=== PATIENT | female | born 1940 | race Caucasian/White ===

== ENCOUNTER 2017-07-17 16:43 | Inpatient (IN) | payer MEDICARE ==
[2017-07-17 17:33] LABS: ABS Basophils 0.1 10^3/ul (0-0.2); ABS Eosinophils 0.2 10^3/ul (0-0.6); ABS Lymphocytes 1.9 10^3/ul (1.0-4.8); ABS Monocytes 0.4 10^3/ul (0-0.8); ABS Neutrophils 4.4 10^3/ul (1.5-7.7); ABS Nucleated RBC 0 10^3/ul; Eosinophil % 2.3 % (0-6); Hematocrit 36 % (35-47); Hemoglobin 12.7 g/dl (12.0-16.0); Lymphocyte % 27.3 % (25-47); Mean Corpuscular HGB Conc 35 g/dl (31-36); Mean Corpuscular Hemoglobin 31 pg (27-31); Mean Corpuscular Volume 89 fL (80-97); Mean Platelet Volume 7.5 um3 (7.4-10.4); Nucleated Red Blood Cells % 0; Platelet Count 204 10^3/ul (150-450); Red Cell Distribution Width 14 % (10.5-15); White Blood Count 6.9 10^3/ul (3.5-10.8)
[2017-07-17 17:55] LABS: Urine Appearance Cloudy; Urine Blood 3+ (Negative); Urine Color Yellow; Urine Ketones Negative (Negative); Urine Protein 3+(>=500 mg/dL) (Negative); Urine Specific Gravity 1.015 (1.010-1.030); Urine Urobilinogen Negative (Negative)
[2017-07-17 17:58] LABS: EGFR Non-African American 57.2 (>60)
--- NOTE | 2017-07-17 18:26 | RAD ---
Indication: Dizziness. CT of the brain was performed without IV contrast. Intratesticular structures are midline. No midline shift is noted. The extra-axial spaces are unremarkable. There is no evidence of intracranial mass or hemorrhage. No other high or low density is identified. Periventricular lucency consistent with chronic ischemic White matter change is noted. Mastoid air cells and paranasal sinuses are unremarkable. IMPRESSION: Chronic ischemic White matter change without evidence of intracranial mass or hemorrhage.
--- NOTE | 2017-07-17 18:30 | RAD ---
Indication: Dizziness. CT of the cervical spine was obtained in the axial plane. Sagittal and coronal reconstructed images were obtained. The skull base demonstrates no fracture. Mastoid air cells are unremarkable. The C1 ring is intact. No fracture is noted. Calcification of the transverse ligament is noted. At C2-C3 there is no fracture. Mild facet arthropathy is noted. No central or foraminal stenosis is noted. At C3-C4 spondylitic ridge is noted. No central or foraminal stenosis is noted. At C4-C5 spondylitic ridge flattens the thecal sac. No central or foraminal stenosis is noted. At C5-C6 spondylitic ridge with broad-based protrusion flattens the thecal sac. No central foraminal stenosis is noted. At C6-C7 spondylitic ridge flattens the thecal sac. No central or foraminal stenosis is noted. At C7-T1 and T1-T2 no fracture is noted. The lung apices are grossly unremarkable. The thyroid demonstrates calcifications within it and appears to be somewhat enlarged. No definite abnormal adenopathy is noted in the soft tissues. IMPRESSION: Multilevel degenerative disc disease is noted. No fracture of the cervical spine is noted.
[2017-07-17] MEDS ORDERED: Labetalol IV* 5 MG/ML 20 ML VIAL IV PUSH ONE (18:38)
--- NOTE | 2017-07-17 18:45 | RAD ---
Indication: Right arm injury. 2 views of the right humerus are reviewed and compared to previous exam dated 07/30/2014 and 06/19/2010. There is a angulated healing fracture of the distal humeral shaft which was fractured into thousand 11 and appears to be unchanged in position since July 30, 2014. There is deformity of the right humeral head with overriding of the fracture fragments. Overall configuration appears to be unchanged from July 30, 2014. IMPRESSION: Fracture of the right distal humerus. Deformity of the right humeral head. Overall no significant change is noted since July 30, 2014.
--- NOTE | 2017-07-17 18:46 | RAD ---
Indication: Right shoulder injury. 4 views of the right shoulder demonstrates deformity of the right humeral head with prior fracture of the neck of the humerus which appears to be similar to that seen in 2015. This deformity has been present as far back as February 05, 2013, CT of the chest. AC joint arthritis is noted. IMPRESSION: AC joint arthritis with deformity of the right humeral head and overriding of the fracture fragments.
--- NOTE | 2017-07-17 18:47 | RAD ---
Indication: Dizziness. 2 views of the chest are reviewed and compared to previous exam dated January 06, 2015. No mediastinal shift is noted. Cardiomegaly is noted. Lung price are clear. Left shoulder prosthesis is noted unchanged. Deformity of the right humeral head was not clearly seen on previous exam. However this was unchanged from January 06, 2013. IMPRESSION: POSTOPERATIVE CHANGES OF THE LEFT SHOULDER, DEFORMITY OF THE RIGHT HUMERAL HEAD WHICH IS CHRONIC. LUNGS ARE CLEAR.
[2017-07-17] MEDS ORDERED: Ciprofloxacin 400MG IVPREMIX(* 400 MG/200 ML BAG IVPB ONE (19:10)
[2017-07-17] MEDS ORDERED: Morphine VIAL* 4 MG/ML VIAL (1 ml vial) IV ONE (19:10)
[2017-07-17] MEDS ORDERED: Acetaminophen TAB* 325 MG PO PRN (19:41)
[2017-07-17] MEDS ORDERED: Dextrose 50% Syringe 50 ML* 25 GM/50 ML SYRINGE IV PUSH PRN (19:41)
[2017-07-17] MEDS ORDERED: Ondansetron 40 MG VIAL* 2 MG/ML 20 ML VIAL IV PRN (19:41)
[2017-07-17] MEDS ORDERED: hydrALAZINE IV* 20 MG/ML VIAL IV SLOW PU PRN (19:41)
--- NOTE | 2017-07-17 19:42 | ED ---
Nael Rodriguez Angela, scribed for Brennan Bryan MD on 07/17/17 at 1724 . Complex/Multi-Sys Presentation - HPI Summary HPI Summary: This pt is a 77 y/o female, with hx of Parkinson's disease, presenting to [facility] c/o weakness and increased tremors for the past few days. Pt states that on 07/10 pt fell landing on her right hand, striking her face. Pt has been c/o right hand, right arm pain, right shoulder pain since then. She saw her PCP and had a R hand XR on 07/14/17, which resulted negative for fracture. Per daughter, pt has been unable to ambulate and falling due to worsening Parkinson's. Denies abd pain, chest pain, SOB, fever. Pt's neurologist is Dr. Garza. She additionally reports hx of sciatica pain, currently denies any pain. PMHx includes dropped right wrist, left shoulder replacement Pt lives at home alone. - History Of Current Complaint Chief Complaint: EDDizziness Time Seen by Provider: 07/17/17 17:09 Hx Obtained From: Patient, Family/Horticulturalist - Daughter Onset/Duration: Lasting Days, Still Present Timing: Days Severity Currently: Moderate Location: Pain At: - right hand, right arm Aggravating Factor(s): moving, ambulating Alleviating Factor(s): nothing Associated Signs And Symptoms: Positive: Weakness, Back Pain - chronic, Other - POS: increasing tremors, right hand pain, right arm pain, right shoulder pain. Negative: SOB, Chest Pain, Nausea, Vomiting, Abdominal Pain, Fever - Allergies/Home Medications Allergies/Adverse Reactions: Allergies Allergy/AdvReac Type Severity Reaction Status Date / Time Penicillins Allergy Anaphylatic Verified 07/17/17 16:50 Shock Home Medications: Home Medications ALPRAZolam TAB* [Xanax TAB*] 0.25 mg PO TID PRN 07/17/17 [History Confirmed 05/31] Amantadine CAP* [Symmetrel CAP*] 100 mg PO BID 07/17/17 [History Confirmed 07/17] Aspirin EC TAB* [Ecotrin EC Low Dose 81 MG*] 81 mg PO DAILY 07/17/17 [History Confirmed 07/17/17] Carbidopa/Levodop 25/100 MG(*) [Sinemet 25/100 TAB(*)] 1 tab PO BEDTIME [History Confirmed 07/17/17] Carbidopa/Levodop 25/100 MG(*) [Sinemet 25/100 TAB(*)] 1 tab PO QAM 07/17/17 [ History Confirmed 07/17/17] Carbidopa/Levodop 25/100 MG(*) [Sinemet 25/100 TAB(*)] 2 tab PO DAILY 07/17/17 [ History Confirmed 07/17/17] Carbidopa/Levodop 25/100 MG(*) [Sinemet 25/100 TAB(*)] 2 tab PO QAM 07/17/17 [ History Confirmed 07/17/17] Carbidopa/Levodop 25/100 MG(*) [Sinemet 25/100 TAB(*)] 2 tab PO QPM 07/17/17 [ History Confirmed 07/17/17] Cyanocobalamin TAB* [Vitamin B12 TAB*] 500 mcg PO DAILY 07/17/17 [History Confirmed 07/17/17] Glimepiride (NF) 4 mg PO DAILY 07/17/17 [History Confirmed 07/17/17] Ibuprofen TAB* [Motrin TAB* 600 MG] 600 mg PO Q6H PRN 07/17/17 [History Confirmed 07/17/17] Insulin GLARGINE(*) [Lantus(*)] 40 units SUBCUT QPM 07/17/17 [History Confirmed 07/17/17] Lisinopril TAB* [Prinivil TAB*] 20 mg PO DAILY 07/17/17 [History Confirmed 07/17] Lisinopril/HCTZ 10/12.5(NF) [Zestoretic 10/12.5(NF)] 1 tab PO BID 07/17/17 [ History Confirmed 07/17/17] Metoprolol Tartrate TAB* [Lopressor TAB*] 25 mg PO BID 07/17/17 [History Confirmed 07/17/17] Omeprazole CAP* [Prilosec CAP* 20 MG] 20 mg PO DAILY 07/17/17 [History Confirmed 07/17/17] Selegiline TAB* [Eldepryl TAB*] 5 mg PO QAM 07/17/17 [History Confirmed 07/17/17 ] Simvastatin (NF) [Zocor (NF)] 40 mg PO BEDTIME 07/17/17 [History Confirmed 07/17] SitaGLIPtin (NF) [Januvia (NF)] 100 mg PO DAILY 07/17/17 [History Confirmed 05/31] metFORMIN* [Glucophage 500 MG TAB *] 500 mg PO BID 07/17/17 [History Confirmed 07/17/17] oxyCODONE TAB* [Roxycodone TAB 5 mg*] 5 mg PO Q6H PRN 07/17/17 [History Confirmed 07/17/17] PMH/Surg Hx/FS Hx/Imm Hx Endocrine/Hematology History: Reports: Hx Diabetes Denies: Hx Anticoagulant Therapy Cardiovascular History: Reports: Hx Hypertension - ON MEDS Denies: Hx Pacemaker/ICD History: Denies: Hx Renal Disease Musculoskeletal History: Reports: Hx Arthritis, Hx Back Problems - degenerative discs, sciatica, Other Musculoskeletal History - humerus fracture Sensory History: Denies: Hx Hearing Aid Neurological History: Reports: Other Neuro Impairments/Disorders - Parkinson's disease Psychiatric History: Reports: Hx Anxiety - claustrophobia Denies: Hx Panic Disorder - Surgical History Surgery Procedure, Year, and Place: right arm following humerus fx, appendectomy , hysterectomy, cataracts, left shoulder REPLACEMENT Infectious Disease History: No Infectious Disease History: Reports: Hx of Known/Suspected MRSA Denies: Traveled Outside the [place] in Last 30 Days - Family History Known Family History: Positive: Hypertension, Diabetes - Social History Alcohol Use: None Substance Use Type: Reports: None Smoking Status (MU): Never Smoked Tobacco Review of Systems Negative: Fever ENT: Negative Cardiovascular: Negative Respiratory: Negative Musculoskeletal: Other - right hand pain, right arm pain, right shoulder pain, chronic back pain Neurological: Other - worsening tremors Positive: Weakness All Other Systems Reviewed And Are Negative: Yes Physical Exam - Summary Physical Exam Summary: VITAL SIGNS: Reviewed. GENERAL: Patient is a well-developed and nourished female who is lying comfortable in the stretcher. Patient is not in any acute respiratory distress. HEAD AND FACE: No signs of trauma. No ecchymosis, hematomas or skull depressions. No sinus tenderness. EYES: PERRLA, EOMI x 2, No injected conjunctiva, no nystagmus. EARS: Hearing grossly intact. Ear canals and tympanic membranes are within normal limits. MOUTH: Oropharynx within normal limits. NECK: Supple, trachea is midline, no adenopathy, no JVD, no carotid bruit, no c- spine tenderness, neck with full ROM. CHEST: Symmetric, no tenderness at palpation LUNGS: Clear to auscultation bilaterally. No wheezing or crackles. CVS: Regular rate and rhythm, S1 and S2 present, no murmurs or gallops appreciated. ABDOMEN: Soft, non-tender. No signs of distention. No rebound no guarding, and no masses palpated. Bowel sounds are normal. EXTREMITIES: FROM in all major joints, no cyanosis or clubbing. Right hand tenderness. NEURO: Alert and oriented x 3. No acute neurological deficits. Speech is normal and follows commands. SKIN: Dry and warm GCS: 15 Triage Information Reviewed: Yes Vital Signs On Initial Exam: Initial Vitals Temp Pulse Resp BP Pulse Ox 97.8 F 81 17 173/112 96 07/17/17 16:47 07/17/17 16:47 07/17/17 16:47 07/17/17 16:47 07/17/17 16:47 Vital Signs Reviewed: Yes Diagnostics - Vital Signs Vital Signs Temp Pulse Resp BP Pulse Ox 07/17/17 16:47 97.8 F 81 17 173/112 96 - Laboratory Lab Results: Lab Results 07/17/17 07/17/17 07/17/17 Range/Units 17:19 17:19 17:19 WBC 6.9 (3.5-10.8) 10^3/ul RBC 4.10 (4.0-5.4) 10^6/ul Hgb 12.7 (12.0-16.0) g/dl Hct 36 (35-47) % MCV 89 (80-97) fL MCH 31 (27-31) pg MCHC 35 (31-36) g/dl RDW 14 (10.5-15) % Plt Count 204 (150-450) 10^3/ul MPV 7.5 (7.4-10.4) um3 Neut % (Auto) 63.5 (38-83) % Lymph % (Auto) 27.3 (25-47) % [place] % (Auto) 5.8 (0-7) % Eos % (Auto) 2.3 (0-6) % Baso % (Auto) 1.1 (0-2) % Absolute Neuts (auto) 4.4 (1.5-7.7) 10^3/ul Absolute Lymphs (auto) 1.9 (1.0-4.8) 10^3/ul Absolute Monos (auto) 0.4 (0-0.8) 10^3/ul Absolute Eos (auto) 0.2 (0-0.6) 10^3/ul Absolute Basos (auto) 0.1 (0-0.2) 10^3/ul Absolute Nucleated RBC 0 10^3/ul Nucleated RBC % 0 APTT (26.0-36.3) seconds Sodium 138 L (139-145) mmol/L Potassium 3.9 (3.5-5.0) mmol/L Chloride 101 (101-111) mmol/L Carbon Dioxide 27 (22-32) mmol/L Anion Gap 10 (2-11) mmol/L BUN 29 H (6-24) mg/dL Creatinine 0.95 (0.51-0.95) mg/dL Est GFR ( Amer) 73.6 (>60) Est GFR (Non-Af Amer) 57.2 (>60) BUN/Creatinine Ratio 30.5 H (8-20) Glucose 231 H (70-100) mg/dL Lactic Acid 1.5 (0.5-2.0) mmol/L Calcium 9.0 (8.6-10.3) mg/dL Magnesium 1.2 L (1.9-2.7) mg/dL Total Bilirubin 0.40 (0.2-1.0) mg/dL AST 9 L (13-39) U/L ALT 6 L (7-52) U/L Alkaline Phosphatase 59 (34-104) U/L Troponin I 0.00 (<0.04) ng/mL B-Natriuretic Peptide ( - 100) pg/mL Total Protein 6.8 (6.4-8.9) g/dL Albumin 3.8 (3.2-5.2) g/dL Globulin 3.0 (2-4) g/dL Albumin/Globulin Ratio 1.3 (1-3) TSH Cancelled Urine Color Urine Appearance Urine pH (5-9) Ur Specific [place] (1.010-1.030) Urine Protein (Negative) Urine Ketones (Negative) Urine Blood (Negative) Urine Nitrate (Negative) Urine Bilirubin (Negative) Urine Urobilinogen (Negative) Ur Leukocyte Esterase (Negative) Urine WBC (Auto) (Absent) Urine RBC (Auto) (Absent) Ur Squamous Epith Cells (Absent) Urine Bacteria (Absent) Urine Glucose (Negative) Urine Opiates Screen (None Detect) Ur Barbiturates Screen (None Detect) Ur Phencyclidine Scrn (None Detect) Ur Amphetamines Screen (None Detect) U Benzodiazepines Scrn (None Detect) Urine Cocaine Screen (None Detect) U Cannabinoids Screen (None Detect) Serum Alcohol (<10) mg/dL 07/17/17 07/17/17 07/17/17 Range/Units 17:19 17:19 17:19 WBC (3.5-10.8) 10^3/ul RBC (4.0-5.4) 10^6/ul Hgb (12.0-16.0) g/dl Hct (35-47) % MCV (80-97) fL MCH (27-31) pg MCHC (31-36) g/dl RDW (10.5-15) % Plt Count (150-450) 10^3/ul MPV (7.4-10.4) um3 Neut % (Auto) (38-83) % Lymph % (Auto) (25-47) % [place] % (Auto) (0-7) % Eos % (Auto) (0-6) % Baso % (Auto) (0-2) % Absolute Neuts (auto) (1.5-7.7) 10^3/ul Absolute Lymphs (auto) (1.0-4.8) 10^3/ul Absolute Monos (auto) (0-0.8) 10^3/ul Absolute Eos (auto) (0-0.6) 10^3/ul Absolute Basos (auto) (0-0.2) 10^3/ul Absolute Nucleated RBC 10^3/ul Nucleated RBC % APTT 26.7 (26.0-36.3) seconds Sodium (139-145) mmol/L Potassium (3.5-5.0) mmol/L Chloride (101-111) mmol/L Carbon Dioxide (22-32) mmol/L Anion Gap (2-11) mmol/L BUN (6-24) mg/dL Creatinine (0.51-0.95) mg/dL Est GFR ( Amer) (>60) Est GFR (Non-Af Amer) (>60) BUN/Creatinine Ratio (8-20) Glucose (70-100) mg/dL Lactic Acid (0.5-2.0) mmol/L Calcium (8.6-10.3) mg/dL Magnesium (1.9-2.7) mg/dL Total Bilirubin (0.2-1.0) mg/dL AST (13-39) U/L ALT (7-52) U/L Alkaline Phosphatase (34-104) U/L Troponin I (<0.04) ng/mL B-Natriuretic Peptide 56 ( - 100) pg/mL Total Protein (6.4-8.9) g/dL Albumin (3.2-5.2) g/dL Globulin (2-4) g/dL Albumin/Globulin Ratio (1-3) TSH Pending Urine Color Urine Appearance Urine pH (5-9) Ur Specific [place] (1.010-1.030) Urine Protein (Negative) Urine Ketones (Negative) Urine Blood (Negative) Urine Nitrate (Negative) Urine Bilirubin (Negative) Urine Urobilinogen (Negative) Ur Leukocyte Esterase (Negative) Urine WBC (Auto) (Absent) Urine RBC (Auto) (Absent) Ur Squamous Epith Cells (Absent) Urine Bacteria (Absent) Urine Glucose (Negative) Urine Opiates Screen (None Detect) Ur Barbiturates Screen (None Detect) Ur Phencyclidine Scrn (None Detect) Ur Amphetamines Screen (None Detect) U Benzodiazepines Scrn (None Detect) Urine Cocaine Screen (None Detect) U Cannabinoids Screen (None Detect) Serum Alcohol < 10 (<10) mg/dL 07/17/17 07/17/17 Range/Units 17:44 17:44 WBC (3.5-10.8) 10^3/ul RBC (4.0-5.4) 10^6/ul Hgb (12.0-16.0) g/dl Hct (35-47) % MCV (80-97) fL MCH (27-31) pg MCHC (31-36) g/dl RDW (10.5-15) % Plt Count (150-450) 10^3/ul MPV (7.4-10.4) um3 Neut % (Auto) (38-83) % Lymph % (Auto) (25-47) % [place] % (Auto) (0-7) % Eos % (Auto) (0-6) % Baso % (Auto) (0-2) % Absolute Neuts (auto) (1.5-7.7) 10^3/ul Absolute Lymphs (auto) (1.0-4.8) 10^3/ul Absolute Monos (auto) (0-0.8) 10^3/ul Absolute Eos (auto) (0-0.6) 10^3/ul Absolute Basos (auto) (0-0.2) 10^3/ul Absolute Nucleated RBC 10^3/ul Nucleated RBC % APTT (26.0-36.3) seconds Sodium (139-145) mmol/L Potassium (3.5-5.0) mmol/L Chloride (101-111) mmol/L Carbon Dioxide (22-32) mmol/L Anion Gap (2-11) mmol/L BUN (6-24) mg/dL Creatinine (0.51-0.95) mg/dL Est GFR ( Amer) (>60) Est GFR (Non-Af Amer) (>60) BUN/Creatinine Ratio (8-20) Glucose (70-100) mg/dL Lactic Acid (0.5-2.0) mmol/L Calcium (8.6-10.3) mg/dL Magnesium (1.9-2.7) mg/dL Total Bilirubin (0.2-1.0) mg/dL AST (13-39) U/L ALT (7-52) U/L Alkaline Phosphatase (34-104) U/L Troponin I (<0.04) ng/mL B-Natriuretic Peptide ( - 100) pg/mL Total Protein (6.4-8.9) g/dL Albumin (3.2-5.2) g/dL Globulin (2-4) g/dL Albumin/Globulin Ratio (1-3) TSH Urine Color Yellow Urine Appearance Cloudy Urine pH 5.0 (5-9) Ur Specific [place] 1.015 (1.010-1.030) Urine Protein 3+(>=500 mg/dl) A (Negative) Urine Ketones Negative (Negative) Urine Blood 3+ A (Negative) Urine Nitrate Negative (Negative) Urine Bilirubin Negative (Negative) Urine Urobilinogen Negative (Negative) Ur Leukocyte Esterase Negative (Negative) Urine WBC (Auto) 2+(11-20/hpf) A (Absent) Urine RBC (Auto) 3+(>10/hpf) A (Absent) Ur Squamous Epith Cells Present A (Absent) Urine Bacteria Absent (Absent) Urine Glucose 1+(50 mg/dl) A (Negative) Urine Opiates Screen None detected (None Detect) Ur Barbiturates Screen None detected (None Detect) Ur Phencyclidine Scrn None detected (None Detect) Ur Amphetamines Screen Presumptive positive A (None Detect) U Benzodiazepines Scrn None detected (None Detect) Urine Cocaine Screen None detected (None Detect) U Cannabinoids Screen None detected (None Detect) Serum Alcohol (<10) mg/dL Result Diagrams: 07/17/17 17:19 07/17/17 17:19 Lab Statement: Any lab studies that have been ordered have been reviewed, and results considered in the medical decision making process. - Radiology Chest XR Xray Interpretation: No Acute Changes - IMPRESSION: Postoperative changes of the left shoulder, deformity of the right humeral head which is chronic. Lungs are clear. Dr. Bryan has reviewed this radiology report. Radiology Interpretation Completed By: Radiologist Right humerus XR Xray Interpretation: No Acute Changes - IMPRESSION: Fracture of the right distal humerus. Deformity of the right humeral head. Overall no significant change is noted since July 30, 2014. Dr. Bryan has reviewed this radiology report. Radiology Interpretation Completed By: Radiologist Left shoulder XR Xray Interpretation: No Acute Changes - IMPRESSION: AC joint arthritis with deformity of the right humeral head and overriding of the fracture segments. Dr. Bryan has reviewed this radiology report. Radiology Interpretation Completed By: Radiologist - CT Brain CT CT Interpretation: No Acute Changes - IMPRESSION: Chronic ischemic white matter change without evidence of intracranial mass or hemorrhage. Dr. Bryan has reviewed this radiology report. CT Interpretation Completed By: Radiologist Cervical spine CT CT Interpretation: No Acute Changes - IMPRESSION: Multilevel degenerative disc disease is noted. No fracture of the cervical spine is noted. Dr. Bryan has reviewed this radiology report. CT Interpretation Completed By: Radiologist - EKG 17:13 Cardiac Rate: NL - at 80 bpm EKG Rhythm: Sinus Rhythm EKG Interpretation: Poor quality EKG. RBBB. EKG Comparison: No Significant Change - Unchanged from prior EKG on 01/07/15. Complex Multi-Symp Course/Dx Assessment/Plan: This patient is a 77-year-old female who presents to the emergency department with chief complaint of having increase weakness, multiple falls, pain in the left shoulder, right arm, head and neck. She reports that she fell on Monday, she denies any syncopal episodes. Denies any loss of consciousness. She lives home alone. Head CT impression: No acute intracranial pathology. C-spine CT impression: No acute fracture dislocation. Right shoulder x-ray no acute fracture dislocation only old findings. Chest x- ray impression: Postoperative changes of the left shoulder. Deformity of the right humeral head which is chronic. Lungs are clear. The patients daughter reports she lives alone and she has had multiple falls in the last couple weeks. Patient's last fall was on July 13 and since then the patient is having neck pain, right shoulder pain, increased pain trembles secondary to her Parkinsons disease. Because of her pain the patient was given morphine IV, for hypertension the patient was given labetalol, and reasonably the patient has a UTI since she has and the strong smell of concentrated a possibly infected urine I would place the patient with ciprofloxacin. The urine was sent for cultures and if negative then we will DC the ciprofloxacin. Since the patient is alert she is an unsafe discharge therefore I discussed the case with Dr. Vincent from the hospitalist services and he accepted the patient for admission. - Diagnoses Provider Diagnoses: UTI (urinary tract infection), Accident due to mechanical fall without injury, Uncontrolled hypertension - Physician Notifications Discussed Care Of Patient With: Fidencio Vincent Time Discussed With Above Provider: 18:56 Instructed by Provider To: Other - I discussed pt care with Dr. Vincent, hosptialist, who has accepted the pt for admission. [19:05] I discussed with Dr. Mcmullen, radiologist, who reports the distal humerus fracture is chronic. Discharge - Sign-Out/Discharge Documenting (check all that apply): Discharge/Admit/Transfer - Admit - Discharge Plan Condition: Stable Disposition: ADMITTED TO [facility] Referrals: Valentina Rincon, BELLPERSON [Primary Care Provider] - The documentation as recorded by the Nael mcfadden Angela accurately reflects the service I personally performed and the decisions made by , Brennan Bryan MD.
[2017-07-17] MEDS ORDERED: Magnesium Sulfate 2 GM IV* 2 GM/50 ML BAG IVPB ONE (20:08)
[2017-07-17] MEDS ORDERED: Lisinopril/HCTZ 10/12.5(NF) TAB PO SCH (21:00)
--- NOTE | 2017-07-17 21:07 | RAD ---
Indication: Right wrist pain. 3 views of the right wrist demonstrates no fracture. No other bone or joint abnormality is identified. IMPRESSION: No fracture of the right wrist is present.
--- NOTE | 2017-07-17 21:07 | RAD ---
Indication: Fall, hand pain. 2 views of the right hand demonstrates degenerative changes of the proximal interphalangeal joint and distal interphalangeal joint without fracture. IMPRESSION: DEGENERATIVE CHANGES OF THE PROXIMAL AND DISTAL INTERPHALANGEAL JOINTS WITHOUT FRACTURE.
[2017-07-17] MEDS: Insulin LISPRO* 1 UNITS UNIT SUBCUT SCH (21:34)
[2017-07-17] MEDS ORDERED: Heparin VIAL(*) 5000 UNITS/ML VIAL (FIVE THOUSAND) SUBCUT SCH (22:00)
[2017-07-17] MEDS: Metoprolol Tartrate TAB* 25 MG PO SCH (22:52)
[2017-07-17] MEDS: Amantadine CAP* 100 MG PO SCH (22:52)
[2017-07-17] MEDS: Heparin VIAL(*) 5000 UNITS/ML VIAL (FIVE THOUSAND) SUBCUT SCH (22:55)
[2017-07-17] MEDS: Carbidopa/Levodop CR 50/200(*) TAB.CR PO SCH (23:41)
[2017-07-17] MEDS: Atorvastatin* 20 MG TAB PO SCH (23:41)
[2017-07-17] MEDS: Lidocaine PATCH 5%* 1 PATCH TRANSDERM SCH (23:47)
[2017-07-18] MEDS: Lisinopril TAB* 10 MG PO SCH ×3 (00:44→21:07)
[2017-07-18] MEDS: Hydrochlorothiazide TAB* 25 MG PO SCH ×3 (00:44→21:03)
[2017-07-18] MEDS: Carbidopa/Levodop 25/100 MG TAB(*) PO SCH ×4 (00:45→21:09)
--- NOTE | 2017-07-18 05:43 | HP ---
ADDENDUM NOW INCLUDED ON THIS REPORT CC: Dr. Walden; KIRA Beard; Dr. Garza * HISTORY AND PHYSICAL: DATE OF ADMISSION: 07/17/17 PRIMARY CARE PROVIDERS: Dr. Walden and KIRA Beard. PRIMARY NEUROLOGIST: Dr. Garza. ATTENDING PHYSICIAN WHILE IN THE HOSPITAL: Dr. Cruz * (report being dictated by Marcelino Mcclure NP). CHIEF COMPLAINT: 1. Fall. 2. Right shoulder pain. 3. Weakness. HISTORY OF PRESENT ILLNESS: Ms. Deleon is a 77-year-old female patient. She carries a history of Parkinson's, GERD, hyperlipidemia, depression, TIA, diabetes, hypertension, chronic pain, arthritis. 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 She is coming into our ER today. She says that she sustained a fall on . She had actually landed mostly on her left side, but the pain that she has been having has actually been in her right shoulder where she had a previous fracture. She comes in today because, despite seeing her primary on Monday, she had x-rays of the right hand and the right wrist, which has significant amount of ecchymosis. She also was just having more weakness. She says the weakness has been going on since March, but the weakness was much worse in the last week. She has been having trouble with her gait. She said she has been shuffling more, she has been having just trouble getting up, she has been very afraid of falling. She called her neighbor 11 times last night due to the concerns of falling. She was concerned because that she just was unable to sleep because the pain was getting much worse in her back, which is chronic, but also in that right shoulder area. She had come into the ED today. She was evaluated; it was found she did have UTI and because of increasing weakness and falls, we were asked to evaluate for admission. She is denying having any chest pain. She denies having any fevers or chills. There has been no abdominal pain. She denies having any vomiting or diarrhea. The only change in her medication is recently they went up on her Januvia. Because of the weakness, we were asked to evaluate for admission. PAST MEDICAL HISTORY: Significant for: 1. Parkinson's. 2. GERD. 3. Hyperlipidemia. 4. Depression. 5. TIA. 6. Diabetes. 7. Hypertension. 8. Chronic pain. 9. Arthritis. 10. History of left shoulder septic joint. 11. 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 12. Subarachnoid hemorrhage. PAST SURGICAL HISTORY: 1. She has had multiple surgeries to the left shoulder. 2. She has had hysterectomy. 3. She has had eye surgery. MEDICATIONS: Home meds according to the patient include: 1. Carbidopa/levodopa, she is actually taking 25/100 controlled release at bedtime, she is taking two tablets at 8 in the morning 1400 and 2000. 2. Percocet one tablet every 4 hours as needed, but she says she has not taken that in several months. 3. Zocor 40 mg p.o. daily. 4. Selegiline 5 mg daily. 5. B12 500 mcg daily. 6. Omeprazole 20 mg daily. 7. Metformin 500 mg p.o. b.i.d. 8. Lopressor 25 mg p.o. b.i.d. 9. Lisinopril/hydrochlorothiazide 1 tablet p.o. b.i.d. 10. Januvia 100 mg daily. 11. Lantus 40 units subcu q.p.m. 12. Motrin 600 mg every 6 hours as needed. 13. Glimepiride 4 mg p.o. daily. 14. Aspirin 81 mg daily. 15. Amantadine 100 mg p.o. b.i.d. 16. Xanax 0.25 mg p.o. t.i.d. as needed, but she again has not taken that in over a month. ALLERGIES TO MEDICATIONS: Include PENICILLIN. FAMILY HISTORY: Her mother had a history of MA and heart disease. The patient' s father had a history of coronary artery disease. SOCIAL HISTORY: The patient does not smoke, rarely drinks alcohol. Surrogate decision maker is her daughter, Santi. REVIEW OF SYSTEMS: There is no documented fever. Denied having any significant weight change. There is no double vision. She denies having any ear discharge. There was no rhinorrhea. There is no sore throat. No thyroid enlargement. She denied any chest pain. There is no orthopnea. There is no nocturnal dyspnea. She denies having any abdominal pain. There was no nausea, no vomiting. No dysuria, no frequency. No seizure, no loss of consciousness. No pruritus and no skin ulcerations. Review of 14 systems completed, all others negative. PHYSICAL EXAMINATION GENERAL: Ms. Deleon is a 77-year-old female patient. She is sitting in the ED stretcher. She does not appear to be in any acute distress. VITAL SIGNS: Reveal blood pressure 180/73, the pulse is 80; respirations 16; O2 saturation is 95%, temperature 97.8. HEENT: Head atraumatic, normocephalic. Eyes: EOMs intact. Sclerae anicteric and not pale. Throat: Oral mucosa appears to be moist. No oropharyngeal erythema. NECK: Supple. LUNGS: Clear to auscultation bilaterally. No wheezes, rales, or rhonchi. HEART: Sounds S1, S2. Regular rate and rhythm. No murmurs, rubs, or gallops. ABDOMEN: Soft, flat, nontender. Bowel sounds present. EXTREMITIES: Pulses were 2+ throughout. She has tremors noted in the lower extremity. She is again rigid with dorsi and plantarflexion. She has no peripheral edema. She can move her extremities with 5/5 strength. She does have ecchymosis noted to that right wrist and hand. NEUROLOGIC: She is awake, she is alert, she is oriented x3. Speech is clear. Tongue midline. She had no gross focal deficits. She is able to move all 4 extremities. SKIN: Grossly intact. There was ecchymosis again noted to the right hand. DIAGNOSTIC STUDIES/LAB DATA: Today are revealing a WBC of 6.9, RBC of 4.10, hemoglobin 12.7, hematocrit 36, platelet count 204. PTT was 26.7. Sodium 138, potassium 2.9, chloride 101, bicarb 27, BUN 29, creatinine of 0.95, glucose 231 , lactate 1.5, calcium 9.0, her mag was 1.2. Total bili 0.4, AST 9, ALT 6, alk phos 59. Troponin 0. BNP 56. Albumin of 3.8. Urine showed 3+ protein, 3+ blood, 2+ leukocyte esterase, 2+ rbc's, 2+ wbc's. Toxicology was positive for amphetamine. She had multiple imaging here in the ED, starting out brain CT showed chronic ischemic white matter change without evidence of intracranial mass or hemorrhage. She had chest x-ray, 2 views: Postoperative change to the left shoulder, deformity of the right humeral head which is chronic. Lungs are clear. She had CT cervical spine that showed multilevel degenerative disk disease noted. No fracture of the cervical spine. She had humerus x-ray on the right, which showed fracture of the right distal humerus, deformity of the right humeral head. Overall, no significant change is noted since 03/01/14. She had a shoulder right, 2 views: AC joint arthritis with deformity of the right humeral head and overriding of the fracture fragments. She did have an EKG today. EKG to me is showing a sinus rhythm, rate of 80, calling A-flutter, but when you look in V6, V5, and V4, I do not see the flutter wave, I suspect this is from the tremor that she is tremoring quite significantly in the lower legs, not to rate of 80, it is very regular and she does have a right bundle branch block. Previous EKGs, it appears to be similar again with the exception of the tremor. I am going to try to repeat this EKG. Old medical records were reviewed. ASSESSMENT AND PLAN: Ms. Deleon is a 77-year-old female patient coming into the ED today with complaints of fall, weakness, and evaluation today. There is concern for urinary tract infection. She will be admitted under inpatient status for: 1. Weakness with falls. Again, she has a chronic fracture of that right humerus. She is very weak on exam. She has had a fall. In addition to that, she has a urinary tract infection. My plan will be to go ahead and treat her with IV antibiotics. She has grown out Escherichia coli previously, which was sensitive to Cipro, so I am going to go ahead and continue with Cipro, which was ordered here in the ED. I am going to recommend PT evaluation. I suspect this is going to be longer than a 24-hour stay as the patient is going to need significant services. My plan will be to treat the urinary tract infection, see if she improves, get PT evaluations and to continue to follow. 2. Parkinson's. We will continue her meds as prescribed. 3. Diabetes. She will be on lispro sliding scale. 4. Depression and anxiety. Continue with supportive care and meds as prescribed. 5. Transient ischemic attack. Continue aspirin and statin and secondary prevention. 6. Hyperlipidemia. Statin therapy. 7. Hypertension. Her blood pressure is not well controlled. When she came in , she was in the 190s; this could be multifactorial. She is having a significant amount of pain and she is very anxious. My plan would be to try to treat the underlying cause. If this remains an issue, I did order p.r.n. hydralazine. 8. Chronic pain. We will continue p.r.n. tramadol in addition to this Lidoderm patch. 9. History of arthritis. Continue supportive care. 10. History of right femur fracture. The x-ray appears to be unchanged. We will go ahead and continue with current medical regimen. 11. History of subarachnoid hemorrhage. No longer present. Not an active issue. 12. History of septic joint. Again, not an active issue at this point. 13. DVT prophylaxis. She is high risk for deep venous thrombosis. I do think that we should go ahead and put her on heparin subcu, even with her history that the subarachnoid was 2 years ago. 14. Fluids, electrolytes, and nutrition. She can have a consistent carb diet. 15. Code status. She is a DNR/DNI. She did fill out MOLST form, it just needs to be signed by the attending. TIME SPENT: On the admission was 60 minutes, greater than half of the time was spent [id number] with the patient obtaining history and physical, the other half of the time was spent going over the plan of care with the patient and implementing the plan of care. I did discuss plan of care with my attending, Dr. Cruz; he is in agreement. ADDENDUM: I did note that her magnesium was 1.2. I have replaced this and I have placed her on telemetry to monitor for any arrhythmias. We will repeat this in the morning and we will continue to follow. MARCELINO MCCLURE NP [id number]/CPS #: [id number] [id number]/CPS #: [id number] CARLEE
--- NOTE | 2017-07-18 06:16 | HP ---
HISTORY AND PHYSICAL: ADDENDUM: I did note that her magnesium was 1.2. I have replaced this and I have placed her on telemetry to monitor for any arrhythmias. We will repeat this in the morning and we will continue to follow. ELYSE TRUJILLO, CHEPE [id number]/CPS #: [id number] CARLEE
[2017-07-18 06:45] LABS: ABS Basophils 0 10^3/ul (0-0.2); ABS Eosinophils 0.1 10^3/ul (0-0.6); ABS Lymphocytes 1.4 10^3/ul (1.0-4.8); ABS Monocytes 0.5 10^3/ul (0-0.8); ABS Neutrophils 5.6 10^3/ul (1.5-7.7); ABS Nucleated RBC 0 10^3/ul; Eosinophil % 1.2 % (0-6); Hematocrit 35 % (35-47); Hemoglobin 12.2 g/dl (12.0-16.0); Lymphocyte % 18.8 % (25-47); Mean Corpuscular HGB Conc 35 g/dl (31-36); Mean Corpuscular Hemoglobin 31 pg (27-31); Mean Corpuscular Volume 89 fL (80-97); Mean Platelet Volume 7.5 um3 (7.4-10.4); Nucleated Red Blood Cells % 0.1; Platelet Count 187 10^3/ul (150-450); Red Blood Count 3.91 10^6/ul (4.0-5.4); Red Cell Distribution Width 15 % (10.5-15); White Blood Count 7.7 10^3/ul (3.5-10.8)
[2017-07-18 06:57] LABS: EGFR Non-African American 50.4 (>60)
[2017-07-18] MEDS ORDERED: Ciprofloxacin 400MG IVPREMIX(* 400 MG/200 ML BAG IVPB SCH (07:30)
[2017-07-18] MEDS: Insulin LISPRO* 1 UNITS UNIT SUBCUT SCH ×3 (07:54→17:32)
[2017-07-18] MEDS: Heparin VIAL(*) 5000 UNITS/ML VIAL (FIVE THOUSAND) SUBCUT SCH ×2 (07:54→21:10)
[2017-07-18] MEDS: Omeprazole CAP* 20 MG PO SCH (07:56)
[2017-07-18] MEDS: Amantadine CAP* 100 MG PO SCH ×2 (07:56→21:04)
[2017-07-18] MEDS: traMADol TAB* 50 MG PO PRN (07:56)
[2017-07-18] MEDS: Aspirin EC TAB* 81 MG TAB.EC PO SCH (07:56)
[2017-07-18] MEDS: Metoprolol Tartrate TAB* 25 MG PO SCH ×2 (07:56→21:06)
[2017-07-18] MEDS: Selegiline TAB* 5 MG PO SCH (07:56)
[2017-07-18] MEDS: Lidocaine Patch REMOVE* 1 NOTE MISC PATCH OFF SCH (08:52)
[2017-07-18] MEDS: oxyCODONE/Acetamin 5/325 MG* TAB PO PRN ×2 (10:08→17:39)
[2017-07-18] MEDS: Ibuprofen TAB* 600 MG PO PRN (11:16)
[2017-07-18] MEDS: predniSONE TAB* 20 MG PO SCH (12:19)
[2017-07-18] MEDS: Gabapentin CAP(*) 100 MG PO SCH ×2 (12:19→21:06)
--- NOTE | 2017-07-18 14:30 | PN ---
Subjective Date of Service: 07/18/17 Interval History: Pt report of sciatica like pain in right lower back down leg. Usually resolved with repositioning and ibuprofen at home. later developed some itching near the IV ciprofloxacin administration. PT recommending AV Objective Active Medications: Acetaminophen (Tylenol Tab*) 650 mg PO Q4H PRN PRN Reason: FEVER/PAIN Last Admin: 07/18/17 07:57 Dose: 650 mg Alprazolam (Xanax Tab*) 0.25 mg PO TID PRN PRN Reason: ANXIETY Amantadine HCl (Symmetrel Cap*) 100 mg PO BID [facility] Last Admin: 07/18/17 07:56 Dose: 100 mg Aspirin (Aspirin Ec Tab*) 81 mg PO DAILY [facility] Last Admin: 07/18/17 07:56 Dose: 81 mg Atorvastatin Calcium (Lipitor*) 20 mg PO BEDTIME [facility] Last Admin: 07/17/17 23:41 Dose: 20 mg Carbidopa/Levodopa (Sinemet 25/100 Tab(*)) 2 tab PO QPM@2000 [facility] Last Admin: 07/18/17 00:45 Dose: Not Given Carbidopa/Levodopa (Sinemet 25/100 Tab(*)) 2 tab PO QAM@0800 [facility] Last Admin: 07/18/17 10:01 Dose: 2 tab Carbidopa/Levodopa (Sinemet 25/100 Tab(*)) 2 tab PO DAILY@1400 [facility] Carbidopa/Levodopa (Sinemet Cr 50/200(*)) 0.5 tab.cr PO BEDTIME [facility] Last Admin: 07/17/17 23:41 Dose: 0.5 tab.cr Dextrose (D50w Syringe 50 Ml*) 12.5 gm IV PUSH .FOR FS < 60 - SS PRN PRN Reason: FS < 60 Gabapentin (Neurontin Cap(*)) 100 mg PO BID [facility] Last Admin: 07/18/17 12:19 Dose: 100 mg Heparin Sodium (Porcine) (Heparin Vial(*)) 5,000 units SUBCUT Q12HR [facility] Last Admin: 07/18/17 07:54 Dose: 5,000 units Hydralazine HCl (Apresoline Iv*) 5 mg IV SLOW PU Q6H PRN PRN Reason: BLOOD PRESSURE Hydrochlorothiazide (Hydrodiuril Tab*) 12.5 mg PO BID [facility] Last Admin: 07/18/17 07:56 Dose: 12.5 mg Ibuprofen (Motrin Tab*) 600 mg PO Q6H PRN PRN Reason: PAIN Last Admin: 07/18/17 11:16 Dose: 600 mg Insulin Glargine (Lantus(*)) 40 units SUBCUT QPM [facility] Insulin Human Lispro (Humalog*) 0 units SUBCUT AC [facility] PRN Reason: Protocol Last Admin: 07/18/17 12:20 Dose: 6 units Lidocaine (Lidoderm 5% Patch*) 1 patch TRANSDERM 2100 [facility] Last Admin: 07/17/17 23:47 Dose: 1 patch Lisinopril (Prinivil Tab*) 10 mg PO BID [facility] Last Admin: 07/18/17 07:56 Dose: 10 mg Melatonin (Melatonin) 3 mg PO BEDTIME PRN PRN Reason: INSOMNIA Metoprolol Tartrate (Lopressor Tab*) 25 mg PO BID [facility] Last Admin: 07/18/17 07:56 Dose: 25 mg Omeprazole (Prilosec Cap*) 20 mg PO DAILY [facility] Last Admin: 07/18/17 07:56 Dose: 20 mg Ondansetron HCl (Zofran 40 Mg Vial*) 4 mg IV Q6H PRN PRN Reason: NAUSEA Oxycodone/Acetaminophen (Percocet 5/325 Tab*) 1 tab PO Q4H PRN PRN Reason: PAIN Last Admin: 07/18/17 10:08 Dose: 1 tab Pharmacy Profile Note (Lidocaine Patch Remove*) 1 note PATCH OFF 0900 [facility] Last Admin: 07/18/17 08:52 Dose: Not Given Prednisone (Deltasone Tab*) 40 mg PO DAILY [facility] Last Admin: 07/18/17 12:19 Dose: 40 mg Selegiline HCl (Eldepryl Tab*) 5 mg PO QAM [facility] Last Admin: 07/18/17 07:56 Dose: 5 mg Tramadol HCl (Ultram*) 50 mg PO Q6H PRN PRN Reason: PAIN Last Admin: 07/18/17 07:56 Dose: 50 mg Vital Signs - 8 hr 07/18/17 07/18/17 07/18/17 07:56 08:00 08:05 Temperature 97.3 F Pulse Rate 73 Respiratory 16 16 18 Rate Blood Pressure 129/89 (mmHg) O2 Sat by Pulse 97 Oximetry 07/18/17 07/18/1707/18/18 10:08 11:25 12:19 Temperature 97.7 F Pulse Rate 68 Respiratory 16 18 16 Rate Blood Pressure 137/62 (mmHg) O2 Sat by Pulse 94 Oximetry 07/18/17 14:13 Temperature Pulse Rate Respiratory 18 Rate Blood Pressure (mmHg) O2 Sat by Pulse Oximetry Oxygen Devices in Use Now: None Appearance: NAD Eyes: No Scleral Icterus, PERRLA Ears/Nose/Mouth/Throat: NL Teeth, Lips, Gums, Mucous Membranes Moist Respiratory: Symmetrical Chest Expansion and Respiratory Effort, Clear to Auscultation Cardiovascular: NL Sounds; No Murmurs; No JVD, RRR Abdominal: NL Sounds; No Tenderness; No Distention, No Hepatosplenomegaly Extremities: No Edema, No Clubbing, Cyanosis Skin: No Rash or Ulcers, No Nodules or Sclerosis Neurological: Alert and Oriented x 3 Nutrition: Taking PO's Result Diagrams: 07/18/17 06:07 07/18/17 06:08 Additional Lab and Data: Laboratory Results - last 24 hr 07/17/17 07/17/17 07/17/17 17:19 17:19 17:19 WBC 6.9 RBC 4.10 Hgb 12.7 Hct 36 MCV 89 MCH 31 MCHC 35 RDW 14 Plt Count 204 MPV 7.5 Neut % (Auto) 63.5 Lymph % (Auto) 27.3 [place] % (Auto) 5.8 Eos % (Auto) 2.3 Baso % (Auto) 1.1 Absolute Neuts (auto) 4.4 Absolute Lymphs (auto) 1.9 Absolute Monos (auto) 0.4 Absolute Eos (auto) 0.2 Absolute Basos (auto) 0.1 Absolute Nucleated RBC 0 Nucleated RBC % 0 APTT Sodium 138 L Potassium 3.9 Chloride 101 Carbon Dioxide 27 Anion Gap 10 BUN 29 H Creatinine 0.95 Est GFR ( Amer) 73.6 Est GFR (Non-Af Amer) 57.2 BUN/Creatinine Ratio 30.5 H Glucose 231 H POC Glucose (mg/dL) Lactic Acid 1.5 Calcium 9.0 Magnesium 1.2 L Total Bilirubin 0.40 AST 9 L ALT 6 L Alkaline Phosphatase 59 Troponin I 0.00 B-Natriuretic Peptide Total Protein 6.8 Albumin 3.8 Globulin 3.0 Albumin/Globulin Ratio 1.3 TSH Cancelled Urine Color Urine Appearance Urine pH Ur Specific Amo Urine Protein Urine Ketones Urine Blood Urine Nitrate Urine Bilirubin Urine Urobilinogen Ur Leukocyte Esterase Urine WBC (Auto) Urine RBC (Auto) Ur Squamous Epith Cells Urine Bacteria Urine Glucose Urine Opiates Screen Ur Barbiturates Screen Ur Phencyclidine Scrn Ur Amphetamines Screen U Benzodiazepines Scrn Urine Cocaine Screen U Cannabinoids Screen Serum Alcohol 07/17/17 07/17/17 07/17/17 17:19 17:19 17:19 WBC RBC Hgb Hct MCV MCH MCHC RDW Plt Count MPV Neut % (Auto) Lymph % (Auto) Living[place] % (Auto) Eos % (Auto) Baso % (Auto) Absolute Neuts (auto) Absolute Lymphs (auto) Absolute Monos (auto) Absolute Eos (auto) Absolute Basos (auto) Absolute Nucleated RBC Nucleated RBC % APTT 26.7 Sodium Potassium Chloride Carbon Dioxide Anion Gap BUN Creatinine Est GFR ( Amer) Est GFR (Non-Af Amer) BUN/Creatinine Ratio Glucose POC Glucose (mg/dL) Lactic Acid Calcium Magnesium Total Bilirubin AST ALT Alkaline Phosphatase Troponin I B-Natriuretic Peptide 56 Total Protein Albumin Globulin Albumin/Globulin Ratio TSH 2.12 Urine Color Urine Appearance Urine pH Ur Specific Amo Urine Protein Urine Ketones Urine Blood Urine Nitrate Urine Bilirubin Urine Urobilinogen Ur Leukocyte Esterase Urine WBC (Auto) Urine RBC (Auto) Ur Squamous Epith Cells Urine Bacteria Urine Glucose Urine Opiates Screen Ur Barbiturates Screen Ur Phencyclidine Scrn Ur Amphetamines Screen U Benzodiazepines Scrn Urine Cocaine Screen U Cannabinoids Screen Serum Alcohol < 10 07/17/17 07/17/17 07/17/17 17:44 17:44 21:34 WBC RBC Hgb Hct MCV MCH MCHC RDW Plt Count MPV Neut % (Auto) Lymph % (Auto) Livingston % (Auto) Eos % (Auto) Baso % (Auto) Absolute Neuts (auto) Absolute Lymphs (auto) Absolute Monos (auto) Absolute Eos (auto) Absolute Basos (auto) Absolute Nucleated RBC Nucleated RBC % APTT Sodium Potassium Chloride Carbon Dioxide Anion Gap BUN Creatinine Est GFR ( Amer) Est GFR (Non-Af Amer) BUN/Creatinine Ratio Glucose POC Glucose (mg/dL) 372 H Lactic Acid Calcium Magnesium Total Bilirubin AST ALT Alkaline Phosphatase Troponin I B-Natriuretic Peptide Total Protein Albumin Globulin Albumin/Globulin Ratio TSH Urine Color Yellow Urine Appearance Cloudy Urine pH 5.0 Ur Specific Amo 1.015 Urine Protein 3+(>=500 mg/dl) A Urine Ketones Negative Urine Blood 3+ A Urine Nitrate Negative Urine Bilirubin Negative Urine Urobilinogen Negative Ur Leukocyte Esterase Negative Urine WBC (Auto) 2+(11-20/hpf) A Urine RBC (Auto) 3+(>10/hpf) A Ur Squamous Epith Cells Present A Urine Bacteria Absent Urine Glucose 1+(50 mg/dl) A Urine Opiates Screen None detected Ur Barbiturates Screen None detected Ur Phencyclidine Scrn None detected Ur Amphetamines Screen Presumptive positive A U Benzodiazepines Scrn None detected Urine Cocaine Screen None detected U Cannabinoids Screen None detected Serum Alcohol 07/18/17 07/18/17 07/18/17 00:41 06:07 06:08 WBC 7.7 RBC 3.91 L Hgb 12.2 Hct 35 MCV 89 MCH 31 MCHC 35 RDW 15 Plt Count 187 MPV 7.5 Neut % (Auto) 72.5 Lymph % (Auto) 18.8 L Livingston % (Auto) 6.9 Eos % (Auto) 1.2 Baso % (Auto) 0.6 Absolute Neuts (auto) 5.6 Absolute Lymphs (auto) 1.4 Absolute Monos (auto) 0.5 Absolute Eos (auto) 0.1 Absolute Basos (auto) 0 Absolute Nucleated RBC 0 Nucleated RBC % 0.1 APTT Sodium 140 Potassium 4.0 Chloride 104 Carbon Dioxide 29 Anion Gap 7 BUN 30 H Creatinine 1.06 H Est GFR ( Amer) 64.8 Est GFR (Non-Af Amer) 50.4 BUN/Creatinine Ratio 28.3 H Glucose 100 POC Glucose (mg/dL) 127 H Lactic Acid Calcium 9.0 Magnesium 1.9 Total Bilirubin AST ALT Alkaline Phosphatase Troponin I B-Natriuretic Peptide Total Protein Albumin Globulin Albumin/Globulin Ratio TSH Urine Color Urine Appearance Urine pH Ur Specific Amo Urine Protein Urine Ketones Urine Blood Urine Nitrate Urine Bilirubin Urine Urobilinogen Ur Leukocyte Esterase Urine WBC (Auto) Urine RBC (Auto) Ur Squamous Epith Cells Urine Bacteria Urine Glucose Urine Opiates Screen Ur Barbiturates Screen Ur Phencyclidine Scrn Ur Amphetamines Screen U Benzodiazepines Scrn Urine Cocaine Screen U Cannabinoids Screen Serum Alcohol 07/18/17 07/18/17 07:30 11:35 WBC RBC Hgb Hct MCV MCH MCHC RDW Plt Count MPV Neut % (Auto) Lymph % (Auto) Living[place] % (Auto) Eos % (Auto) Baso % (Auto) Absolute Neuts (auto) Absolute Lymphs (auto) Absolute Monos (auto) Absolute Eos (auto) Absolute Basos (auto) Absolute Nucleated RBC Nucleated RBC % APTT Sodium Potassium Chloride Carbon Dioxide Anion Gap BUN Creatinine Est GFR ( Amer) Est GFR (Non-Af Amer) BUN/Creatinine Ratio Glucose POC Glucose (mg/dL) 132 H 242 H Lactic Acid Calcium Magnesium Total Bilirubin AST ALT Alkaline Phosphatase Troponin I B-Natriuretic Peptide Total Protein Albumin Globulin Albumin/Globulin Ratio TSH Urine Color Urine Appearance Urine pH Ur Specific Amo Urine Protein Urine Ketones Urine Blood Urine Nitrate Urine Bilirubin Urine Urobilinogen Ur Leukocyte Esterase Urine WBC (Auto) Urine RBC (Auto) Ur Squamous Epith Cells Urine Bacteria Urine Glucose Urine Opiates Screen Ur Barbiturates Screen Ur Phencyclidine Scrn Ur Amphetamines Screen U Benzodiazepines Scrn Urine Cocaine Screen U Cannabinoids Screen Serum Alcohol Microbiology and Other Data: Microbiology 07/18/17 07:26 Nasal Nasal Screen MRSA (PCR)([facility]) - Final Mrsa Not Detected Assess/Plan/Problems-Billing Assessment: 77 yo female [facility] parkinson's disease, sciatica, old right humerous fracture, TIA , HTN who lives alone p/w with recent fall, generalized weakness, concern for UTI and need for rehab and/or enhanced level of care - Patient Problems (1) Fall Current Visit: Yes Status: Acute Comment: Pt with chronic right humerous fracture and has contractures of right thumb. uses walker PT is recommending AV continue sinemet, selegiline, amantadine pain control as below. (2) Sciatica Current Visit: Yes Status: Acute Code(s): M54.30 - SCIATICA, UNSPECIFIED SIDE SNOMED Code(s): 41863743 Comment: continue home ibuprofen, percosets prn continue lidocaine patch add gabapentin 100mg BID, prednisone 40mg PT (3) Parkinson disease Current Visit: No Status: Acute Code(s): G20 - PARKINSON'S DISEASE SNOMED Code(s): 92592969 Comment: Continue selegiline, amantadine, and carbidopa/levadopa. (4) DVT prophylaxis Current Visit: No Status: Acute Code(s): SNW5303 - SNOMED Code(s): 664246183 Comment: heparin 5000U TID. (5) Hypomagnesemia Current Visit: No Status: Acute Code(s): E83.42 - HYPOMAGNESEMIA SNOMED Code(s): 425883848 Comment: Repleted. Issue in 2015 also added daily supplementation. (6) UTI (urinary tract infection) Current Visit: No Status: Acute Comment: f/u Ucx change to ciprofloxacin to po. developed some itching at IV site. (7) Hypertension Current Visit: No Status: Chronic Code(s): I10 - ESSENTIAL (PRIMARY) HYPERTENSION SNOMED Code(s): 81728721 Comment: BP much better controlled. Continue metoprolol 25 bid and lisinopril 10 /hctz 12.5 BID. (8) Type 2 diabetes mellitus Current Visit: No Status: Chronic Comment: Lantus 40U qpm + SSI. Status and Disposition: medicine inpatient, likely will need AV.
[2017-07-18] MEDS: Insulin GLARGINE(*) 1 UNITS UNIT SUBCUT SCH (17:33)
[2017-07-18] MEDS ORDERED: Polyethylene Glycol 3350* 17 GM PACKET PO ONE (20:42)
[2017-07-18] MEDS: Carbidopa/Levodop CR 50/200(*) TAB.CR PO SCH (21:04)
[2017-07-18] MEDS: Docusate CAP* 100 MG PO SCH (21:05)
[2017-07-18] MEDS: Melatonin 3 MG TAB PO PRN (21:05)
[2017-07-18] MEDS: Ciprofloxacin TAB* 500 MG PO SCH (21:06)
[2017-07-18] MEDS: Atorvastatin* 20 MG TAB PO SCH (21:06)
[2017-07-18] MEDS: Senna TAB PO SCH (21:07)
[2017-07-18] MEDS: Lidocaine PATCH 5%* 1 PATCH TRANSDERM SCH (21:07)
[2017-07-19] MEDS: Ciprofloxacin TAB* 500 MG PO SCH (08:17)
[2017-07-19] MEDS: Lisinopril TAB* 10 MG PO SCH ×2 (08:17→22:13)
[2017-07-19] MEDS: predniSONE TAB* 20 MG PO SCH (08:17)
[2017-07-19] MEDS: Gabapentin CAP(*) 100 MG PO SCH ×2 (08:18→22:11)
[2017-07-19] MEDS: Magnesium Oxide TAB* 400 MG PO SCH (08:18)
[2017-07-19] MEDS: Omeprazole CAP* 20 MG PO SCH (08:18)
[2017-07-19] MEDS: Heparin VIAL(*) 5000 UNITS/ML VIAL (FIVE THOUSAND) SUBCUT SCH ×2 (08:19→22:16)
[2017-07-19] MEDS: Amantadine CAP* 100 MG PO SCH ×2 (08:19→22:12)
[2017-07-19] MEDS: Insulin LISPRO* 1 UNITS UNIT SUBCUT SCH ×3 (08:19→17:34)
[2017-07-19] MEDS: Selegiline TAB* 5 MG PO SCH (08:19)
[2017-07-19] MEDS: Metoprolol Tartrate TAB* 25 MG PO SCH ×2 (08:19→22:11)
[2017-07-19] MEDS: Hydrochlorothiazide TAB* 25 MG PO SCH ×2 (08:19→22:13)
[2017-07-19] MEDS: Aspirin EC TAB* 81 MG TAB.EC PO SCH (08:19)
[2017-07-19] MEDS: Ibuprofen TAB* 600 MG PO PRN ×2 (08:30→22:14)
[2017-07-19] MEDS: Carbidopa/Levodop 25/100 MG TAB(*) PO SCH ×3 (08:30→22:10)
[2017-07-19] MEDS: Lidocaine Patch REMOVE* 1 NOTE MISC PATCH OFF SCH (08:40)
[2017-07-19] MEDS ORDERED: Artificial Tears* 15 ML BTL BOTH EYES PRN (08:44)
--- NOTE | 2017-07-19 14:20 | RAD ---
HISTORY: Fall, pain with ambulation COMPARISONS: None VIEWS: 2, Frontal and lateral views of the right knee FINDINGS: BONE DENSITY: Normal. BONES: There is no displaced fracture. There are superior and inferior patellar enthesophytes. JOINTS: There is mild tricompartmental osteoarthritis. There is no suprapatellar joint effusion or lipohemarthrosis. ALIGNMENT: There is no dislocation. SOFT TISSUES: Unremarkable. OTHER FINDINGS: None. IMPRESSION: NO ACUTE OSSEOUS INJURY. IF SYMPTOMS PERSIST, RECOMMEND REPEAT IMAGING.
[2017-07-19] MEDS: Insulin GLARGINE(*) 1 UNITS UNIT SUBCUT SCH (17:35)
--- NOTE | 2017-07-19 17:53 | PN ---
Subjective Date of Service: 07/19/17 Interval History: Walked well with PT, almost too fast for own good. unsafe spead and neglecting her right side. sciatica pain is much better controlled. tearful, reassured. had planned outpatient referral to ortho for humerous fracture (chronic), feeling better today. Objective Active Medications: Acetaminophen (Tylenol Tab*) 650 mg PO Q4H PRN PRN Reason: FEVER/PAIN Last Admin: 07/18/17 07:57 Dose: 650 mg Alprazolam (Xanax Tab*) 0.25 mg PO TID PRN PRN Reason: ANXIETY Amantadine HCl (Symmetrel Cap*) 100 mg PO BID [facility] Last Admin: 07/19/17 08:19 Dose: 100 mg Aspirin (Aspirin Ec Tab*) 81 mg PO DAILY [facility] Last Admin: 07/19/17 08:19 Dose: 81 mg Atorvastatin Calcium (Lipitor*) 20 mg PO BEDTIME [facility] Last Admin: 07/18/17 21:06 Dose: 20 mg Carbidopa/Levodopa (Sinemet 25/100 Tab(*)) 2 tab PO QPM@2000 [facility] Last Admin: 07/18/17 21:09 Dose: Not Given Carbidopa/Levodopa (Sinemet 25/100 Tab(*)) 2 tab PO QAM@0800 [facility] Last Admin: 07/19/17 08:30 Dose: 2 tab Carbidopa/Levodopa (Sinemet 25/100 Tab(*)) 2 tab PO DAILY@1400 [facility] Last Admin: 07/19/17 15:26 Dose: 2 tab Carbidopa/Levodopa (Sinemet Cr 50/200(*)) 0.5 tab.cr PO BEDTIME [facility] Last Admin: 07/18/17 21:04 Dose: 0.5 tab.cr Ciprofloxacin (Cipro Tab*) 500 mg PO Q12HR [facility] Last Admin: 07/19/17 08:17 Dose: 500 mg Dextrose (D50w Syringe 50 Ml*) 12.5 gm IV PUSH .FOR FS < 60 - SS PRN PRN Reason: FS < 60 Docusate Sodium (Colace Cap*) 100 mg PO BEDTIME [facility] Last Admin: 07/18/17 21:05 Dose: 100 mg Gabapentin (Neurontin Cap(*)) 100 mg PO BID [facility] Last Admin: 07/19/17 08:18 Dose: 100 mg Heparin Sodium (Porcine) (Heparin Vial(*)) 5,000 units SUBCUT Q12HR [facility] Last Admin: 07/19/17 08:19 Dose: 5,000 units Hydralazine HCl (Apresoline Iv*) 5 mg IV SLOW PU Q6H PRN PRN Reason: BLOOD PRESSURE Hydrochlorothiazide (Hydrodiuril Tab*) 12.5 mg PO BID [facility] Last Admin: 07/19/17 08:19 Dose: 12.5 mg Ibuprofen (Motrin Tab*) 600 mg PO Q6H PRN PRN Reason: PAIN Last Admin: 07/19/17 08:30 Dose: 600 mg Insulin Glargine (Lantus(*)) 40 units SUBCUT QPM [facility] Last Admin: 07/19/17 17:35 Dose: 40 units Insulin Human Lispro (Humalog*) 0 units SUBCUT AC [facility] PRN Reason: Protocol Last Admin: 07/19/17 17:34 Dose: 12 units Lidocaine (Lidoderm 5% Patch*) 1 patch TRANSDERM 2100 [facility] Last Admin: 07/18/17 21:07 Dose: 1 patch Lisinopril (Prinivil Tab*) 10 mg PO BID [facility] Last Admin: 07/19/17 08:17 Dose: 10 mg Magnesium Oxide (Magox 400 Tab*) 400 mg PO DAILY [facility] Last Admin: 07/19/17 08:18 Dose: 400 mg Melatonin (Melatonin) 3 mg PO BEDTIME PRN PRN Reason: INSOMNIA Last Admin: 07/18/17 21:05 Dose: 3 mg Metoprolol Tartrate (Lopressor Tab*) 25 mg PO BID [facility] Last Admin: 07/19/17 08:19 Dose: 25 mg Omeprazole (Prilosec Cap*) 20 mg PO DAILY [facility] Last Admin: 07/19/17 08:18 Dose: 20 mg Ondansetron HCl (Zofran 40 Mg Vial*) 4 mg IV Q6H PRN PRN Reason: NAUSEA Oxycodone/Acetaminophen (Percocet 5/325 Tab*) 1 tab PO Q4H PRN PRN Reason: PAIN Last Admin: 07/18/17 17:39 Dose: 1 tab Pharmacy Profile Note (Lidocaine Patch Remove*) 1 note PATCH OFF 0900 [facility] Last Admin: 07/19/17 08:40 Dose: Not Given Polyvinyl Alcohol (Polyvinyl Alcohol 1.4% Opth*) 1 drop BOTH EYES Q2H PRN PRN Reason: DRY EYE Prednisone (Deltasone Tab*) 40 mg PO DAILY [facility] Last Admin: 07/19/17 08:17 Dose: 40 mg Selegiline HCl (Eldepryl Tab*) 5 mg PO QAM [facility] Last Admin: 07/19/17 08:19 Dose: 5 mg Senna (Senokot Tab*) 2 tab PO BEDTIME [facility] Last Admin: 07/18/17 21:07 Dose: 2 tab Tramadol HCl (Ultram*) 50 mg PO Q6H PRN PRN Reason: PAIN Last Admin: 07/18/17 07:56 Dose: 50 mg Vital Signs - 8 hr 07/19/17 07/19/17 07/19/17 11:12 12:26 15:16 Temperature 98.3 F 98.1 F Pulse Rate 71 91 Respiratory 16 18 22 Rate Blood Pressure 139/65 154/64 (mmHg) O2 Sat by Pulse 94 97 Oximetry Oxygen Devices in Use Now: None Appearance: NAD. anxious later Eyes: No Scleral Icterus, PERRLA Ears/Nose/Mouth/Throat: NL Teeth, Lips, Gums, Mucous Membranes Moist Neck: NL Appearance and Movements; NL JVP Respiratory: Symmetrical Chest Expansion and Respiratory Effort, Clear to Auscultation Cardiovascular: NL Sounds; No Murmurs; No JVD, RRR Abdominal: NL Sounds; No Tenderness; No Distention, No Hepatosplenomegaly Extremities: No Edema, - - contracture right thumb, skinned right knee Skin: - - as above Neurological: Alert and Oriented x 3, NL Sensation Nutrition: Taking PO's Result Diagrams: 07/18/17 06:07 07/18/17 06:08 Additional Lab and Data: Laboratory Results - last 24 hr 07/19/17 07/19/17 07/19/17 07:44 12:12 17:12 POC Glucose (mg/dL) 159 H 223 H 307 H Microbiology and Other Data: Microbiology 07/17/17 17:44 Urine Urine Culture - Final 07/18/17 07:26 Nasal Nasal Screen MRSA (PCR)([facility]) - Final Mrsa Not Detected Assess/Plan/Problems-Billing Assessment: 77 yo female PMH parkinson's disease, sciatica, old right humerous fracture, TIA , HTN who lives alone p/w with recent fall, generalized weakness, concern for UTI and need for rehab and/or enhanced level of care - Patient Problems (1) Fall Current Visit: Yes Status: Acute Comment: Pt with chronic right humerous fracture and has contractures of right thumb. uses walker PT is recommending AV continue sinemet, selegiline, amantadine pain control as below. (2) Sciatica Current Visit: Yes Status: Acute Code(s): M54.30 - SCIATICA, UNSPECIFIED SIDE SNOMED Code(s): 44806208 Comment: continue home ibuprofen, percosets prn continue lidocaine patch continue new gabapentin 100mg BID, prednisone 40mg PT better controlled. (3) Parkinson disease Current Visit: No Status: Acute Code(s): G20 - PARKINSON'S DISEASE SNOMED Code(s): 39576737 Comment: Continue selegiline, amantadine, and carbidopa/levadopa. (4) DVT prophylaxis Current Visit: No Status: Acute Code(s): XQW3596 - SNOMED Code(s): 113219157 Comment: heparin 5000U TID. (5) Hypomagnesemia Current Visit: No Status: Acute Code(s): E83.42 - HYPOMAGNESEMIA SNOMED Code(s): 583899115 Comment: Repleted. Issue in 2015 also continue daily supplementation. (6) UTI (urinary tract infection) Current Visit: No Status: Acute Comment: Ucx without significant growth. stopping cipro. (7) Hypertension Current Visit: No Status: Chronic Code(s): I10 - ESSENTIAL (PRIMARY) HYPERTENSION SNOMED Code(s): 33939884 Comment: BP controlled. Continue metoprolol 25 bid and lisinopril 10 /hctz 12.5 BID. (8) Type 2 diabetes mellitus Current Visit: No Status: Chronic Comment: Increase Lantus from 40U to 45U qpm + SSI. Will give extra 10U tonight for total 50. A1C 6.9 on 07/14/17 Status and Disposition: medicine inpatient, likely will need AV.
[2017-07-19] MEDS ORDERED: Insulin GLARGINE(*) 1 UNITS UNIT SUBCUT ONE (20:01)
[2017-07-19] MEDS: Carbidopa/Levodop CR 50/200(*) TAB.CR PO SCH (22:10)
[2017-07-19] MEDS: Atorvastatin* 20 MG TAB PO SCH (22:14)
[2017-07-19] MEDS: Docusate CAP* 100 MG PO SCH (22:14)
[2017-07-19] MEDS: Melatonin 3 MG TAB PO PRN (22:15)
[2017-07-19] MEDS: Senna TAB PO SCH (22:15)
[2017-07-19] MEDS: Lidocaine PATCH 5%* 1 PATCH TRANSDERM SCH (22:16)
[2017-07-20] MEDS: ALPRAZolam TAB* 0.25 MG PO PRN ×3 (00:29→23:11)
[2017-07-20] MEDS: traMADol TAB* 50 MG PO PRN ×2 (00:33→23:08)
[2017-07-20] MEDS: oxyCODONE/Acetamin 5/325 MG* TAB PO PRN (03:45)
[2017-07-20] MEDS: Ibuprofen TAB* 600 MG PO PRN ×2 (05:13→21:21)
[2017-07-20 05:48] LABS: ABS Basophils 0 10^3/ul (0-0.2); ABS Eosinophils 0.1 10^3/ul (0-0.6); ABS Lymphocytes 2.1 10^3/ul (1.0-4.8); ABS Monocytes 0.5 10^3/ul (0-0.8); ABS Neutrophils 5.4 10^3/ul (1.5-7.7); ABS Nucleated RBC 0 10^3/ul; Eosinophil % 0.9 % (0-6); Hematocrit 34 % (35-47); Hemoglobin 11.7 g/dl (12.0-16.0); Lymphocyte % 25.5 % (25-47); Mean Corpuscular HGB Conc 35 g/dl (31-36); Mean Corpuscular Hemoglobin 31 pg (27-31); Mean Corpuscular Volume 90 fL (80-97); Mean Platelet Volume 7.7 um3 (7.4-10.4); Nucleated Red Blood Cells % 0.1; Platelet Count 191 10^3/ul (150-450); Red Blood Count 3.79 10^6/ul (4.0-5.4); Red Cell Distribution Width 14 % (10.5-15); White Blood Count 8.1 10^3/ul (3.5-10.8)
[2017-07-20] MEDS: Insulin LISPRO* 1 UNITS UNIT SUBCUT SCH ×3 (08:50→17:36)
[2017-07-20] MEDS: Heparin VIAL(*) 5000 UNITS/ML VIAL (FIVE THOUSAND) SUBCUT SCH ×2 (08:51→21:27)
[2017-07-20] MEDS: Omeprazole CAP* 20 MG PO SCH (08:51)
[2017-07-20] MEDS: Hydrochlorothiazide TAB* 25 MG PO SCH ×2 (08:51→21:22)
[2017-07-20] MEDS: predniSONE TAB* 20 MG PO SCH (08:52)
[2017-07-20] MEDS: Gabapentin CAP(*) 100 MG PO SCH ×2 (08:52→21:21)
[2017-07-20] MEDS: Metoprolol Tartrate TAB* 25 MG PO SCH ×2 (08:52→21:22)
[2017-07-20] MEDS: Magnesium Oxide TAB* 400 MG PO SCH (08:52)
[2017-07-20] MEDS: Aspirin EC TAB* 81 MG TAB.EC PO SCH (08:52)
[2017-07-20] MEDS: Lisinopril TAB* 10 MG PO SCH ×2 (08:52→21:22)
[2017-07-20] MEDS: Carbidopa/Levodop 25/100 MG TAB(*) PO SCH ×3 (08:56→21:20)
[2017-07-20] MEDS: Lidocaine Patch REMOVE* 1 NOTE MISC PATCH OFF SCH (08:56)
[2017-07-20] MEDS: Amantadine CAP* 100 MG PO SCH ×2 (08:56→21:20)
[2017-07-20] MEDS: Selegiline TAB* 5 MG PO SCH (08:57)
[2017-07-20] MEDS: Magnesium Hydroxide LIQ* 30 ML UDC PO PRN ×2 (09:46→13:51)
--- NOTE | 2017-07-20 15:40 | PN ---
Subjective Date of Service: 07/20/17 Interval History: Pt had panic attack overnight, felt like blankets, telemetry and call button were pressing down on here. Got extra ativan, able to sleep around 0400. sciatica pain controlled. awaiting PT eval. Objective Active Medications: Acetaminophen (Tylenol Tab*) 650 mg PO Q4H PRN PRN Reason: FEVER/PAIN Last Admin: 07/18/17 07:57 Dose: 650 mg Alprazolam (Xanax Tab*) 0.25 mg PO TID PRN PRN Reason: ANXIETY Last Admin: 07/20/17 05:14 Dose: 0.25 mg Amantadine HCl (Symmetrel Cap*) 100 mg PO BID [facility] Last Admin: 07/20/17 08:56 Dose: Not Given Aspirin (Aspirin Ec Tab*) 81 mg PO DAILY [facility] Last Admin: 07/20/17 08:52 Dose: 81 mg Atorvastatin Calcium (Lipitor*) 20 mg PO BEDTIME [facility] Last Admin: 07/19/17 22:14 Dose: 20 mg Carbidopa/Levodopa (Sinemet 25/100 Tab(*)) 2 tab PO QPM@2000 [facility] Last Admin: 07/19/17 22:10 Dose: Not Given Carbidopa/Levodopa (Sinemet 25/100 Tab(*)) 2 tab PO QAM@0800 [facility] Last Admin: 07/20/17 08:56 Dose: 2 tab Carbidopa/Levodopa (Sinemet 25/100 Tab(*)) 2 tab PO DAILY@1400 [facility] Last Admin: 07/20/17 13:51 Dose: 2 tab Carbidopa/Levodopa (Sinemet Cr 50/200(*)) 0.5 tab.cr PO BEDTIME [facility] Last Admin: 07/19/17 22:10 Dose: 0.5 tab.cr Dextrose (D50w Syringe 50 Ml*) 12.5 gm IV PUSH .FOR FS < 60 - SS PRN PRN Reason: FS < 60 Docusate Sodium (Colace Cap*) 100 mg PO BEDTIME [facility] Last Admin: 07/19/17 22:14 Dose: 100 mg Gabapentin (Neurontin Cap(*)) 100 mg PO BID [facility] Last Admin: 07/20/17 08:52 Dose: 100 mg Heparin Sodium (Porcine) (Heparin Vial(*)) 5,000 units SUBCUT Q12HR [facility] Last Admin: 07/20/17 08:51 Dose: 5,000 units Hydralazine HCl (Apresoline Iv*) 5 mg IV SLOW PU Q6H PRN PRN Reason: BLOOD PRESSURE Hydrochlorothiazide (Hydrodiuril Tab*) 12.5 mg PO BID [facility] Last Admin: 07/20/17 08:51 Dose: 12.5 mg Ibuprofen (Motrin Tab*) 600 mg PO Q6H PRN PRN Reason: PAIN Last Admin: 07/20/17 05:13 Dose: 600 mg Insulin Glargine (Lantus(*)) 45 units SUBCUT QPM [facility] Insulin Human Lispro (Humalog*) 0 units SUBCUT AC [facility] PRN Reason: Protocol Last Admin: 07/20/17 12:07 Dose: 6 units Lidocaine (Lidoderm 5% Patch*) 1 patch TRANSDERM 2100 [facility] Last Admin: 07/19/17 22:16 Dose: 1 patch Lisinopril (Prinivil Tab*) 10 mg PO BID [facility] Last Admin: 07/20/17 08:52 Dose: 10 mg Magnesium Hydroxide (Milk Of Magnesia Liq*) 30 ml PO Q4H PRN PRN Reason: CONSTIPATION Last Admin: 07/20/17 13:51 Dose: 30 ml Magnesium Oxide (Magox 400 Tab*) 400 mg PO DAILY [facility] Last Admin: 07/20/17 08:52 Dose: 400 mg Melatonin (Melatonin) 3 mg PO BEDTIME PRN PRN Reason: INSOMNIA Last Admin: 07/19/17 22:15 Dose: 3 mg Metoprolol Tartrate (Lopressor Tab*) 25 mg PO BID [facility] Last Admin: 07/20/17 08:52 Dose: 25 mg Omeprazole (Prilosec Cap*) 20 mg PO DAILY [facility] Last Admin: 07/20/17 08:51 Dose: 20 mg Ondansetron HCl (Zofran 40 Mg Vial*) 4 mg IV Q6H PRN PRN Reason: NAUSEA Oxycodone/Acetaminophen (Percocet 5/325 Tab*) 1 tab PO Q4H PRN PRN Reason: PAIN Last Admin: 07/20/17 03:45 Dose: 1 tab Pharmacy Profile Note (Lidocaine Patch Remove*) 1 note PATCH OFF 0900 [facility] Last Admin: 07/20/17 08:56 Dose: Not Given Polyvinyl Alcohol (Polyvinyl Alcohol 1.4% Opth*) 1 drop BOTH EYES Q2H PRN PRN Reason: DRY EYE Prednisone (Deltasone Tab*) 20 mg PO DAILY [facility] Selegiline HCl (Eldepryl Tab*) 5 mg PO QAM [facility] Last Admin: 07/20/17 08:57 Dose: 5 mg Senna (Senokot Tab*) 2 tab PO BEDTIME [facility] Last Admin: 07/19/17 22:15 Dose: 2 tab Tramadol HCl (Ultram*) 50 mg PO Q6H PRN PRN Reason: PAIN Last Admin: 07/20/17 00:33 Dose: 50 mg Vital Signs - 8 hr 07/20/17 07/20/17 07/20/17 07:50 07:51 08:52 Temperature 98.1 F Pulse Rate 67 Respiratory 20 18 18 Rate Blood Pressure 131/54 (mmHg) O2 Sat by Pulse 95 Oximetry 07/20/17 07/20/17 07/20/17 08:55 09:02 10:36 Temperature 98.1 F Pulse Rate 76 Respiratory 18 18 18 Rate Blood Pressure 128/72 (mmHg) O2 Sat by Pulse 97 Oximetry 07/20/17 12:19 Temperature 98.2 F Pulse Rate 72 Respiratory 20 Rate Blood Pressure 132/55 (mmHg) O2 Sat by Pulse 95 Oximetry Oxygen Devices in Use Now: None Appearance: NAD, applying her lipstick. Eyes: No Scleral Icterus, PERRLA Ears/Nose/Mouth/Throat: NL Teeth, Lips, Gums, Mucous Membranes Moist Neck: NL Appearance and Movements; NL JVP, Trachea Midline Respiratory: Symmetrical Chest Expansion and Respiratory Effort, Clear to Auscultation Cardiovascular: NL Sounds; No Murmurs; No JVD, RRR Abdominal: NL Sounds; No Tenderness; No Distention, No Hepatosplenomegaly Extremities: No Edema, - - contractures right thumb. Skin: - - skin abrasions to right knee. Neurological: Alert and Oriented x 3, NL Sensation, NL Muscle Strength and Tone Nutrition: Taking PO's Result Diagrams: 07/20/17 05:27 07/18/17 06:08 Additional Lab and Data: Laboratory Results - last 24 hr 07/19/17 07/20/17 07/20/17 17:12 05:27 08:37 WBC 8.1 RBC 3.79 L Hgb 11.7 L Hct 34 L MCV 90 MCH 31 MCHC 35 RDW 14 Plt Count 191 MPV 7.7 Neut % (Auto) 67.3 Lymph % (Auto) 25.5 Henderson % (Auto) 5.8 Eos % (Auto) 0.9 Baso % (Auto) 0.5 Absolute Neuts (auto) 5.4 Absolute Lymphs (auto) 2.1 Absolute Monos (auto) 0.5 Absolute Eos (auto) 0.1 Absolute Basos (auto) 0 Absolute Nucleated RBC 0 Nucleated RBC % 0.1 POC Glucose (mg/dL) 307 H 174 H 07/20/17 11:26 WBC RBC Hgb Hct MCV MCH MCHC RDW Plt Count MPV Neut % (Auto) Lymph % (Auto) Henderson % (Auto) Eos % (Auto) Baso % (Auto) Absolute Neuts (auto) Absolute Lymphs (auto) Absolute Monos (auto) Absolute Eos (auto) Absolute Basos (auto) Absolute Nucleated RBC Nucleated RBC % POC Glucose (mg/dL) 213 H Microbiology and Other Data: Microbiology 07/17/17 17:44 Urine Urine Culture - Final 07/18/17 07:26 Nasal Nasal Screen MRSA (PCR)([facility]) - Final Mrsa Not Detected Assess/Plan/Problems-Billing Assessment: 77 yo female H parkinson's disease, sciatica, old right humerus fracture, TIA , HTN, anxiety, IDDM who lives alone p/w with recent fall, generalized weakness and need for rehab and/or enhanced level of care - Patient Problems (1) Fall Current Visit: Yes Status: Acute Comment: Pt with chronic right humerous fracture and has contractures of right thumb. uses walker PT is recommending AV continue sinemet, selegiline, amantadine pain control as below. (2) Sciatica Current Visit: Yes Status: Acute Code(s): M54.30 - SCIATICA, UNSPECIFIED SIDE SNOMED Code(s): 79934036 Comment: continue home ibuprofen, percosets prn continue lidocaine patch continue new gabapentin 100mg BID will reduce prednisone from 40mg to 20mg with planned continued taper PT better controlled. (3) Parkinson disease Current Visit: No Status: Acute Code(s): G20 - PARKINSON'S DISEASE SNOMED Code(s): 31393546 Comment: Continue selegiline, amantadine, and carbidopa/levadopa. (4) DVT prophylaxis Current Visit: No Status: Acute Code(s): GZR8729 - SNOMED Code(s): 760243356 Comment: heparin 5000U TID. (5) Hypomagnesemia Current Visit: No Status: Acute Code(s): E83.42 - HYPOMAGNESEMIA SNOMED Code(s): 587785609 Comment: Repleted. Issue in 2015 also continue daily supplementation. (6) UTI (urinary tract infection) Current Visit: No Status: Acute Comment: Ucx without significant growth. s/ p 2 days cipro. (7) Hypertension Current Visit: No Status: Chronic Code(s): I10 - ESSENTIAL (PRIMARY) HYPERTENSION SNOMED Code(s): 07146755 Comment: BP controlled. Continue metoprolol 25 bid and lisinopril 10 /hctz 12.5 BID. (8) Type 2 diabetes mellitus Current Visit: No Status: Chronic Comment: better controlled, continue 45U qpm + SSI. Likely increased in setting of prednisone. A1C 6.9 on 07/14/17 Status and Disposition: medicine inpatient, likely will need AV. Denied PMRU, tenative bed offer from [facility].
[2017-07-20] MEDS ORDERED: Insulin GLARGINE(*) 1 UNITS UNIT SUBCUT SCH (18:00)
[2017-07-20] MEDS: Senna TAB PO SCH (21:20)
[2017-07-20] MEDS: Docusate CAP* 100 MG PO SCH (21:21)
[2017-07-20] MEDS: Atorvastatin* 20 MG TAB PO SCH (21:21)
[2017-07-20] MEDS: Carbidopa/Levodop CR 50/200(*) TAB.CR PO SCH (21:22)
[2017-07-20] MEDS: Lidocaine PATCH 5%* 1 PATCH TRANSDERM SCH (21:29)
[2017-07-21 07:58] VITALS: BP 147/67
[2017-07-21] MEDS: Insulin LISPRO* 1 UNITS UNIT SUBCUT SCH (08:20)
[2017-07-21] MEDS: Heparin VIAL(*) 5000 UNITS/ML VIAL (FIVE THOUSAND) SUBCUT SCH (08:21)
[2017-07-21] MEDS: Hydrochlorothiazide TAB* 25 MG PO SCH (08:21)
[2017-07-21] MEDS: Metoprolol Tartrate TAB* 25 MG PO SCH (08:22)
[2017-07-21] MEDS: Gabapentin CAP(*) 100 MG PO SCH (08:22)
[2017-07-21] MEDS: Aspirin EC TAB* 81 MG TAB.EC PO SCH (08:22)
[2017-07-21] MEDS: Omeprazole CAP* 20 MG PO SCH (08:22)
[2017-07-21] MEDS: Carbidopa/Levodop 25/100 MG TAB(*) PO SCH (08:22)
[2017-07-21] MEDS: Selegiline TAB* 5 MG PO SCH (08:22)
[2017-07-21] MEDS: Lisinopril TAB* 10 MG PO SCH (08:22)
[2017-07-21] MEDS: Magnesium Oxide TAB* 400 MG PO SCH (08:22)
[2017-07-21] MEDS: Lidocaine Patch REMOVE* 1 NOTE MISC PATCH OFF SCH (08:24)
[2017-07-21] MEDS: Amantadine CAP* 100 MG PO SCH (08:24)
[2017-07-21] MEDS ORDERED: predniSONE TAB* 20 MG PO SCH (09:00)
--- NOTE | 2017-07-21 10:15 | DS ---
DISCHARGE SUMMARY: DATE OF ADMISSION: 07/17/17 DATE OF DISCHARGE: 07/21/17 ADMITTING PROVIDER: Marcelino Mcclure NP ATTENDING PHYSICIAN: Fidencio Vincent MD. PRIMARY CARE PROVIDERS: Sangita Walden MD and KIRA Beard. OUTPATIENT NEUROLOGIST: Monica Garza MD CHIEF COMPLAINT: Recent fall with resulted generalized weakness, right shoulder pain. PRINCIPAL DIAGNOSES: Falls in the setting of Parkinson's disease, chronic right humerus fracture, and rehabilitation. 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 She had sustained a fall about a week prior to admission. She saw her primary doctor 3 days prior to admission, where she had x-rays of her right hand and right wrist, and had noted a significant amount of ecchymosis. Her primary complaint was generalized weakness, much worse in the last week since the fall and trouble with her gait. She was not safe for home. She called her neighbor 11 times at night due to concerns of falling. She presented to [facility]. There was initial concern for potential UTI, though urine culture would eventually grow no significant organisms (she has taken empirically 2 doses of Cipro in the meanwhile). She work daily with physical therapy and is thought to need continued rehabilitation. She is being discharged to [facility] swing bed status to get that. During her hospitalization, she had multiple imaging studies includin. A CT of the brain without IV contrast which showed chronic ischemic white matter change without evidence of intracranial mass or hemorrhage. 2. Chest x-ray demonstrated postoperative changes of left shoulder, deformity of the right humeral head which is chronic. Lungs are clear. 3. Cervical spine CT without contrast demonstrated multilevel degenerative disk disease. No fractures of the cervical spine. 4. Humerus x-ray demonstrated fractures of the right distal humerus, deformity of the right humeral head. Overall, no significant change noted since 2014. 5. Shoulder x-ray with AC joint arthritis with deformity of the right humeral head and overriding of the fracture fragments. 6. Hand x-ray demonstrated degenerative changes of the proximal and distal interphalangeal joints without fracture. This is on the right. 7. Wrist x-ray demonstrated no fracture of the right wrist. 8. Right knee x-ray demonstrated no acute osseous injury. Her other evaluation was otherwise benign. She was given a lidocaine patch initially to help control her chronic right sciatica pain which had flared since the fall. When this was not completely addressing her need, she was also given gabapentin 100 mg p.o. b.i.d. and prednisone 40 mg daily. Thought the latter two will not be discontinued after discharge, but could potentially be readdressed if her pain returns. With the addition of the prednisone, her sugars spiked up, but have improved since cessation of the prednisone. DISCHARGE MEDICATIONS: Include: 1. Acetaminophen 650 mg p.o. q.4 hours p.r.n. (new). 2. Xanax 0.25 mg p.o. t.i.d. p.r.n. 3. Amantadine 100 mg p.o. b.i.d. 4. Aspirin 81 mg p.o. daily. 5. Carbidopa/levodopa 25/100 mg 2 tabs at 1400, 2 tabs at 2000, and 2 tabs at 0800, and a half tablet at bedtime. 6. Ibuprofen 600 mg p.o. q.6 hours p.r.n. 7. Glargine insulin 40 units subcu q.p.m. 8. Metoprolol tartrate 25 mg p.o. b.i.d. 9. Omeprazole 20 mg p.o. daily. 10. Percocet 1 tab p.o. q.4 hours p.r.n. 11. Selegiline 5 mg p.o. q.a.m. 12. Simvastatin 40 mg p.o. q.h.s. 13. Cyanocobalamin 500 mcg p.o. daily. 14. Glimepiride 4 mg p.o. daily. 15. Lidocaine patch 5% q.12 hours (new). 16. Lisinopril/hydrochlorothiazide 10/12.5 mg 1 tab p.o. b.i.d. 17. Milk of magnesia 30 mL p.o. q.4 hours p.r.n. (new). 18. Magnesium oxide 400 mg p.o. daily (new). 19. Metformin 500 mg p.o. b.i.d. 20. Senna 2 tabs p.o. q.h.s. (new). 21. Sitagliptin 100 mg p.o. daily. DISCHARGE DIET: Heart-healthy, carbohydrate consistent, unchanged. ACTIVITY LEVEL: No restrictions, but needing continued physical therapy. FOLLOWUP: Please follow up with Dr. Walden, JONATHAN Beard. Consideration to follow up with Orthopedics given her chronic right humerus fracture as discussed previously among her primary care providers. TIME SPENT ON DISCHARGE: Thirty-five minutes. [id number]/[facility] #: [id number] MTDD
== END 2017-07-21 11:55 | disposition swing bed (61) | DRG 57 ==
LOC: ED 16:43 → MED 19:39
PROVIDERS: ADMIT Student in an Organized Health Care Education/Training Program; ATTEND Internal Medicine
DX: G20 Parkinson's disease (principal); S42.301A Unspecified fracture of shaft of humerus, right arm, initial encounter for closed fracture; M21.331 Wrist drop, right wrist; E11.9 Type 2 diabetes mellitus without complications; I10 Essential (primary) hypertension; F40.240 Claustrophobia; Z66 Do not resuscitate; Z96.612 Presence of left artificial shoulder joint; F41.9 Anxiety disorder, unspecified; M20.091 Other deformity of right finger(s); E83.42 Hypomagnesemia; M54.31 Sciatica, right side; W19.XXXA Unspecified fall, initial encounter; K21.9 Gastro-esophageal reflux disease without esophagitis; E78.5 Hyperlipidemia, unspecified; F32.9 Major depressive disorder, single episode, unspecified; G89.29 Other chronic pain; G56.31 Lesion of radial nerve, right upper limb; R58 Hemorrhage, not elsewhere classified; M50.30 Other cervical disc degeneration, unspecified cervical region; M19.011 Primary osteoarthritis, right shoulder; F41.0 Panic disorder [episodic paroxysmal anxiety]; L29.9 Pruritus, unspecified; Z79.82 Long term (current) use of aspirin; Y92.9 Unspecified place or not applicable; Z79.84 Long term (current) use of oral hypoglycemic drugs; Z86.73 Personal history of transient ischemic attack (TIA), and cerebral infarction without residual deficits; Z90.710 Acquired absence of both cervix and uterus; Z90.89 Acquired absence of other organs; Z98.42 Cataract extraction status, left eye; Z98.41 Cataract extraction status, right eye; Z86.14 Personal history of Methicillin resistant Staphylococcus aureus infection; Z82.49 Family history of ischemic heart disease and other diseases of the circulatory system; Z88.0 Allergy status to penicillin; Z83.3 Family history of diabetes mellitus; Z91.81 History of falling; Z72.89 Other problems related to lifestyle
CPT/HCPCS: 36415; 70450; 71046; 72125; 80048; 80053; 80061; 80307; 80320; 81003; 81015; 83036; 83605; 83735; 83880; 84443; 84484; 85025; 85730; 87086; 87641; 93005; 99285; A9270-GY; G0480; G8978-GP-CL; G8979-GP-CI; G8987-GO-CM; G8988-GO-CK; J0744; J1644; J2270; J3475; J7512

== ENCOUNTER 2017-08-25 00:31 | Emergency (ER) | payer MEDICARE ==
[2017-08-25] MEDS ORDERED: NS 0.9% 1000 ML* 1,000 ML IV ONE (00:35)
[2017-08-25 01:02] LABS: Urine Appearance Clear; Urine Blood Negative (Negative); Urine Color Yellow; Urine Ketones Trace (Negative); Urine Protein 3+(>=500 mg/dL) (Negative); Urine Red Blood Cell Trace(0-2/hpf) (Absent); Urine Specific Gravity 1.026 (1.010-1.030); Urine Urobilinogen Negative (Negative); Urine White Blood Cell Trace(0-5/hpf) (Absent)
--- OUTSIDE RECORDS SUMMARY | 2017-08-25 01:04 | XMS REPORT ---
:1940 External Reference #:[id number] Author Organization [employer] Address [address] [place] [address] [place] [address] Phone [phone] Care Team Providers Name Role Phone Vicente Betancur MD Primary Care Physician Unavailable Payers Type Date Identification Numbers Payment Provider Subscriber Medicare Primary Policy Number: [id number] Medicare Shira Deleon PayID: [id number] [address] [place] [address] [facility] Policy Number: [id number] [facility] Shira Deleon PayID: [id number] [address] [place] [address] Problems Date Description Provider Status Onset: 03/12/2015 Parkinson's disease Monica Garza M.D. Active Note: MoCA: (12/30) Onset: 03/12/2015 Low back pain Monica Garza M.D. Active Note: with bilateral radicular symptoms that improves with using walker suggesting lumbosacral spinal stenosis Onset: 03/12/2015 H/O: TIA Monica Garza M.D. Active Onset: 03/12/2015 Diabetic peripheral neuropathy Monica Garza M.D. Active Onset: 12/21/2016 Ischemic stroke Monica Garza M.D. Active Note: bilateral pontine Onset: 12/21/2016 Diabetes mellitus Monica Garza M.D. Active Onset: 12/21/2016 H/O: hypertension Monica Garza M.D. Active Onset: 12/21/2016 Dyslipidemia Monica Garza M.D. Active Onset: 12/21/2016 Reactive depression (situational) Monica Garza M.D. Active Note: in setting of 's Onset: 08/01/2017 Late effect of fracture of upper Eliecer Montero M.D. Active extremities Onset: 08/01/2017 Late effect of fracture of upper Eliecer Montero M.D. Active extremities Family History Date Family Member(s) Problem(s) Comments Father due to Cancer () - age 84 Mother due to Cancer () - age 81 First Daughter 54 First Daughter Anemia First Daughter Arthritis Second Daughter leukopenia Second Daughter 52 Social History Type Date Description Comments Marital Status 02/2016 ETOH Use Denies alcohol use Smoking Patient has never smoked Allergies, Adverse Reactions, Alerts Date Description Reaction Status Severity Comments 03/12/2015 Penicillin active 07/30/2014 NKDA inactive Medications Medication Date Status Form Strength Qnty SIG Indications Ordering Provider Paroxetine HCL 07/12 Active Tablets 20mg 1 by mouth F43.20 every other , otoniel for 1 [employer] OF IN[employer]IGATIONS week, then 1 tab 2x /week then discontinue Blood Glucose 04/07 Active Kit W/Device 1kit use daily as E11.42 Zsofia instructed [employer]STIGATIONS [place] 03/20 Active Misc 31G X 8 180un Use with mm its Lantus Sergey, injection [employer]ATIONS daily Clindamycin HCL 03/09 Active Capsules 300mg 2caps 2 tab by mouth prior Sergey to dental [employer] OF IN[employer]STIGATIONS procedure Paroxetine HCL 01/04 Active Tablets 20mg 90tab 1 by mouth F43.20 Zsofi s every day ADONIS RinconP Januvia 01/04 Active Tablets 100mg 90tab Take 1 E11.42 Zsofi s Tablet By Sergey, Mouth Every [employer] Day Metformin HCL 09/07 Active Tablets 500mg 90tab take 1 E11.42 Zsofi s tablet by Sergey, mouth 2 [employer] times a day Carbidopa-Levod 02/24 Active Tablets ER 25-100mg 90tab 1 by mouth G20 Monica opa s at bed Kayla time.. M.DDavid Amantadine HCL 10/07 Active Tablets 100mg 180ta Take 1 G20 bs tablet by Kayla, mouth in M.D. the morning and afternoon Vitamin B12 03/12 Active Tablets 1 po daily Stef Garza Oxycodone HCL 06/21 Active Capsules 5mg 60cap 1 tab every M54.31 Zsofi s 6 hour as Sergey, needed pain [employer]ATIONS Lantus Solostar Active Solution 100Unit/M inject 30 E11.42 Unknown Pen-Inject L units under the skin every night Metoprolol Active Tablets 25mg 180ta 1 by mouth I10 Zsofia Tartrate / bs twice a day Sergey, [employer] OF IN[employer]ATIONS Simvastatin Active Tablets 40mg 90tab 1 by mouth E78.5 Zsofia s every night Sergey, at bedtime [employer] IN[employer]ATIONS Aspirin Active Tablets 81mg 1 by mouth Unknown every day Carbidopa-Levod Active Tablets 25-100mg 630ta 2 by mouth G20 Monica opa / bs at 6:30 in [facility], the morning, M.D. 1 at 10 in the morning, 2 at 2 at night, and 2 at 6:30pm Alprazolam Active Tablets 0.25mg one by mouth Unknown up to three times daily as needed for anxiety Selegiline HCL Active Tablets 5mg 90tab take 1 G20 Monica s tablet by Kayla, mouth every M.D. morning Ibu Active Tablets 600mg 90tab 1 tab by Zsofi s mouth every Sergey, 6 hours as [employer] IN[employer]ATIONS needed. Lisinopril Active Tablets 20mg 1 by mouth Unknown every day Lisinopril Active Tablets 20mg 1 by mouth Unknown every day Cipro 06/12 Hx Tablets 250mg 10tab 1 tab by Zsofi s mouth twice Sergey, - daily for 5 [employer]ATIONS . Glimepiride 04/07 Hx Tablets 4mg 90tab Take 1 E11.42 Zsofi s Tablet By Sergey, - Mouth Daily [employer] 08/18 Cipro 03/26 Hx Tablets 250mg 10tab 1 tab by Zsofi s mouth twice Sergey, - daily for 5 [employer]ATIONS Omeprazole 03/[address] 20mg 90cap Take 1 K21.9 Zsofi s Capsule By Sergey, - Mouth Every [employer] Fluticasone 01/13 Hx Suspension 50mcg/Act 16gm 1 act each Zsofia nostril Sergey, - twice daily [employer] 05/11 Glimepiride 01/04 Hx Tablets 4mg 1 tab po q E11.42 Zsofi day. Sergey, - [employer] 04/07 Januvia 09/28 Hx Tablets 50mg 30tab take 1 tab E11.42 Zsofi s by mouth Sergey, - everyday [employer] 01/04 Bupropion HCL 09/28 Hx Tablets ER 150mg 30tab take 1 tab F43.20 Zsofia ER (SR) 12HR s po daily Sergey, - [employer] 01/04 Bupropion HCL 09/07 Hx Tablets 75mg 30tab 1 by mouth F43.20 Zsofia s every day Sergey, - [employer] 09/28 Valium 03/12 Hx Tablets 2mg 2tabs 1 by mouth R29.6 Monica /2015 1h prior to [facility], - mri, june M.D. 05/14 repeat dose /2015 at time of mri if still anxious and not sedated. no driving. no mix w/alprazolam Amoxicillin 08/08 Hx Tablets 500mg 8tabs 4 tab by mouth 1 hour , - prior to M.D. 03/27 procedure ? Clindamycin HCL 06/20 Hx Capsules 300mg 30cap tab by mouth s every 6 , - hours M.D. 06/20 Clindamycin HCL 06/20 Hx Capsules 300mg 2caps 2 tab by mouth 1 hour , - prior to M.D. 08/23 dental procedure Meloxicam 03/03 Hx Tablets 7.5mg 60tab 1 tab by s mouth every Young, - day M.D. 02/13 Bactrim 02/08 Hx Tablets 400-80mg Rivera, - M.D. 02/08 Bactrim 02/08 Hx Rivera, - M.D. 02/08 Bactrim DS 02/08 Hx Tablets 800-160mg 14tab 1 po bid for s 7 days Rivera, - M.D. 11/06 Percocet 09/01 Hx Tablets 5-325mg 90tab 1-2 tabs po s q4-6 prn Rivera, - pain M.D. 03/13 Flexeril 09/01 Hx Tablets 10mg 40tab 1 tab po tid s prn muscle Rivera, - spasm M.D. 11/06 Oxycodone/Aceta 07/05 Hx Tablets 5-325mg 40tab 1-2 po q4h Dirk s prn pain Aram, - M.D. 09/01 Metformin HCL Hx Tablets 500mg 1 by mouth E11.42 Unknown /0000 twice a day - 09/07 Glimepiride Hx Tablets 4mg 1 by mouth E11.42 Unknown /0000 twice a day - 01/04 Lisinopril-Hydr Hx Tablets 10-12.5mg 180ta 1 by mouth I10 Zsofia ochlorothiazide /0000 bs twice a day Sergey, - [facility] 08/[address] 20mg 1 by mouth Unknown /0000 every day - 09/07 Amantadine HCL Hx Capsules 100mg 180ca 1 by mouth Monica /0000 ps morning and Kayla, - afternoon M.D. 10/07 Paroxetine HCL Hx Tablets 20mg 1 by mouth F43.20 Zsofia /0000 every other Sergey, - day for 1 [employer] 09/28 week, then tab 2x /week then discontinue Oxycodone-Aceta Hx Tablets 5-325mg Unknown minophen /0000 - 02/13 Advil Hx Capsules 200mg 2 caps po as Unknown /0000 needed - 04/24 Ciprofloxacin 00/00 Hx Tablets 250mg Unknown HCL /0000 - 08/18 Clindamycin HCL 00 Hx Capsules 150mg 1 cap every Unknown /0000 6 hours - until 04/10 Immunizations CPT Code Status Date Vaccine Lot # [id number] Given 01/04/2017 Influenza Virus Vaccine, Quadrivalent, Split, [id number] Preservative Free Vital Signs Date Vital Result Comment 08/18/2017 Height 62 inches 5'2" Weight 222.00 lb Heart Rate 79 /min BP Systolic Sitting 157 mmHg BP Diastolic Sitting 79 mmHg O2 % BldC Oximetry 98 % BMI (Body Mass Index) 40.6 kg/m2 07/12/2017 Height 62 inches 5'2" Weight 225.38 lb Heart Rate 71 /min BP Systolic 142 mmHg BP Diastolic 80 mmHg O2 % BldC Oximetry 96 % BMI (Body Mass Index) 41.2 kg/m2 05/12/2017 Height 62 inches 5'2" Weight 221.50 lb Heart Rate 60 /min BP Systolic Sitting 146 mmHg BP Diastolic Sitting 76 mmHg Respiratory Rate 20 /min BMI (Body Mass Index) 40.5 kg/m2 04/07/2017 Weight 218.00 lb Heart Rate 78 /min BP Systolic Sitting 158 mmHg BP Diastolic Sitting 98 mmHg Pain Level 5 O2 % BldC Oximetry 94 % 01/04/2017 Weight 221.00 lb Heart Rate 80 /min BP Systolic Sitting 140 mmHg BP Diastolic Sitting 70 mmHg Body Temperature 96.6 F O2 % BldC Oximetry 95 % 12/21/2016 Height 62 inches 5'2" Weight 223.00 lb Heart Rate 76 /min BP Systolic Sitting 140 mmHg BP Diastolic Sitting 80 mmHg Respiratory Rate 16 /min BMI (Body Mass Index) 40.8 kg/m2 09/28/2016 Weight 219.00 lb Heart Rate 72 /min BP Systolic Sitting 126 mmHg BP Diastolic Sitting 64 mmHg Body Temperature 96.6 F O2 % BldC Oximetry 95 % 09/07/2016 Height 62 inches 5'2" Weight 221.25 lb Heart Rate 78 /min BP Systolic 122 mmHg BP Diastolic 74 mmHg Body Temperature 98.6 F O2 % BldC Oximetry 92 % BMI (Body Mass Index) 40.5 kg/m2 08/24/2016 Height 62 inches 5'2" Weight 220.00 lb Heart Rate 70 /min BP Systolic Sitting 130 mmHg BP Diastolic Sitting 84 mmHg Respiratory Rate 16 /min BMI (Body Mass Index) 40.2 kg/m2 05/25/2016 Height 62 inches 5'2" Weight 218.00 lb Heart Rate 76 /min BP Systolic Sitting 142 mmHg BP Diastolic Sitting 82 mmHg Respiratory Rate 14 /min BMI (Body Mass Index) 39.9 kg/m2 02/25/2016 Height 62 inches 5'2" Weight 222.00 lb Heart Rate 72 /min BP Systolic Sitting 122 mmHg BP Diastolic Sitting 82 mmHg Respiratory Rate 14 /min BMI (Body Mass Index) 40.6 kg/m2 10/02/2015 Height 62 inches 5'2" Weight 224.00 lb Heart Rate 64 /min BP Systolic Sitting 128 mmHg BP Diastolic Sitting 76 mmHg Respiratory Rate 14 /min BMI (Body Mass Index) 41.0 kg/m2 06/03/2015 Height 62 inches 5'2" Weight 226.00 lb Heart Rate 84 /min BP Systolic Sitting 136 mmHg BP Diastolic Sitting 64 mmHg Respiratory Rate 20 /min BMI (Body Mass Index) 41.3 kg/m2 03/12/2015 Height 62 inches 5'2" Weight 225.00 lb Heart Rate 84 /min BP Systolic Sitting 140 mmHg BP Diastolic Sitting 80 mmHg Respiratory Rate 20 /min BMI (Body Mass Index) 41.1 kg/m2 07/30/2014 Height 63 inches 5'3" Weight 210.00 lb Pain Level 10 BMI (Body Mass Index) 37.2 kg/m2 11/07/2013 Height 63 inches 5'3" Weight 210.00 lb Body Temperature 98.3 F BMI (Body Mass Index) 37.2 kg/m2 06/21/2010 Height 63 inches 5'3" Weight 210.00 lb Heart Rate 80 /min BP Systolic 113 mmHg BP Diastolic 70 mmHg BMI (Body Mass Index) 37.2 kg/m2 Results Test Date Test Result H/L Range Note Urine Culture And 07/17/2017 Urine Culture SEE RESULT BELOW 1 Sensitivities Laboratory test finding 07/17/2017 Partial Thrombo 26.7 seconds 26.0- 36.3 Time PTT CBC Auto Diff 07/17/2017 White Blood 6.9 10^3/uL 3.5-10.8 Count Red Blood Count 4.10 10^6/uL 4.0-5.4 Hemoglobin 12.7 g/dL 12.0-16.0 Hematocrit 36 % 35-47 Mean Corpuscular Volume 89 fL 80-97 Mean Corpuscular Hemoglobin 31 pg 27-31 Mean Corpuscular HGB Conc 35 g/dL 31-36 Red Cell Distribution Width 14 % 10.5-15 Platelet Count 204 10^3/uL 150-450 Mean Platelet Volume 7.5 um3 7.4-10.4 Abs Neutrophils 4.4 10^3/uL 1.5-7.7 Abs Lymphocytes 1.9 10^3/uL 1.0-4.8 Abs Monocytes 0.4 10^3/uL 0-0.8 Abs Eosinophils 0.2 10^3/uL 0-0.6 Abs Basophils 0.1 10^3/uL 0-0.2 Abs Nucleated RBC 0 10^3/uL Granulocyte % 63.5 % 38-83 Lymphocyte % 27.3 % 25-47 Monocyte % 5.8 % 0-7 Eosinophil % 2.3 % 0-6 Basophil % 1.1 % 0-2 Nucleated Red Blood Cells % 0 Laboratory test finding 07/17/2017 Lactic Acid 1.5 mmol/L 0.5-2.0 2 B-Type Natriuretic Peptide BNP 56 pg/mL 3 Alcohol < 10 mg/dL <10 Urinalysis Profile 07/17/2017 Urine Color Yellow Urine Appearance Cloudy Urine Specific Tebbetts 1.015 1.010-1.030 Urine pH 5.0 5-9 Urine Urobilinogen Negative Negative Urine Ketones Negative Negative Urine Protein 3+(>=500 mg/dL) Negative Urine Leukocytes Negative Negative Urine Blood 3+ Negative Urine Nitrite Negative Negative Urine Bilirubin Negative Negative Urine Glucose 1+(50 mg/dL) Negative Urine White Blood Cell 2+(11-20/hpf) Absent Urine Red Blood Cell 3+(>10/hpf) Absent Urine Bacteria Absent Absent Urine Squamous Epithelial Cell Present Absent Laboratory test 07/17/2017 TSH (Thyroid Stim 2.12 mcIU/mL 0.34-5.60 finding Horm) Urine Drug SCR ED & 07/17/2017 Amphetamine Ur Presumptive Posi None Detect 4 Pain Clinic Screen <SEE NOTE> Barbiturates Urine Screen None Detected None Detect Benzodiazepine Urine Screen None Detected None Detect Urine Cannabinoids Screen None Detected None Detect Urine Cocaine Screen None Detected None Detect Urine Opiates Screen None Detected None Detect Urine Phencyclidine Screen None Detected None Detect 5 Lipid Profile (Trig/Chol/HDL) 07/14/2017 Triglycerides 147 mg/dL 6, 7 Cholesterol 172 mg/dL 6, 8 HDL Cholesterol 42.0 mg/dL 6, 9 LDL Cholesterol 101 mg/dL 6, 10 Laboratory test 07/14/2017 TSH (Thyroid Stim 3.19 mcIU/mL 0.34-5.60 6, 11 finding Horm) Laboratory test 07/14/2017 Hemoglobin A1c 6.9 % High 4.0-5.6 6, 12 finding (Glyco HGB) Comp Metabolic Panel 07/14/2017 Sodium 141 mmol/L 139-145 6 Potassium 4.4 mmol/L 3.5-5.0 6 Chloride 105 mmol/L 101-111 6 Co2 Carbon Dioxide 30 mmol/L 22-32 6 Anion Gap 6 mmol/L 2-11 6 Glucose 141 mg/dL High 70-100 6 Blood Urea Nitrogen 29 mg/dL High 6-24 6 Creatinine 0.99 mg/dL High 0.51-0.95 6 BUN/Creatinine Ratio 29.3 High 8-20 6 Calcium 9.4 mg/dL 8.6-10.3 6 Total Protein 6.1 g/dL Low 6.4-8.9 6 Albumin 3.7 g/dL 3.2-5.2 6 Globulin 2.4 g/dL 2-4 6 Albumin/Globulin Ratio 1.5 1-3 6 Total Bilirubin 0.40 mg/dL 0.2-1.0 6 Alkaline Phosphatase 59 U/L 34-104 6 Alt 4 U/L Low 7-52 6 Ast 9 U/L Low 13-39 6 Egfr Non- 54.7 >60 6 Egfr 70.3 >60 6, 13 Urine Culture And Sensitivities 06/13/2017 Urine Culture SEE RESULT BELOW 14 Urinalysis Profile 06/13/2017 Urine Color Yellow Urine Appearance Cloudy Urine Specific Tebbetts 1.024 1.010-1.030 Urine pH 5.0 5-9 Urine Urobilinogen Negative Negative Urine Ketones Trace Negative Urine Protein 3+(>=500 mg/dL) Negative Urine Leukocytes Negative Negative Urine Blood Negative Negative Urine Nitrite Negative Negative Urine Bilirubin Negative Negative Urine Glucose Negative Negative Urine White Blood Cell Trace(0-5/hpf) Absent Urine Red Blood Cell Trace(0-2/hpf) Absent Urine Bacteria Absent Absent Urine Squamous Epithelial Cell Present Absent Laboratory test finding 04/07/2017 Hemoglobin A1c 9.4 High 5-7 Urine Culture And 03/23/2017 Urine Culture SEE RESULT BELOW 15 Sensitivities Ua Routine 01/04/2017 Ua Specific Tebbetts 1.020 Ua PH 5 Ua Color dark yellow Ua Appera clear Ua WBC trace Ua Protein +++ Ua Glucose normal Ua Ketones neg Ua Bilirubin neg Ua Urobilinogen normal Ua Nitrite neg Ua Occult Blood trace Urine Microalbumin Random 01/04/2017 Urine Creatinine 102.09 mg/dL Ur Microalbumin (mg/L) 775.5 mg/L Urine Microalbumin/Creatinine 759.6 ug/mg High <31 Laboratory test finding 01/04/2017 Hemoglobin A1c 7.7 High 5-7 Comp Metabolic Panel 09/19/2016 Sodium 139 mmol/L 133-145 Potassium 4.4 mmol/L 3.5-5.0 Chloride 103 mmol/L 101-111 Co2 Carbon Dioxide 29 mmol/L 22-32 Anion Gap 7 mmol/L 2-11 Glucose 147 mg/dL High 70-100 Blood Urea Nitrogen 32 mg/dL High 6-24 Creatinine 0.89 mg/dL 0.51-0.95 BUN/Creatinine Ratio 36.0 High 8-20 Calcium 9.2 mg/dL 8.6-10.3 Total Protein 6.3 g/dL Low 6.4-8.9 Albumin 3.6 g/dL 3.2-5.2 Globulin 2.7 g/dL 2-4 Albumin/Globulin Ratio 1.3 1-3 Total Bilirubin 0.50 mg/dL 0.2-1.0 Alkaline Phosphatase 56 U/L 34-104 Alt 5 U/L Low 7-52 Ast 11 U/L Low 13-39 Egfr Non- 61.8 >60 Egfr 79.5 >60 16 CBC Auto Diff 09/19/2016 White Blood Count 7.3 10^3/uL 3.5-10.8 Red Blood Count 4.22 10^6/uL 4.0-5.4 Hemoglobin 13.3 g/dL 12.0-16.0 Hematocrit 39 % 35-47 Mean Corpuscular Volume 92 fL 80-97 Mean Corpuscular Hemoglobin 32 pg High 27-31 Mean Corpuscular HGB Conc 34 g/dL 31-36 Red Cell Distribution Width 14 % 10.5-15 Platelet Count 209 10^3/uL 150-450 Mean Platelet Volume 8 um3 7.4-10.4 Abs Neutrophils 4.5 10^3/uL 1.5-7.7 Abs Lymphocytes 2.2 10^3/uL 1.0-4.8 Abs Monocytes 0.4 10^3/uL 0-0.8 Abs Eosinophils 0.1 10^3/uL 0-0.6 Abs Basophils 0 10^3/uL 0-0.2 Abs Nucleated RBC 0.01 10^3/uL Granulocyte % 61.6 % 38-83 Lymphocyte % 29.9 % 25-47 Monocyte % 6.1 % 1-9 Eosinophil % 1.8 % 0-6 Basophil % 0.6 % 0-2 Nucleated Red Blood Cells % 0.1 Lipid Profile (Trig/Chol/HDL) 09/19/2016 Triglycerides 134 mg/dL 17 Cholesterol 137 mg/dL 18 HDL Cholesterol 38.3 mg/dL 19 LDL Cholesterol 72 mg/dL 20 Laboratory test finding 09/07/2016 Hemoglobin A1c 9.2 High 5-7 1 SEE RESULT BELOW Name: SHIRA DELEON I : [address]: Fidencio Vincent MD Acct: [id number] Unit: [id number] AGE: 77 Location: [place] [id number] Re07/17/17 SEX: F Status: ADM IN SPEC: [id number] DAQUAN: 07/17/[address] [facility] [address]: Brennan Bryan MD REQ: [id number] RECD: 07/17/17 STATUS: COMP OTHR : Valentina Rincon ACCOUNTANT AUDITOR _ SOURCE: URINE SPDESC: ORDERED: Urine Culture Procedure Result Reported Site Urine Culture Final 07/19/17- 0835 ML No growth of clinically significant organisms * ML - Main Lab . END OF REPORT DEPARTMENT OF PATHOLOGY, [address] [place] [address] Marvin Stinson M.D. Director [facility] # [id number] 2 [facility] Severe Sepsis and Septic Shock Management Bundle Measure requires all lactic acids initially measuring >2.0 mmol/L be repeated. 3 >100 to <200 pg/mL: likely compensated congestive heart failure (CHF) 200 to 400 pg/mL: likely moderate CHF >400 pg/mL: likely moderate to severe CHF 4 Presumptive Positive Presumptive positive results are unconfirmed. 5 The urine specimen was tested at the listed cutoffs: Drug class test level (ng/mL) Amphetamines 500 Barbiturates 200 Benzodiazepine metabolites 200 Cocaine metabolites 150 Cannabinoids 50 Opiates 300 Pcp 25 Specimen was received without chain of custody. Results should be used for medical purposes only. 6 FASTING 7 Desirable: <150 Borderline High: 150-199 High: 200-499 Very High: >500 8 Desirable: <200 Borderline High: 200-239 High: >239 9 Low: <40 Desirable: 40-60 High: >60 10 Desirable: <100 Near Optimal: 100-129 Borderline High: 130-159 High: 160-189 Very High: >189 11 FASTING 12 Therapeutic target for the treatment of diabetes mellitus patients is <7% HBA1C, and in selective patients <6.0%. Please refer to [place] [employer] diabetic care guidelines for further information. 13 Because ethnic data is not always readily available, this report includes an eGFR for both -Americans and non- Americans. The National Kidney Disease Education Program (NKDEP) does not endorse the use of the MDRD equation for patients that are not between the ages of 18 and 70, are , have extremes of body size, muscle mass, or nutritional status, or are non- or non-. According to the National Kidney Foundation, irrespective of diagnosis, the stage of the disease is based on the level of kidney function: Stage Description GFR(mL/min/1.73 m(2)) 1 Kidney damage with normal or decreased GFR 90 2 Kidney damage with mild decrease in GFR 60-89 3 Moderate decrease in GFR 30-59 4 Severe decrease in GFR 15-29 5 Kidney failure <15 (or dialysis) 14 SEE RESULT BELOW Name: SHIRA DELEON Michael : [address]: Valentina Rincon NP Acct: [id number] Unit: [id number] AGE: 76 Location: [facility] Re06/13/17 SEX: F Status: REG REF SPEC: [id number] DAQUAN: 06/13/17-[address]: Valentina Rincon NP REQ: [id number] RECD: 06/13/17 STATUS: COMP _ SOURCE: URINE [facility]: ORDERED: Urine Culture Procedure Result Reported Site Urine Culture Final 06/15/17- 1234 ML Organism 1 AEROCOCCUS URINAE [place] Count 50-75,000 (Many) CFU/ML Aerococcus isolates are too fastidious for routine susceptibility studies. Aerococcus are usually susceptible to penicillin, amoxicillin, piperacillin, cefipime, rifampin and vancomycin. Moderate to good activity occurs with the quinolones, tetracyclines and erythromycin. (Lanre's [employer] [place] and Textbook of Diagnostic Microbiology 6th Ed. 2006, p. 705-6.) * ML - Main Lab . END OF REPORT DEPARTMENT OF PATHOLOGY, [address] [place] [address] Marvin Stinson M.D. Director [facility] # [id number] 15 SEE RESULT BELOW Name: SHIRA DELEON I : [address]: Valentina Rincon NP Acct: [id number] Unit: [id number] AGE: 76 Location: [facility] Re03/23/17 SEX: F Status: REG REF SPEC: [id number] DAQUAN: 03/23/[address] [facility] [address]: Valentina Rincon NP REQ: [id number] RECD: 03/23/17 STATUS: COMP _ SOURCE: URINE SPDESC: ORDERED: Urine Culture Urine Source: Random Procedure Result Reported Site Urine Culture Final 03/25/17- 0854 ML Organism 1 ESCHERICHIA COLI [place] Count >100,000 (Many) CFU/ML 1. ESCHERICHIA COLI M.I.C. RX --------- ------ Ampicillin <=2 S Cefazolin <=4 S Cefepime <=1 S Ceftriaxone <=1 S Ciprofloxacin <=0.25 S Gentamicin <=1 S Levofloxacin <=0.12 S Meropenem <=0.25 S Nitrofurantoin <=16 S Tetracycline <=1 S Pipercillin/Tazobactam <=4 S Trimethoprim/Sulfamethoxazole <=20 S Amoxicillin/Clavulanic Acid <=2 S Aztreonam <=1 S Contact the Microbiology Department for any additional antibiotic reporting. * ML - MAIN LAB ([facility]) . END OF REPORT * ML=Testing performed at Main Lab DEPARTMENT OF PATHOLOGY, [address] [place] [address] Marvin Stinson M.D. Director [facility] # [id number] 16 Because ethnic data is not always readily available, this report includes an eGFR for both -Americans and non- Americans. The National Kidney Disease Education Program (NKDEP) does not endorse the use of the MDRD equation for patients that are not between the ages of 18 and 70, are , have extremes of body size, muscle mass, or nutritional status, or are non- or non-. According to the National Kidney Foundation, irrespective of diagnosis, the stage of the disease is based on the level of kidney function: Stage Description GFR(mL/min/1.73 m(2)) 1 Kidney damage with normal or decreased GFR 90 2 Kidney damage with mild decrease in GFR 60-89 3 Moderate decrease in GFR 30-59 4 Severe decrease in GFR 15-29 5 Kidney failure <15 (or dialysis) 17 Desirable <150 Borderline high 150-199 High 200-499 Very High >500 18 Desirable <200 Borderline high 200-239 High >239 19 Low <40 Desirable: 40-60 High: >60 20 Desirable: <100 mg/dL Near Optimal: 100-129 mg/dL Borderline High: 130-159 mg/dL High: 160-189 mg/dL Very High: >189 mg/dL Procedures Date CPT Code Description Status 01/07/2015 97584 ECHO Transthorasic Realtime 2D W Doppler & Color Flow Completed Hosp 01/07/2015 72031 EKG, Interpretation Only Completed 11/07/2013 57830 Rad Exam; Humerus Completed 03/13/2012 85773 Rad Exam; Humerus Completed 01/23/2012 16403 Rad Shoulder Comp, Min. 2 Views Completed 01/23/2012 05060 Rad Shoulder Comp, Min. 2 Views Completed 01/23/2012 04891 Closed trtmt prox humeral fx Completed 12/06/2011 98479 Short Arm Splint Application Completed 11/15/2011 53592 Long Arm Cast Application Completed 11/11/2011 73593 Rad Exam; Wrist Limited, 2 Views Completed 11/10/2011 87011 Transplant Tendon Forearm/Wrist Completed 11/10/2011 03121 Transplant Tendon Forearm/Wrist Completed 05/05/2011 45638 Rad Exam; Humerus Completed 02/23/2011 93360 Rad Shoulder Comp, Min. 2 Views Completed 02/10/2011 66211 Removal, Non-Biodegradable Drug Delivery Implant Completed 02/10/2011 92948 Removal, Non-Biodegradable Drug Delivery Implant Completed 02/10/2011 17000 Arthroplasty,Total Shoulder Replacement (TSR) Completed 02/10/2011 74005 Arthroplasty,Total Shoulder Replacement (TSR) Completed 09/10/2010 28362 Insertion, Non-Biodegradable Drug Delivery Implant Completed 09/10/2010 74076 Debridement Tissue/Muscle/Bone Completed 09/10/2010 93410 Debridement Tissue/Muscle/Bone Completed 09/06/2010 65411 Remove Foreign Body Shoulder Deep Completed 09/06/2010 94568 Arthrotomy Glenohumeral JT Explore/Drain/Remove FB Completed 09/06/2010 08708 Arthrotomy Glenohumeral JT Explore/Drain/Remove FB Completed 09/05/2010 82403 Inject/Drain Joint/Bursa Major W/O US Completed 09/01/2010 09941 Rad Shoulder Comp, Min. 2 Views Completed 08/17/2010 53919 Rad Exam; Humerus Completed 08/03/2010 30186 Rad Exam; Humerus Completed 07/20/2010 81402 Rad Exam; Humerus Completed 07/14/2010 83878 Rad Exam; Humerus Completed 07/14/2010 82058 Long Arm Splint Application Completed 07/05/2010 88290 Rad Exam; Humerus Completed 07/05/2010 74852 Long Arm Splint Application Completed 06/21/2010 40610 Closed trtmt humeral shaft fx Completed Encounters Type Date Location Provider CPT E/M Dx Office Visit 08/01/2017 [facility] Eliecer Montero, 12860 S42.201P 8:30a Of [facility] SHEILA Valentine M.D. S42.401P Office Visit 07/21/2017 10:07a [facility], [place] [address] R53.1 Hospitalists M54.30 E83.42 G20 E11.9 Office Visit 07/20/2017 10:07a [facility], [place] [address] R53.1 Hospitalists M54.30 E83.42 G20 E11.9 Office Visit 07/19/2017 10:06a [facility], [place] [address] R53.1 Hospitalists M54.30 E83.42 G20 E11.9 Office Visit 07/18/2017 10:05a [facility], [place] [address] M54.30 Hospitalists E83.42 N39.0 E11.9 G20 Office Visit 07/17/2017 10:05a [facility], Matt Mcclure 55223 R53.1 Hospitalists N.P. B96.20 N39.0 G20 E11.8 Office Visit 07/12/2017 11:20a [facility] JONATHAN Beard [address] M79.641 - [address] E11.42 F43.20 G20 E78.5 I10 S60.221A Office Visit 05/12/2017 3:15p [facility] Monica Garza M.D. 92850 G20 Services Of Groundskeeper Supervisor M54.31 Office Visit 04/07/2017 2:00p [facility] Valentina Rincon, [facility] [address] E11.42 - [place] I10 F43.20 E78.5 K21.9 M54.31 G20 Office Visit 01/04/2017 1:00p [facility] Valentina Rincon, [facility] [address]19 E11.42 - [address] F43.20 I10 E78.5 R30.0 Z23 Office Visit 12/21/2016 3:00p [facility] Monica Garza M.D. 95828 G20 Services Of Groundskeeper Supervisor R29.6 I67.82 Office Visit 09/28/2016 1:40p [facility] Valentina Diask, [facility] [address]88 E11.42 - [address] I10 E78.5 F43.20 Z79.4 Office Visit 09/07/2016 11:00a [facility] Valentina Diask, [facility] [address] E11.42 - [address] G20 I10 E78.5 K21.9 F43.20 Office Visit 08/24/2016 3:30p [facility] Monica Garza M.D. 26291 G20 Services Of Groundskeeper Supervisor I67.82 R29.6 Office Visit 05/25/2016 2:30p [facility] Monica Garza M.D. 53478 G20 Services Of Groundskeeper Supervisor I67.82 Office Visit 02/25/2016 3:00p [facility] Monica Garza M.D. 15893 G20 Services Of Groundskeeper Supervisor I67.82 Office Visit 10/02/2015 3:15p [facility] Monica Garza M.D. 95652 G20 Services Of [employer]oundskeeper Supervisor I67.82 M54.16 E11.42 R29.6 Office Visit 06/03/2015 9:30a [facility] Monica Garza M.D. 76659 G20 I67.82 Office Visit 03/12/2015 9:00a [facility] Monica Garza M.D. 31194 G20 M54.16 R29.810 E11.42 R29.6 M54.2 R15.9 N39.498 R29.2 Office Visit 01/07/2015 4:11p [facility], Anna Haider N.P. 05971 R55 Hospitalists E11.9 R41.3 Office Visit 01/06/2015 4:10p [facility], [place] [address] R55 Hospitalists E11.9 R41.3 Office Visit 07/30/2014 10:30a [facility] Una Walls, 55879 812.00 Of Lul Finch V54.89 729.5 Office Visit 11/07/2013 1:45p [facility] Eduardo Stafford M.D. 87535 812.00 Of Lul Office Visit 01/31/2012 10:00a [facility] Eduardo Stafford M.D. 21327 812.00 Of Lul Office Visit 01/23/2012 9:00a [facility] Jovanny Lacey 32097 812.00 Of Masha Martínez 812.40 905.2 812.00 Office Visit 06/21/2011 11:45a [facility] Una Walls, 93669 354.3 Of Lul Finch Office Visit 06/21/2011 11:30a [facility] Eduardo Stafford M.D. 51050 812.40 Of Lul V54.89 Office Visit 05/05/2011 11:00a [facility] Of Gifty Huber 22484 812.40 Lul GARCIA-Jonny V54.89 Office Visit 12/15/2010 2:00p [facility] Of Eduardo Stafford M.D. 47006 996.66 Lul 354.3 Office Visit 09/01/2010 1:30p [facility] Of Eduardo Stafford M.D. 08635 719.41 C.M.A. Plan of Care Future Appointment(s):09/22/2017 2:15 pm - Monica Garza M.D. at [facility]08/18/2017 - Geri Cardona M.D.E11.9 Type 2 diabetes mellitus without complicationsComments:Continue Lantus and metforminStop the JanuviaTarget A1C is to be less than 8, fasting sugars should be 120-150.Follow up: Parkinson's diseaseNew Orders:Danielrom Advanta 2 bedComments:Talk to the VNS about the edLocal equipment: Cue, [facility] Home AxyetpzfX35.0 Urinary tract infection, site not [id number] Sciatica, right sideNew Xrays:MRI Lumbar Spine W/O
[2017-08-25 01:06] LABS: ABS Basophils 0.1 10^3/ul (0-0.2); ABS Eosinophils 0.1 10^3/ul (0-0.6); ABS Lymphocytes 1.6 10^3/ul (1.0-4.8); ABS Monocytes 0.5 10^3/ul (0-0.8); ABS Neutrophils 6.5 10^3/ul (1.5-7.7); ABS Nucleated RBC 0 10^3/ul; Eosinophil % 1.3 % (0-6); Hematocrit 36 % (35-47); Hemoglobin 12.3 g/dl (12.0-16.0); Lymphocyte % 18.3 % (25-47); Mean Corpuscular HGB Conc 34 g/dl (31-36); Mean Corpuscular Hemoglobin 31 pg (27-31); Mean Corpuscular Volume 90 fL (80-97); Mean Platelet Volume 7.4 um3 (7.4-10.4); Nucleated Red Blood Cells % 0; Platelet Count 202 10^3/ul (150-450); Red Blood Count 3.99 10^6/ul (4.00-5.40); Red Cell Distribution Width 15 % (10.5-15); White Blood Count 8.8 10^3/ul (3.5-10.8)
[2017-08-25 01:24] LABS: EGFR Non-African American 62.5 (>60)
--- NOTE | 2017-08-25 01:37 | ED ---
Head Injury - HPI Summary HPI Summary: Pt is a 77 y/o F who arrived via [facility] ambulance following a fall at around 0000 today. She was getting up to use restroom when she lost her balance , fell and hit her face. Pt notes abrasions on nose, forehead, and right knee. Per triage, pain is described as aching and is rated 2/10. She also reports bruising to left eye. She denies LOC, MCKINNEY, and abdominal pain. Pt has Hx of Parkinson's Disease, diabetes, and recent UTI. She reports dysuria. - History Of Current Complaint Chief Complaint: EDUrogenitalProblems Stated Complaint: FALL Time Seen by Provider: 08/25/17 00:34 Hx Obtained From: Patient Mechanism Of Injury: Fall From A Standing Position Onset/Duration: Started Minutes Ago - around 0000 Severity Currently: Mild Pain Intensity: 2 Pain Scale Used: 0-10 Numeric - 2/10 Location of Head Injury: Frontal Character: Aching Aggravating Factor(s): Other: - none Alleviating Factor(s): Other: - none Associated Signs And Symptoms: Other: - NEGATIVE: LOC, MCKINNEY, abdominal pain POSITIVE: Abrasions on nose, forehead, and right knee. Bruised left eye. - Allergies/Home Medications Allergies/Adverse Reactions: Allergies Allergy/AdvReac Type Severity Reaction Status Date / Time Penicillins Allergy Anaphylatic Verified 08/22/17 12:45 Shock Home Medications: Home Medications Docusate CAP* [Colace Cap*] 100 mg PO BEDTIME 08/25/17 [History Confirmed ] Lisinopril 20 mg PO DAILY 08/25/17 [History Confirmed 08/25/17] Melatonin (NF) 3 mg PO DAILY 08/25/17 [History Confirmed 08/25/17] PMH/Surg Hx/FS Hx/Imm Hx Endocrine/Hematology History: Reports: Hx Diabetes Denies: Hx Anticoagulant Therapy Cardiovascular History: Reports: Hx Hypertension Denies: Hx Pacemaker/ICD History: Denies: Hx Renal Disease Musculoskeletal History: Reports: Hx Arthritis, Hx Back Problems - degenerative discs, sciatica, Other Musculoskeletal History - humerus fracture Sensory History: Reports: Hx Contacts or Glasses Denies: Hx Hearing Aid Opthamlomology History: Reports: Hx Contacts or Glasses Neurological History: Reports: Other Neuro Impairments/Disorders - Parkinson's disease Psychiatric History: Reports: Hx Anxiety - claustrophobia Denies: Hx Panic Disorder - Surgical History Surgery Procedure, Year, and Place: right arm following humerus fx, appendectomy , hysterectomy, cataracts, left shoulder REPLACEMENT. TENDON SURGERY RIGHT HAND Infectious Disease History: No Infectious Disease History: Reports: Hx of Known/Suspected MRSA Denies: Traveled Outside the [place] in Last 30 Days - Family History Known Family History: Positive: Hypertension, Diabetes - Social History Alcohol Use: None Substance Use Type: Reports: None Smoking Status (MU): Never Smoked Tobacco Review of Systems Positive: Other - bruised left eye Negative: Abdominal Pain Positive: dysuria Positive: Other - abrasions on right knee, forehead, and nose Negative: Headache, Syncope All Other Systems Reviewed And Are Negative: Yes Physical Exam - Summary Physical Exam Summary: Appearance: Well-appearing, obese, lying in bed comfortably Skin: Warm, dry, no obvious rash Eyes: sclera anicteric, no conjunctival pallor. Subconjunctival hemorrhage of left eye. ENT: mucous membranes moist, pharynx appears normal Neck: Supple, nontender Respiratory: Clear to auscultation, no signs of respiratory distress Cardiovascular: Normal S1, S2. No murmurs. Normal distal pulses in tibial and radial bilaterally. Abdomen: Soft, nontender, normal active bowel sounds present. Musculoskeletal: Normal, Strength/ROM Intact Neurological: A&Ox3, awake and alert, mentation is normal, speech is fluent and appropriate Skin: Abrasion on forehead, right knee cap, and forehead. No other signs of injury beyond. Genitourinary: Rectal exam showed no blood. Chronic irritation around gluteal fold. 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 Psychiatric: affect is normal, does not appear anxious or depressed Triage Information Reviewed: Yes Vital Signs On Initial Exam: Initial Vitals Temp Pulse Resp BP Pulse Ox 97.7 F 70 20 194/103 98 08/25/17 00:36 08/25/17 00:36 08/25/17 00:36 08/25/17 00:36 08/25/17 00:36 Vital Signs Reviewed: Yes - Monae Coma Scale Best Eye Response: 4 - Spontaneous Best Motor Response: 6 - Obeys Commands Best Verbal Response: 5 - Oriented Coma Scale Total: 15 Diagnostics - Vital Signs Vital Signs Temp Pulse Resp BP Pulse Ox 08/25/17 00:42 73 26 98 08/25/17 00:36 97.7 F 70 20 194/103 98 - Laboratory Lab Results: Lab Results 08/25/17 08/25/17 08/25/17 Range/Units 00:41 00:41 00:46 WBC 8.8 (3.5-10.8) 10^3/ul RBC 3.99 L (4.00-5.40) 10^6/ul Hgb 12.3 (12.0-16.0) g/dl Hct 36 (35-47) % MCV 90 (80-97) fL MCH 31 (27-31) pg MCHC 34 (31-36) g/dl RDW 15 (10.5-15) % Plt Count 202 (150-450) 10^3/ul MPV 7.4 (7.4-10.4) um3 Neut % (Auto) 73.6 (38-83) % Lymph % (Auto) 18.3 L (25-47) % [place] % (Auto) 5.9 (0-7) % Eos % (Auto) 1.3 (0-6) % Baso % (Auto) 0.9 (0-2) % Absolute Neuts (auto) 6.5 (1.5-7.7) 10^3/ul Absolute Lymphs (auto) 1.6 (1.0-4.8) 10^3/ul Absolute Monos (auto) 0.5 (0-0.8) 10^3/ul Absolute Eos (auto) 0.1 (0-0.6) 10^3/ul Absolute Basos (auto) 0.1 (0-0.2) 10^3/ul Absolute Nucleated RBC 0 10^3/ul Nucleated RBC % 0 Sodium 137 (135-145) mmol/L Potassium 4.1 (3.5-5.0) mmol/L Chloride 106 (101-111) mmol/L Carbon Dioxide 22 (22-32) mmol/L Anion Gap 9 (2-11) mmol/L BUN 30 H (6-24) mg/dL Creatinine 0.88 (0.51-0.95) mg/dL Est GFR ( Amer) 75.6 (>60) Est GFR (Non-Af Amer) 62.5 (>60) BUN/Creatinine Ratio 34.1 H (8-20) Glucose 224 H (70-100) mg/dL Calcium 9.3 (8.6-10.3) mg/dL Total Bilirubin 0.30 (0.2-1.0) mg/dL AST 12 L (13-39) U/L ALT < 3 L (7-52) U/L Alkaline Phosphatase 55 (34-104) U/L Total Protein 6.4 (6.4-8.9) g/dL Albumin 3.6 (3.2-5.2) g/dL Globulin 2.8 (2-4) g/dL Albumin/Globulin Ratio 1.3 (1-3) Urine Color Yellow Urine Appearance Clear Urine pH 5.0 (5-9) Ur Specific [place] 1.026 (1.010-1.030) Urine Protein 3+(>=500 mg/dl) A (Negative) Urine Ketones Trace A (Negative) Urine Blood Negative (Negative) Urine Nitrate Negative (Negative) Urine Bilirubin Negative (Negative) Urine Urobilinogen Negative (Negative) Ur Leukocyte Esterase Negative (Negative) Urine WBC (Auto) Trace(0-5/hpf) (Absent) Urine RBC (Auto) Trace(0-2/hpf) (Absent) Ur Squamous Epith Cells Present A (Absent) Urine Bacteria 1+ A (Absent) Hyaline Casts Present A (Absent) Urine Glucose 3+(>=500 mg/dl) A (Negative) Result Diagrams: 08/25/17 00:41 08/25/17 00:41 Lab Statement: Any lab studies that have been ordered have been reviewed, and results considered in the medical decision making process. - CT CT Head CT Interpretation: No Acute Changes CT Interpretation Completed By: Radiologist - Age-related involutional changes. Chronic microvascular changes. No hemorrhage. No obvious infarct. Osseous structures are intact. This report was reviewed by ED physician. Head Injury Course/Dx Course Of Treatment: Elderly woman with Parkinson's here after a fall with facial/head injury. CT is negative and pt's lab studies/UA are unremarkable. She ambulates quite well with a walker and can walk several steps on her own. She is stable for discharge. - Diagnoses Provider Diagnoses: Fall, Facial contusion Discharge - Sign-Out/Discharge Documenting (check all that apply): Patient Departure - Discharge Plan Condition: Guarded Disposition: HOME Patient Education Materials: Subconjunctival Hemorrhage (ED), Black Eye (ED), Contusion in Adults (ED) Referrals: Geri Cardona MD [Primary Care Provider] - - Billing Disposition and Condition Condition: GUARDED Disposition: Home
[2017-08-25] MEDS ORDERED: Acetaminophen TAB* 325 MG PO ONE (02:33)
[2017-08-25] MEDS ORDERED: oxyCODONE/Acetamin 5/325 MG* TAB PO ONE (02:38)
[2017-08-25 04:56] VITALS: BP 177/90
--- NOTE | 2017-08-25 08:11 | RAD ---
HISTORY: fall,facial injury,assess for brain injury COMPARISONS: None TECHNIQUE: Multiple contiguous axial CT scans were obtained of the head without intravenous contrast. FINDINGS: HEMORRHAGE/INFARCT: There is no hemorrhage or acute infarct. MASSES/SHIFT: There is no mass or shift. EXTRA-AXIAL SPACES: There are no extra-axial fluid collections. SULCI AND VENTRICLES: The sulci and ventricles are normal in size and position for the patient's stated age. CEREBRUM: There is hypoattenuation of the periventricular and subcortical white matter. BRAINSTEM: There are no focal parenchymal abnormalities. CEREBELLUM: There are no focal parenchymal abnormalities. VESSELS: The vessels are grossly normal. PARANASAL SINUSES: The paranasal sinuses are clear. ORBITS: The orbits are unremarkable. BONES AND SOFT TISSUE: No bone or soft tissue abnormalities are noted. OTHER: None IMPRESSION: NO ACUTE INTRACRANIAL PATHOLOGY. CHRONIC SMALL VESSEL ISCHEMIC CHANGES.
== END 2017-08-25 04:57 | disposition home or self-care (01) ==
LOC: ED 00:31
DX: S00.83XA Contusion of other part of head, initial encounter (principal); W19.XXXA Unspecified fall, initial encounter; Y93.01 Activity, walking, marching and hiking; Y92.9 Unspecified place or not applicable; G20 Parkinson's disease; E11.9 Type 2 diabetes mellitus without complications; R30.0 Dysuria; I10 Essential (primary) hypertension; Z87.440 Personal history of urinary (tract) infections; Z79.899 Other long term (current) drug therapy; Z88.0 Allergy status to penicillin
CPT/HCPCS: 36415; 70450; 80053; 81003; 81015; 85025; 87077; 87086; 96360; 99284; A9270-GY

== ENCOUNTER 2017-09-18 12:53 | Inpatient (IN) | payer MEDICARE ==
[2017-09-18] MEDS ORDERED: NS 0.9% 1000 ML* 1,000 ML IV ONE (12:54)
--- OUTSIDE RECORDS SUMMARY | 2017-09-18 13:07 | XMS REPORT ---
:1940 External Reference #:[id number] Author Organization [facility] Address [address] [place] [address] [place] [address] Phone [phone] Care Team Providers Name Role Phone Geri Cardona MD Primary Care Physician Unavailable Payers Type Date Identification Numbers Payment Provider Subscriber Medicare Primary Policy Number: [id number] Medicare Shira Deleon PayID: [id number] [address] [place] [address] [facility] Part B Policy Number: [id number] [facility] Shira Deleon PayID: [id number] [address] [place] [address] Problems Date Description Provider Status Onset: 03/12/2015 [...] Onset: 08/01/2017 Late effect of fracture of roya Montero M.D. Active extremities Onset: 08/01/2017 Late [...] Form Strength Qnty SIG Indications Ordering Provider Lisinopril-Hydroc 08/28 Active Tablets 20-12.5mg 90tab 1 by Geri hlorothiazide s mouth Cotton, every day M.D. Blood Glucose 04/07 Active Kit W/Device 1kit use daily E11.42 [employer] Monitoring System as Sergey Premium instructe SMOCKING MACHINE OPERATOR d Pen [place] 03/20 Active Misc 31G X 8 90uni use with mm ts lantus Cotton, injection M.D. once daily Clindamycin HCL 03/09 Active Capsules 300mg 2caps 2 tab by mouth Sergey, prior to SMOCKING MACHINE OPERATOR dental procedure Paroxetine HCL 01/04 Active Tablets 20mg 90tab 1 by F43.20 Zsofi s mouth Sergey, every day SMOCKING MACHINE OPERATOR Metformin HCL 09/07 Active Tablets 500mg 180ta take 1 E11.42 bs tablet by Cotton, mouth 2 M.D. times a day Carbidopa-Levodop 02/24 Active Tablets ER 25-100mg 90tab 1 by G20 Monica a ER s mouth at [facility], bed M.D. time.. Amantadine HCL 10/07 Active Tablets 100mg 180ta Take 1 G2 bs tablet by Cowdery, mouth in M.D. the morning and afternoon Vitamin B12 03/12 Active Tablets 1 po daily Stef Garza Oxycodone HCL 06/21 Active Capsules 5mg 60cap 1 tab M54.31 s every 6 Cotton, hour as M.D. needed pain Lantus Solostar Active Solution 100Unit/M 15ml inject 30 E11.42 Pen-Inject L units Cotton, under the M.D. skin every night Metoprolol Active Tablets 25mg 180ta 1 by I10 Geri Tartrate bs mouth Cotton, twice a M.D. day Simvastatin Active Tablets 40mg 90tab 1 by E78.5 s mouth Cotton, every M.D. night at bedtime Aspirin Active Tablets 81mg 1 by Unknown mouth every day Carbidopa-Levodop Active Tablets 25-100mg 630ta 2 by G20 Monica bs mouth at [facility], 6:30 in M.D. the morning, 1 at 10 in the morning, 2 at 2 at night, and 2 at 6:30pm Alprazolam Active Tablets 0.25mg one by Unknown mouth up to three times daily as needed for anxiety Selegiline HCL Active Tablets 5mg 90tab take 1 0 Monica s tablet by Kayla mouth M.D. every morning Ibu Active Tablets 600mg 90tab 1 tab by Zsofi s mouth Sergey, every 6 SMOCKING MACHINE OPERATOR hours as needed. Keflex 08/24 Hx Capsules 250mg Cotton, - M.D. 08/24 Bactrim DS 08/24 Hx Tablets 800-160mg 14tab 1 tablet s twice a Cotton, - day for 7 M.D. Hydrochlorothiazi 08/24 Hx Tablets 12.5mg 30tab 1 by s mouth Cotton, - every day M.D. 08/28 Cipro 08/21 Hx Tablets 250mg 6tabs one by mouth Cotton, - twice M.D. 08/24 daily for 3 days Paroxetine HCL 07/12 Hx Tablets 20mg 1 by F43.20 Zsofi mouth Sergey, - every SMOCKING MACHINE OPERATOR 08/28 other for 1 week, then 1 tab 2x /week then discontin ue Cipro 06/12 Hx Tablets 250mg 10tab 1 tab by Zsofi s mouth Sergey, - twice SMOCKING MACHINE OPERATOR 06/18 daily for 5 days. Glimepiride 04/07 Hx Tablets 4mg 90tab Take 1 E11.42 Zsofi s Tablet By Sergey, - Mouth SMOCKING MACHINE OPERATOR 08/18 Daily Cipro 03/26 Hx Tablets 250mg 10tab 1 tab by Zsofi s mouth Sergey, - twice SMOCKING MACHINE OPERATOR 04/01 daily for 5 days. Omeprazole 03/[address] 20mg 90cap Take 1 K21.9 Zsofi s Capsule Sergey, - By Mouth SMOCKING MACHINE OPERATOR 08/18 Every Day Fluticasone 01/13 Hx Suspension 50mcg/Act 16gm 1 act Zsofia each Sergey, - nostril SMOCKING MACHINE OPERATOR 05/11 daily Glimepiride 01/04 Hx Tablets 4mg 1 tab po E11.42 ofi q day. Sergey, - SMOCKING MACHINE OPERATOR 04/07 Januvia 01/04 Hx Tablets 100mg 90tab Take 1 E11.42 Zsofi s Tablet By Sergey, - Mouth SMOCKING MACHINE OPERATOR 08/28 Every Day Januvia 09/28 Hx Tablets 50mg 30tab take 1 E11.42 Zsofi s tab by Sergey, - mouth SMOCKING MACHINE OPERATOR 01/04 everyday Bupropion HCL ER 09/28 Hx Tablets ER 150mg 30tab take 1 F43.20 Zsofia (SR) 12HR s tab po Sergey, - daily SMOCKING MACHINE OPERATOR 01/04 Bupropion HCL 09/07 Hx Tablets 75mg 30tab 1 by F43.20 Zsofia s mouth Sergey, - every day SMOCKING MACHINE OPERATOR 09/28 Valium 03/12 Hx Tablets 2mg 2tabs 1 by R29.6 Monica mouth 1h Kayla, - prior to M.D. 05/14 mri, june repeat dose at time of mri if still anxious and not sedated. no driving. no mix w/alprazo man Amoxicillin 08/08 Hx Tablets 500mg 8tabs 4 tab by mouth 1 Rivera, - hour M.D. 03/27 prior dental procedure ? Clindamycin HCL 06/20 Hx Capsules 300mg 30cap tab by s mouth Rivera, - every 6 M.D. Clindamycin HCL 06/20 Hx Capsules 300mg 2caps 2 tab by mouth 1 Rivera, - hour M.D. 08/23 prior to dental procedure Meloxicam 03/03 Hx Tablets 7.5mg 60tab 1 tab by s mouth Rivera, - every day M.D. 02/13 Bactrim 02/08 Hx Tablets 400-80mg Rivera, - M.D. 02/08 Bactrim 02/08 Hx Rivera, - M.D. 02/08 Bactrim DS 02/08 Hx Tablets 800-160mg 14tab 1 po bid s for 7 , - days M.D. 11/06 Percocet 09/01 Hx Tablets 5-325mg 90tab 1-2 tabs s po q4-6 , - prn pain M.D. 03/13 Flexeril 09/01 Hx Tablets 10mg 40tab 1 tab po s tid prn Rivera, - muscle M.D. 11/06 Oxycodone/Acetami 07/05 Hx Tablets 5-325mg 40tab 1-2 po Dirk s q4h prn Aram, - pain M.D. 09/01 Metformin HCL Hx Tablets 500mg 1 by E11.42 Unknown /0000 mouth - twice a Glimepiride Hx Tablets 4mg 1 by E11.42 Unknown /0000 mouth - twice a Lisinopril-Hydroc Hx Tablets 10-12.5mg 180ta 1 by I10 Zsofia hlorothiazide /0000 bs mouth Sergey, - twice a SMOCKING MACHINE OPERATOR Omeprazole 00/[address] 20mg 1 by Unknown /0000 mouth - every day 09/07 Amantadine HCL Hx Capsules 100mg 180ca 1 by Monica /0000 ps mouth Jovannadery, - morning M.D. 10/07 and afternoon Paroxetine HCL 00 Hx Tablets 20mg 1 by F43.20 Zsofia /0000 mouth Sergey, - every SMOCKING MACHINE OPERATOR 09/28 other for 1 week, then 1 tab 2x /week then discontin ue Oxycodone-Acetami Hx Tablets 5-325mg Unknown nophen /0000 - 02/13 Advil Hx Capsules 200mg 2 caps po Unknown /0000 as needed - 04/24 Ciprofloxacin HCL Hx Tablets 250mg Unknown /0000 - 08/18 Clindamycin HCL Hx Capsules 150mg 1 cap Unknown /0000 every 6 - hours 08/18 Lisinopril Hx Tablets 20mg 1 by Unknown /0000 mouth - every day 08/28 Lisinopril 00 Hx Tablets 20mg 1 by Unknown /0000 mouth - every day 08/24 Immunizations CPT Code Status Date Vaccine Lot # [id number] Given 01/04/2017 Influenza Virus Vaccine, Quadrivalent, Split, [id number] Preservative Free Vital Signs Date Vital Result Comment 08/28/2017 Heart Rate 68 /min BP Systolic Sitting 183 mmHg BP Diastolic Sitting 85 mmHg O2 % BldC Oximetry 94 % 08/18/2017 Height 62 inches 5'2" Weight 222.00 [...] Test Date Test Result H/L Range Note Urinalysis Profile 08/25/2017 Urine Color Yellow Urine Appearance Clear Urine Specific [place] 1.026 1.010-1.030 Urine pH 5.0 5-9 Urine Urobilinogen Negative Negative Urine Ketones Trace Negative Urine Protein 3+(>=500 mg/dL) Negative Urine Leukocytes Negative Negative Urine Blood Negative Negative Urine Nitrite Negative Negative Urine Bilirubin Negative Negative Urine Glucose 3+(>=500 mg/dL) Negative Urine White Blood Cell Trace(0-5/hpf) Absent Urine Red Blood Cell Trace(0-2/hpf) Absent Urine Bacteria 1+ Absent Urine Squamous Epithelial Cell Present Absent Urine Hyaline Casts Present Absent CBC Auto Diff 08/25/2017 White Blood Count 8.8 10^3/uL 3.5-10.8 Red Blood Count 3.99 10^6/uL Low 4.00-5.40 Hemoglobin 12.3 g/dL 12.0-16.0 Hematocrit 36 % 35-47 Mean Corpuscular Volume 90 fL 80-97 Mean Corpuscular Hemoglobin 31 pg 27-31 Mean Corpuscular HGB Conc 34 g/dL 31-36 Red Cell Distribution Width 15 % 10.5-15 Platelet Count 202 10^3/uL 150-450 Mean Platelet Volume 7.4 um3 7.4-10.4 Abs Neutrophils 6.5 10^3/uL 1.5-7.7 Abs Lymphocytes 1.6 10^3/uL 1.0-4.8 Abs Monocytes 0.5 10^3/uL 0-0.8 Abs Eosinophils 0.1 10^3/uL 0-0.6 Abs Basophils 0.1 10^3/uL 0-0.2 Abs Nucleated RBC 0 10^3/uL Granulocyte % 73.6 % 38-83 Lymphocyte % 18.3 % Low 25-47 Monocyte % 5.9 % 0-7 Eosinophil % 1.3 % 0-6 Basophil % 0.9 % 0-2 Nucleated Red Blood Cells % 0 Comp Metabolic Panel 08/25/2017 Sodium 137 mmol/L 135-145 Potassium 4.1 mmol/L 3.5-5.0 Chloride 106 mmol/L 101-111 Co2 Carbon Dioxide 22 mmol/L 22-32 Anion Gap 9 mmol/L 2-11 Glucose 224 mg/dL High 70-100 Blood Urea Nitrogen 30 mg/dL High 6-24 Creatinine 0.88 mg/dL 0.51-0.95 BUN/Creatinine Ratio 34.1 High 8-20 Calcium 9.3 mg/dL 8.6-10.3 Total Protein 6.4 g/dL 6.4-8.9 Albumin 3.6 g/dL 3.2-5.2 Globulin 2.8 g/dL 2-4 Albumin/Globulin Ratio 1.3 1-3 Total Bilirubin 0.30 mg/dL 0.2-1.0 Alkaline Phosphatase 55 U/L 34-104 Alt < 3 U/L Low 7-52 Ast 12 U/L Low 13-39 Egfr Non- 62.5 >60 Egfr 75.6 >60 1 Urine Culture And Sensitivities 08/25/2017 Urine Culture SEE RESULT BELOW 2 Urinalysis Profile 08/21/2017 Urine Color Yellow Urine Appearance Cloudy Urine Specific [place] 1.010 1.010-1.030 Urine pH 5.0 5-9 Urine Urobilinogen Negative Negative Urine Ketones Negative Negative Urine Protein 2+(100 mg/dL) Negative Urine Leukocytes 3+ Negative Urine Blood Negative Negative Urine Nitrite Negative Negative Urine Bilirubin Negative Negative Urine Glucose 2+(150 mg/dL) Negative Urine White Blood Cell 3+(>20/hpf) Absent Urine Red Blood Cell Trace(0-2/hpf) Absent Urine Bacteria 3+ Absent Urine Squamous Epithelial Cell Present Absent Urine Culture And 08/21/2017 Urine Culture SEE RESULT BELOW 3 Sensitivities Laboratory test finding 07/17/2017 Partial Thrombo 26.7 seconds 26.0- 36.3 Time PTT CBC Auto Diff 07/17/2017 White Blood Count 6.9 10^3/uL 3.5-10.8 Red Blood Count 4.10 10^6/uL 4.0-5.4 Hemoglobin [...] finding 07/17/2017 Lactic Acid 1.5 mmol/L 0.5-2.0 4 B-Type Natriuretic Peptide BNP 56 pg/mL 5 Alcohol < 10 mg/dL <10 Urinalysis Profile 07/17/2017 Urine Color Yellow Urine Appearance Cloudy Urine Specific [place] 1.015 1.010-1.030 Urine pH 5.0 5-9 Urine Urobilinogen Negative Negative Urine Ketones Negative Negative Urine Protein 3+(>=500 mg/dL) Negative Urine Leukocytes Negative Negative Urine Blood 3+ Negative Urine Nitrite Negative Negative Urine Bilirubin Negative Negative Urine Glucose 1+(50 mg/dL) Negative Urine White Blood Cell 2+(11-20/hpf) Absent Urine Red Blood Cell 3+(>10/hpf) Absent Urine Bacteria Absent Absent Urine Squamous Epithelial Cell Present Absent Urine Drug SCR 07/17/2017 Amphetamine Ur Screen Presumptive Posi <SEE None Detect 6 [facility] NOTE> Barbiturates Urine Screen None Detected None Detect Benzodiazepine Urine Screen None Detected None Detect Urine Cannabinoids Screen None Detected None Detect Urine Cocaine Screen None Detected None Detect Urine Opiates Screen None Detected None Detect Urine Phencyclidine Screen None Detected None Detect 7 Laboratory test 07/17/2017 TSH (Thyroid Stim 2.12 mcIU/mL 0.34-5.60 finding Horm) Urine Culture And 07/17/2017 Urine Culture SEE RESULT 8 Sensitivities BELOW Lipid Profile 07/14/2017 Triglycerides 147 mg/dL 9, 10 (Trig/Chol/HDL) Cholesterol 172 mg/dL 9, 11 HDL Cholesterol 42.0 mg/dL 9, 12 LDL Cholesterol 101 mg/dL 9, 13 Laboratory test finding 07/14/2017 TSH (Thyroid Stim 3.19 mcIU/mL 0.34- 5.60 9, 14 Horm) Comp Metabolic Panel 07/14/2017 Sodium 141 mmol/L 139-145 9 Potassium 4.4 mmol/L 3.5-5.0 9 Chloride 105 mmol/L 101-111 9 Co2 Carbon Dioxide 30 mmol/L 22-32 9 Anion Gap 6 mmol/L 2-11 9 Glucose 141 mg/dL High 70-100 9 Blood Urea Nitrogen 29 mg/dL High 6-24 9 Creatinine 0.99 mg/dL High 0.51-0.95 9 BUN/Creatinine Ratio 29.3 High 8-20 9 Calcium 9.4 mg/dL 8.6-10.3 9 Total Protein 6.1 g/dL Low 6.4-8.9 9 Albumin 3.7 g/dL 3.2-5.2 9 Globulin 2.4 g/dL 2-4 9 Albumin/Globulin Ratio 1.5 1-3 9 Total Bilirubin 0.40 mg/dL 0.2-1.0 9 Alkaline Phosphatase 59 U/L 34-104 9 Alt 4 U/L Low 7-52 9 Ast 9 U/L Low 13-39 9 Egfr Non- 54.7 >60 9 Egfr 70.3 >60 9, 15 Laboratory test finding 07/14/2017 Hemoglobin A1c (Glyco 6.9 % High 4.0- 5.6 9, 16 HGB) Urinalysis Profile 06/13/2017 Urine Color Yellow Urine Appearance Cloudy Urine Specific [place] 1.024 1.010-1.030 Urine pH 5.0 5-9 Urine Urobilinogen Negative Negative Urine Ketones Trace Negative Urine Protein 3+(>=500 mg/dL) Negative Urine Leukocytes Negative Negative Urine Blood Negative Negative Urine Nitrite Negative Negative Urine Bilirubin Negative Negative Urine Glucose Negative Negative Urine White Blood Cell Trace(0-5/hpf) Absent Urine Red Blood Cell Trace(0-2/hpf) Absent Urine Bacteria Absent Absent Urine Squamous Epithelial Cell Present Absent Urine Culture And 06/13/2017 Urine Culture SEE RESULT BELOW 17 Sensitivities Laboratory test finding 04/07/2017 Hemoglobin A1c 9.4 High 5-7 Urine Culture And 03/23/2017 Urine Culture SEE RESULT BELOW 18 Sensitivities Laboratory test finding 01/04/2017 Hemoglobin A1c 7.7 High 5-7 Urine Microalbumin Random 01/04/2017 Urine Creatinine 102.09 mg/dL Ur Microalbumin (mg/L) 775.5 mg/L Urine Microalbumin/Creatinine 759.6 ug/mg High <31 Ua Routine 01/04/2017 Ua Specific [place] 1.020 Ua PH 5 Ua Color dark yellow Ua Appera clear Ua WBC trace Ua Protein +++ Ua Glucose normal Ua Ketones neg Ua Bilirubin neg Ua Urobilinogen normal Ua Nitrite neg Ua Occult Blood trace Lipid Profile (Trig/Chol/HDL) 09/19/2016 Triglycerides 134 mg/dL 19 Cholesterol 137 mg/dL 20 HDL Cholesterol 38.3 mg/dL 21 LDL Cholesterol 72 mg/dL 22 CBC Auto Diff 09/19/2016 White Blood Count [...] 0-2 Nucleated Red Blood Cells % 0.1 Comp Metabolic Panel 09/19/2016 Sodium 139 mmol/L [...] Egfr Non- 61.8 >60 Egfr 79.5 >60 23 Laboratory test finding 09/07/2016 Hemoglobin A1c 9.2 High 5-7 1 Because ethnic data is not always readily [...] 15-29 5 Kidney failure <15 (or dialysis) 2 SEE RESULT BELOW Name: SHIRA DELEON I : [address]: Morris Goddard MD Acct: [id number] Unit: [id number] AGE: 77 Location: ED Re08/25/17 SEX: F Status: DEP ER SPEC: [id number] DAQUAN: 08/25/[address]: Morris Goddard MD REQ: [id number] RECD: 08/25/17 STATUS: COMP OTHR DR: Geri Cardona MD _ SOURCE: URINE SPDESC: ORDERED: Urine Culture Procedure Result Reported Site Urine Culture Final 08/26/17- 1241 ML No growth of clinically significant organisms * - [facility] . END OF REPORT DEPARTMENT OF PATHOLOGY, [address] [place] [address] Marvin Stinson M.D. Director [facility] # [id number] 3 SEE RESULT BELOW Name: SHIRA DELEON I : [address]: Geri Cardona MD Acct: [id number] Unit: [id number] AGE: 77 Location: [facility] Re08/21/17 SEX: F Status: REG REF SPEC: [id number] DAQUAN: 08/21/17 [facility] [address]: Geri Cardona MD REQ: [id number] RECD: 08/21/17-0012 STATUS: COMP _ SOURCE: URINE SPDESC: ORDERED: Urine Culture QUERIES: Urine Source: Random Procedure Result Reported Site Urine Culture Final 08/23/17- 0756 ML Organism 1 KLEBSIELLA PNEUMONIAE Biscoe Count >100,000 (Many) CFU/ML 1. KLEBSIELLA PNEUMONIAE M.I.C. RX --------- ------ Ampicillin R Cefazolin <=4 S Cefepime <=1 S Ceftriaxone <=1 S Ciprofloxacin <=0.25 S Gentamicin <=1 S Levofloxacin <=0.12 S Meropenem <=0.25 S Nitrofurantoin 32 S Tetracycline <=1 S Pipercillin/Tazobactam <=4 S Trimethoprim/Sulfamethoxazole <=20 S Amoxicillin/Clavulanic Acid <=2 S Aztreonam <=1 S Contact the Microbiology Department for any additional antibiotic reporting. * ML - Main Lab . END OF REPORT DEPARTMENT OF PATHOLOGY, [address] [place] [address] Marvin Stinson M.D. Director [facility] # [id number] 4 [facility] Severe Sepsis and Septic Shock Management Bundle Measure requires all lactic acids initially measuring >2.0 mmol/L be repeated. 5 >100 to <200 pg/mL: likely compensated congestive heart failure (CHF) 200 to 400 pg/mL: likely moderate CHF >400 pg/mL: likely moderate to severe CHF 6 Presumptive Positive Presumptive positive results are unconfirmed. 7 The urine specimen was tested at the listed cutoffs: Drug class test level (ng/mL) Amphetamines 500 Barbiturates 200 Benzodiazepine metabolites 200 Cocaine metabolites 150 Cannabinoids 50 Opiates 300 Pcp 25 Specimen was received without chain of custody. Results should be used for medical purposes only. 8 SEE RESULT BELOW Name: SHIRA DELEON I : [address]: Fidencio Vincent MD Acct: [id number] Unit: [id number] AGE: 77 Location: [place] [address] Re07/17/17 SEX: F Status: ADM IN SPEC: [id number] DAQUAN: 07/17/17 [facility] DR: Brennan Bryan MD REQ: [id number] RECD: 07/17/17 STATUS: DANIS AUGUSTIN DR: Valentina Rincon CONTINUITY MANAGER _ SOURCE: URINE SPDESC: ORDERED: Urine Culture Procedure Result Reported Site Urine Culture Final 07/19/17- 0835 ML No growth of clinically significant organisms * ML - Main Lab . END OF REPORT DEPARTMENT OF PATHOLOGY, [address] [place] [address] Marvin Stinson M.D. Director [facility] # [id number] 9 FASTING 10 Desirable: <150 Borderline High: 150-199 High: 200-499 Very High: >500 11 Desirable: <200 Borderline High: 200-239 High: >239 12 Low: <40 Desirable: 40-60 High: >60 13 Desirable: <100 Near Optimal: 100-129 Borderline High: 130-159 High: 160-189 Very High: >189 14 FASTING 15 Because ethnic data is not always readily [...] 15-29 5 Kidney failure <15 (or dialysis) 16 Therapeutic target for the treatment of diabetes mellitus patients is <7% HBA1C, and in selective patients <6.0%. Please refer to [place] [employer] diabetic care guidelines for further information. 17 SEE RESULT BELOW Name: SHIRA DELEON I : [address]: Valentina Rincon NP Acct: [id number] Unit: [id number] AGE: 76 Location: [facility] Re06/13/17 SEX: F Status: REG REF SPEC: [id number] DAQUAN: 06/13/171249 SUBM DR: Valentina Rincon NP REQ: [id number] RECD: 06/13/17427 STATUS: COMP _ SOURCE: URINE SPDESC: ORDERED: Urine Culture Procedure Result Reported Site Urine Culture Final 06/15/17- 1234 ML Organism 1 KATIEOCOCCUS CAYETANO Biscoe Count 50-75,000 (Many) CFU/ML Aerococcus isolates are too fastidious for routine susceptibility studies. Aerococcus are usually susceptible to penicillin, amoxicillin, piperacillin, cefipime, rifampin and vancomycin. Moderate to good activity occurs with the quinolones, tetracyclines and erythromycin. (Lanre's [employer] [place] and Textbook of Diagnostic Microbiology 6th Ed. 2006, p. 705-6.) * ML - Main Lab . END OF REPORT DEPARTMENT OF PATHOLOGY, [address] [place] [address] Marvin Stinson M.D. Director [facility] # [id number] 18 SEE RESULT BELOW Name: SHIRA DELEON I : [address]: Valentina Rincon NP Acct: [id number] Unit: [id number] AGE: 76 Location: [facility] Re03/23/17 SEX: F Status: REG REF SPEC: [id number] DAQUAN: 03/23/[address]: Valentina Rincon NP REQ: [id number] RECD: 03/23/17 STATUS: COMP _ SOURCE: URINE SPDESC: ORDERED: Urine Culture Urine Source: Random Procedure Result Reported Site Urine Culture Final 03/25/17- 0854 ML Organism 1 ESCHERICHIA COLI Biscoe Count >100,000 (Many) CFU/ML 1. ESCHERICHIA COLI [...] antibiotic reporting. * ML - MAIN LAB ([facility]) . END OF REPORT * ML=Testing performed at Main Lab DEPARTMENT OF PATHOLOGY, [address] [place] [address] Marvin Stinson M.D. Director [facility] # [id number] 19 Desirable <150 Borderline high 150-199 High 200-499 Very High >500 20 Desirable <200 Borderline high 200-239 High >239 21 Low <40 Desirable: 40-60 High: >60 22 Desirable: <100 mg/dL Near Optimal: 100-129 mg/dL Borderline High: 130-159 mg/dL High: 160-189 mg/dL Very High: >189 mg/dL 23 Because ethnic data is not always readily [...] 15-29 5 Kidney failure <15 (or dialysis) Procedures Date CPT Code Description Status 01/07/2015 05260 ECHO Transthorasic Realtime 2D W Doppler & Color Flow Completed Hosp 01/07/2015 36312 EKG, Interpretation Only Completed 11/07/2013 22771 Rad Exam; Humerus Completed 03/13/2012 88605 Rad Exam; Humerus Completed 01/23/2012 19389 Rad Shoulder Comp, Min. 2 Views Completed 01/23/2012 55204 Rad Shoulder Comp, Min. 2 Views Completed 01/23/2012 91716 Closed trtmt prox humeral fx Completed 12/06/2011 09513 Short Arm Splint Application Completed 11/15/2011 38658 Long Arm Cast Application Completed 11/11/2011 51627 Rad Exam; Wrist Limited, 2 Views Completed 11/10/2011 30699 Transplant Tendon Forearm/Wrist Completed 11/10/2011 59803 Transplant Tendon Forearm/Wrist Completed 05/05/2011 39220 Rad Exam; Humerus Completed 02/23/2011 70582 Rad Shoulder Comp, Min. 2 Views Completed 02/10/2011 51471 Removal, Non-Biodegradable Drug Delivery Implant Completed 02/10/2011 44318 Removal, Non-Biodegradable Drug Delivery Implant Completed 02/10/2011 17937 Arthroplasty,Total Shoulder Replacement (TSR) Completed 02/10/2011 24439 Arthroplasty,Total Shoulder Replacement (TSR) Completed 09/10/2010 10429 Insertion, Non-Biodegradable Drug Delivery Implant Completed 09/10/2010 56347 Debridement Tissue/Muscle/Bone Completed 09/10/2010 07635 Debridement Tissue/Muscle/Bone Completed 09/06/2010 14358 Remove Foreign Body Shoulder Deep Completed 09/06/2010 37325 Arthrotomy Glenohumeral JT Explore/Drain/Remove FB Completed 09/06/2010 80503 Arthrotomy Glenohumeral JT Explore/Drain/Remove FB Completed 09/05/2010 66559 Inject/Drain Joint/Bursa Major W/O US Completed 09/01/2010 37255 Rad Shoulder Comp, Min. 2 Views Completed 08/17/2010 80000 Rad Exam; Humerus Completed 08/03/2010 48378 Rad Exam; Humerus Completed 07/20/2010 97566 Rad Exam; Humerus Completed 07/14/2010 54873 Rad Exam; Humerus Completed 07/14/2010 90369 Long Arm Splint Application Completed 07/05/2010 56098 Rad Exam; Humerus Completed 07/05/2010 30252 Long Arm Splint Application Completed 06/21/2010 86649 Closed trtmt humeral shaft fx Completed Encounters Type Date Location Provider CPT E/M Dx Office Visit 08/18/2017 [facility] Internal Medicine Geri Cardona, 45148 E11.9 5:00p Joselyn Santiago M.D. G20 N39.0 M54.31 Office Visit 08/01/2017 8:30a [facility] Eliecer Montero, 22325 S42.201P Of [facility] AT Serge Finch S42.401P Office Visit 07/21/2017 10:07a [facility], [place] [address] R53.1 Hospitalists M54.30 E83.42 G20 E11.9 Office Visit 07/20/2017 10:07a [facility], [place] [address] R53.1 Hospitalists M54.30 E83.42 G20 E11.9 Office Visit 07/19/2017 10:06a [facility], [place] [address] R53.1 Hospitalists M54.30 E83.42 G20 E11.9 Office Visit 07/18/2017 10:05a [facility], [place] [address] M54.30 Hospitalists E83.42 N39.0 E11.9 G20 Office Visit 07/17/2017 10:05a [facility], Matt Mcclure, 54080 R53.1 Hospitalists N.P. B96.20 N39.0 G20 E11.8 Office Visit 07/12/2017 11:20a [facility] Internal Medicine Valentina Rincon SMOCKING MACHINE OPERATOR [address] M79.[address] - [address] E11.42 F43.20 G20 E78.5 I10 S60.221A Office Visit 05/12/2017 3:15p [facility] Monica Garza M.D. 01262 G20 Services Of [facility] M54.31 Office Visit 04/07/2017 2:00p [facility] Internal Medicine JONATHAN Beard 54705 E11.42 - [place] I10 F43.20 E78.5 K21.9 M54.31 G20 Office Visit 01/04/2017 1:00p [facility] Internal Medicine Valentina Rincon SMOCKING MACHINE OPERATOR [address] E11.42 - [address] F43.20 I10 E78.5 R30.0 Z23 Office Visit 12/21/2016 3:00p [facility] Monica Garza M.D. 69175 G20 Services Of [facility] R29.6 I67.82 Office Visit 09/28/2016 1:40p [facility] Internal Medicine Valentina Rincon, [facility] [address] E11.42 - [address] I10 E78.5 F43.20 Z79.4 Office Visit 09/07/2016 11:00a [facility] Internal Medicine Valentina Rincon, SMOCKING MACHINE OPERATOR [address]82 E11.42 - [address] G20 I10 E78.5 K21.9 F43.20 Office Visit 08/24/2016 3:30p [facility] Monica Garza M.D. 52750 G20 Services Of International Travel Consultant I67.82 R29.6 Office Visit 05/25/2016 2:30p [facility] Monica Garza M.D. 61768 G20 Services Of International [employer] Consultant I67.82 Office Visit 02/25/2016 3:00p [facility] Monica Garza M.D. 69698 [employer] International [employer] Consultant I67.82 Office Visit 10/02/2015 3:15p [facility] Monica Garza M.D. 03968 [employer] International [employer] Consultant I67.82 M54.16 E11.42 R29.6 Office Visit 06/03/2015 9:30a [facility] Monica Garza M.D. 05001 G20 I67.82 Office Visit 03/12/2015 9:00a [facility] Monica Garza M.D. 90627 G20 M54.16 R29.810 E11.42 R29.6 M54.2 R15.9 N39.498 R29.2 Office Visit 01/07/2015 4:11p [facility], Anna Haider N.P. 40943 R55 Hospitalists E11.9 R41.3 Office Visit 01/06/2015 4:10p [facility], [place] [address] R55 Hospitalists E11.9 R41.3 Office Visit 07/30/2014 10:30a [facility] Una Walls, 18874 812.00 Of Lul Finch V54.89 729.5 Office Visit 11/07/2013 1:45p [facility] Eduardo Stafford M.D. 75483 812.00 Of C.M.ADavid Office Visit 01/31/2012 10:00a [facility] Eduardo Stafford M.D. 13809 812.00 Of C.M.ADavid Office Visit 01/23/2012 9:00a [facility] Jovanny GrimesDavid 50269 812.00 Of C.M.AMasha Carlos 812.40 905.2 812.00 Office Visit 06/21/2011 11:45a [facility] Unadebra Walls, 46137 354.3 Of C.MEnriqueta Finch Office Visit 06/21/2011 11:30a [facility] Eduardo Stafford M.D. 45195 812.40 Of C.M.ADavid V54.89 Office Visit 05/05/2011 11:00a [facility] Of Gifty Huber, 59625 812.40 C.M.Carmela RPA-C V54.89 Office Visit 12/15/2010 2:00p [facility] Of Eduardo Stafford M.D. 41351 996.66 C.M.Carmela 354.3 Office Visit 09/01/2010 1:30p [facility] Of Eduardo Stafford M.D. 65386 719.41 C.M.A. Plan of Care Future Appointment(s):10/26/2017 2:40 pm - Geri Cardona M.D. at [facility] - Giqtqovzc00/10/2018 2:15 pm - Monica Garza M.D. at [facility]08/28/2017 - Geri Cardona M.D.I10 Essential (primary) hypertensionComments:Stop the lisinopril and start back on lisinopril/ hydrochlorothiazide Check BP at home and call me in a week after starting back on the hydrochlorothiazide We talked about [facility] [place] [facility] website for [facility] care services.Please use help every time you need to get out of a [id number] Pain in right fgtsbC42.641 Pain in right handM79.642 Pain in left handM79.645 Pain in left finger(s)M79.621 Pain in right upper arm
[2017-09-18] MEDS ORDERED: niCARdipine 0.1MG/ML IVPREMIX* 20 MG/200 ML BAG IV ONE ×2 (13:10→14:01)
[2017-09-18] MEDS ORDERED: Labetalol IV* 5 MG/ML 20 ML VIAL IV PUSH ONE (13:11)
[2017-09-18] MEDS ORDERED: Labetalol IV* 5 MG/ML 20 ML VIAL ONE (13:12)
--- NOTE | 2017-09-18 13:16 | RAD ---
Indication: Neurologic changes, coronal smith. CT of the brain was performed without IV contrast. The trachea structures are midline. No midline shift is noted. The extra-axial spaces are unremarkable. Periventricular lucency consistent with chronic ischemic White matter change is noted. No intracranial mass or hemorrhage is noted. Compared to previous exam of August 25, 2017 no significant change is noted. Mastoid air cells and bony calvaria are otherwise unremarkable. IMPRESSION: Chronic ischemic White matter change. No intracranial mass or hemorrhage is noted. Findings called to Dr. Mayers at 1312 hours.
[2017-09-18 13:21] LABS: ABS Basophils 0.1 10^3/ul (0-0.2); ABS Eosinophils 0.1 10^3/ul (0-0.6); ABS Lymphocytes 1.6 10^3/ul (1.0-4.8); ABS Monocytes 0.4 10^3/ul (0-0.8); ABS Neutrophils 6.7 10^3/ul (1.5-7.7); ABS Nucleated RBC 0 10^3/ul; Eosinophil % 1.5 % (0-6); Hematocrit 39 % (35-47); Hemoglobin 13.5 g/dl (12.0-16.0); Lymphocyte % 17.7 % (25-47); Mean Corpuscular HGB Conc 35 g/dl (31-36); Mean Corpuscular Hemoglobin 31 pg (27-31); Mean Corpuscular Volume 90 fL (80-97); Mean Platelet Volume 7.2 um3 (7.4-10.4); Nucleated Red Blood Cells % 0; Platelet Count 214 10^3/ul (150-450); Red Blood Count 4.35 10^6/ul (4.00-5.40); Red Cell Distribution Width 15 % (10.5-15); White Blood Count 8.9 10^3/ul (3.5-10.8)
[2017-09-18 13:29] LABS: INR 0.94 (0.77-1.02)
--- NOTE | 2017-09-18 13:38 | ED ---
Neurological HPI - HPI Summary HPI Summary: This is scribe Enrique Hanna documenting for attending Dr. Arnaldo Mayers MD. YAMILE Donaldson 77 y/o female RACHEAL presents to ED s/p incomprehensible speech with right-side facial droop. In the ED, patient has a pulse of 77 BPM, O2 saturation of 94% and blood pressure of 236/111. As per triage, "last seen normal at 1130. Pt came down for lunch and had incomprehensible speech with right side facial droop. Pt symptoms had resolved mostly in EMS rig on the ride to [facility]. Upon arrival only slight right side facial droop noted". It was noted that Dr. Salma Rodriguez was present in the room completing his evaluation. It was noted that patient's speech is getting better. Current medications include Lisinopril for her high blood pressure and she took her dose today. - History of Current Complaint Chief Complaint: EDNeurologicalDeficit Stated Complaint: YAMILE NGO Time Seen by Provider: 09/18/17 12:54 Hx Obtained From: Patient Onset/Duration: Sudden Onset, Started hours ago Timing: Constant Current Severity: None Number of Seizures: 0 Pain Intensity: 0 Pain Scale Used: 0-10 Numeric Character: Impaired Speech Aggravating: Nothing Associated Signs and Symptoms: Positive: Negative, Impaired Speech - Additional Pertinent History Primary Care Physician: [id number] - Allergy/Home Medications Allergies/Adverse Reactions: Allergies Allergy/AdvReac Type Severity Reaction Status Date / Time Penicillins Allergy Anaphylatic Verified 08/22/17 12:45 Shock Home Medications: Home Medications Carbidopa/Levodop 25/100 MG(*) [Sinemet 25/100 TAB(*)] 1 tab PO 1000 09/18/17 [ History Confirmed 09/18/17] Carbidopa/Levodop 25/100 MG(*) [Sinemet 25/100 TAB(*)] 1 tab PO BEDTIME [History Confirmed 09/18/17] Carbidopa/Levodop 25/100 MG(*) [Sinemet 25/100 TAB(*)] 2 tab PO 0630,1400,1830 09/18/17 [History Confirmed 09/18/17] Clindamycin Cap(NF) [Clindamycin Cap 300 mg Cap(NF)] 600 mg PO ONCE PRN [History Confirmed 09/18/17] Gabapentin CAP(*) [Neurontin 100 mg CAP(*)] 100 - 200 mg PO BEDTIME 09/18/17 [ History Confirmed 09/18/17] Gabapentin CAP(*) [Neurontin 100 mg CAP(*)] 100 mg PO BID 09/18/17 [History Confirmed 09/18/17] Lisinopril TAB* [Prinivil TAB*] 10 mg PO DAILY 09/18/17 [History Confirmed 09/18] Lisinopril/HCTZ 20/12.5(NF) [Zestoretic 20/12.5(NF)] 1 tab PO DAILY 09/18/17 [ History Confirmed 09/18/17] Omeprazole CAP* [Prilosec CAP* 20 MG] 20 mg PO DAILY 09/18/17 [History Confirmed 09/18/17] PARoxetine HCL TAB* [Paxil TAB*] 20 mg PO DAILY 09/18/17 [History Confirmed 07/31] metFORMIN* [Glucophage 500 MG TAB *] 500 mg PO BID 09/18/17 [History Confirmed 09/18/17] oxyCODONE TAB* [Roxycodone TAB 5 mg*] 5 mg PO Q6H PRN 09/18/17 [History Confirmed 09/18/17] PMH/Surg Hx/FS Hx/Imm Hx Endocrine/Hematology History: Reports: Hx Diabetes Denies: Hx Anticoagulant Therapy Cardiovascular History: Reports: Hx Hypertension Denies: Hx Pacemaker/ICD History: Denies: Hx Renal Disease Musculoskeletal History: Reports: Hx Arthritis, Hx Back Problems - degenerative discs, sciatica, Other Musculoskeletal History - humerus fracture Sensory History: Reports: Hx Contacts or Glasses Denies: Hx Hearing Aid Opthamlomology History: Reports: Hx Contacts or Glasses Neurological History: Reports: Other Neuro Impairments/Disorders - Parkinson's disease Psychiatric History: Reports: Hx Anxiety - claustrophobia Denies: Hx Panic Disorder - Surgical History Surgery Procedure, Year, and Place: right arm following humerus fx, appendectomy , hysterectomy, cataracts, left shoulder REPLACEMENT. TENDON SURGERY RIGHT HAND Infectious Disease History: No Infectious Disease History: Reports: Hx of Known/Suspected MRSA Denies: Traveled Outside the [place] in Last 30 Days - Family History Known Family History: Positive: Hypertension, Diabetes - Social History Alcohol Use: None Substance Use Type: Reports: None Smoking Status (MU): Never Smoked Tobacco Review of Systems Negative: Fever, Chills Negative: Erythema Negative: Sore Throat Negative: Chest Pain Negative: Shortness Of Breath, Cough Negative: Abdominal Pain, Vomiting, Nausea Negative: dysuria, hematuria Negative: Myalgia, Edema Negative: Rash Neurological: Other - NEGATIVE: Dizziness; POSITIVE: Right-sided facial droop Positive: Slurred Speech All Other Systems Reviewed And Are Negative: Yes Physical Exam - Summary Physical Exam Summary: Constitutional: Well-developed, Well-nourished, Alert. (-) Distressed Skin: Warm, Dry HENT: Normocephalic; Atraumatic Eyes: Conjunctiva normal Neck: Musculoskeletal ROM normal neck. (-) JVD, (-) Stridor, (-) Tracheal deviation Cardio: Rhythm regular, rate normal, Heart sounds normal; Intact distal pulses; The pedal pulses are 2+ and symmetric. Radial pulses are 2+ and symmetric. (-) Murmur Pulmonary/Chest wall: Effort normal. (-) Respiratory distress, (-) Wheezes, (-) Rales Abd: Soft, (-) epigastric tenderness, (-) Distension, (-) Guarding, (-) Rebound Musculoskeletal: (-) Edema Lymph: (-) Cervical adenopathy Neuro: Alert, Oriented x3 Psych: Mood and affect Normal GCS: 15 NIH: 1 - Patient missed month and day of the week. Triage Information Reviewed: Yes Vital Signs On Initial Exam: Initial Vitals Pulse Ox 94 09/18/17 12:54 Vital Signs Reviewed: Yes Diagnostics - Vital Signs Vital Signs Temp Pulse Resp BP Pulse Ox 09/18/17 13:28 79 208/71 93 09/18/17 13:21 78 175/90 94 09/18/17 13:16 97.9 F 78 22 156/60 95 09/18/17 13:06 78 25 236/111 85 09/18/17 13:05 78 24 96 09/18/17 12:54 94 - Laboratory Lab Results: Lab Results 09/18/17 09/18/17 09/18/17 Range/Units 13:15 13:15 13:15 WBC 8.9 (3.5-10.8) 10^3/ul RBC 4.35 (4.00-5.40) 10^6/ul Hgb 13.5 (12.0-16.0) g/dl Hct 39 (35-47) % MCV 90 (80-97) fL MCH 31 (27-31) pg MCHC 35 (31-36) g/dl RDW 15 (10.5-15) % Plt Count 214 (150-450) 10^3/ul MPV 7.2 L (7.4-10.4) um3 Neut % (Auto) 75.4 (38-83) % Lymph % (Auto) 17.7 L (25-47) % [place] % (Auto) 4.8 (0-7) % Eos % (Auto) 1.5 (0-6) % Baso % (Auto) 0.6 (0-2) % Absolute Neuts (auto) 6.7 (1.5-7.7) 10^3/ul Absolute Lymphs (auto) 1.6 (1.0-4.8) 10^3/ul Absolute Monos (auto) 0.4 (0-0.8) 10^3/ul Absolute Eos (auto) 0.1 (0-0.6) 10^3/ul Absolute Basos (auto) 0.1 (0-0.2) 10^3/ul Absolute Nucleated RBC 0 10^3/ul Nucleated RBC % 0 INR (Anticoag Therapy) 0.94 (0.77-1.02) APTT 25.4 L (26.0-36.3) seconds Blood Type Pending Antibody Screen Pending Result Diagrams: 09/18/17 13:15 09/18/17 13:15 Lab Statement: Any lab studies that have been ordered have been reviewed, and results considered in the medical decision making process. - Radiology CXR Radiology Interpretation Completed By: Radiologist - No active disease. ED physician reviewed this radiology report. - CT BRAIN CT CT Interpretation Completed By: Radiologist - Chronic ischemic White matter change. No intracranial mass or hemorrhage is noted. ED physician reviewed this radiology report. - EKG 1309 Cardiac Rate: NL - 76 BPM EKG Rhythm: Sinus Rhythm EKG Interpretation: RBBB. TWI/T-waves flat lateral. NIH Scale - NIH Scale Level of Consciousness: Alert/Keenly Responsive Ask Patient the Month and His/Her Age: One Correct/Not Aphasic Ask Pt to Open/Close Eyes and Injection Maintenance Technician/Release Non-Paretic Hand: Both Correctly Best Gaze (Only Horizontal Eye Movement): Normal Visual Field Testing: No Visual Loss Facial Paresis-Pt to Smile & Close Eyes or Grimace Symmetry: Normal/Symmetrical Motor Function - Right Arm: No Drift-Holds 10 Seconds Motor Function - Left Arm: No Drift-Holds 10 Seconds Motor Function - Right Leg: No Drift-Holds 10 Seconds Motor Function - Left Leg: No Drift-Holds 10 Seconds Limb Ataxia-Must be out of Proportion to Weakness Present: Absent Sensory (Use Pinprick to Test Arms/Legs/Trunk/Face): Normal Best Language (Describe Picture, Name Items): No Aphasia Dysarthria (Read Several Words): Normal Extinction and Inattention: No Abnormality Total Score: 1 Re-Evaluation - Re-Evaluation First Eval Re-Evaluation Time: 13:12 Comment: Findings called to Dr. Mayers by radiologist. Second Eval Re-Evaluation Time: 13:43 Change: Improved Comment: Speech normalized. Blood pressure is 200 systolic. Course/Dx - Course Course Of Treatment: YAMILE NGO. A 77 y/o female BIBA presents to ED s/p incomprehensible speech with right-side facial droop. In the ED, patient has a pulse of 77 BPM, O2 saturation of 94% and blood pressure of 236/111. As per triage, "last seen normal at 1130. Pt came down for lunch and had incomprehensible speech with right side facial droop. Pt symptoms had resolved mostly in EMS rig on the ride to [facility]. Upon arrival only slight right side facial droop noted". It was noted that Dr. Salma Rodriguez was present in the room completing his evaluation. It was noted that patient's speech is getting better. A Brain CT revealed chronic ischemic White matter change. No intracranial mass or hemorrhage is noted. An EKG revealed a NSR of 76 BPM, RBBB. TWI/T-waves flat lateral. A CXR revealed no active disease. During reevaluation, patient's speech normalized. Blood pressure is 200 systolic. Patient care was discussed with Dr. Mclean who accepts patient for admission. Patient will be brought to ICU. Patient will be admitted with a diagnosis of hypertensive emergency. Patient is agreeable with this plan. - Diagnoses Provider Diagnoses: Hypertensive emergency - Physician Notifications Discussed Care Of Patient With: Srinivas Mclean Time Discussed With Above Provider: 13:40 Instructed by Provider To: Other - Accepts patient for admission. Will take patient to ICU. Discharge - Sign-Out/Discharge Documenting (check all that apply): Patient Departure - ADMIT - Discharge Plan Condition: Stable Disposition: ADMITTED TO [facility]
[2017-09-18 13:47] LABS: EGFR Non-African American 56.5 (>60)
--- NOTE | 2017-09-18 13:50 | RAD ---
INDICATION: Neurologic change. Code smith COMPARISON: None TECHNIQUE: An AP portable view obtained at 1330 hours is submitted. FINDINGS: Bones/Soft Tissues: There are no acute bony findings. There is left shoulder arthroplasty. Cardiomediastinal: The cardiomediastinal silhouette is normal. Lungs: There are no infiltrates. Pleura: There are no pleural effusions. Other: None IMPRESSION: NO ACTIVE DISEASE.
[2017-09-18] MEDS ORDERED: niCARdipine 0.1MG/ML IVPREMIX* 20 MG/200 ML BAG ONE (14:01)
[2017-09-18] MEDS ORDERED: NIFEdipine ER TAB* 30 MG PO ONE (14:22)
[2017-09-18] MEDS ORDERED: Dextrose 50% Syringe 50 ML* 25 GM/50 ML SYRINGE IV PUSH PRN (14:28)
--- NOTE | 2017-09-18 15:00 | HP ---
H&P (Free Text) History and Physical: CC: Slurred speech HPI: 77F with htn, hld, dm, gerd, parkinsons presents with slurred speech. It started at approximately 12pm and was associated with leg weakness. The patients family called EMS and she was brought in the ER where her BP was measured to be >230 systolic. A stroke code was called. CT head was negative. Her symptoms improved after reduction in her BP. The patient states that she takes multiple bp medications but her BP always is elevated to about 170 systolic. She reports compliance with her medications. She has had some recent headaches. No changes in vision. No other symptoms. ROS - As per HPI PMHx - htn, hld, dm, gerd parkinsons disease PSHx - hysterectomy, shoulder surgery All - penicillin SocHx - no drugs/etoh/tobacco FamHx - denies PE Vital Signs: Temp Pulse Resp BP Pulse Ox 97.9 F 79 22 188/106 96 09/18/17 13:16 09/18/17 14:12 09/18/17 13:16 09/18/17 14:12 09/18/17 14:12 Gen - nad HEENT - ncat Neck - no jvd, no thyromegaly CV - s1/s2, no murmur Lungs - cta, no wheeze Abd - soft, nt, nd Ext - no cce, +right shoulder tenderness, pain with movement Neuro - pill rolling tremor, awake alert, no slurred speech Labs Laboratory Results - last 24 hr 09/18/17 09/18/17 09/18/17 13:15 13:15 13:15 WBC 8.9 RBC 4.35 Hgb 13.5 Hct 39 MCV 90 MCH 31 MCHC 35 RDW 15 Plt Count 214 MPV 7.2 L Neut % (Auto) 75.4 Lymph % (Auto) 17.7 L [place] % (Auto) 4.8 Eos % (Auto) 1.5 Baso % (Auto) 0.6 Absolute Neuts (auto) 6.7 Absolute Lymphs (auto) 1.6 Absolute Monos (auto) 0.4 Absolute Eos (auto) 0.1 Absolute Basos (auto) 0.1 Absolute Nucleated RBC 0 Nucleated RBC % 0 INR (Anticoag Therapy) 0.94 APTT 25.4 L Sodium 136 Potassium 4.5 Chloride 101 Carbon Dioxide 26 Anion Gap 9 BUN 30 H Creatinine 0.96 H Est GFR ( Amer) 68.4 Est GFR (Non-Af Amer) 56.5 BUN/Creatinine Ratio 31.3 H Glucose 271 H Lactic Acid Calcium 8.9 Total Bilirubin 0.40 AST 13 ALT 8 Alkaline Phosphatase 71 Troponin I 0.00 Total Protein 6.6 Albumin 3.6 Globulin 3.0 Albumin/Globulin Ratio 1.2 Triglycerides 211 Cholesterol 162 LDL Cholesterol 79 HDL Cholesterol 41.2 Blood Type Antibody Screen 09/18/17 09/18/17 13:15 13:15 WBC RBC Hgb Hct MCV MCH MCHC RDW Plt Count MPV Neut % (Auto) Lymph % (Auto) [place] % (Auto) Eos % (Auto) Baso % (Auto) Absolute Neuts (auto) Absolute Lymphs (auto) Absolute Monos (auto) Absolute Eos (auto) Absolute Basos (auto) Absolute Nucleated RBC Nucleated RBC % INR (Anticoag Therapy) APTT Sodium Potassium Chloride Carbon Dioxide Anion Gap BUN Creatinine Est GFR ( Amer) Est GFR (Non-Af Amer) BUN/Creatinine Ratio Glucose Lactic Acid 1.5 Calcium Total Bilirubin AST ALT Alkaline Phosphatase Troponin I Total Protein Albumin Globulin Albumin/Globulin Ratio Triglycerides Cholesterol LDL Cholesterol HDL Cholesterol Blood Type O Positive Antibody Screen Negative Imaging 09/18/17 CT Head IMPRESSION: Chronic ischemic White matter change. No intracranial mass or hemorrhage is noted. 09/18/17 CXR IMPRESSION: NO ACTIVE DISEASE. Impression: 77F with htn, hld, dm, gerd, parkinsons disease presents with slurred speech Neuro - Slurred speech - no improved - doubt tia - more likely hypertensive urgency - ct head negative - neurology following - neuro checks - check tsh/lipids/a1c - fall precautions - pt/ot/swallow eval - restart home parkinsons meds CV - hypertensive urgency - bp control - check tte - monitor on tele Pulm - oxygenating ok on room air ID - no evidence of infection - monitor fever curve Gi - gerd - c/w ppi renal - monitor i/o - monitor lytes Heme - monitor cbc Endo - dm - check fs - metformin, niss Lines - piv PPx - gi/dvt DNR/DNI Admit to ICU for cardine gtt Discussed with Dr. Siddiqui from ER Critical Care Time: 60 mins
[2017-09-18] MEDS: oxyCODONE TAB* 5 MG TAB PO PRN (15:01)
[2017-09-18 15:08] LABS: Urine Appearance Clear; Urine Blood Negative (Negative); Urine Color Yellow; Urine Ketones Trace (Negative); Urine Protein 3+(>=500 mg/dL) (Negative); Urine Red Blood Cell 1+(3-5/hpf) (Absent); Urine Urobilinogen Negative (Negative); Urine White Blood Cell Trace(0-5/hpf) (Absent)
--- NOTE | 2017-09-18 15:26 | CONS ---
NEUROLOGY CONSULTATION REPORT: DATE OF CONSULT: 09/18/17 CONSULTING PHYSICIAN: Dr. Riana smith was activated to evaluate the patient for acute stroke. The history was mostly obtained by the patient and her daughter who was at bedside. CHIEF COMPLAINT: Transient episode of slurred speech. HISTORY OF PRESENT ILLNESS: Ms. Vi Deleon is a 77-year-old right-handed female with history of hypertension, Parkinson's disease, chronic back and leg pain, and history of multiple falls in the past, most recent fall was on , who presented to [facility] via EMS for acute onset of word finding difficulty. The patient woke up at 06:30 AM feeling slightly fatigued and she was complaining to her caregiver at home of sore throat. Her daughter had the flu last week and she was concerned that she is having the flu as well. At around 10 o'clock, the patient spoke to her daughter without any difficulties but was complaining of headaches that are bifrontal, nonradiating, 8/10 in severity, and not associated with any photo or phonophobia. She denied any nausea or vomiting. At 12 o'clock, the patient developed sudden onset word finding difficulty. EMS was contacted. Upon arrival, her blood glucose was in the 270s. Her blood pressure was elevated with systolic blood pressure in the 170s. She presented to the hospital with the systolic blood pressure in the 200s. The patient does take baby aspirin daily. Upon arrival, the patient's symptoms slowly improved. After the CT head and after the first dose of labetalol, her blood pressure decreased to 150s. The patient stated that she was back to her normal self. The patient denied any focal weakness or paraesthesias. Her headache improved after improving her blood pressure. The patient follows up with Dr. Sarahy Garza for her Parkinson's. She takes carbidopa/levodopa 25/100 two tablets in the morning, 2 tablets in the afternoon , and 2 tablets in the evening. The lisinopril was recently added on 09/13/17 due to high blood pressure. PAST MEDICAL HISTORY: Parkinson's, hypertension, arthritis, hysterectomy, right eye lens implant, left shoulder resurfacing, left eye lens implant, right arm humerus fracture, tendon surgery, left shoulder MRSA infection removed, left shoulder revision, right shoulder broken, multiple falls, history of UTI. MEDICATIONS: 1. Lisinopril 20 mg by mouth in the morning. 2. Metoprolol 25 mg 2 times daily. 3. Simvastatin 40 mg by mouth nightly. 4. Baby aspirin 81 mg by mouth daily. 5. Amantadine 100 mg in the morning and 100 mg in the evening. 6. Selegiline 5 mg in the morning. 7. Carbidopa/levodopa 25/100 mg 2 in the morning, 2 in the afternoon, and 2 in the evening. 8. Sinemet tablet 25/100 extended release. 9. Paroxetine 20 mg nightly. 10. Oxycodone/Percocet as needed. 11. Ibuprofen 600 mg every 6 hours as needed. 12. Alprazolam 0.25 mg at night as needed. 13. Melatonin 3 mg at night as needed. 14. Colace 100 mg at night. ALLERGIES: To PENICILLIN. REVIEW OF SYSTEMS: A 14-point review of systems was completed and otherwise negative except for what was mentioned in the HPI. PHYSICAL EXAM: Vitals: Temperature 97.9, pulse of 79, respirations 22, oxygen saturation 99%, systolic blood pressure of 236/111. General: Chronically ill- appearing female who is obese, in no acute distress. Head: Atraumatic, normocephalic without obvious abnormality. Eyes: Conjunctivae/corneas are clear. Neck: Supple and symmetrical. Lungs are clear to auscultation bilaterally, nonlabored breathing. Cardiovascular: Regular rhythm. Normal S1 , S2. Extremities: Deformities, postsurgical changes in the right upper extremity. Skin: Dorsal laceration. Psych: Affect is broad and normal mood. Easy to establish rapport. Neurological Examination: Mental status: Awake, alert, and oriented to person, place, time, and general circumstances. She has bradykinesia and hypophonia. No evidence of aphasia or dysarthria. Cranial Nerves: Normal confrontation bilaterally. Normal sensation intact to forehead , cheeks, and jaw region bilaterally. No facial droop, although she did have a right nasolabial fold loss on examination initially, but then improved after the CAT scan. Symmetrical palatal elevation. Normal strength against resistance to shoulder shrug bilaterally. Tongue is symmetrical and midline. No atrophy or fasciculation. Motor Examination: She has upper extremity right worse than left tremors at rest with the frequency of 3-4 Hz with moderate amplitude. She has restrictive range of motion in the shoulder regions bilaterally. She has symmetrical strength in the upper and lower extremities, although restricted given her history of Parkinson's and multiple surgeries to the shoulder. Reflexes are trace throughout with ankles bilaterally. Sensation is intact to light touch throughout. Coordination, normal finger-to- nose bilaterally. Gait was not assessed as the patient is walker-dependent. LABORATORY DATA/IMAGING/ANOTHER DIAGNOSTIC IMAGING: CT scan without contrast completed on 09/18/17, showed no evidence of acute intracranial abnormalities. Laboratory: WBC of 8.9, platelets of 214. INR 0.94, and aPTT is 25.4. NIH stroke scale was obtained initially when the patient came in at 12:50 and it was 1. NIH stroke scale completed after the CAT scan at 01:10 was 0. ASSESSMENT AND RECOMMENDATIONS: Ms. Vi Deleon is a pleasant 77-year-old female with Parkinson's disease who presented with a transient episode of word finding difficulty in the setting of hypertensive emergency. The patient's symptoms improved after the reduction of her blood pressure. NIH stroke scale was currently 0. She is not a candidate for IV tPA or mechanical thrombectomy. 1. Hypertensive emergency - This is the likely explanation to her headache and transient word finding difficulty. The patient may need nicardipine drip as she partially responded to 10 mg of labetalol x2. Recently, the patient was started on lisinopril 10 mg on 09/13/17. Defer further treatment to primary team. She will need admission for close monitoring and treatment of her hypertension. Neuro checks every 4 hours. Continue supportive care. 2. Parkinson's disease, please resume her antiparkinson's agents, carbidopa/ levodopa 25/100 two tablets in the morning, 2 tablets in the afternoon and 2 tablets in the evening for a total of 6 tablets/ 24 hours. Continue Amantadine 100 mg twice daily. She denied any visual or auditory hallucinations. In addition, please give an extra tablet of Sinemet Extended Release 1 tablet at night. Please consult physical therapy as it is important for her to stay mobile to prevent any worsening of her Parkinson's. 3. Diabetes, chronic pain, and insomnia - defer to the primary team. TIME SPENT: I spent a total of 70 minutes and greater than 50% of that was spent directly reviewing the medical chart, obtaining history, examining the patient, education, counseling, and discussing the treatment plan with the patient and her daughter at bedside. [id number]/CPS #: [id number] CARLEE
[2017-09-18] MEDS: metFORMIN* 500 MG TAB PO SCH (15:58)
[2017-09-18] MEDS: Enoxaparin(*) 40 MG/0.4 ML SYR SUBCUT SCH (15:59)
[2017-09-18] MEDS: Insulin LISPRO* 1 UNITS UNIT SUBCUT SCH ×2 (16:52→20:51)
--- NOTE | 2017-09-18 17:18 | ECHO ---
Patient: SHIRA HARRIS Rec#: [id number] : 1940 Date: 09/18/2017 Age: 77y Height: 157.48 cm / 62.0 in Weight: 100.24 kg / 220.9 lbs Sex: F BSA: 1.99 Room#: [facility] Admit Date#: 09/18/2017 Type: Inpatient Referring: Srinivas Mclean DO Reading: Solomon Bob DO [employer]: Amparo Najera RDCS CC: Geri Cardona MD Transthoracic Echocardiogram Indication: Hypertensive urgency, TIA. BP: 188/106 HR: 73 Rhythm: NSR Findings History: DM, HTN. Technical Comments: The study is technically difficult. Left Ventricle: The left ventricular chamber size is decreased. Moderate concentric left ventricular hypertrophy is observed. Global left ventricular wall motion and contractility are within normal limits. There is normal left ventricular systolic function. The estimated ejection fraction is 55-60%. Abnormal left ventricular diastolic function is observed. Left Atrium: The left atrium is mildly dilated. Right Ventricle: The right ventricle is not well visualized. The right ventricle is mildly dilated. The right ventricular global systolic function is normal. Right Atrium: The right atrium is mildly dilated. Aortic Valve: The aortic valve is trileaflet. The aortic valve leaflets are moderately thickened. Systolic excursion of the aortic valve cusps is reduced. There is evidence of aortic sclerosis without stenosis. There is trace to mild aortic regurgitation. There is no evidence of aortic stenosis. Mitral Valve: Mild mitral annular calcification present. The mitral valve leaflets are mildly thickened. There is a trace of mitral regurgitation. There is no evidence of mitral stenosis. Tricuspid Valve: The tricuspid valve leaflets are normal. There is a physiologic tricuspid regurgitation. Unable to estimate the right ventricular systolic pressure. There is no tricuspid stenosis. Pulmonic Valve: The pulmonic valve appears normal. There is a trace pulmonic regurgitation. There is no pulmonic stenosis. Pericardium: There is no significant pericardial effusion. Aorta: There is no dilatation of the aortic arch. There is mild dilatation of the aortic root. Pulmonary Artery: The main pulmonary artery is not well visualized. Venous: The inferior vena cava appears normal in size. There is a greater than 50% respiratory change in the inferior vena cava dimension. Conclusions The study is technically difficult. The left ventricular chamber size is decreased. Moderate concentric left ventricular hypertrophy is observed. Global left ventricular wall motion and contractility are within normal limits. There is normal left ventricular systolic function. The estimated ejection fraction is 55-60%. The left atrium is mildly dilated. The right ventricle is not well visualized. The right ventricle is mildly dilated. The right ventricular global systolic function is normal. There is evidence of aortic sclerosis without stenosis. Compared to prior study from 12/2014, no clinically significant changes noted. Measurements Name Value Normal Range RVIDd (AP) 2D 3.2 cm (0.9 - 2.6) RVDdMajor (2D) 4.5 cm (2.2 - 4.4) RVAW (2D) 0.9 cm (0.2 - 0.5) RAd ISD 4CH 5.1 cm (3.4 - 4.9) RA (A4C)W 5 cm (2.9 - 4.6) IVSd (2D) 1.7 cm (0.6 - 1) LVPWd (2D) 1.7 cm (0.6 - 1) LVIDd (2D) 3.4 cm (3.6 - 5.4) LVIDs (2D) 2.1 cm - LV FS (2D) 40 % (25 - 45) Aortic Annulus 2 cm (1.4 - 2.6) Ao root diameter (2D) 3.6 cm (2.1 - 3.5) Ascending Ao 3.4 cm (2.1 - 3.4) Aortic arch 2.5 cm (1.8 - 3.4) LA dimension (AP) 2D 3.9 cm (2.3 - 3.8) LAd ISD 4CH 4.9 cm (2.9 - 5.3) LA ISD 4CH W 5.4 cm (2.5 - 4.5) Name Value Normal Range LA ESV SP 4CH (A/L) 104 ml - LA ESV SP 2CH (A/L) 49 ml - LA ESV BP (A/L) 73 ml - LA ESV BP (A/L) index 36 ml/m2 - LA ESV SP 4CH (MOD) 85 ml - LA ESV SP 2CH (MOD) 49 ml - Name Value Normal Range MV E-wave Vmax 0.87 m/sec - MV deceleration time 260.6 msec - MV A-wave Vmax 1.26 m/sec - MV E:A ratio 0.69 ratio - LV septal e' Vmax 0.03 m/sec - LV lateral e' Vmax 0.03 m/sec - LV E:e' septal ratio 29 ratio - LV E:e' lateral ratio 29 ratio - Name Value Normal Range AV Vmax 1.69 m/sec - AV VTI 33 cm - AV peak gradient 11.48 mmHg - AV mean gradient 4.88 mmHg - LVOT diameter 2 cm - LVOT Vmax 1.08 m/sec - LVOT VTI 25.5 cm - LVOT peak gradient 4.67 mmHg - LVOT mean gradient 2.3 mmHg - RYAN (continuity Vmax) 2.1 cm2 - RYAN (continuity VTI) 2.5 cm2 - RUTH Vmax 0.62 m/sec - Name Value Normal Range IVC diameter 1.9 cm - Name Value Normal Range PV Vmax 0.89 m/sec - PV peak gradient 3.21 mmHg -
[2017-09-18] MEDS: Carbidopa/Levodop 25/100 MG TAB(*) PO SCH ×2 (17:56→20:55)
[2017-09-18] MEDS: Lisinopril TAB* 10 MG PO SCH (17:56)
[2017-09-18] MEDS: Benzocaine/Menthol LOZ* 1 LOZENGE PO PRN (18:03)
[2017-09-18] MEDS: Metoprolol Tartrate TAB* 50 mg PO SCH (20:50)
[2017-09-18] MEDS: Gabapentin CAP(*) 100 MG PO SCH (20:50)
[2017-09-18] MEDS: ALPRAZolam TAB* 0.25 MG PO PRN (20:50)
[2017-09-18] MEDS: Amantadine CAP* 100 MG PO SCH (20:51)
[2017-09-18] MEDS ORDERED: Metoprolol Tartrate TAB* 25 MG PO SCH (21:00)
--- NOTE | 2017-09-19 02:22 | PN ---
Progress Note - Progress Note Date of Service: 09/19/17 Note: Nursing called reporting slurred speech. Upon arrival, she was already improving. Per my exam she had no focal weakness. Speech was thick, but discernable. Crude touch was intact although she confused L/R during the facial exam. Tongue was midline. Mastication & eye clench were intact. Strength was 4+/5 globally. PERRLA/EOMI. She was otherwise cognitively intact. During my evaluation, she returned to her baseline and so a code kit was not called. Systolic was 160s during the event which lasted ~15minutes total. Repeat CT brain WO reported as negative. ? Juan's paralysis vs TIA as this does not appear to be HTNive related.
[2017-09-19] MEDS: oxyCODONE TAB* 5 MG TAB PO PRN (03:21)
[2017-09-19] MEDS ORDERED: Acetaminophen TAB* 325 MG ONE (04:43)
[2017-09-19] MEDS: Acetaminophen TAB* 325 MG PO PRN ×2 (04:44→20:25)
[2017-09-19] MEDS ORDERED: Omeprazole CAP* 20 MG PO SCH (06:00)
[2017-09-19 06:06] LABS: ABS Basophils 0.1 10^3/ul (0-0.2); ABS Eosinophils 0.1 10^3/ul (0-0.6); ABS Lymphocytes 1.2 10^3/ul (1.0-4.8); ABS Monocytes 0.6 10^3/ul (0-0.8); ABS Nucleated RBC 0 10^3/ul; Eosinophil % 0.9 % (0-6); Hematocrit 41 % (35-47); Hemoglobin 14.2 g/dl (12.0-16.0); Lymphocyte % 11.1 % (25-47); Mean Corpuscular HGB Conc 35 g/dl (31-36); Mean Corpuscular Hemoglobin 31 pg (27-31); Mean Corpuscular Volume 89 fL (80-97); Mean Platelet Volume 7.4 um3 (7.4-10.4); Nucleated Red Blood Cells % 0.1; Platelet Count 206 10^3/ul (150-450); Red Blood Count 4.56 10^6/ul (4.00-5.40); Red Cell Distribution Width 15 % (10.5-15)
[2017-09-19 06:15] LABS: EGFR Non-African American 69.7 (>60)
[2017-09-19] MEDS: Carbidopa/Levodop 25/100 MG TAB(*) PO SCH ×5 (06:15→20:35)
[2017-09-19] MEDS ORDERED: Magnesium Sulfate IV* 3 GM in NS 0.9% 100 ML* 100 ML IVPB ONE (08:00)
--- NOTE | 2017-09-19 08:12 | RAD ---
Indication: Transient ischemic attack. CT of the brain performed without IV contrast. Comparison is made with previous exam of September 18, 2017. Ventricular structures are midline. No midline shift is noted. The extraction spaces are unremarkable. Periventricular lucency consistent with chronic ischemic White matter change is noted. There is no evidence of intracranial mass or hemorrhage. Mastoid air cells and paranasal sinuses are otherwise unremarkable. IMPRESSION: Chronic ischemic White matter change. There is no evidence of intracranial mass or hemorrhage noted.
[2017-09-19] MEDS: Insulin GLARGINE(*) 1 UNITS UNIT SUBCUT SCH (08:17)
[2017-09-19] MEDS: Gabapentin CAP(*) 100 MG PO SCH ×3 (08:18→20:27)
[2017-09-19] MEDS: Hydrochlorothiazide TAB* 25 MG PO SCH (08:18)
[2017-09-19] MEDS: Atorvastatin* 20 MG TAB PO SCH (08:18)
[2017-09-19] MEDS: Aspirin EC TAB* 81 MG TAB.EC PO SCH (08:19)
[2017-09-19] MEDS: Lisinopril TAB* 10 MG PO SCH ×2 (08:19→17:28)
[2017-09-19] MEDS: Selegiline TAB* 5 MG PO SCH (08:19)
[2017-09-19] MEDS: Amantadine CAP* 100 MG PO SCH ×2 (08:19→20:25)
[2017-09-19] MEDS: metFORMIN* 500 MG TAB PO SCH ×2 (08:20→17:28)
[2017-09-19] MEDS: Metoprolol Tartrate TAB* 50 mg PO SCH ×2 (08:20→20:28)
[2017-09-19] MEDS ORDERED: NS 0.9% 100 ML* 0 ML ONE (08:30)
[2017-09-19] MEDS: Insulin LISPRO* 1 UNITS UNIT SUBCUT SCH ×4 (08:38→20:24)
--- NOTE | 2017-09-19 09:04 | PN ---
Date of Service: 09/19/17 Critical Care Services: 77F with htn, hld, dm, gerd, parkinsons disease presents with slurred speech 09/19/17: episode of slurred speech overnight which resolved after [address] normal. bp better controlled. Vital Signs: Temp Pulse Resp BP SpO2 FiO2 97.3 F 74 24 159/75 95 09/19/17 07:34 09/19/17 07:01 09/19/17 07:01 09/19/17 07:01 09/19/17 07:01 Physical Exam: Gen - nad HEENT - ncat Neck - no jvd, no thyromegaly CV - s1/s2, no murmur Lungs - cta, no wheeze Abd - soft, nt, nd Ext - no cce, +right shoulder tenderness, pain with movement Neuro - pill rolling tremor, awake alert, no slurred speech Fluid Balance (Past 24 Hours): I= O= Net Intake & Output 09/17/17 09/18/17 09/19/17 09/20/17 06:59 06:59 06:59 06:59 Intake Total 310 Output Total 525 Balance -215 Weight 99.8 kg Intake: Oral 310 Output: Urine 525 Labs: Laboratory Results - last 24 hr 09/18/17 09/18/17 09/18/17 13:15 13:15 13:15 WBC 8.9 RBC 4.35 Hgb 13.5 Hct 39 MCV 90 MCH 31 MCHC 35 RDW 15 Plt Count 214 MPV 7.2 L Neut % (Auto) 75.4 Lymph % (Auto) 17.7 L [place] % (Auto) 4.8 Eos % (Auto) 1.5 Baso % (Auto) 0.6 Absolute Neuts (auto) 6.7 Absolute Lymphs (auto) 1.6 Absolute Monos (auto) 0.4 Absolute Eos (auto) 0.1 Absolute Basos (auto) 0.1 Absolute Nucleated RBC 0 Nucleated RBC % 0 INR (Anticoag Therapy) 0.94 APTT 25.4 L Sodium 136 Potassium 4.5 Chloride 101 Carbon Dioxide 26 Anion Gap 9 BUN 30 H Creatinine 0.96 H Est GFR ( Amer) 68.4 Est GFR (Non-Af Amer) 56.5 BUN/Creatinine Ratio 31.3 H Glucose 271 H POC Glucose (mg/dL) Lactic Acid Calcium 8.9 Phosphorus Magnesium Total Bilirubin 0.40 AST 13 ALT 8 Alkaline Phosphatase 71 Troponin I 0.00 Total Protein 6.6 Albumin 3.6 Globulin 3.0 Albumin/Globulin Ratio 1.2 Triglycerides 211 Cholesterol 162 LDL Cholesterol 79 HDL Cholesterol 41.2 Urine Color Urine Appearance Urine pH Ur Specific [place] Urine Protein Urine Ketones Urine Blood Urine Nitrate Urine Bilirubin Urine Urobilinogen Ur Leukocyte Esterase Urine WBC (Auto) Urine RBC (Auto) Ur Squamous Epith Cells Urine Bacteria Urine Glucose Group A Strep Rapid Blood Type Antibody Screen 09/18/17 09/18/17 09/18/17 13:15 13:15 14:59 WBC RBC Hgb Hct MCV MCH MCHC RDW Plt Count MPV Neut % (Auto) Lymph % (Auto) [place] % (Auto) Eos % (Auto) Baso % (Auto) Absolute Neuts (auto) Absolute Lymphs (auto) Absolute Monos (auto) Absolute Eos (auto) Absolute Basos (auto) Absolute Nucleated RBC Nucleated RBC % INR (Anticoag Therapy) APTT Sodium Potassium Chloride Carbon Dioxide Anion Gap BUN Creatinine Est GFR ( Amer) Est GFR (Non-Af Amer) BUN/Creatinine Ratio Glucose POC Glucose (mg/dL) Lactic Acid 1.5 Calcium Phosphorus Magnesium Total Bilirubin AST ALT Alkaline Phosphatase Troponin I Total Protein Albumin Globulin Albumin/Globulin Ratio Triglycerides Cholesterol LDL Cholesterol HDL Cholesterol Urine Color Yellow Urine Appearance Clear Urine pH 5.0 Ur Specific [place] 1.020 Urine Protein 3+(>=500 mg/dl) A Urine Ketones Trace A Urine Blood Negative Urine Nitrate Negative Urine Bilirubin Negative Urine Urobilinogen Negative Ur Leukocyte Esterase Negative Urine WBC (Auto) Trace(0-5/hpf) Urine RBC (Auto) 1+(3-5/hpf) A Ur Squamous Epith Cells Present A Urine Bacteria Absent Urine Glucose 3+(>=500 mg/dl) A Group A Strep Rapid Blood Type O Positive Antibody Screen Negative 09/18/17 09/18/17 09/18/17 16:51 17:52 20:43 WBC RBC Hgb Hct MCV MCH MCHC RDW Plt Count MPV Neut % (Auto) Lymph % (Auto) [place] % (Auto) Eos % (Auto) Baso % (Auto) Absolute Neuts (auto) Absolute Lymphs (auto) Absolute Monos (auto) Absolute Eos (auto) Absolute Basos (auto) Absolute Nucleated RBC Nucleated RBC % INR (Anticoag Therapy) APTT Sodium Potassium Chloride Carbon Dioxide Anion Gap BUN Creatinine Est GFR ( Amer) Est GFR (Non-Af Amer) BUN/Creatinine Ratio Glucose POC Glucose (mg/dL) 119 H 253 H Lactic Acid Calcium Phosphorus Magnesium Total Bilirubin AST ALT Alkaline Phosphatase Troponin I Total Protein Albumin Globulin Albumin/Globulin Ratio Triglycerides Cholesterol LDL Cholesterol HDL Cholesterol Urine Color Urine Appearance Urine pH Ur Specific [place] Urine Protein Urine Ketones Urine Blood Urine Nitrate Urine Bilirubin Urine Urobilinogen Ur Leukocyte Esterase Urine WBC (Auto) Urine RBC (Auto) Ur Squamous Epith Cells Urine Bacteria Urine Glucose Group A Strep Rapid Negative Blood Type Antibody Screen 09/19/17 09/19/17 09/19/17 05:35 05:35 08:27 WBC 11.0 H RBC 4.56 Hgb 14.2 Hct 41 MCV 89 MCH 31 MCHC 35 RDW 15 Plt Count 206 MPV 7.4 Neut % (Auto) 82.3 Lymph % (Auto) 11.1 L [place] % (Auto) 5.2 Eos % (Auto) 0.9 Baso % (Auto) 0.5 Absolute Neuts (auto) 9.0 H Absolute Lymphs (auto) 1.2 Absolute Monos (auto) 0.6 Absolute Eos (auto) 0.1 Absolute Basos (auto) 0.1 Absolute Nucleated RBC 0 Nucleated RBC % 0.1 INR (Anticoag Therapy) APTT Sodium 135 Potassium 4.2 Chloride 101 Carbon Dioxide 26 Anion Gap 8 BUN 24 Creatinine 0.80 Est GFR ( Amer) 84.4 Est GFR (Non-Af Amer) 69.7 BUN/Creatinine Ratio 30.0 H Glucose 188 H POC Glucose (mg/dL) 230 H Lactic Acid Calcium 9.2 Phosphorus 3.6 Magnesium 1.2 L Total Bilirubin AST ALT Alkaline Phosphatase Troponin I Total Protein Albumin Globulin Albumin/Globulin Ratio Triglycerides Cholesterol LDL Cholesterol HDL Cholesterol Urine Color Urine Appearance Urine pH Ur Specific [place] Urine Protein Urine Ketones Urine Blood Urine Nitrate Urine Bilirubin Urine Urobilinogen Ur Leukocyte Esterase Urine WBC (Auto) Urine RBC (Auto) Ur Squamous Epith Cells Urine Bacteria Urine Glucose Group A Strep Rapid Blood Type Antibody Screen Studies: 09/18/17 CT Head IMPRESSION: Chronic ischemic White matter change. No intracranial mass or hemorrhage is noted. 09/18/17 CXR IMPRESSION: NO ACTIVE DISEASE. 09/19/17 CT Head IMPRESSION: Chronic ischemic White matter change. There is no evidence of intracranial mass or hemorrhage noted. Impression: 77F with htn, hld, dm, gerd, parkinsons disease presents with slurred speech Plan: Neuro - Slurred speech, parkinsons - tia vs hypertensive urgency vs migraine - ct head negative x 2 - neurology following - neuro checks - mri brain - fall precautions - pt/ot/swallow eval - restart home parkinsons meds CV - hypertensive urgency - bp better controlled - tte reviewed - monitor on tele Pulm - oxygenating ok on room air ID - no evidence of infection - monitor fever curve Gi - gerd - c/w ppi renal - monitor i/o - monitor lytes Heme - monitor cbc Endo - dm - check fs - metformin, niss Lines - piv PPx - gi/dvt DNR/DNI Discussed with Neurology and Hospitalist. Patient stable for downgrade to medical floor. Critical Care Time: 35 mins
[2017-09-19] MEDS: PARoxetine HCL TAB* 20 MG PO SCH (09:35)
[2017-09-19] MEDS: NIFEdipine ER TAB* 30 MG PO SCH (09:35)
--- NOTE | 2017-09-19 09:48 | PN ---
Subjective Date of Service: 09/19/17 Interval History: Ms. Lebron had another episode of slurred speech this morning. She recalls being extremely restless throughout the night. She had to sleep in a recliner as her sciatica is acting up when placed in a recombinant position. The slurred speech lasted for 15 minutes. Both BP and accucheck were not significantly abnormal as her SBP was in the 160's mmHg. She did not receive any new medications other than the anti-hypertensive agents and her regular Xanax dose she takes at home. She received oxycodone after the event took place as she had significant low back pain. This morning, the patient is in good spirits and feels well. She continues to complain of posterior headaches, non-radiating , sharp, and are 6/10 in severity. She has no acute visual loss or temporal headaches. She denied jaw claudications. She denied CP, SOB, or palpitations. CT head without contrast completed on 09/19/2017: personally reviewed. No acute intracranial disease. There is no hemorrhage. ROS: as per HPI Objective Active Medications: Acetaminophen (Tylenol Tab*) 650 mg PO Q6H PRN PRN Reason: FEVER/PAIN Last Admin: 09/19/17 04:44 Dose: 650 mg Alprazolam (Xanax Tab*) 0.25 mg PO TID PRN PRN Reason: ANXIETY Last Admin: 09/18/17 20:50 Dose: 0.25 mg Amantadine HCl (Symmetrel Cap*) 100 mg PO BID [facility] Last Admin: 09/19/17 08:19 Dose: 100 mg Aspirin (Aspirin Ec Tab*) 81 mg PO DAILY [facility] Last Admin: 09/19/17 08:19 Dose: 81 mg Atorvastatin Calcium (Lipitor*) 20 mg PO DAILY [facility] Last Admin: 09/19/17 08:18 Dose: 20 mg Carbidopa/Levodopa (Sinemet 25/100 Tab(*)) 1 tab PO 1000,2100 [facility] Last Admin: 09/18/17 20:55 Dose: 1 tab Carbidopa/Levodopa (Sinemet 25/100 Tab(*)) 2 tab PO 0630,1400,1830 [facility] Last Admin: 09/19/17 06:15 Dose: 2 tab Clopidogrel Bisulfate (Plavix Tab*) 75 mg PO DAILY [facility] Dextrose (D50w Syringe 50 Ml*) 12.5 gm IV PUSH .FOR FS < 60 - SS PRN PRN Reason: FS < 60 Enoxaparin Sodium (Lovenox(*)) 40 mg SUBCUT Q24H [facility] Last Admin: 09/18/17 15:59 Dose: 40 mg Gabapentin (Neurontin Cap(*)) 100 mg PO BID [facility] Last Admin: 09/19/17 08:18 Dose: 100 mg Hydrochlorothiazide (Hydrodiuril Tab*) 12.5 mg PO DAILY [facility] Last Admin: 09/19/17 08:18 Dose: 12.5 mg Magnesium Sulfate 3 gm/ Sodium (Chloride) 106 mls @ 53 mls/hr IVPB ONCE ONE Stop: 09/19/17 09:59 Last Admin: 09/19/17 09:12 Dose: 53 mls/hr Insulin Glargine (Lantus(*)) 20 units SUBCUT QAM [facility] Last Admin: 09/19/17 08:17 Dose: 20 units Insulin Human Lispro (Humalog*) 0 units SUBCUT ACHS [facility]; Protocol Last Admin: 09/19/17 08:38 Dose: 6 units Lisinopril (Prinivil Tab*) 10 mg PO QPM [facility] Last Admin: 09/18/17 17:56 Dose: 10 mg Lisinopril (Prinivil Tab*) 20 mg PO DAILY [facility] Last Admin: 09/19/17 08:19 Dose: 20 mg Metformin HCl (Glucophage*) 500 mg PO 0800,1700 [facility] Last Admin: 09/19/17 08:20 Dose: 500 mg Metoprolol Tartrate (Lopressor Tab*) 50 mg PO BID [facility] Last Admin: 09/19/17 08:20 Dose: 50 mg Nifedipine (Procardia Xl Tab*) 30 mg PO DAILY [facility] Last Admin: 09/19/17 09:35 Dose: 30 mg Oxycodone HCl (Roxycodone Tab*) 5 mg PO Q6HR PRN PRN Reason: PAIN Last Admin: 09/19/17 03:21 Dose: 5 mg Pantoprazole Sodium (Protonix Tab (Nf)) 40 mg PO DAILY [facility] Paroxetine HCl (Paxil Tab*) 20 mg PO DAILY [facility] Last Admin: 09/19/17 09:35 Dose: 20 mg Selegiline HCl (Eldepryl Tab*) 5 mg PO DAILY [facility] Last Admin: 09/19/17 08:19 Dose: 5 mg Throat Lozenges (Chloraseptic Yarelis*) 1 yarelis PO Q6H PRN PRN Reason: SORE THROAT Last Admin: 09/18/17 18:03 Dose: 1 yarelis Vital Signs 09/18/17 09/18/17 09/18/17 12:54 13:05 13:06 Temperature Pulse Rate 78 78 Respiratory 24 25 Rate Blood Pressure 236/111 (mmHg) O2 Sat by Pulse 94 96 85 Oximetry 09/18/17 09/18/17 09/18/17 13:16 13:21 13:28 Temperature 97.9 F Pulse Rate 78 78 79 Respiratory 22 Rate Blood Pressure 156/60 175/90 208/71 (mmHg) O2 Sat by Pulse 95 94 93 Oximetry 09/18/17 09/18/17 09/18/17 13:35 13:43 13:57 Temperature Pulse Rate 79 80 80 Respiratory Rate Blood Pressure 171/77 149/73 203/100 (mmHg) O2 Sat by Pulse 93 92 95 Oximetry 09/18/17 09/18/17 09/18/17 14:00 14:07 14:12 Temperature Pulse Rate 80 80 79 Respiratory Rate Blood Pressure 182/83 188/106 (mmHg) O2 Sat by Pulse 94 95 96 Oximetry 09/18/17 09/18/17 09/18/17 14:28 14:43 14:58 Temperature Pulse Rate 84 81 82 Respiratory 22 22 24 Rate Blood Pressure 193/83 162/86 204/81 (mmHg) O2 Sat by Pulse 95 95 95 Oximetry 09/18/17 09/18/17 09/18/17 15:00 15:12 15:19 Temperature 97.9 F Pulse Rate 82 81 81 Respiratory 23 24 24 Rate Blood Pressure 193/104 193/104 (mmHg) O2 Sat by Pulse 94 94 93 Oximetry 09/18/17 09/18/17 09/18/17 15:26 15:31 15:45 Temperature Pulse Rate 83 83 81 Respiratory 33 20 22 Rate Blood Pressure 187/80 177/161 184/90 (mmHg) O2 Sat by Pulse 97 97 95 Oximetry 09/18/17 09/18/17 09/18/17 15:50 16:00 16:15 Temperature 98.4 F Pulse Rate 82 80 80 Respiratory 25 22 17 Rate Blood Pressure 184/90 176/102 168/104 (mmHg) O2 Sat by Pulse 98 98 99 Oximetry 09/18/17 09/18/17 09/18/17 16:30 16:51 17:00 Temperature Pulse Rate 80 80 81 Respiratory 22 21 23 Rate Blood Pressure 175/98 189/85 178/96 (mmHg) O2 Sat by Pulse 96 98 97 Oximetry 09/18/17 09/18/17 09/18/17 17:15 17:30 17:45 Temperature Pulse Rate 81 81 82 Respiratory 20 23 22 Rate Blood Pressure 163/129 186/83 177/91 (mmHg) O2 Sat by Pulse 96 95 96 Oximetry 09/18/17 09/18/17 09/18/17 18:00 18:01 18:15 Temperature Pulse Rate 82 82 85 Respiratory 25 25 24 Rate Blood Pressure 140/66 155/65 (mmHg) O2 Sat by Pulse 96 95 96 Oximetry 09/18/17 09/18/17 09/18/17 18:30 18:46 19:00 Temperature Pulse Rate 89 85 86 Respiratory 19 23 23 Rate Blood Pressure 169/89 169/68 (mmHg) O2 Sat by Pulse 96 94 94 Oximetry 09/18/17 09/18/17 09/18/17 19:01 19:16 19:22 Temperature 98.7 F Pulse Rate 87 92 Respiratory 23 21 Rate Blood Pressure 178/112 176/103 (mmHg) O2 Sat by Pulse 95 95 Oximetry 09/18/17 09/18/17 09/18/17 19:32 19:55 20:00 Temperature Pulse Rate 85 85 Respiratory 24 21 23 Rate Blood Pressure 168/72 (mmHg) O2 Sat by Pulse 95 95 95 Oximetry 09/18/17 09/18/17 09/18/17 20:02 20:50 21:00 Temperature Pulse Rate 87 85 Respiratory 22 20 23 Rate Blood Pressure 158/73 (mmHg) O2 Sat by Pulse 96 96 Oximetry 09/18/17 09/18/17 09/18/17 21:11 21:31 22:00 Temperature Pulse Rate 84 76 77 Respiratory 26 23 23 Rate Blood Pressure 178/79 159/75 (mmHg) O2 Sat by Pulse 95 94 95 Oximetry 09/18/17 09/18/17 09/18/17 22:01 22:31 23:00 Temperature Pulse Rate 78 74 69 Respiratory 22 21 20 Rate Blood Pressure 127/66 121/63 121/59 (mmHg) O2 Sat by Pulse 94 94 95 Oximetry 09/18/17 09/19/17 09/19/17 23:30 00:00 00:14 Temperature Pulse Rate 68 68 67 Respiratory 21 27 21 Rate Blood Pressure 114/68 104/61 (mmHg) O2 Sat by Pulse 95 94 95 Oximetry 09/19/17 09/19/17 09/19/17 00:30 01:00 01:01 Temperature Pulse Rate 69 68 67 Respiratory 22 24 21 Rate Blood Pressure 109/55 113/53 (mmHg) O2 Sat by Pulse 96 95 95 Oximetry 09/19/17 09/19/17 09/19/17 01:07 01:30 02:00 Temperature 96.5 F Pulse Rate 68 73 Respiratory 20 24 Rate Blood Pressure 121/57 (mmHg) O2 Sat by Pulse 95 96 Oximetry 09/19/17 09/19/17 09/19/17 02:01 02:08 02:11 Temperature Pulse Rate 73 72 73 Respiratory 22 24 21 Rate Blood Pressure 143/72 160/117 164/87 (mmHg) O2 Sat by Pulse 96 97 98 Oximetry 09/19/17 09/19/17 09/19/17 03:00 03:16 03:18 Temperature 97.7 F Pulse Rate 71 72 Respiratory 24 20 Rate Blood Pressure 166/80 (mmHg) O2 Sat by Pulse 96 98 Oximetry 09/19/17 09/19/17 09/19/17 03:30 04:00 04:01 Temperature Pulse Rate 72 72 74 Respiratory 23 22 24 Rate Blood Pressure 173/84 171/97 (mmHg) O2 Sat by Pulse 96 97 96 Oximetry 09/19/17 09/19/17 09/19/17 05:00 05:02 05:36 Temperature Pulse Rate 76 74 73 Respiratory 18 19 21 Rate Blood Pressure 174/89 177/87 (mmHg) O2 Sat by Pulse 96 96 96 Oximetry 09/19/17 09/19/17 09/19/17 06:00 06:01 06:40 Temperature Pulse Rate 75 75 74 Respiratory 17 17 20 Rate Blood Pressure 129/107 187/95 (mmHg) O2 Sat by Pulse 97 97 96 Oximetry 09/19/17 09/19/17 09/19/17 07:00 07:01 07:34 Temperature 97.3 F Pulse Rate 74 74 Respiratory 21 24 Rate Blood Pressure 159/75 (mmHg) O2 Sat by Pulse 95 95 Oximetry 09/19/17 08:00 Temperature Pulse Rate Respiratory 24 Rate Blood Pressure (mmHg) O2 Sat by Pulse 95 Oximetry Oxygen Devices in Use Now: None Neurology Exam: General: Chronic, ill appearing female in no acute distress HEENT: Normocephelic/atraumatic, sclera anicteric, mucous membranes moist. She had tenderness to deep palpation on the occipital notch on the left with radiating pain shooting up the skull. Neck: Supple. No nuchal rigidity. Chest: Clear to auscultation bilaterally Cardiovascular: Regular rate and rhythm without murmurs, rubs, gallops Extremities: No clubbing, cyanosis, or edema Neurological Findings: Awake, Alert, Oriented to self, place and time. Speech: fluent without dysarthric, repetition intact Cranial Nerve: PEERL, EOM intact, VFF, no nystagmus, face symmetric bilaterally , facial sensation intact, hearing intact to finger rub bilaterally, palate elevates symmetrically, tongue midline, SCM and Trapezius s/s. Motor: Cogwheel rigidity right worst than left. Motor strength: able to elevate all 4 extremities to command. No pronator drift. She is able to give 4/ 5 effort throughout, limited shoulder abduction due to shoulder arthritis. Sensation: intact to LT/PP bilaterally upper and lower extremities Deep Tendon Reflex: trace throughout and absent at the ankles. Coordination: mild high amplitude and low frequency resting tremor in the upper extremity. Gait: not assessed as patient is walker dependent. Result Diagrams: 09/19/17 05:35 09/19/17 05:35 Additional Lab and Data: Lab Results 09/18/17 09/18/17 09/18/17 Range/Units 13:15 13:15 13:15 WBC 8.9 (3.5-10.8) 10^3/ul RBC 4.35 (4.00-5.40) 10^6/ul Hgb 13.5 (12.0-16.0) g/dl Hct 39 (35-47) % MCV 90 (80-97) fL MCH 31 (27-31) pg MCHC 35 (31-36) g/dl RDW 15 (10.5-15) % Plt Count 214 (150-450) 10^3/ul MPV 7.2 L (7.4-10.4) um3 Neut % (Auto) 75.4 (38-83) % Lymph % (Auto) 17.7 L (25-47) % [place] % (Auto) 4.8 (0-7) % Eos % (Auto) 1.5 (0-6) % Baso % (Auto) 0.6 (0-2) % Absolute Neuts (auto) 6.7 (1.5-7.7) 10^3/ul Absolute Lymphs (auto) 1.6 (1.0-4.8) 10^3/ul Absolute Monos (auto) 0.4 (0-0.8) 10^3/ul Absolute Eos (auto) 0.1 (0-0.6) 10^3/ul Absolute Basos (auto) 0.1 (0-0.2) 10^3/ul Absolute Nucleated RBC 0 10^3/ul Nucleated RBC % 0 INR (Anticoag Therapy) 0.94 (0.77-1.02) APTT 25.4 L (26.0-36.3) seconds Blood Type Pending Antibody Screen Pending LDL: 79 Microbiology and Other Data: Microbiology 09/18/17 18:00 Group A Streptococcus Rapid Screen - Final Throat Specimen received for Rapid Strep A Molecular testing Diagnostic Imaging: TTE: Left ventricular hypertrophy with EF 50%. Bubble study was not performed. Assessment/Plan Ms. Vi Deleon is a 77-year-old female with a history significant for hypertension, DMII, and Parkinson's disease who presented to [facility] [place] on 09/18/2017 with transient dysarthria and word finding difficulty that has since resolved. The patient had recurrence of dysarthria this morning at 2 am that has since resolved. 1. TIA to the left middle cerebral artery- the first episode of dysarthria was most likely related to hypertensive emergency as her SBP was significantly elevated. The second episode that occurred this morning was not associated with significantly elevated or low BP. Blood glucose was within normal range. She had a repeat CT head without contrast that was unremarkable. I suspect the episode was a TIA vs neurological symptoms related to headache as she had headache following the event. Other d/d such as partial seizures should be ruled out. I have added Plavix 75 mg to the aspirin 81 mg daily. She should be on DAPT for 30 days, then she can switch back to aspirin 81 mg daily. Switched Omeprazole to Protonix. She is on atorvastatin 20 mg nightly. Higher dose may put her at risk for myalgia as she already has baseline back pain. MRI brain and MRA head without contrast has been ordered. I also ordered carotid ultrasound to evaluate for ICA stenosis. TTE did not show any ventricular or atrial thrombus but a bubble study was not performed. Please repeat the TTE and obtain the bubble study. 2. Occipital neuralgia- she is on gabapentin 100 mg BID. I increased the dose to TID. We mentioned placing her on steroids but given her high blood pressure and history of diabetes, this would not be a good option unless we can't find other options. 3. Chronic low back pain- she follows-up with pain management and is being evaluated for LES injection in the future. 4. Parkinson's disease- continue Sinemet, Amantadine, and Selegiline. Parkinson 's disease is stable. She denied any hallucinations. Please get her up in a chair and consult PT for evaluation and treatment. I will continue to follow Time spent: 35 minutes and 50% was spent reviewing the medical chart, examining the patient, and discussing the plan of care as mentioned above. Discussed with Dr. Mclean and updated the patient's daughter at bedside.
[2017-09-19] MEDS: Clopidogrel TAB* 75 MG PO SCH (12:54)
--- NOTE | 2017-09-19 13:08 | RAD ---
Indication: Intermittent dysarthria. Comparison: MRI brain of the same date. Technique: [employer] [place] 1.5 Radha [id number] with GEM suite. MR angiography 3-D [id number] data was obtained with rotational display of the [place] of [place] and posterior fossa arteries. Report: Unremarkable intracranial internal carotid arteries as well as the M1 and M2 segments of the middle cerebral arteries and A1 and A2 segments of the anterior cerebral arteries. No anterior communicating artery visualized. Patent vertebral arteries contribute to the unremarkable basilar artery. Unremarkable cerebellar artery origins. Patent posterior cerebral arteries with the RIGHT supplied by both the posterior circulation and the anterior circulation via a small posterior communicating artery and the LEFT supplied primarily by the posterior circulation with normal variant hypoplastic or absent LEFT posterior communicating artery. No intracranial aneurysms evident. IMPRESSION: #. No large vessel intracranial arterial occlusion or significant stenosis.
--- NOTE | 2017-09-19 13:27 | RAD ---
Indication: Intermittent dysarthria. Assess for CVA. Comparison: September 19, 2017 CT. Technique: [employer] [place] 1.5 Radha [id number] with GEM suite. MRI brain without contrast. Report: Diffusion series is negative for acute or subacute ischemia. Susceptibility series is negative for stigmata of hemosiderin deposition to indicate previous hemorrhage. Mild prominence of the cerebral sulci. Unremarkable ventricles and basal cisterns. Grossly symmetric increased T2 FLAIR signal within the periventricular and subcortical white matter of the cerebral hemispheres as well as within the [place] and midbrain. Some of the small non coalescent white matter lesions at the level of the yang radiata appear oriented perpendicular to the corpus callosum. Preserved major intracranial flow-voids. Unremarkable orbital contents. No conspicuous calvarial or skull base lesions. Clear paranasal sinuses and mastoid air spaces. Unremarkable scalp. IMPRESSION: #. Noted grossly symmetric white matter lesions at the cerebrum as well as the brainstem without mass effect are nonspecific. The primary differential includes chronic small vessel ischemic disease as well as demyelinating disease. #. No evidence for acute or subacute ischemia.
--- NOTE | 2017-09-19 14:05 | RAD ---
CPT II: CPT II Codes: 3100F Indication: Transient ischemic attack, slurred speech. Duplex Doppler sonography of the carotid arteries was performed. The right common carotid artery demonstrates no intimal wall thickening. No evidence of intimal wall thickening or plaque is noted. Peak systolic velocity of the distal right common carotid artery is 68 cm/s. Peak systolic velocity of the right internal carotid artery is 68 cm/s. ICA/CC ratio is 1.0. Right vertebral artery demonstrates antegrade flow. The left common carotid artery demonstrates minimal plaque in the bulb extending into the left internal carotid artery. Peak systolic velocity of the distal left common carotid artery is 95 cm/s. The systolic velocity of the distal left common carotid artery is 76 cm/s. ICA/CC ratio is 0.8. Left vertebral artery demonstrates antegrade flow. IMPRESSION: NORMAL RIGHT INTERNAL CAROTID ARTERY. MINIMAL PLAQUE WITH NO HEMODYNAMICALLY SIGNIFICANT STENOSIS OF LEFT INTERNAL CAROTID ARTERY.
[2017-09-19] MEDS: Enoxaparin(*) 40 MG/0.4 ML SYR SUBCUT SCH (14:39)
[2017-09-19] MEDS: ALPRAZolam TAB* 0.25 MG PO PRN (20:26)
[2017-09-19] MEDS: Docusate CAP* 100 MG PO SCH (22:53)
[2017-09-20] MEDS: oxyCODONE TAB* 5 MG TAB PO PRN (01:37)
[2017-09-20] MEDS: Carbidopa/Levodop 25/100 MG TAB(*) PO SCH ×5 (06:10→22:19)
--- NOTE | 2017-09-20 07:36 | RAD ---
Indication: Shortness of breath. Single frontal view of the chest performed at 2100 hours was reviewed. Comparison is made with previous exam dated September 18, 2017. No mediastinal shift is noted. Heart is of normal size and configuration. Lung price appear clear. Left shoulder replacement is noted. IMPRESSION: NO ACTIVE CARDIOPULMONARY DISEASE IS NOTED. R1
[2017-09-20 07:57] LABS: ABS Basophils 0.1 10^3/ul (0-0.2); ABS Eosinophils 0.2 10^3/ul (0-0.6); ABS Lymphocytes 1.6 10^3/ul (1.0-4.8); ABS Monocytes 0.5 10^3/ul (0-0.8); ABS Neutrophils 5.7 10^3/ul (1.5-7.7); ABS Nucleated RBC 0 10^3/ul; Eosinophil % 2.3 % (0-6); Hematocrit 36 % (35-47); Hemoglobin 12.7 g/dl (12.0-16.0); Mean Corpuscular HGB Conc 35 g/dl (31-36); Mean Corpuscular Hemoglobin 31 pg (27-31); Mean Corpuscular Volume 89 fL (80-97); Mean Platelet Volume 7.5 um3 (7.4-10.4); Nucleated Red Blood Cells % 0; Platelet Count 201 10^3/ul (150-450); Red Blood Count 4.06 10^6/ul (4.00-5.40); Red Cell Distribution Width 15 % (10.5-15)
[2017-09-20] MEDS ORDERED: Magnesium Sulfate 2 GM IV* 2 GM/50 ML BAG IVPB ONE (08:40)
[2017-09-20] MEDS: Lisinopril TAB* 10 MG PO SCH ×2 (09:00→17:54)
[2017-09-20] MEDS: Insulin GLARGINE(*) 1 UNITS UNIT SUBCUT SCH (09:42)
[2017-09-20] MEDS: Insulin LISPRO* 1 UNITS UNIT SUBCUT SCH ×4 (09:42→22:19)
[2017-09-20] MEDS: Aspirin EC TAB* 81 MG TAB.EC PO SCH (09:44)
[2017-09-20] MEDS: Clopidogrel TAB* 75 MG PO SCH (09:44)
[2017-09-20] MEDS: Selegiline TAB* 5 MG PO SCH (09:45)
[2017-09-20] MEDS: Amantadine CAP* 100 MG PO SCH ×2 (09:45→22:19)
[2017-09-20] MEDS: Metoprolol Tartrate TAB* 50 mg PO SCH ×2 (09:45→22:05)
[2017-09-20] MEDS: Gabapentin CAP(*) 100 MG PO SCH ×3 (09:46→22:05)
[2017-09-20] MEDS: CMCS - Pantoprazole TAB (NF) 40 MG TAB PO SCH (09:46)
[2017-09-20] MEDS: metFORMIN* 500 MG TAB PO SCH ×2 (09:46→17:54)
[2017-09-20] MEDS: Docusate CAP* 100 MG PO SCH ×2 (09:46→22:05)
[2017-09-20] MEDS: NIFEdipine ER TAB* 30 MG PO SCH (09:46)
[2017-09-20] MEDS: Hydrochlorothiazide TAB* 25 MG PO SCH (09:47)
[2017-09-20] MEDS: PARoxetine HCL TAB* 20 MG PO SCH (09:47)
[2017-09-20] MEDS: Atorvastatin* 20 MG TAB PO SCH (09:50)
[2017-09-20] MEDS: Enoxaparin(*) 40 MG/0.4 ML SYR SUBCUT SCH (14:05)
[2017-09-20] MEDS ORDERED: Albuterol 2.5 MG/3 ML NEB.SOL* (0.083%) INH PRN (15:39)
--- NOTE | 2017-09-20 17:05 | ECHO ---
Patient: SHIRA HARRIS Rec#: [id number] : 1940 Date: 09/20/2017 Age: 77y Height: 157.5 cm / 62.0 in Weight: 100.2 kg / 220.8 lbs Sex: F BSA: 2 Room#: [facility] Admit Date#: 09/18/2017 Type: Inpatient Referring: Mak Castaneda Reading: Ankita Luke MD Optical Laboratory Mechanic: Sandra Estevez RN RDCS CC: Geri Cardona MD Transthoracic Echocardiogram Indication: TIA BP: 145/58 HR: 63 Rhythm: NSR Findings History: DM, HTN, obesity. This is a LIMITED echo for bubble study only. A full echocardiogram was performed on 09/18/2017. Technical Comments: The study is technically difficult. Right [place]: The bubble study is negative. Contrast: Normal saline was used as contrast for the bubble study. Images 2-4. Conclusions Poor image quality. Limited study, bubble study only. The bubble study is negative, no bubbles seen in left heart. Recommendation: if clinically indicated THIERRY (transesophogeal echo) recommended for improved image quality and accuracey.
--- NOTE | 2017-09-20 17:43 | PN ---
Subjective Date of Service: 09/20/17 Interval History: Patient complains of intermittent flushing and febrile sensation. Has been having cough without sputum and intermittent wheezing. Denies CP, SOB, N/V, abdominal pain, diarrhea, dizziness, palpitations, or other pain. Family History: Unchanged from Admission Social History: Unchanged from Admission Past Medical History: Unchanged from Admission Objective Active Medications: Acetaminophen (Tylenol Tab*) 650 mg PO Q6H PRN PRN Reason: FEVER/PAIN Last Admin: 09/19/17 20:25 Dose: 650 mg Albuterol (Ventolin 2.5 Mg/3 Ml Neb.Joaquina*) 2.5 mg INH Q4H PRN PRN Reason: SOB/WHEEZING Alprazolam (Xanax Tab*) 0.25 mg PO TID PRN PRN Reason: ANXIETY Last Admin: 09/19/17 20:26 Dose: 0.25 mg Amantadine HCl (Symmetrel Cap*) 100 mg PO BID [facility] Last Admin: 09/20/17 09:45 Dose: 100 mg Aspirin (Aspirin Ec Tab*) 81 mg PO DAILY [facility] Last Admin: 09/20/17 09:44 Dose: 81 mg Atorvastatin Calcium (Lipitor*) 20 mg PO DAILY [facility] Last Admin: 09/20/17 09:50 Dose: 20 mg Carbidopa/Levodopa (Sinemet 25/100 Tab(*)) 1 tab PO 1000,2100 [facility] Last Admin: 09/20/17 10:39 Dose: 1 tab Carbidopa/Levodopa (Sinemet 25/100 Tab(*)) 2 tab PO 0630,1400,1830 [facility] Last Admin: 09/20/17 14:04 Dose: 2 tab Clopidogrel Bisulfate (Plavix Tab*) 75 mg PO DAILY [facility] Last Admin: 09/20/17 09:44 Dose: 75 mg Dextrose (D50w Syringe 50 Ml*) 12.5 gm IV PUSH .FOR FS < 60 - SS PRN PRN Reason: FS < 60 Docusate Sodium (Colace Cap*) 100 mg PO BID [facility] Last Admin: 09/20/17 09:46 Dose: 100 mg Enoxaparin Sodium (Lovenox(*)) 40 mg SUBCUT Q24H [facility] Last Admin: 09/20/17 14:05 Dose: 40 mg Gabapentin (Neurontin Cap(*)) 100 mg PO TID [facility] Last Admin: 09/20/17 14:05 Dose: 100 mg Guaifenesin (Mucinex*) 1,200 mg PO BID [facility] Hydrochlorothiazide (Hydrodiuril Tab*) 12.5 mg PO DAILY [facility] Last Admin: 09/20/17 09:47 Dose: 12.5 mg Insulin Glargine (Lantus(*)) 20 units SUBCUT QAM [facility] Last Admin: 09/20/17 09:42 Dose: 20 units Insulin Human Lispro (Humalog*) 0 units SUBCUT ACHS [facility]; Protocol Last Admin: 09/20/17 12:39 Dose: 9 units Lisinopril (Prinivil Tab*) 10 mg PO QPM [facility] Last Admin: 09/19/17 17:28 Dose: 10 mg Lisinopril (Prinivil Tab*) 20 mg PO DAILY [facility] Last Admin: 09/20/17 09:00 Dose: 20 mg Metformin HCl (Glucophage*) 500 mg PO 0800,1700 [facility] Last Admin: 09/20/17 09:46 Dose: 500 mg Metoprolol Tartrate (Lopressor Tab*) 50 mg PO BID [facility] Last Admin: 09/20/17 09:45 Dose: 50 mg Nifedipine (Procardia Xl Tab*) 30 mg PO DAILY [facility] Last Admin: 09/20/17 09:46 Dose: 30 mg Oxycodone HCl (Roxycodone Tab*) 5 mg PO Q6HR PRN PRN Reason: PAIN Last Admin: 09/20/17 01:37 Dose: 5 mg Pantoprazole Sodium (Protonix Tab (Nf)) 40 mg PO DAILY [facility] Last Admin: 09/20/17 09:46 Dose: 40 mg Paroxetine HCl (Paxil Tab*) 20 mg PO DAILY [facility] Last Admin: 09/20/17 09:47 Dose: 20 mg Selegiline HCl (Eldepryl Tab*) 5 mg PO DAILY [facility] Last Admin: 09/20/17 09:45 Dose: 5 mg Throat Lozenges (Chloraseptic Daniel*) 1 daniel PO Q6H PRN PRN Reason: SORE THROAT Last Admin: 09/18/17 18:03 Dose: 1 daniel Vital Signs - 8 hr 09/20/17 09/20/17 09/20/17 09:46 11:19 12:40 Temperature 97.8 F Pulse Rate 64 Respiratory 16 20 20 Rate Blood Pressure 145/58 (mmHg) O2 Sat by Pulse 95 Oximetry 09/20/17 09/20/17 09/20/17 13:45 13:50 14:05 Temperature 97.8 F Pulse Rate 70 Respiratory 22 22 20 Rate Blood Pressure 124/56 (mmHg) O2 Sat by Pulse 100 Oximetry 09/20/17 09/20/17 15:35 15:40 Temperature 97.5 F Pulse Rate 66 Respiratory 17 18 Rate Blood Pressure 132/58 (mmHg) O2 Sat by Pulse 95 Oximetry Oxygen Devices in Use Now: None Appearance: Patient is a 77yo female who appears stated age, has mask-like facies, and is sitting in the bed in NAD. Eyes: No Scleral Icterus, PERRLA Ears/Nose/Mouth/Throat: NL Teeth, Lips, Gums, Clear Oropharnyx, Mucous Membranes Moist Neck: NL Appearance and Movements; NL JVP, Trachea Midline Respiratory: Symmetrical Chest Expansion and Respiratory Effort, - - Rhonchi and slight expiratory wheezes throughout. Cardiovascular: NL Sounds; No Murmurs; No JVD, RRR Abdominal: No Hepatosplenomegaly Lymphatic: No Cervical Adenopathy Extremities: No Edema, No Clubbing, Cyanosis Skin: No Rash or Ulcers, No Nodules or Sclerosis Neurological: Alert and Oriented x 3, NL Sensation, NL Muscle Strength and Tone , - - CN II-XII intact. LUE tremor and cogwheeling in B/L UE. Result Diagrams: 09/20/17 07:29 09/20/17 07:29 Additional Lab and Data: Lab Results 09/18/17 09/18/17 09/18/17 Range/Units 13:15 13:15 13:15 WBC 8.9 (3.5-10.8) 10^3/ul RBC 4.35 (4.00-5.40) 10^6/ul Hgb 13.5 (12.0-16.0) g/dl Hct 39 (35-47) % MCV 90 (80-97) fL MCH 31 (27-31) pg MCHC 35 (31-36) g/dl RDW 15 (10.5-15) % Plt Count 214 (150-450) 10^3/ul MPV 7.2 L (7.4-10.4) um3 Neut % (Auto) 75.4 (38-83) % Lymph % (Auto) 17.7 L (25-47) % [place] % (Auto) 4.8 (0-7) % Eos % (Auto) 1.5 (0-6) % Baso % (Auto) 0.6 (0-2) % Absolute Neuts (auto) 6.7 (1.5-7.7) 10^3/ul Absolute Lymphs (auto) 1.6 (1.0-4.8) 10^3/ul Absolute Monos (auto) 0.4 (0-0.8) 10^3/ul Absolute Eos (auto) 0.1 (0-0.6) 10^3/ul Absolute Basos (auto) 0.1 (0-0.2) 10^3/ul Absolute Nucleated RBC 0 10^3/ul Nucleated RBC % 0 INR (Anticoag Therapy) 0.94 (0.77-1.02) APTT 25.4 L (26.0-36.3) seconds Blood Type Pending Antibody Screen Pending LDL: 79 Microbiology and Other Data: Microbiology 09/18/17 18:00 Group A Streptococcus Rapid Screen - Final Throat Specimen received for Rapid Strep A Molecular testing Diagnostic Imaging: TTE: Left ventricular hypertrophy with EF 50%. Bubble study was not performed. Assess/Plan/Problems-Billing Ms. Vi Deleon is a 77-year-old female with a history significant for hypertension, DMII, and Parkinson's disease who presented to [facility] on 09/18/2017 with transient dysarthria and word finding difficulty that has since resolved. The patient had recurrence of dysarthria this morning at 2 am that has since resolved. 1. TIA to the left middle cerebral artery- the first episode of dysarthria was most likely related to hypertensive emergency as her SBP was significantly elevated. The second episode that occurred this morning was not associated with significantly elevated or low BP. Blood glucose was within normal range. She had a repeat CT head without contrast that was unremarkable. I suspect the episode was a TIA vs neurological symptoms related to headache as she had headache following the event. Other d/d such as partial seizures should be ruled out. I have added Plavix 75 mg to the aspirin 81 mg daily. She should be on DAPT for 30 days, then she can switch back to aspirin 81 mg daily. Switched Omeprazole to Protonix. She is on atorvastatin 20 mg nightly. Higher dose may put her at risk for myalgia as she already has baseline back pain. MRI brain and MRA head without contrast has been ordered. I also ordered carotid ultrasound to evaluate for ICA stenosis. TTE did not show any ventricular or atrial thrombus but a bubble study was not performed. Please repeat the TTE and obtain the bubble study. 2. Occipital neuralgia- she is on gabapentin 100 mg BID. I increased the dose to TID. We mentioned placing her on steroids but given her high blood pressure and history of diabetes, this would not be a good option unless we can't find other options. 3. Chronic low back pain- she follows-up with pain management and is being evaluated for LES injection in the future. 4. Parkinson's disease- continue Sinemet, Amantadine, and Selegiline. Parkinson 's disease is stable. She denied any hallucinations. Please get her up in a chair and consult PT for evaluation and treatment. I will continue to follow Time spent: 35 minutes and 50% was spent reviewing the medical chart, examining the patient, and discussing the plan of care as mentioned above. Discussed with Dr. Mclean and updated the patient's daughter at bedside. Neurologist Progress Note - Patient Problems (1) TIA (transient ischemic attack) Current Visit: Yes Status: Acute Code(s): G45.9 - TRANSIENT CEREBRAL ISCHEMIC ATTACK, UNSPECIFIED SNOMED Code(s): 982495117 Comment: Initially in setting of hypertensive emergency. Then repeat when normotensive. Appreciate Neurological input. Continue Aspirin and Plavix for 30 days. No residual deficits and no MRI evidence. TTE negative for PFO. EEG pending to assess for seizure activity. (2) Hyperlipidemia Current Visit: No Status: Acute Code(s): E78.5 - HYPERLIPIDEMIA, UNSPECIFIED SNOMED Code(s): 58789653 Comment: Continue atorvastatin. (3) Hypomagnesemia Current Visit: No Status: Acute Code(s): E83.42 - HYPOMAGNESEMIA SNOMED Code(s): 446494024 Comment: Repleting. Continue daily supplementation. (4) Parkinson disease Current Visit: No Status: Acute Code(s): G20 - PARKINSON'S DISEASE SNOMED Code(s): 90462598 Comment: Continue selegiline, amantadine, and carbidopa/levadopa. Recent falls, PMRU consult. PT/OT (5) Sciatica Current Visit: No Status: Acute Code(s): M54.30 - SCIATICA, UNSPECIFIED SIDE SNOMED Code(s): 09438827 Comment: Moderately well controlled. Continue Gabapentin at 100mg TID. (6) Hypertension Current Visit: No Status: Chronic Code(s): I10 - ESSENTIAL (PRIMARY) HYPERTENSION SNOMED Code(s): 32389508 Comment: BP controlled. Hypertensive emergency on admission Continue metoprolol, lisinopril, HCTZ and nifedipine. (7) Type 2 diabetes mellitus Current Visit: No Status: Chronic Comment: Well controlled on 20u lantus and SSI. A1c 6.9 in 07/31. (8) DNR (do not resuscitate) Current Visit: Yes Status: Acute (9) DVT prophylaxis Current Visit: No Status: Acute Code(s): XGG1979 - SNOMED Code(s): 109470887 Comment: heparin subQ. Status and Disposition: Inpatient.
[2017-09-20] MEDS: Acetaminophen TAB* 325 MG PO PRN (22:02)
[2017-09-20] MEDS: ALPRAZolam TAB* 0.25 MG PO PRN (22:04)
[2017-09-20] MEDS: guaiFENesin ER TAB 600 MG PO SCH (22:04)
[2017-09-21] MEDS: oxyCODONE TAB* 5 MG TAB PO PRN ×2 (00:20→21:45)
[2017-09-21] MEDS: ALPRAZolam TAB* 0.25 MG PO PRN (03:23)
[2017-09-21] MEDS: Acetaminophen TAB* 325 MG PO PRN ×3 (03:23→21:45)
--- NOTE | 2017-09-21 04:09 | PN ---
CC: Dr. Lisandra Garza* NEUROLOGY PROGRESS NOTE: DATE OF SERVICE: 09/20/17 ATTENDING PROVIDER: Juli Weller DO REASON FOR FOLLOWUP: Neurology is following for the evaluation of intermittent episodes of slurred speech. SUBJECTIVE: The patient has not had any issues with her speech overnight. She slept well after transferring out of the ICU. She denied any focal weakness or paresthesias. I met with her daughter at bedside and reviewed her medications. Her last dose of Xanax was last night at 8:30. Last dose of oxycodone was at 1: 30 this morning. The patient did relay to me today that she does not like being alone and feels down when no one is around. She did endorse feeling sad. She is on Paxil 20 mg daily. She denied any suicidal or homicidal ideation. MEDICATIONS: 1. Acetaminophen 650 mg every 6 hours as needed for fevers and pain. 2. Xanax 0.25 mg t.i.d. as needed for anxiety. 3. Amantadine 100 mg p.o. twice daily. 4. Aspirin 81 mg daily. 5. Atorvastatin 20 mg p.o. daily. 6. Carbidopa, levodopa 2 tablets p.o. at 6:30, 1400, 1830. Carbidopa, levodopa 1 tablet at 10 a.m. and 2100. 7. Clopidogrel 75 mg daily. 8. Enoxaparin 40 mg subcutaneously every 24 hours. 9. Gabapentin 100 mg 3 times daily. 10. Hydrochlorothiazide 12.5 mg p.o. daily. 11. Insulin 20 units subcutaneously every morning. 12. Lisinopril 10 mg p.o. at night and 20 mg p.o. daily. 13. Metformin 500 mg p.o. 14. Metoprolol 50 mg p.o. twice daily. 15. Nifedipine 30 mg p.o. daily. 16. Oxycodone 5 mg p.o. every 6 hours as needed for pain. 17. Protonix 40 mg p.o. daily. 18. Paroxetine 20 mg daily. 19. Selegiline 5 mg p.o. daily. REVIEW OF SYSTEMS: The patient denied any chest pain, shortness of breath, or palpitation. PHYSICAL EXAMINATION: Vitals: Temperature of 97.8, pulse rate of 64, respiratory rate of 20, oxygen saturation of 95% on room air, blood pressure is 145/58. General: Chronic ill-appearing female, in no acute distress. Normocephalic, atraumatic. Sclerae anicteric. She has no tenderness to deep palpation on occipital notch. Neck is supple. No nuchal rigidity. Chest: Clear to auscultation bilaterally. Cardiovascular: Regular rate and rhythm without any murmurs. Extremities: No clubbing or cyanosis. Neurological findings: Awake, alert, oriented to self, place, time, and general circumstances. Speech is fluent without dysarthria. Cranial nerves: Pupils equal, round, and reactive to light. Extraocular muscles are intact with no facial asymmetry. No tongue deviation. Motor: Cogwheel rigidity, right more than left. Able to elevate all 4 extremities to command. No pronator drift. Sensation is intact to light touch and pinprick bilaterally in the upper and lower extremities. Deep tendon reflex, trace throughout and absent at the ankles. Coordination, mild to high amplitude and low frequency resting tremor in the upper extremities. Gait: The patient is walker dependent, not assessed. LABORATORY DATA: WBC 8.0. Sodium of 134, creatinine of 1.17, BUN of 32. Magnesium 1.7. IMAGING: MRA of the head that was completed on 09/19/17 showed no evidence of large vessel intracranial occlusion or significant stenosis. MRI of the brain without contrast showed grossly symmetrical white matter lesions in the cerebrum as well as the brain stem without mass effect. These are nonspecific. Chronic small vessel ischemic disease is likely the cause. There is no evidence of acute or subacute ischemia. Carotid ultrasound completed on showed normal right internal carotid artery with minimal plaque with no hemodynamics, significant stenosis in the left internal carotid artery. ASSESSMENT AND PLAN: Mrs. Vi Dleeon is a 77-year-old female with a history of Parkinson's disease who presented with intermittent episode of slurred speech. 1. I am concerned that she may have had TIA involving the left middle cerebral artery in the setting of hypertensive emergency. She did have a second episode that was not associated with significant elevation in blood pressure, but it may have been related to possible medication side effect vs delirium as the patient was receiving both oxycodone and Xanax prior to the episode. Other differential diagnosis include partial seizures. She will have an EEG done today. Continue dual antiplatelet therapy for 30 days and she can switch back to aspirin 81 mg daily thereafter. Atorvastatin was continued at 20 mg nightly. We still need the bubble study to be done as it was not done on previous TTE. 2. Occipital neuralgia that has improved with increased dose of gabapentin 100 mg t.i.d. 3. Chronic low back pain. She seems to get comfortable with a recliner. Gabapentin also seems to be helping. 4. Parkinson's disease. Continue Sinemet, amantadine, and selegiline. She denies any hallucinations. I have discussed this case with Dr. Lisandra Garza. No further evaluation at this time. Once the EEG is done, if negative, the patient is ready for short- term rehabilitation. [id number]/[facility] #: [id number] [facility]
--- NOTE | 2017-09-21 04:35 | EEG ---
ELECTROENCEPHALOGRAPHY: DATE OF STUDY: 09/20/17 - ROOM #449 DATE READ: 09/20/17 TIME OF [id number] MEDICATIONS: 1. Sinemet. 2. Neurontin. 3. Lovenox. 4. Humalog. 5. Glucophage. 6. Lopressor. 7. Aspirin. 8. Lipitor. 9. Plavix. 10. Lantus. 11. Procardia. 12. Pantoprazole. 13. Paxil. 14. Xanax. 15. Roxicodone. CLINICAL PROBLEM: This is a 77-year-old female with history of intermittent slurred speech some in the setting of hypertensive emergency. This EEG was obtained to evaluate for epileptiform abnormalities or interhemispheric asymmetry. CLINICAL STATE: Awake and drowsy. REPORT: The background consisted of mixed frequency slowing in the delta and theta range with appropriate organization of clearly defined anterior-posterior voltage gradient. There was awakened slow background of around 7 Hz, which was symmetrical and showed normal activity. There were intermittent diffuse frontally predominant high amplitude delta slowing with a frequency of 1 to 2 Hz lasting 1 to 2 seconds. Attenuation of the occipital rhythm accompanied drowsiness. Hyperventilation and photic stimulation were not performed. Throughout the recording, there were no epileptiform discharges. CLINICAL IMPRESSION: This is an abnormal awake and drowsy EEG due to diffuse slowing with prominent delta slowing seen in the frontal region. Otherwise, there was retained organization of activity. These findings are suggestive of a mild, nonspecific, diffuse encephalopathy. There were no epileptiform discharges. Clinical correlation is recommended. [id number]/[facility] #: [id number] [facility]
[2017-09-21] MEDS: Carbidopa/Levodop 25/100 MG TAB(*) PO SCH ×5 (06:01→21:44)
[2017-09-21 06:24] LABS: ABS Basophils 0.1 10^3/ul (0-0.2); ABS Eosinophils 0.2 10^3/ul (0-0.6); ABS Lymphocytes 2.1 10^3/ul (1.0-4.8); ABS Monocytes 0.5 10^3/ul (0-0.8); ABS Neutrophils 5.3 10^3/ul (1.5-7.7); ABS Nucleated RBC 0 10^3/ul; Eosinophil % 2.9 % (0-6); Hematocrit 33 % (35-47); Hemoglobin 11.6 g/dl (12.0-16.0); Lymphocyte % 25.5 % (25-47); Mean Corpuscular HGB Conc 35 g/dl (31-36); Mean Corpuscular Hemoglobin 32 pg (27-31); Mean Corpuscular Volume 89 fL (80-97); Mean Platelet Volume 7.2 um3 (7.4-10.4); Nucleated Red Blood Cells % 0; Platelet Count 190 10^3/ul (150-450); Red Blood Count 3.67 10^6/ul (4.00-5.40); Red Cell Distribution Width 15 % (10.5-15); White Blood Count 8.2 10^3/ul (3.5-10.8)
[2017-09-21 06:42] LABS: EGFR Non-African American 58.6 (>60)
[2017-09-21] MEDS: Insulin LISPRO* 1 UNITS UNIT SUBCUT SCH ×4 (08:39→21:47)
[2017-09-21] MEDS: Insulin GLARGINE(*) 1 UNITS UNIT SUBCUT SCH (08:40)
[2017-09-21] MEDS: Lisinopril TAB* 10 MG PO SCH ×2 (10:12→18:29)
[2017-09-21] MEDS: Aspirin EC TAB* 81 MG TAB.EC PO SCH (10:13)
[2017-09-21] MEDS: NIFEdipine ER TAB* 30 MG PO SCH (10:13)
[2017-09-21] MEDS: Atorvastatin* 20 MG TAB PO SCH (10:13)
[2017-09-21] MEDS: metFORMIN* 500 MG TAB PO SCH ×2 (10:13→18:29)
[2017-09-21] MEDS: Docusate CAP* 100 MG PO SCH ×2 (10:13→21:44)
[2017-09-21] MEDS: Metoprolol Tartrate TAB* 50 mg PO SCH ×2 (10:13→21:44)
[2017-09-21] MEDS: guaiFENesin ER TAB 600 MG PO SCH ×2 (10:13→21:44)
[2017-09-21] MEDS: PARoxetine HCL TAB* 20 MG PO SCH (10:13)
[2017-09-21] MEDS: Gabapentin CAP(*) 100 MG PO SCH ×3 (10:13→21:43)
[2017-09-21] MEDS: Clopidogrel TAB* 75 MG PO SCH (10:14)
[2017-09-21] MEDS: Amantadine CAP* 100 MG PO SCH ×2 (10:23→21:43)
[2017-09-21] MEDS: Hydrochlorothiazide TAB* 25 MG PO SCH (10:35)
[2017-09-21] MEDS: Selegiline TAB* 5 MG PO SCH (11:19)
[2017-09-21] MEDS: CMCS - Pantoprazole TAB (NF) 40 MG TAB PO SCH (11:20)
--- NOTE | 2017-09-21 14:33 | PN ---
Subjective Date of Service: 09/21/17 Interval History: Patient is doing well and in good spirits today. No recurrent episodes of TIA symptoms. Able to work well with PT/OT. Limited activity. BP controlled. No CP, SOB, N/V, abdominal pain, diarrhea, F/C, or other pain. Intermittent episodes of delirium which also occur at home per patient. Family History: Unchanged from Admission Social History: Unchanged from Admission Past Medical History: Unchanged from Admission Objective Active Medications: Acetaminophen (Tylenol Tab*) 650 mg PO Q6H PRN PRN Reason: FEVER/PAIN Last Admin: 09/21/17 03:23 Dose: 650 mg Albuterol (Ventolin 2.5 Mg/3 Ml Neb.Joaquina*) 2.5 mg INH Q4H PRN PRN Reason: SOB/WHEEZING Alprazolam (Xanax Tab*) 0.25 mg PO TID PRN PRN Reason: ANXIETY Last Admin: 09/21/17 03:23 Dose: 0.25 mg Amantadine HCl (Symmetrel Cap*) 100 mg PO BID [facility] Last Admin: 09/21/17 10:23 Dose: 100 mg Aspirin (Aspirin Ec Tab*) 81 mg PO DAILY [facility] Last Admin: 09/21/17 10:13 Dose: 81 mg Atorvastatin Calcium (Lipitor*) 20 mg PO DAILY [facility] Last Admin: 09/21/17 10:13 Dose: 20 mg Carbidopa/Levodopa (Sinemet 25/100 Tab(*)) 1 tab PO 1000,2100 [facility] Last Admin: 09/21/17 10:35 Dose: 1 tab Carbidopa/Levodopa (Sinemet 25/100 Tab(*)) 2 tab PO 0630,1400,1830 [facility] Last Admin: 09/21/17 06:01 Dose: 2 tab Clopidogrel Bisulfate (Plavix Tab*) 75 mg PO DAILY [facility] Last Admin: 09/21/17 10:14 Dose: 75 mg Dextrose (D50w Syringe 50 Ml*) 12.5 gm IV PUSH .FOR FS < 60 - SS PRN PRN Reason: FS < 60 Docusate Sodium (Colace Cap*) 100 mg PO BID [facility] Last Admin: 09/21/17 10:13 Dose: 100 mg Enoxaparin Sodium (Lovenox(*)) 40 mg SUBCUT Q24H [facility] Last Admin: 09/20/17 14:05 Dose: 40 mg Gabapentin (Neurontin Cap(*)) 100 mg PO TID [facility] Last Admin: 09/21/17 10:13 Dose: 100 mg Guaifenesin (Mucinex*) 1,200 mg PO BID [facility] Last Admin: 09/21/17 10:13 Dose: 1,200 mg Hydrochlorothiazide (Hydrodiuril Tab*) 12.5 mg PO DAILY [facility] Last Admin: 09/21/17 10:35 Dose: 12.5 mg Insulin Glargine (Lantus(*)) 20 units SUBCUT QAM [facility] Last Admin: 09/21/17 08:40 Dose: 20 units Insulin Human Lispro (Humalog*) 0 units SUBCUT ACHS [facility]; Protocol Last Admin: 09/21/17 13:07 Dose: 3 units Lisinopril (Prinivil Tab*) 10 mg PO QPM [facility] Last Admin: 09/20/17 17:54 Dose: 10 mg Lisinopril (Prinivil Tab*) 20 mg PO DAILY [facility] Last Admin: 09/21/17 10:12 Dose: 20 mg Metformin HCl (Glucophage*) 500 mg PO 0800,1700 [facility] Last Admin: 09/21/17 10:13 Dose: 500 mg Metoprolol Tartrate (Lopressor Tab*) 50 mg PO BID [facility] Last Admin: 09/21/17 10:13 Dose: 50 mg Nifedipine (Procardia Xl Tab*) 30 mg PO DAILY [facility] Last Admin: 09/21/17 10:13 Dose: 30 mg Oxycodone HCl (Roxycodone Tab*) 5 mg PO Q6HR PRN PRN Reason: PAIN Last Admin: 09/21/17 00:20 Dose: 5 mg Pantoprazole Sodium (Protonix Tab (Nf)) 40 mg PO DAILY [facility] Last Admin: 09/21/17 11:20 Dose: 40 mg Paroxetine HCl (Paxil Tab*) 20 mg PO DAILY [facility] Last Admin: 09/21/17 10:13 Dose: 20 mg Selegiline HCl (Eldepryl Tab*) 5 mg PO DAILY [facility] Last Admin: 09/21/17 11:19 Dose: 5 mg Throat Lozenges (Chloraseptic Daniel*) 1 daniel PO Q6H PRN PRN Reason: SORE THROAT Last Admin: 09/18/17 18:03 Dose: 1 daniel Vital Signs - 8 hr 09/21/17 09/21/17 09/21/17 07:56 08:00 10:13 Temperature 97.6 F Pulse Rate 66 Respiratory 16 18 18 Rate Blood Pressure 117/59 (mmHg) O2 Sat by Pulse 96 Oximetry 09/21/17 09/21/17 11:29 12:16 Temperature 97.7 F Pulse Rate 65 Respiratory 18 18 Rate Blood Pressure 103/48 (mmHg) O2 Sat by Pulse 97 Oximetry Oxygen Devices in Use Now: None Appearance: Patient is a 77yo female who appears stated age, has mask-like facies and is sitting in the bed in NAD. Eyes: No Scleral Icterus, PERRLA Ears/Nose/Mouth/Throat: NL Teeth, Lips, Gums, Clear Oropharnyx, Mucous Membranes Moist Neck: NL Appearance and Movements; NL JVP, Trachea Midline Respiratory: Symmetrical Chest Expansion and Respiratory Effort, Clear to Auscultation Cardiovascular: NL Sounds; No Murmurs; No JVD, RRR, No Edema Abdominal: NL Sounds; No Tenderness; No Distention, No Hepatosplenomegaly Lymphatic: No Cervical Adenopathy Extremities: No Edema, No Clubbing, Cyanosis Skin: No Rash or Ulcers, No Nodules or Sclerosis Neurological: Alert and Oriented x 3, NL Sensation, - - Increased tone. Cogwheeling. No focal deficits. Result Diagrams: 09/21/17 06:08 09/21/17 06:08 Additional Lab and Data: Lab Results 09/18/17 09/18/17 09/18/17 Range/Units 13:15 13:15 13:15 WBC 8.9 (3.5-10.8) 10^3/ul RBC 4.35 (4.00-5.40) 10^6/ul Hgb 13.5 (12.0-16.0) g/dl Hct 39 (35-47) % MCV 90 (80-97) fL MCH 31 (27-31) pg MCHC 35 (31-36) g/dl RDW 15 (10.5-15) % Plt Count 214 (150-450) 10^3/ul MPV 7.2 L (7.4-10.4) um3 Neut % (Auto) 75.4 (38-83) % Lymph % (Auto) 17.7 L (25-47) % [place] % (Auto) 4.8 (0-7) % Eos % (Auto) 1.5 (0-6) % Baso % (Auto) 0.6 (0-2) % Absolute Neuts (auto) 6.7 (1.5-7.7) 10^3/ul Absolute Lymphs (auto) 1.6 (1.0-4.8) 10^3/ul Absolute Monos (auto) 0.4 (0-0.8) 10^3/ul Absolute Eos (auto) 0.1 (0-0.6) 10^3/ul Absolute Basos (auto) 0.1 (0-0.2) 10^3/ul Absolute Nucleated RBC 0 10^3/ul Nucleated RBC % 0 INR (Anticoag Therapy) 0.94 (0.77-1.02) APTT 25.4 L (26.0-36.3) seconds Blood Type Pending Antibody Screen Pending LDL: 79 Microbiology and Other Data: Microbiology 09/18/17 18:00 Group A Streptococcus Rapid Screen - Final Throat Specimen received for Rapid Strep A Molecular testing Diagnostic Imaging: TTE: Left ventricular hypertrophy with EF 50%. Bubble study was not performed. Assess/Plan/Problems-Billing Ms. Vi Deleon is a 77-year-old female with a history significant for hypertension, DMII, and Parkinson's disease who presented to [facility] [place] on [place]/18/2017 with transient dysarthria and word finding difficulty that has since resolved. The patient had recurrence of dysarthria this morning at 2 am that has since resolved. 1. TIA to the left middle cerebral artery- the first episode of dysarthria was most likely related to hypertensive emergency as her SBP was significantly elevated. The second episode that occurred this morning was not associated with significantly elevated or low BP. Blood glucose was within normal range. She had a repeat CT head without contrast that was unremarkable. I suspect the episode was a TIA vs neurological symptoms related to headache as she had headache following the event. Other d/d such as partial seizures should be ruled out. I have added Plavix 75 mg to the aspirin 81 mg daily. She should be on DAPT for 30 days, then she can switch back to aspirin 81 mg daily. Switched Omeprazole to Protonix. She is on atorvastatin 20 mg nightly. Higher dose may put her at risk for myalgia as she already has baseline back pain. MRI brain and MRA head without contrast has been ordered. I also ordered carotid ultrasound to evaluate for ICA stenosis. TTE did not show any ventricular or atrial thrombus but a bubble study was not performed. Please repeat the TTE and obtain the bubble study. 2. Occipital neuralgia- she is on gabapentin 100 mg BID. I increased the dose to TID. We mentioned placing her on steroids but given her high blood pressure and history of diabetes, this would not be a good option unless we can't find other options. 3. Chronic low back pain- she follows-up with pain management and is being evaluated for LES injection in the future. 4. Parkinson's disease- continue Sinemet, Amantadine, and Selegiline. Parkinson 's disease is stable. She denied any hallucinations. Please get her up in a chair and consult PT for evaluation and treatment. I will continue to follow Time spent: 35 minutes and 50% was spent reviewing the medical chart, examining the patient, and discussing the plan of care as mentioned above. Discussed with Dr. Mclean and updated the patient's daughter at bedside. Neurologist Progress Note - Patient Problems (1) TIA (transient ischemic attack) Current Visit: Yes Status: Acute Code(s): G45.9 - TRANSIENT CEREBRAL ISCHEMIC ATTACK, UNSPECIFIED SNOMED Code(s): 798093414 Comment: Initially in setting of hypertensive emergency. Then repeat when normotensive. Appreciate Neurological input. Continue Aspirin and Plavix for 30 days. No residual deficits and no MRI evidence of stroke. TTE negative for PFO. EEG unremarkable for epileptiform abnormalities. (2) Hyperlipidemia Current Visit: No Status: Acute Code(s): E78.5 - HYPERLIPIDEMIA, UNSPECIFIED SNOMED Code(s): 42280186 Comment: Continue atorvastatin. (3) Hypomagnesemia Current Visit: No Status: Acute Code(s): E83.42 - HYPOMAGNESEMIA SNOMED Code(s): 845338322 Comment: Repleting. Continue daily supplementation. Normalized (4) Parkinson disease Current Visit: No Status: Acute Code(s): G20 - PARKINSON'S DISEASE SNOMED Code(s): 06335507 Comment: Continue selegiline, amantadine, and carbidopa/levadopa. This is home regimen. Recent falls, PMRU consult. PT/OT (5) Sciatica Current Visit: No Status: Acute Code(s): M54.30 - SCIATICA, UNSPECIFIED SIDE SNOMED Code(s): 30933059 Comment: Moderately well controlled. Continue Gabapentin at 100mg TID. (6) Hypertension Current Visit: No Status: Chronic Code(s): I10 - ESSENTIAL (PRIMARY) HYPERTENSION SNOMED Code(s): 80431765 Comment: BP controlled. Hypertensive emergency on admission Continue metoprolol, lisinopril, HCTZ and nifedipine. (7) Type 2 diabetes mellitus Current Visit: No Status: Chronic Comment: Well controlled on 20u lantus and SSI. A1c 6.9 in 07/31. (8) DNR (do not resuscitate) Current Visit: Yes Status: Acute (9) DVT prophylaxis Current Visit: No Status: Acute Code(s): WND7228 - SNOMED Code(s): 652615639 Comment: heparin subQ. Status and Disposition: Inpatient.
[2017-09-21] MEDS: Enoxaparin(*) 40 MG/0.4 ML SYR SUBCUT SCH (14:34)
[2017-09-22 06:13] LABS: ABS Basophils 0 10^3/ul (0-0.2); ABS Eosinophils 0.1 10^3/ul (0-0.6); ABS Lymphocytes 1.3 10^3/ul (1.0-4.8); ABS Monocytes 0.4 10^3/ul (0-0.8); ABS Nucleated RBC 0 10^3/ul; Eosinophil % 1.3 % (0-6); Hematocrit 36 % (35-47); Hemoglobin 12.7 g/dl (12.0-16.0); Lymphocyte % 14.8 % (25-47); Mean Corpuscular HGB Conc 35 g/dl (31-36); Mean Corpuscular Hemoglobin 32 pg (27-31); Mean Corpuscular Volume 89 fL (80-97); Mean Platelet Volume 7.7 um3 (7.4-10.4); Nucleated Red Blood Cells % 0.1; Platelet Count 208 10^3/ul (150-450); Red Cell Distribution Width 14 % (10.5-15); White Blood Count 8.9 10^3/ul (3.5-10.8)
[2017-09-22] MEDS: Carbidopa/Levodop 25/100 MG TAB(*) PO SCH ×5 (06:17→20:46)
[2017-09-22 06:29] LABS: EGFR Non-African American 60.9 (>60)
[2017-09-22] MEDS: Insulin LISPRO* 1 UNITS UNIT SUBCUT SCH ×4 (09:38→20:45)
[2017-09-22] MEDS: Lisinopril TAB* 10 MG PO SCH ×2 (09:39→17:45)
[2017-09-22] MEDS: PARoxetine HCL TAB* 20 MG PO SCH (09:39)
[2017-09-22] MEDS: Aspirin EC TAB* 81 MG TAB.EC PO SCH (09:39)
[2017-09-22] MEDS: CMCS - Pantoprazole TAB (NF) 40 MG TAB PO SCH (09:39)
[2017-09-22] MEDS: Insulin GLARGINE(*) 1 UNITS UNIT SUBCUT SCH (09:39)
[2017-09-22] MEDS: Amantadine CAP* 100 MG PO SCH ×2 (09:39→20:45)
[2017-09-22] MEDS: Gabapentin CAP(*) 100 MG PO SCH ×3 (09:40→20:45)
[2017-09-22] MEDS: Clopidogrel TAB* 75 MG PO SCH (09:40)
[2017-09-22] MEDS: NIFEdipine ER TAB* 30 MG PO SCH (09:40)
[2017-09-22] MEDS: Docusate CAP* 100 MG PO SCH ×2 (09:40→20:46)
[2017-09-22] MEDS: Atorvastatin* 20 MG TAB PO SCH (09:40)
[2017-09-22] MEDS: metFORMIN* 500 MG TAB PO SCH ×2 (09:40→17:45)
[2017-09-22] MEDS: guaiFENesin ER TAB 600 MG PO SCH ×2 (09:41→20:47)
[2017-09-22] MEDS: Hydrochlorothiazide TAB* 25 MG PO SCH (09:41)
[2017-09-22] MEDS: Selegiline TAB* 5 MG PO SCH (09:41)
[2017-09-22] MEDS: Metoprolol Tartrate TAB* 50 mg PO SCH ×2 (09:41→20:46)
--- NOTE | 2017-09-22 14:33 | PN ---
Subjective Date of Service: 09/22/17 Interval History: Patient feelsing well. No neurological deficits of worsening weakness or slurred speech. No CP or SOB. Was able to ambulate today with PT and a 2 person Stand-By assist. Patient denies F/C, N/V, abdominal pain, dysuria, retention, or other pain. Patient very emotional when talking about going to a rehab facility. Reassured when it was suggested she could go to [facility]. Family History: Unchanged from Admission Social History: Unchanged from Admission Past Medical History: Unchanged from Admission Objective Active Medications: Acetaminophen (Tylenol Tab*) 650 mg PO Q6H PRN PRN Reason: FEVER/PAIN Last Admin: 09/21/17 21:45 Dose: 650 mg Albuterol (Ventolin 2.5 Mg/3 Ml Neb.Joaquina*) 2.5 mg INH Q4H PRN PRN Reason: SOB/WHEEZING Alprazolam (Xanax Tab*) 0.25 mg PO TID PRN PRN Reason: ANXIETY Last Admin: 09/21/17 03:23 Dose: 0.25 mg Amantadine HCl (Symmetrel Cap*) 100 mg PO BID [facility] Last Admin: 09/22/17 09:39 Dose: 100 mg Aspirin (Aspirin Ec Tab*) 81 mg PO DAILY [facility] Last Admin: 09/22/17 09:39 Dose: 81 mg Atorvastatin Calcium (Lipitor*) 20 mg PO DAILY [facility] Last Admin: 09/22/17 09:40 Dose: 20 mg Carbidopa/Levodopa (Sinemet 25/100 Tab(*)) 1 tab PO 1000,2100 [facility] Last Admin: 09/22/17 09:58 Dose: 1 tab Carbidopa/Levodopa (Sinemet 25/100 Tab(*)) 2 tab PO 0630,1400,1830 [facility] Last Admin: 09/22/17 06:17 Dose: 2 tab Clopidogrel Bisulfate (Plavix Tab*) 75 mg PO DAILY [facility] Last Admin: 09/22/17 09:40 Dose: 75 mg Dextrose (D50w Syringe 50 Ml*) 12.5 gm IV PUSH .FOR FS < 60 - SS PRN PRN Reason: FS < 60 Docusate Sodium (Colace Cap*) 100 mg PO BID [facility] Last Admin: 09/22/17 09:40 Dose: 100 mg Enoxaparin Sodium (Lovenox(*)) 40 mg SUBCUT Q24H [facility] Last Admin: 09/21/17 14:34 Dose: 40 mg Gabapentin (Neurontin Cap(*)) 100 mg PO TID [facility] Last Admin: 09/22/17 12:46 Dose: 100 mg Guaifenesin (Mucinex*) 1,200 mg PO BID [facility] Last Admin: 09/22/17 09:41 Dose: 1,200 mg Hydrochlorothiazide (Hydrodiuril Tab*) 12.5 mg PO DAILY [facility] Last Admin: 09/22/17 09:41 Dose: 12.5 mg Insulin Glargine (Lantus(*)) 20 units SUBCUT QAM [facility] Last Admin: 09/22/17 09:39 Dose: 20 units Insulin Human Lispro (Humalog*) 0 units SUBCUT [facility]; Protocol Last Admin: 09/22/17 12:45 Dose: 9 units Lisinopril (Prinivil Tab*) 10 mg PO QPM [facility] Last Admin: 09/21/17 18:29 Dose: 10 mg Lisinopril (Prinivil Tab*) 20 mg PO DAILY [facility] Last Admin: 09/22/17 09:39 Dose: 20 mg Metformin HCl (Glucophage*) 500 mg PO 0800,1700 [facility] Last Admin: 09/22/17 09:40 Dose: 500 mg Metoprolol Tartrate (Lopressor Tab*) 50 mg PO BID [facility] Last Admin: 09/22/17 09:41 Dose: 50 mg Nifedipine (Procardia Xl Tab*) 30 mg PO DAILY [facility] Last Admin: 09/22/17 09:40 Dose: 30 mg Oxycodone HCl (Roxycodone Tab*) 5 mg PO Q6HR PRN PRN Reason: PAIN Last Admin: 09/21/17 21:45 Dose: 5 mg Pantoprazole Sodium (Protonix Tab (Nf)) 40 mg PO DAILY [facility] Last Admin: 09/22/17 09:39 Dose: 40 mg Paroxetine HCl (Paxil Tab*) 20 mg PO DAILY [facility] Last Admin: 09/22/17 09:39 Dose: 20 mg Selegiline HCl (Eldepryl Tab*) 5 mg PO DAILY [facility] Last Admin: 09/22/17 09:41 Dose: 5 mg Throat Lozenges (Chloraseptic Yarelis*) 1 yarelis PO Q6H PRN PRN Reason: SORE THROAT Last Admin: 09/18/17 18:03 Dose: 1 yarelis Vital Signs - 8 hr 09/22/17 09/22/17 09/22/17 07:51 08:00 09:40 Temperature 97.4 F Pulse Rate 66 Respiratory 20 18 18 Rate Blood Pressure 166/68 (mmHg) O2 Sat by Pulse 96 Oximetry 09/22/17 09/22/17 09/22/17 11:12 11:33 12:46 Temperature 98.2 F Pulse Rate 69 Respiratory 20 18 18 Rate Blood Pressure 161/103 (mmHg) O2 Sat by Pulse 97 Oximetry Oxygen Devices in Use Now: None Appearance: Patient is a 77yo female with mask-like facies who is sitting in the bed in [facility]. Eyes: No Scleral Icterus, PERRLA Ears/Nose/Mouth/Throat: NL Teeth, Lips, Gums, Clear Oropharnyx, Mucous Membranes Moist Neck: NL Appearance and Movements; NL JVP, Trachea Midline Respiratory: Symmetrical Chest Expansion and Respiratory Effort, Clear to Auscultation Cardiovascular: NL Sounds; No Murmurs; No JVD, RRR, No Edema Abdominal: NL Sounds; No Tenderness; No Distention, No Hepatosplenomegaly Lymphatic: No Cervical Adenopathy Extremities: No Edema, No Clubbing, Cyanosis Skin: No Rash or Ulcers, No Nodules or Sclerosis Neurological: Alert and Oriented x 3, NL Sensation, NL Gait, - - Shuffling gait , Cogwheeling. No focal deficits, strength 5/5 throughout. Result Diagrams: 09/22/17 05:30 09/22/17 05:30 Additional Lab and Data: Lab Results 09/18/17 09/18/17 09/18/17 Range/Units 13:15 13:15 13:15 WBC 8.9 (3.5-10.8) 10^3/ul RBC 4.35 (4.00-5.40) 10^6/ul Hgb 13.5 (12.0-16.0) g/dl Hct 39 (35-47) % MCV 90 (80-97) fL MCH 31 (27-31) pg MCHC 35 (31-36) g/dl RDW 15 (10.5-15) % Plt Count 214 (150-450) 10^3/ul MPV 7.2 L (7.4-10.4) um3 Neut % (Auto) 75.4 (38-83) % Lymph % (Auto) 17.7 L (25-47) % [place] % (Auto) 4.8 (0-7) % Eos % (Auto) 1.5 (0-6) % Baso % (Auto) 0.6 (0-2) % Absolute Neuts (auto) 6.7 (1.5-7.7) 10^3/ul Absolute Lymphs (auto) 1.6 (1.0-4.8) 10^3/ul Absolute Monos (auto) 0.4 (0-0.8) 10^3/ul Absolute Eos (auto) 0.1 (0-0.6) 10^3/ul Absolute Basos (auto) 0.1 (0-0.2) 10^3/ul Absolute Nucleated RBC 0 10^3/ul Nucleated RBC % 0 INR (Anticoag Therapy) 0.94 (0.77-1.02) APTT 25.4 L (26.0-36.3) seconds Blood Type Pending Antibody Screen Pending LDL: 79 Microbiology and Other Data: Microbiology 09/18/17 18:00 Group A Streptococcus Rapid Screen - Final Throat Specimen received for Rapid Strep A Molecular testing Diagnostic Imaging: TTE: Left ventricular hypertrophy with EF 50%. Bubble study was not performed. Assess/Plan/Problems-Billing Ms. Vi Deleon is a 77-year-old female with a history significant for hypertension, DMII, and Parkinson's disease who presented to [facility] [place] on 09/18/2017 with transient dysarthria and word finding difficulty that has since resolved. The patient had recurrence of dysarthria this morning at 2 am that has since resolved. 1. TIA to the left middle cerebral artery- the first episode of dysarthria was most likely related to hypertensive emergency as her SBP was significantly elevated. The second episode that occurred this morning was not associated with significantly elevated or low BP. Blood glucose was within normal range. She had a repeat CT head without contrast that was unremarkable. I suspect the episode was a TIA vs neurological symptoms related to headache as she had headache following the event. Other d/d such as partial seizures should be ruled out. I have added Plavix 75 mg to the aspirin 81 mg daily. She should be on DAPT for 30 days, then she can switch back to aspirin 81 mg daily. Switched Omeprazole to Protonix. She is on atorvastatin 20 mg nightly. Higher dose may put her at risk for myalgia as she already has baseline back pain. MRI brain and MRA head without contrast has been ordered. I also ordered carotid ultrasound to evaluate for ICA stenosis. TTE did not show any ventricular or atrial thrombus but a bubble study was not performed. Please repeat the TTE and obtain the bubble study. 2. Occipital neuralgia- she is on gabapentin 100 mg BID. I increased the dose to TID. We mentioned placing her on steroids but given her high blood pressure and history of diabetes, this would not be a good option unless we can't find other options. 3. Chronic low back pain- she follows-up with pain management and is being evaluated for LES injection in the future. 4. Parkinson's disease- continue Sinemet, Amantadine, and Selegiline. Parkinson 's disease is stable. She denied any hallucinations. Please get her up in a chair and consult PT for evaluation and treatment. I will continue to follow Time spent: 35 minutes and 50% was spent reviewing the medical chart, examining the patient, and discussing the plan of care as mentioned above. Discussed with Dr. Mclean and updated the patient's daughter at bedside. Neurologist Progress Note - Patient Problems (1) TIA (transient ischemic attack) Current Visit: Yes Status: Acute Code(s): G45.9 - TRANSIENT CEREBRAL ISCHEMIC ATTACK, UNSPECIFIED SNOMED Code(s): 765166377 Comment: Initially in setting of hypertensive emergency. Then repeat when normotensive. Appreciate Neurological input. Continue Aspirin and Plavix for 30 days. No residual deficits and no MRI evidence of stroke. TTE negative for PFO. EEG unremarkable for epileptiform abnormalities. (2) Hyperlipidemia Current Visit: No Status: Acute Code(s): E78.5 - HYPERLIPIDEMIA, UNSPECIFIED SNOMED Code(s): 11861204 Comment: Continue atorvastatin. (3) Hypomagnesemia Current Visit: No Status: Acute Code(s): E83.42 - HYPOMAGNESEMIA SNOMED Code(s): 458123236 Comment: Repleting. Continue daily supplementation. Normalized (4) Parkinson disease Current Visit: No Status: Acute Code(s): G20 - PARKINSON'S DISEASE SNOMED Code(s): 03053754 Comment: Continue selegiline, amantadine, and carbidopa/levadopa. This is home regimen. Recent falls. PT/OT Will need AV when available. (5) Sciatica Current Visit: No Status: Acute Code(s): M54.30 - SCIATICA, UNSPECIFIED SIDE SNOMED Code(s): 44682247 Comment: Moderately well controlled. Continue Gabapentin at 100mg TID. (6) Hypertension Current Visit: No Status: Chronic Code(s): I10 - ESSENTIAL (PRIMARY) HYPERTENSION SNOMED Code(s): 97499816 Comment: BP controlled. Hypertensive emergency on admission Continue metoprolol, lisinopril, HCTZ and nifedipine. (7) Type 2 diabetes mellitus Current Visit: No Status: Chronic Comment: Well controlled on 20u lantus and SSI. A1c 6.9 in 07/31. (8) DNR (do not resuscitate) Current Visit: Yes Status: Acute (9) DVT prophylaxis Current Visit: No Status: Acute Code(s): FUA0347 - SNOMED Code(s): 683062038 Comment: heparin subQ. Status and Disposition: Inpatient.
[2017-09-22] MEDS: Enoxaparin(*) 40 MG/0.4 ML SYR SUBCUT SCH (15:46)
[2017-09-22] MEDS ORDERED: Magnesium Sulfate IV* 3 GM in NS 0.9% 100 ML* 100 ML IVPB ONE (18:30)
[2017-09-22] MEDS ORDERED: NS 0.9% 100 ML* 100 ML ONE (20:35)
[2017-09-22] MEDS: ALPRAZolam TAB* 0.25 MG PO PRN (20:46)
[2017-09-22] MEDS: oxyCODONE TAB* 5 MG TAB PO PRN (21:36)
[2017-09-23] MEDS: Carbidopa/Levodop 25/100 MG TAB(*) PO SCH ×5 (07:05→21:43)
[2017-09-23] MEDS: Selegiline TAB* 5 MG PO SCH (09:39)
[2017-09-23] MEDS: metFORMIN* 500 MG TAB PO SCH ×2 (09:39→17:36)
[2017-09-23] MEDS: Lisinopril TAB* 10 MG PO SCH ×2 (09:39→17:36)
[2017-09-23] MEDS: Atorvastatin* 20 MG TAB PO SCH (09:39)
[2017-09-23] MEDS: Docusate CAP* 100 MG PO SCH ×2 (09:39→21:43)
[2017-09-23] MEDS: Gabapentin CAP(*) 100 MG PO SCH ×3 (09:39→21:42)
[2017-09-23] MEDS: Metoprolol Tartrate TAB* 50 mg PO SCH ×2 (09:40→21:43)
[2017-09-23] MEDS: Clopidogrel TAB* 75 MG PO SCH (09:40)
[2017-09-23] MEDS: Amantadine CAP* 100 MG PO SCH ×2 (09:40→21:42)
[2017-09-23] MEDS: Hydrochlorothiazide TAB* 25 MG PO SCH (09:40)
[2017-09-23] MEDS: Aspirin EC TAB* 81 MG TAB.EC PO SCH (09:40)
[2017-09-23] MEDS: guaiFENesin ER TAB 600 MG PO SCH ×2 (09:40→21:43)
[2017-09-23] MEDS: NIFEdipine ER TAB* 30 MG PO SCH (09:40)
[2017-09-23] MEDS: Insulin GLARGINE(*) 1 UNITS UNIT SUBCUT SCH (09:41)
[2017-09-23] MEDS: CMCS - Pantoprazole TAB (NF) 40 MG TAB PO SCH (09:41)
[2017-09-23] MEDS: Insulin LISPRO* 1 UNITS UNIT SUBCUT SCH ×4 (09:41→21:44)
[2017-09-23] MEDS: PARoxetine HCL TAB* 20 MG PO SCH (09:41)
[2017-09-23] MEDS: Enoxaparin(*) 40 MG/0.4 ML SYR SUBCUT SCH (14:38)
--- NOTE | 2017-09-23 15:50 | PN ---
Subjective Date of Service: 09/23/17 Interval History: Patient is in good spirits again today. No new neurological deficits, continued improvement with PT. No F/C, N/V, abdominal pain, dysuria, CP, SOB, palpitations , diarrhea, or other pain. Family History: Unchanged from Admission Social History: Unchanged from Admission Past Medical History: Unchanged from Admission Objective Active Medications: Acetaminophen (Tylenol Tab*) 650 mg PO Q6H PRN PRN Reason: FEVER/PAIN Last Admin: 09/21/17 21:45 Dose: 650 mg Albuterol (Ventolin 2.5 Mg/3 Ml Neb.Joaquina*) 2.5 mg INH Q4H PRN PRN Reason: SOB/WHEEZING Alprazolam (Xanax Tab*) 0.25 mg PO TID PRN PRN Reason: ANXIETY Last Admin: 09/22/17 20:46 Dose: 0.25 mg Amantadine HCl (Symmetrel Cap*) 100 mg PO BID [facility] Last Admin: 09/23/17 09:40 Dose: 100 mg Aspirin (Aspirin Ec Tab*) 81 mg PO DAILY [facility] Last Admin: 09/23/17 09:40 Dose: 81 mg Atorvastatin Calcium (Lipitor*) 20 mg PO DAILY [facility] Last Admin: 09/23/17 09:39 Dose: 20 mg Carbidopa/Levodopa (Sinemet 25/100 Tab(*)) 1 tab PO 1000,2100 [facility] Last Admin: 09/23/17 09:41 Dose: 1 tab Carbidopa/Levodopa (Sinemet 25/100 Tab(*)) 2 tab PO 0630,1400,1830 [facility] Last Admin: 09/23/17 14:38 Dose: 2 tab Clopidogrel Bisulfate (Plavix Tab*) 75 mg PO DAILY [facility] Last Admin: 09/23/17 09:40 Dose: 75 mg Dextrose (D50w Syringe 50 Ml*) 12.5 gm IV PUSH .FOR FS < 60 - SS PRN PRN Reason: FS < 60 Docusate Sodium (Colace Cap*) 100 mg PO BID [facility] Last Admin: 09/23/17 09:39 Dose: 100 mg Enoxaparin Sodium (Lovenox(*)) 40 mg SUBCUT Q24H [facility] Last Admin: 09/23/17 14:38 Dose: 40 mg Gabapentin (Neurontin Cap(*)) 100 mg PO TID [facility] Last Admin: 09/23/17 14:38 Dose: 100 mg Guaifenesin (Mucinex*) 1,200 mg PO BID [facility] Last Admin: 09/23/17 09:40 Dose: 1,200 mg Hydrochlorothiazide (Hydrodiuril Tab*) 12.5 mg PO DAILY [facility] Last Admin: 09/23/17 09:40 Dose: 12.5 mg Insulin Glargine (Lantus(*)) 20 units SUBCUT QAM [facility] Last Admin: 09/23/17 09:41 Dose: 20 units Insulin Human Lispro (Humalog*) 0 units SUBCUT ACHS [facility]; Protocol Last Admin: 09/23/17 12:32 Dose: 9 units Lisinopril (Prinivil Tab*) 10 mg PO QPM [facility] Last Admin: 09/22/17 17:45 Dose: 10 mg Lisinopril (Prinivil Tab*) 20 mg PO DAILY [facility] Last Admin: 09/23/17 09:39 Dose: 20 mg Metformin HCl (Glucophage*) 500 mg PO 0800,1700 [facility] Last Admin: 09/23/17 09:39 Dose: 500 mg Metoprolol Tartrate (Lopressor Tab*) 50 mg PO BID [facility] Last Admin: 09/23/17 09:40 Dose: 50 mg Nifedipine (Procardia Xl Tab*) 30 mg PO DAILY [facility] Last Admin: 09/23/17 09:40 Dose: 30 mg Oxycodone HCl (Roxycodone Tab*) 5 mg PO Q6HR PRN PRN Reason: PAIN Last Admin: 09/22/17 21:36 Dose: 5 mg Pantoprazole Sodium (Protonix Tab (Nf)) 40 mg PO DAILY [facility] Last Admin: 09/23/17 09:41 Dose: 40 mg Paroxetine HCl (Paxil Tab*) 20 mg PO DAILY [facility] Last Admin: 09/23/17 09:41 Dose: 20 mg Selegiline HCl (Eldepryl Tab*) 5 mg PO DAILY [facility] Last Admin: 09/23/17 09:39 Dose: 5 mg Throat Lozenges (Chloraseptic Yarelis*) 1 yarelis PO Q6H PRN PRN Reason: SORE THROAT Last Admin: 09/18/17 18:03 Dose: 1 yarelis Vital Signs - 8 hr 09/23/17 09/23/17 09/23/17 09:01 09:39 11:19 Temperature 98.4 F Pulse Rate 64 67 Respiratory 20 20 20 Rate Blood Pressure 141/51 (mmHg) O2 Sat by Pulse 97 96 Oximetry 09/23/17 09/23/17 09/23/17 12:18 14:38 15:33 Temperature 98.2 F Pulse Rate 67 Respiratory 18 18 Rate Blood Pressure 153/62 (mmHg) O2 Sat by Pulse 95 Oximetry Oxygen Devices in Use Now: None Appearance: Patient is a 77yo female with mask-like facies who appears stated age and is sitting in the bed in NAD. Eyes: No Scleral Icterus, PERRLA Ears/Nose/Mouth/Throat: NL Teeth, Lips, Gums, Clear Oropharnyx, Mucous Membranes Moist Neck: NL Appearance and Movements; NL JVP, Trachea Midline Respiratory: Symmetrical Chest Expansion and Respiratory Effort, Clear to Auscultation Cardiovascular: NL Sounds; No Murmurs; No JVD, RRR, No Edema Abdominal: NL Sounds; No Tenderness; No Distention, No Hepatosplenomegaly Lymphatic: No Cervical Adenopathy Extremities: No Edema, No Clubbing, Cyanosis Skin: No Rash or Ulcers, No Nodules or Sclerosis Neurological: Alert and Oriented x 3, NL Sensation, - - Muscle rigidity with cogwheeling. Result Diagrams: 09/22/17 05:30 09/22/17 05:30 Additional Lab and Data: Lab Results 09/18/17 09/18/17 09/18/17 Range/Units 13:15 13:15 13:15 WBC 8.9 (3.5-10.8) 10^3/ul RBC 4.35 (4.00-5.40) 10^6/ul Hgb 13.5 (12.0-16.0) g/dl Hct 39 (35-47) % MCV 90 (80-97) fL MCH 31 (27-31) pg MCHC 35 (31-36) g/dl RDW 15 (10.5-15) % Plt Count 214 (150-450) 10^3/ul MPV 7.2 L (7.4-10.4) um3 Neut % (Auto) 75.4 (38-83) % Lymph % (Auto) 17.7 L (25-47) % [place] % (Auto) 4.8 (0-7) % Eos % (Auto) 1.5 (0-6) % Baso % (Auto) 0.6 (0-2) % Absolute Neuts (auto) 6.7 (1.5-7.7) 10^3/ul Absolute Lymphs (auto) 1.6 (1.0-4.8) 10^3/ul Absolute Monos (auto) 0.4 (0-0.8) 10^3/ul Absolute Eos (auto) 0.1 (0-0.6) 10^3/ul Absolute Basos (auto) 0.1 (0-0.2) 10^3/ul Absolute Nucleated RBC 0 10^3/ul Nucleated RBC % 0 INR (Anticoag Therapy) 0.94 (0.77-1.02) APTT 25.4 L (26.0-36.3) seconds Blood Type Pending Antibody Screen Pending LDL: 79 Microbiology and Other Data: Microbiology 09/18/17 18:00 Group A Streptococcus Rapid Screen - Final Throat Specimen received for Rapid Strep A Molecular testing Diagnostic Imaging: TTE: Left ventricular hypertrophy with EF 50%. Bubble study was not performed. Assess/Plan/Problems-Billing Ms. Vi Deleon is a 77-year-old female with a history significant for hypertension, DMII, and Parkinson's disease who presented to [facility] on 09/18/2017 with transient dysarthria and word finding difficulty that has since resolved. The patient had recurrence of dysarthria this morning at 2 am that has since resolved. 1. TIA to the left middle cerebral artery- the first episode of dysarthria was most likely related to hypertensive emergency as her SBP was significantly elevated. The second episode that occurred this morning was not associated with significantly elevated or low BP. Blood glucose was within normal range. She had a repeat CT head without contrast that was unremarkable. I suspect the episode was a TIA vs neurological symptoms related to headache as she had headache following the event. Other d/d such as partial seizures should be ruled out. I have added Plavix 75 mg to the aspirin 81 mg daily. She should be on DAPT for 30 days, then she can switch back to aspirin 81 mg daily. Switched Omeprazole to Protonix. She is on atorvastatin 20 mg nightly. Higher dose may put her at risk for myalgia as she already has baseline back pain. MRI brain and MRA head without contrast has been ordered. I also ordered carotid ultrasound to evaluate for ICA stenosis. TTE did not show any ventricular or atrial thrombus but a bubble study was not performed. Please repeat the TTE and obtain the bubble study. 2. Occipital neuralgia- she is on gabapentin 100 mg BID. I increased the dose to TID. We mentioned placing her on steroids but given her high blood pressure and history of diabetes, this would not be a good option unless we can't find other options. 3. Chronic low back pain- she follows-up with pain management and is being evaluated for LES injection in the future. 4. Parkinson's disease- continue Sinemet, Amantadine, and Selegiline. Parkinson 's disease is stable. She denied any hallucinations. Please get her up in a chair and consult PT for evaluation and treatment. I will continue to follow Time spent: 35 minutes and 50% was spent reviewing the medical chart, examining the patient, and discussing the plan of care as mentioned above. Discussed with Dr. Mclean and updated the patient's daughter at bedside. Neurologist Progress Note - Patient Problems (1) TIA (transient ischemic attack) Current Visit: Yes Status: Acute Code(s): G45.9 - TRANSIENT CEREBRAL ISCHEMIC ATTACK, UNSPECIFIED SNOMED Code(s): 160717262 Comment: Initially in setting of hypertensive emergency. Then repeat when normotensive. Appreciate Neurological input. Continue Aspirin and Plavix for 30 days. No residual deficits and no MRI evidence of stroke. TTE negative for PFO. EEG unremarkable for epileptiform abnormalities. (2) Hyperlipidemia Current Visit: No Status: Acute Code(s): E78.5 - HYPERLIPIDEMIA, UNSPECIFIED SNOMED Code(s): 46251830 Comment: Continue atorvastatin. (3) Hypomagnesemia Current Visit: No Status: Acute Code(s): E83.42 - HYPOMAGNESEMIA SNOMED Code(s): 504054900 Comment: Repleting. Continue daily supplementation. Normalized (4) Parkinson disease Current Visit: No Status: Acute Code(s): G20 - PARKINSON'S DISEASE SNOMED Code(s): 20479154 Comment: Continue selegiline, amantadine, and carbidopa/levadopa. This is home regimen. Recent falls. PT/OT Will need AV when available. (5) Sciatica Current Visit: No Status: Acute Code(s): M54.30 - SCIATICA, UNSPECIFIED SIDE SNOMED Code(s): 60910096 Comment: Moderately well controlled. Continue Gabapentin at 100mg TID. (6) Hypertension Current Visit: No Status: Chronic Code(s): I10 - ESSENTIAL (PRIMARY) HYPERTENSION SNOMED Code(s): 46207005 Comment: BP controlled. Hypertensive emergency on admission Continue metoprolol, lisinopril, HCTZ and nifedipine. (7) Type 2 diabetes mellitus Current Visit: No Status: Chronic Comment: Well controlled on 20u lantus and SSI. A1c 6.9 in 07/31. (8) DNR (do not resuscitate) Current Visit: Yes Status: Acute (9) DVT prophylaxis Current Visit: No Status: Acute Code(s): CJV8956 - SNOMED Code(s): 698722769 Comment: heparin subQ. Status and Disposition: Inpatient. Hopeful discharge to [facility] Monday.
[2017-09-23] MEDS: oxyCODONE TAB* 5 MG TAB PO PRN (21:43)
[2017-09-24] MEDS: Carbidopa/Levodop 25/100 MG TAB(*) PO SCH ×5 (06:07→21:32)
[2017-09-24 06:51] LABS: EGFR Non-African American 58.6 (>60)
[2017-09-24] MEDS: Insulin GLARGINE(*) 1 UNITS UNIT SUBCUT SCH (09:32)
[2017-09-24] MEDS: Metoprolol Tartrate TAB* 50 mg PO SCH ×2 (09:33→21:32)
[2017-09-24] MEDS: NIFEdipine ER TAB* 30 MG PO SCH (09:33)
[2017-09-24] MEDS: Docusate CAP* 100 MG PO SCH (09:33)
[2017-09-24] MEDS: Atorvastatin* 20 MG TAB PO SCH (09:33)
[2017-09-24] MEDS: Insulin LISPRO* 1 UNITS UNIT SUBCUT SCH ×4 (09:33→21:33)
[2017-09-24] MEDS: metFORMIN* 500 MG TAB PO SCH ×2 (09:33→17:50)
[2017-09-24] MEDS: Hydrochlorothiazide TAB* 25 MG PO SCH (09:34)
[2017-09-24] MEDS: Gabapentin CAP(*) 100 MG PO SCH ×3 (09:34→21:32)
[2017-09-24] MEDS: Lisinopril TAB* 10 MG PO SCH ×2 (09:34→17:50)
[2017-09-24] MEDS: Magnesium Oxide TAB* 400 MG PO SCH (09:34)
[2017-09-24] MEDS: guaiFENesin ER TAB 600 MG PO SCH ×2 (09:34→21:32)
[2017-09-24] MEDS: PARoxetine HCL TAB* 20 MG PO SCH (09:34)
[2017-09-24] MEDS: Clopidogrel TAB* 75 MG PO SCH (09:34)
[2017-09-24] MEDS: Aspirin EC TAB* 81 MG TAB.EC PO SCH (09:34)
[2017-09-24] MEDS: Amantadine CAP* 100 MG PO SCH ×2 (09:37→21:35)
[2017-09-24] MEDS: CMCS - Pantoprazole TAB (NF) 40 MG TAB PO SCH (09:37)
[2017-09-24] MEDS: Selegiline TAB* 5 MG PO SCH (09:37)
[2017-09-24] MEDS: Benzocaine/Menthol LOZ* 1 LOZENGE PO PRN (09:52)
[2017-09-24] MEDS: Enoxaparin(*) 40 MG/0.4 ML SYR SUBCUT SCH (14:38)
--- NOTE | 2017-09-24 15:38 | PN ---
Subjective Date of Service: 09/24/17 Interval History: Patient feels better, thinks she is regaining strength. Patient denies F/C, N/V , abdominal pain, dizziness, palpitations, CP, SOB, Abdominal pain, dysuria, or other pain. Patient had an asymptomatic 10 beat run of V-tach on telemetry. Family History: Unchanged from Admission Social History: Unchanged from Admission Past Medical History: Unchanged from Admission Objective Active Medications: Acetaminophen (Tylenol Tab*) 650 mg PO Q6H PRN PRN Reason: FEVER/PAIN Last Admin: 09/21/17 21:45 Dose: 650 mg Albuterol (Ventolin 2.5 Mg/3 Ml Neb.Joaquina*) 2.5 mg INH Q4H PRN PRN Reason: SOB/WHEEZING Last Admin: 09/23/17 18:57 Dose: 2.5 mg Alprazolam (Xanax Tab*) 0.25 mg PO TID PRN PRN Reason: ANXIETY Last Admin: 09/22/17 20:46 Dose: 0.25 mg Amantadine HCl (Symmetrel Cap*) 100 mg PO BID [facility] Last Admin: 09/24/17 09:37 Dose: 100 mg Aspirin (Aspirin Ec Tab*) 81 mg PO DAILY [facility] Last Admin: 09/24/17 09:34 Dose: 81 mg Atorvastatin Calcium (Lipitor*) 20 mg PO DAILY [facility] Last Admin: 09/24/17 09:33 Dose: 20 mg Carbidopa/Levodopa (Sinemet 25/100 Tab(*)) 1 tab PO 1000,2100 [facility] Last Admin: 09/24/17 09:44 Dose: 1 tab Carbidopa/Levodopa (Sinemet 25/100 Tab(*)) 2 tab PO 0630,1400,1830 [facility] Last Admin: 09/24/17 14:38 Dose: 2 tab Clopidogrel Bisulfate (Plavix Tab*) 75 mg PO DAILY [facility] Last Admin: 09/24/17 09:34 Dose: 75 mg Dextrose (D50w Syringe 50 Ml*) 12.5 gm IV PUSH .FOR FS < 60 - SS PRN PRN Reason: FS < 60 Docusate Sodium (Colace Cap*) 100 mg PO BID [facility] Last Admin: 09/24/17 09:33 Dose: 100 mg Enoxaparin Sodium (Lovenox(*)) 40 mg SUBCUT Q24H [facility] Last Admin: 09/24/17 14:38 Dose: 40 mg Gabapentin (Neurontin Cap(*)) 100 mg PO TID [facility] Last Admin: 09/24/17 14:38 Dose: 100 mg Guaifenesin (Mucinex*) 1,200 mg PO BID [facility] Last Admin: 09/24/17 09:34 Dose: 1,200 mg Hydrochlorothiazide (Hydrodiuril Tab*) 12.5 mg PO DAILY [facility] Last Admin: 09/24/17 09:34 Dose: 12.5 mg Insulin Glargine (Lantus(*)) 20 units SUBCUT QAM [facility] Last Admin: 09/24/17 09:32 Dose: 20 units Insulin Human Lispro (Humalog*) 0 units SUBCUT ACHS [facility]; Protocol Last Admin: 09/24/17 14:37 Dose: 9 units Lisinopril (Prinivil Tab*) 10 mg PO QPM [facility] Last Admin: 09/23/17 17:36 Dose: 10 mg Lisinopril (Prinivil Tab*) 20 mg PO DAILY [facility] Last Admin: 09/24/17 09:34 Dose: 20 mg Magnesium Oxide (Magox 400 Tab*) 400 mg PO DAILY [facility] Last Admin: 09/24/17 09:34 Dose: 400 mg Metformin HCl (Glucophage*) 500 mg PO 0800,1700 [facility] Last Admin: 09/24/17 09:33 Dose: 500 mg Metoprolol Tartrate (Lopressor Tab*) 50 mg PO BID [facility] Last Admin: 09/24/17 09:33 Dose: 50 mg Nifedipine (Procardia Xl Tab*) 30 mg PO DAILY [facility] Last Admin: 09/24/17 09:33 Dose: 30 mg Oxycodone HCl (Roxycodone Tab*) 5 mg PO Q6HR PRN PRN Reason: PAIN Last Admin: 09/23/17 21:43 Dose: 5 mg Pantoprazole Sodium (Protonix Tab (Nf)) 40 mg PO DAILY [facility] Last Admin: 09/24/17 09:37 Dose: 40 mg Paroxetine HCl (Paxil Tab*) 20 mg PO DAILY [facility] Last Admin: 09/24/17 09:34 Dose: 20 mg Selegiline HCl (Eldepryl Tab*) 5 mg PO DAILY [facility] Last Admin: 09/24/17 09:37 Dose: 5 mg Throat Lozenges (Chloraseptic Yarelis*) 1 yarelis PO Q6H PRN PRN Reason: SORE THROAT Last Admin: 09/24/17 09:52 Dose: 1 yarelis Vital Signs - 8 hr 09/24/17 09/24/17 09/24/17 07:35 08:00 09:34 Temperature 97.2 F Pulse Rate 66 Respiratory 20 18 18 Rate Blood Pressure 152/68 (mmHg) O2 Sat by Pulse 96 Oximetry 09/24/17 09/24/17 09/24/17 11:30 11:31 11:37 Temperature 97.2 F Pulse Rate 73 64 Respiratory 24 18 20 Rate Blood Pressure 145/67 (mmHg) O2 Sat by Pulse 96 96 Oximetry 09/24/17 14:38 Temperature Pulse Rate Respiratory 18 Rate Blood Pressure (mmHg) O2 Sat by Pulse Oximetry Oxygen Devices in Use Now: None Appearance: Patient is a 77yo female who appears stated age and is sitting in the bed in [facility]. Eyes: No Scleral Icterus, PERRLA Ears/Nose/Mouth/Throat: NL Teeth, Lips, Gums, Clear Oropharnyx, Mucous Membranes Moist Neck: NL Appearance and Movements; NL JVP, Trachea Midline Respiratory: Symmetrical Chest Expansion and Respiratory Effort, Clear to Auscultation Cardiovascular: NL Sounds; No Murmurs; No JVD, RRR, No Edema Abdominal: NL Sounds; No Tenderness; No Distention, No Hepatosplenomegaly Lymphatic: No Cervical Adenopathy Extremities: No Edema, No Clubbing, Cyanosis Skin: No Rash or Ulcers, No Nodules or Sclerosis Neurological: Alert and Oriented x 3, NL Sensation, - - Cogwheeling and mask- like facies. No focal deficits. Result Diagrams: 09/22/17 05:30 09/24/17 06:07 Additional Lab and Data: Lab Results 09/18/17 09/18/17 09/18/17 Range/Units 13:15 13:15 13:15 WBC 8.9 (3.5-10.8) 10^3/ul RBC 4.35 (4.00-5.40) 10^6/ul Hgb 13.5 (12.0-16.0) g/dl Hct 39 (35-47) % MCV 90 (80-97) fL MCH 31 (27-31) pg MCHC 35 (31-36) g/dl RDW 15 (10.5-15) % Plt Count 214 (150-450) 10^3/ul MPV 7.2 L (7.4-10.4) um3 Neut % (Auto) 75.4 (38-83) % Lymph % (Auto) 17.7 L (25-47) % [place] % (Auto) 4.8 (0-7) % Eos % (Auto) 1.5 (0-6) % Baso % (Auto) 0.6 (0-2) % Absolute Neuts (auto) 6.7 (1.5-7.7) 10^3/ul Absolute Lymphs (auto) 1.6 (1.0-4.8) 10^3/ul Absolute Monos (auto) 0.4 (0-0.8) 10^3/ul Absolute Eos (auto) 0.1 (0-0.6) 10^3/ul Absolute Basos (auto) 0.1 (0-0.2) 10^3/ul Absolute Nucleated RBC 0 10^3/ul Nucleated RBC % 0 INR (Anticoag Therapy) 0.94 (0.77-1.02) APTT 25.4 L (26.0-36.3) seconds Blood Type Pending Antibody Screen Pending LDL: 79 Microbiology and Other Data: Microbiology 09/18/17 18:00 Group A Streptococcus Rapid Screen - Final Throat Specimen received for Rapid Strep A Molecular testing Diagnostic Imaging: TTE: Left ventricular hypertrophy with EF 50%. Bubble study was not performed. Assess/Plan/Problems-Billing Ms. Vi Deleon is a 77-year-old female with a history significant for hypertension, DMII, and Parkinson's disease who presented to [facility] on 09/18/2017 with transient dysarthria and word finding difficulty that has since resolved. The patient had recurrence of dysarthria this morning at 2 am that has since resolved. 1. TIA to the left middle cerebral artery- the first episode of dysarthria was most likely related to hypertensive emergency as her SBP was significantly elevated. The second episode that occurred this morning was not associated with significantly elevated or low BP. Blood glucose was within normal range. She had a repeat CT head without contrast that was unremarkable. I suspect the episode was a TIA vs neurological symptoms related to headache as she had headache following the event. Other d/d such as partial seizures should be ruled out. I have added Plavix 75 mg to the aspirin 81 mg daily. She should be on DAPT for 30 days, then she can switch back to aspirin 81 mg daily. Switched Omeprazole to Protonix. She is on atorvastatin 20 mg nightly. Higher dose may put her at risk for myalgia as she already has baseline back pain. MRI brain and MRA head without contrast has been ordered. I also ordered carotid ultrasound to evaluate for ICA stenosis. TTE did not show any ventricular or atrial thrombus but a bubble study was not performed. Please repeat the TTE and obtain the bubble study. 2. Occipital neuralgia- she is on gabapentin 100 mg BID. I increased the dose to TID. We mentioned placing her on steroids but given her high blood pressure and history of diabetes, this would not be a good option unless we can't find other options. 3. Chronic low back pain- she follows-up with pain management and is being evaluated for LES injection in the future. 4. Parkinson's disease- continue Sinemet, Amantadine, and Selegiline. Parkinson 's disease is stable. She denied any hallucinations. Please get her up in a chair and consult PT for evaluation and treatment. I will continue to follow Time spent: 35 minutes and 50% was spent reviewing the medical chart, examining the patient, and discussing the plan of care as mentioned above. Discussed with Dr. Mclean and updated the patient's daughter at bedside. Neurologist Progress Note - Patient Problems (1) TIA (transient ischemic attack) Current Visit: Yes Status: Acute Code(s): G45.9 - TRANSIENT CEREBRAL ISCHEMIC ATTACK, UNSPECIFIED SNOMED Code(s): 568392248 Comment: Initially in setting of hypertensive emergency. Then repeat when normotensive. Appreciate Neurological input. Continue Aspirin and Plavix for 30 days. No residual deficits and no MRI evidence of stroke. TTE negative for PFO. EEG unremarkable for epileptiform abnormalities. Mild non-obstructing plaque on Carotid Ultrasound. (2) Hyperlipidemia Current Visit: No Status: Acute Code(s): E78.5 - HYPERLIPIDEMIA, UNSPECIFIED SNOMED Code(s): 89136726 Comment: Continue atorvastatin. (3) Non-sustained ventricular tachycardia Current Visit: Yes Status: Acute Code(s): I47.2 - VENTRICULAR TACHYCARDIA SNOMED Code(s): 414529100 Comment: 10 beats of asymptomatic VT. Due to patient's numerous risk factors for CAD a stress test would likely be indicated. However this was discussed with patient and daughter and they would not be intrested in subsequent cath if indicated. Maximize medical therapy with Statin, ASA, Plavix, HTN management, Beta Vaishali , Optimizing of magnesium and potassium. (4) Hypomagnesemia Current Visit: No Status: Acute Code(s): E83.42 - HYPOMAGNESEMIA SNOMED Code(s): 220574663 Comment: Repleting. Continue daily supplementation. (5) Parkinson disease Current Visit: No Status: Acute Code(s): G20 - PARKINSON'S DISEASE SNOMED Code(s): 54188218 Comment: Continue selegiline, amantadine, and carbidopa/levadopa. This is home regimen. Recent falls. PT/OT Will need [facility] when available. (6) Sciatica Current Visit: No Status: Acute Code(s): M54.30 - SCIATICA, UNSPECIFIED SIDE SNOMED Code(s): 95291751 Comment: Moderately well controlled. Continue Gabapentin at 100mg TID. (7) Hypertension Current Visit: No Status: Chronic Code(s): I10 - ESSENTIAL (PRIMARY) HYPERTENSION SNOMED Code(s): 70163995 Comment: BP controlled. Hypertensive emergency on admission Continue metoprolol, lisinopril, HCTZ and nifedipine. (8) Type 2 diabetes mellitus Current Visit: No Status: Chronic Comment: Well controlled on 20u lantus and SSI. A1c 6.9 in 07/31. (9) DNR (do not resuscitate) Current Visit: Yes Status: Acute (10) DVT prophylaxis Current Visit: No Status: Acute Code(s): DPN0999 - SNOMED Code(s): 921118948 Comment: heparin subQ. Status and Disposition: Inpatient. Hopeful discharge to [facility] Monday.
[2017-09-24] MEDS: ALPRAZolam TAB* 0.25 MG PO PRN (21:33)
[2017-09-25] MEDS: oxyCODONE TAB* 5 MG TAB PO PRN (03:02)
[2017-09-25] MEDS: Docusate CAP* 100 MG PO SCH ×2 (06:39→09:45)
[2017-09-25] MEDS: Carbidopa/Levodop 25/100 MG TAB(*) PO SCH ×3 (06:39→14:41)
[2017-09-25 06:49] LABS: EGFR Non-African American 58.6 (>60)
[2017-09-25] MEDS ORDERED: Magnesium Sulf 4 GM/100 ML IV* 4,000 MG/100 ML BAG IVPB ONE (07:56)
--- NOTE | 2017-09-25 09:36 | PN ---
Subjective Date of Service: 09/25/17 Interval History: Patient seen and examined at bedside. Denies fever, chills, shortness of breath , chest discomfort, N/V/D, difficulty with speech. She is anxious to get to rehab today. Tele: Sinus rhythm, rate 60-80's. No V tach since yesterday AM. Family History: Unchanged from Admission Social History: Unchanged from Admission Past Medical History: Unchanged from Admission Objective Active Medications: Acetaminophen (Tylenol Tab*) 650 mg PO Q6H PRN Reason: FEVER/PAIN Albuterol (Ventolin 2.5 Mg/3 Ml Neb.Joaquina*) 2.5 mg INH Q4H PRN Reason: SOB/ WHEEZING Alprazolam (Xanax Tab*) 0.25 mg PO TID PRN Reason: ANXIETY Amantadine HCl (Symmetrel Cap*) 100 mg PO BID [facility] Aspirin (Aspirin Ec Tab*) 81 mg PO DAILY JEF Atorvastatin Calcium (Lipitor*) 20 mg PO DAILY JEF Carbidopa/Levodopa (Sinemet 25/100 Tab(*)) 1 tab PO 1000,2100 JEF Carbidopa/Levodopa (Sinemet 25/100 Tab(*)) 2 tab PO 0630,1400,1830 JEF Clopidogrel Bisulfate (Plavix Tab*) 75 mg PO DAILY [facility] Dextrose (D50w Syringe 50 Ml*) 12.5 gm IV PUSH .FOR FS < 60 - SS PRN Reason: FS < 60 Docusate Sodium (Colace Cap*) 100 mg PO BID [facility] Enoxaparin Sodium (Lovenox(*)) 40 mg SUBCUT Q24H JEF Gabapentin (Neurontin Cap(*)) 100 mg PO TID JEF Guaifenesin (Mucinex*) 1,200 mg PO BID JEF Hydrochlorothiazide (Hydrodiuril Tab*) 12.5 mg PO DAILY JEF Magnesium Sulfate (Magnesium Sulf 4 Gm/100 Ml Iv*) 4,000 mg in 100 mls @ 33.333 mls/hr IVPB ONCE ONE Stop: 09/25/17 10:55 Insulin Glargine (Lantus(*)) 20 units SUBCUT QAM JEF Insulin Human Lispro (Humalog*) 0 units SUBCUT ACHS JEF; Protocol Lisinopril (Prinivil Tab*) 10 mg PO QPM JEF Lisinopril (Prinivil Tab*) 20 mg PO DAILY [facility] Magnesium Oxide (Magox 400 Tab*) 400 mg PO DAILY JEF Metformin HCl (Glucophage*) 500 mg PO 0800,1700 [facility] Metoprolol Tartrate (Lopressor Tab*) 50 mg PO BID JEF Nifedipine (Procardia Xl Tab*) 30 mg PO DAILY JEF Oxycodone HCl (Roxycodone Tab*) 5 mg PO Q6HR PRN Reason: PAIN Pantoprazole Sodium (Protonix Tab (Nf)) 40 mg PO DAILY JEF Paroxetine HCl (Paxil Tab*) 20 mg PO DAILY JEF Selegiline HCl (Eldepryl Tab*) 5 mg PO DAILY [facility] Throat Lozenges (Chloraseptic Yarelis*) 1 yarelis PO Q6H PRN Reason: SORE THROAT Vital Signs - 8 hr 09/25/17 09/25/17 03:02 03:50 Temperature 97.0 F Pulse Rate 65 Respiratory 18 20 Rate Blood Pressure 156/71 (mmHg) O2 Sat by Pulse 96 Oximetry Oxygen Devices in Use Now: None Appearance: NAD, sitting up in a chair Ears/Nose/Mouth/Throat: Mucous Membranes Moist Respiratory: Symmetrical Chest Expansion and Respiratory Effort, Clear to Auscultation Cardiovascular: NL Sounds; No Murmurs; No JVD, RRR Abdominal: NL Sounds; No Tenderness; No Distention Extremities: No Edema Skin: No Rash or Ulcers Neurological: Alert and Oriented x 3 Lines/Tubes/Other Access: Clean, Dry and Intact Peripheral IV - site benign Nutrition: Taking PO's Result Diagrams: 09/22/17 05:30 09/25/17 06:14 Additional Lab and Data: LDL: 79 Microbiology and Other Data: Microbiology 09/18/17 18:00 Group A Streptococcus Rapid Screen - Final Throat Specimen received for Rapid Strep A Molecular testing Diagnostic Imaging: TTE: Left ventricular hypertrophy with EF 50%. Bubble study was not performed. Assess/Plan/Problems-Billing ASSESSMENT: Ms. Vi Deleon is a 77-year-old female with a history significant for hypertension, DMII, and Parkinson's disease who presented to [facility] on 09/18/2017 with transient dysarthria and word finding difficulty that has since resolved. The patient had recurrence of dysarthria that has since resolved. - Patient Problems (1) TIA (transient ischemic attack) Code(s): G45.9 - TRANSIENT CEREBRAL ISCHEMIC ATTACK, UNSPECIFIED SNOMED Code(s ): 946159230 Comment: - Initially in setting of hypertensive emergency, then repeat episode when normotensive - No residual deficits and no MRI evidence of stroke - TTE negative for PFO. EEG unremarkable for epileptiform abnormalities - Mild non-obstructing plaque on Carotid Ultrasound - Neurological consult, appreciate input - Continue Aspirin and Plavix for 30 days, then switch back to ASA 81 mg (2) Non-sustained ventricular tachycardia Code(s): I47.2 - VENTRICULAR TACHYCARDIA SNOMED Code(s): 834147677 Comment: - 10 beats of asymptomatic VT - Due to patient's numerous risk factors for CAD a stress test would likely be indicated. However this was discussed with patient and daughter and they would not be intrested in subsequent cath if indicated - Maximize medical therapy with Statin, ASA, Plavix, HTN management, Beta Vaishali, Optimizing of magnesium and potassium (3) Hypertension Code(s): I10 - ESSENTIAL (PRIMARY) HYPERTENSION SNOMED Code(s): 35197841 Comment: - SBP 130-150's - Hypertensive emergency on admission - Continue metoprolol, lisinopril, HCTZ and nifedipine (4) Hypomagnesemia Code(s): E83.42 - HYPOMAGNESEMIA SNOMED Code(s): 637614948 Comment: - Repleting - Continue daily supplementation (5) Occipital neuralgia Code(s): M54.81 - OCCIPITAL NEURALGIA SNOMED Code(s): 72295227 Comment: - Continue gabapentin (incrased to TID) (6) Hyperlipidemia Code(s): E78.5 - HYPERLIPIDEMIA, UNSPECIFIED SNOMED Code(s): 64294601 Comment: - Continue atorvastatin (7) Parkinson disease Code(s): G20 - PARKINSON'S DISEASE SNOMED Code(s): 75063267 Comment: - Recent falls, PT/OT - Continue selegiline, amantadine, and carbidopa/levadopa (8) Sciatica Code(s): M54.30 - SCIATICA, UNSPECIFIED SIDE SNOMED Code(s): 58466719 Comment: - Moderately well controlled - Continue Gabapentin (9) Type 2 diabetes mellitus Comment: - Glucose 150-220's - HgA1c 6.9 in 07/31 - Continue lantus and SSI (10) DVT prophylaxis Code(s): NYT5621 - SNOMED Code(s): 886200058 Comment: - Cecy (11) DNR (do not resuscitate) Status and Disposition: Inpatient. Stable for discharge to [facility] today.
[2017-09-25] MEDS: Insulin LISPRO* 1 UNITS UNIT SUBCUT SCH ×2 (09:42→12:48)
[2017-09-25] MEDS: Aspirin EC TAB* 81 MG TAB.EC PO SCH (09:43)
[2017-09-25] MEDS: Insulin GLARGINE(*) 1 UNITS UNIT SUBCUT SCH (09:43)
[2017-09-25] MEDS: Metoprolol Tartrate TAB* 50 mg PO SCH (09:43)
[2017-09-25] MEDS: NIFEdipine ER TAB* 30 MG PO SCH (09:43)
[2017-09-25] MEDS: PARoxetine HCL TAB* 20 MG PO SCH (09:43)
[2017-09-25] MEDS: metFORMIN* 500 MG TAB PO SCH (09:44)
[2017-09-25] MEDS: Clopidogrel TAB* 75 MG PO SCH (09:44)
[2017-09-25] MEDS: Hydrochlorothiazide TAB* 25 MG PO SCH (09:44)
[2017-09-25] MEDS: Gabapentin CAP(*) 100 MG PO SCH ×2 (09:44→14:41)
[2017-09-25] MEDS: Magnesium Oxide TAB* 400 MG PO SCH (09:44)
[2017-09-25] MEDS: Lisinopril TAB* 10 MG PO SCH (09:44)
[2017-09-25] MEDS: guaiFENesin ER TAB 600 MG PO SCH (09:45)
[2017-09-25] MEDS: Atorvastatin* 20 MG TAB PO SCH (09:45)
[2017-09-25] MEDS: CMCS - Pantoprazole TAB (NF) 40 MG TAB PO SCH (09:55)
[2017-09-25] MEDS: Amantadine CAP* 100 MG PO SCH (09:56)
[2017-09-25] MEDS: Selegiline TAB* 5 MG PO SCH (09:56)
--- NOTE | 2017-09-25 11:28 | DS ---
CC: [facility]; Dr. Geri Cardona. DISCHARGE SUMMARY: DATE OF ADMISSION: 09/18/17 DATE OF DISCHARGE: 09/25/17 ATTENDING PHYSICIAN: Dr. Chema Cruz (dictated by Jose Richardson NP) PRIMARY CARE PROVIDER: Dr. Geri Cardona. PRIMARY DIAGNOSES: 1. Transient ischemic attack. 2. Hypertension urgency, resolved. 3. Ventricular tachycardia, resolved. 4. Hypomagnesium. SECONDARY DIAGNOSES: 1. Occipital neuralgia. 2. Hyperlipidemia. 3. Parkinson's disease. 4. Sciatica. 5. Diabetes mellitus type 2. CONSULTATIONS WHILE IN THE HOSPITAL: Dr. Salma Purvis with Neurology. STUDIES WHILE IN THE HOSPITAL: Brain CT on 09/18/17. DICTATION ENDS ABRUPTLY... JOSE PINEDA, CHEPE [id number]/[facility] #: [id number]
[2017-09-25 11:33] VITALS: BP 126/64
--- NOTE | 2017-09-25 13:24 | DS ---
CC: [facility]; Dr. Geri Cardona* DISCHARGE SUMMARY: DATE OF ADMISSION: 09/18/17 DATE OF DISCHARGE: 09/25/17 ATTENDING PHYSICIAN: Dr. Chema Cruz* (dictated by Amparo Richardson NP) PRIMARY CARE PROVIDER: Dr. Geri Cardona. PRIMARY DIAGNOSES: 1. Transient ischemic attack. 2. Hypertension urgency, resolved. 3. Ventricular tachycardia, resolved. 4. Hypomagnesium. SECONDARY DIAGNOSES: 1. Occipital neuralgia. 2. Hyperlipidemia. 3. Parkinson's disease. 4. Sciatica. 5. Diabetes mellitus type 2. CONSULTATIONS WHILE IN THE HOSPITAL: Dr. Salma Purvis with Neurology. STUDIES WHILE IN THE HOSPITAL: 1. CT brain on 09/18/17. Radiologist's impression, chronic ischemic white matter change. No intracranial mass or hemorrhages noted. 2. Chest x-ray on 09/18/17. Radiologist's impression, no active disease. 3. Transthoracic echocardiogram on 09/18/17. Process Improvement Specialist's conclusion, the study is technically difficult. The left ventricular chamber size is decreased. Moderate concentric left ventricular hypertrophy is observed. Global left ventricular wall motion and contractility are within normal limits. There is normal left ventricular systolic function. Estimated ejection fraction is 55 to 60%. The left atrium is mildly dilated. The right ventricle is not well visualized. The right ventricle is mildly dilated. The right ventricular global systolic function is normal. There is evidence of aortic sclerosis with and without stenosis. Compared to prior study from 01/02/15, no clinically significant changes are noted. 4. Brain CT on 09/19/17. Radiologist's impression, chronic ischemic white matter change. There is no evidence of intracranial mass or hemorrhage. 5. Brain MRI on 09/19/17. Radiologist's impression, noted grossly symmetric white matter lesions at the cerebellum, cerebrum as well as the brain stem without mass effect or nonspecific. The primary differential include chronic small vessel ischemic disease, as well as demyelinating disease. No evidence for acute or subacute ischemia. 6. Bilateral carotid Doppler ultrasound on 09/19/17. Radiologist's impression , normal right internal carotid artery. Minimal plaque with no hemodynamically significant stenosis of left internal carotid artery. 7. Head MRI on 09/19/17. Radiologist's impression, no large vessel intracranial arterial occlusion or significant stenosis. 8. Chest x-ray on 09/19/17. Radiologist's impression, no active cardiopulmonary disease is noted. 9. Transthoracic echocardiogram on 09/20/17. Process Improvement Specialist's conclusion, poor image quality. Limited study, bubble study only. The bubble study is negative , no bubble seen in the left heart. 10. Electroencephalogram on 09/20/17. Neurologist's clinical impression, this is an abnormal awake and drowsy EEG due to diffuse slowing with prominent delta slowing seen in the frontal region. Otherwise, there was retained organization of activity. These findings are suggestive of mild, nonspecific, diffuse encephalopathy. There were no epileptiform discharges. Clinical correlation is recommended. DISCHARGE MEDICATIONS: New home medications: 1. Acetaminophen 650 mg oral q.6 hours as needed for fever or pain. 2. Plavix 75 mg oral daily. 3. Hydrochlorothiazide 12.5 mg oral daily. 4. Lisinopril 20 mg oral every morning. 5. Lisinopril 10 mg oral every evening. 6. Magnesium oxide 400 mg oral daily. 7. Metoprolol tartrate 50 mg oral twice daily. 8. Nifedipine 30 mg oral daily. 9. Protonix 40 mg oral daily. 10. Mucinex 1200 mg oral twice daily as needed for cough. Continued home medications: 1. Lantus 32 units subcutaneous every morning. 2. Simvastatin 40 mg oral at bedtime daily. 3. Selegiline 5 mg oral every morning. 4. Aspirin 81 mg oral daily. 5. Symmetrel 100 mg oral twice daily. 6. Xanax 0.25 mg oral 3 times daily as needed for anxiety. 7. Oxycodone 5 mg oral q.6 hours as needed for pain. 8. Sinemet 25/100 one tablet oral at 10.00 a.m. 9. Sinemet 25/100 two tablets oral daily at 06.30, 14.00, and 18.30. 10. Sinemet 25/100 one tablet oral daily at bedtime. 11. Metformin 500 mg oral twice daily. 12. Paxil 20 mg oral daily. 13. Clindamycin 600 mg oral as needed. 14. Gabapentin 100 mg oral twice daily. 15. Gabapentin 100 to 200 mg oral daily at bedtime. Discontinued home medications: 1. Metoprolol tartrate 25 mg oral twice daily. 2. Ibuprofen. 3. Omeprazole. 4. Lisinopril/hydrochlorothiazide. 5. Lisinopril. HISTORY OF PRESENT ILLNESS/HOSPITAL COURSE: Ms. Deleon is a 77-year-old female with past medical history significant for hypertension, hyperlipidemia, diabetes, GERD, Parkinson, who presented with complaints of slurred speech with associated leg weakness. EMS was called. The patient was brought to the emergency room, where she was found to have a systolic blood pressure greater than 230 and a code smith was called. The initial head CT was negative. Her symptoms improved after reduction of her blood pressure. The patient reported that she took multiple BP medications and her blood pressure was always elevated with systolics now 170s. The patient was initially admitted to the ICU for suspected hypertensive urgency. Once the patient's blood pressures were better controlled overnight, she again had another episode of slurred speech. At this time, while she was normotensive, she was seen in consultation by Dr. Purvis with Neurosurgery. It was suspected, she had a TIA. She was started on Plavix in addition to her aspirin. The plan was to continue on aspirin and Plavix for 30 days. She had her lipids checked and was continued on a statin. She had an EEG without signs of any seizure activity. She had a repeat brain CT without acute finding. She had an MRI without acute findings. She had a carotid imaging showing no significant stenosis. She had a TTE showing no signs of a PFO. The patient was doing well , so that she needed rehab. Ms. Deleon is stable for discharge to [facility] today. Vital signs are as follows: Temperature 97.8, heart rate 64, respiratory rate 12, O2 sat 93% on room air, blood pressure 146/75. DISCHARGE PLAN: Ms. Deleon will be discharged to [facility]. Activity as tolerated. She should be on a heart-healthy consistent carbohydrate diet. In regards to her TIA, she should be continued on a dual antiplatelet therapy with aspirin and Plavix for 30 days and then she should discontinue the Plavix and resume only her aspirin 81 mg daily. With regards to her hypertensive urgency and hypertension, please continue to follow her blood pressures and then continued on lisinopril, hydrochlorothiazide, nifedipine. For her Parkinson, she has been continued on Sinemet. Please note that her omeprazole was then changed over to Protonix while she is taking Plavix. She could return to her home omeprazole, after she stopped taking the Plavix. She should be seen in followup by a provider at [facility]. She should follow up with her own primary care provider, Dr. Geri Cardona after discharge from [facility]. She should have physical therapy and occupational therapy evaluations and treatment. She should return to the emergency room for any chest pain, shortness of breath, signs of a stroke such as one-sided weakness, difficulty speaking, facial drooping. This is a summarized report of a complex medical history and hospital stay. For further details, please see the entire medical record. TIME SPENT: Time for this discharge was approximately 50 minutes, greater than half of that was spent with the patient discussing discharge plans and instructions. CONDITION ON DISCHARGE: Stable. Reviewed by KIRA BLANCO 10/04/17 1258 [id number]/[facility] #: [id number]/[facility] #: [id number] [place]
== END 2017-09-25 15:00 | DRG 304 ==
LOC: ED 12:53 → ICU 14:54 → MED 09-19 13:29 → MEDTELE 09-20 09:55
PROVIDERS: ADMIT Internal Medicine; ATTEND Student in an Organized Health Care Education/Training Program
DX: I16.0 Hypertensive urgency (principal); G93.49 Other encephalopathy; G45.9 Transient cerebral ischemic attack, unspecified; I47.2 Ventricular tachycardia; E83.42 Hypomagnesemia; M54.81 Occipital neuralgia; E78.5 Hyperlipidemia, unspecified; G20 Parkinson's disease; M54.30 Sciatica, unspecified side; I11.0 Hypertensive heart disease with heart failure; E11.9 Type 2 diabetes mellitus without complications; K21.9 Gastro-esophageal reflux disease without esophagitis; Z66 Do not resuscitate; Z88.0 Allergy status to penicillin; Z79.84 Long term (current) use of oral hypoglycemic drugs; Z79.891 Long term (current) use of opiate analgesic; Z79.899 Other long term (current) drug therapy
CPT/HCPCS: 36415; 70450; 70544; 70551; 71045; 80048; 80053; 80061; 81003; 81015; 83605; 83735; 84100; 84484; 85025; 85610; 85730; 86850; 86900; 86901; 87086; 87651; 93005; 93306; 93308; 93880; 94640; 95819; 99285; A9270-GY; G8978-GP-CJ; G8979-GP-CI; J1650; J3475

== ENCOUNTER 2017-11-27 16:22 | Inpatient (IN) | payer MEDICARE ==
--- OUTSIDE RECORDS SUMMARY | 2017-11-27 21:38 | XMS REPORT ---
:1940 External Reference #:[id number] Author Organization [facility] [place] Address [address] [place] [address] [place] [address] Phone [phone] Care Team Providers Name Role Phone Geri Cardona MD Primary Care Physician Unavailable Payers Type Date Identification Numbers Payment Provider Subscriber Medicare Primary Policy Number: [id number] Medicare Shira Deleon PayID: [id number] [address] [place] [address] [facility] Part B Policy Number: [id number] [facility] Shira Deleon PayID: [id number] [address] [place] [address] Problems Date Description Provider Status Onset: 03/12/2015 [...] Strength Qnty SIG Indications Ordering Provider Lisinopril-Hydroc 10/26 Active Tablets 20-12.5mg 90tab 1 by hlorothiazide s mouth Cotton, every day M.D. Vitamin B-12 10/24 Active Tablets 1000mcg 30tab 1 by s mouth Cotton, every day M.D. Gabapentin 09/13 Active Capsules 100mg 100ca 1 tab by ps mouth at Cotton, 8 Am and M.D. 1 tab by mouth at 8 PM Omeprazole 09/[address] 20mg 30cap 1 by s mouth Cotton, every day M.D. Blood Glucose 04/07 Active Kit W/Device 1kit use daily E11.42 If You Can Monitoring System as Sergey, Premium instructe PARKING ANALYST d Pen [place] 03/20 Active Misc 31G X 8 90uni use with mm ts lantus Cotton, injection M.D. once daily Clindamycin HCL 03/09 Active Capsules 300mg 2caps 2 tab by Zsofia mouth Sergey, prior to PARKING ANALYST dental procedure Paroxetine HCL 01/04 Active Tablets 20mg 90tab 1 by F43.20 Zsofi s mouth Sergey, every am PARKING ANALYST Metformin HCL 09/07 Active Tablets 500mg 180ta take 1 E11.42 bs tablet by Cotton, mouth 2 M.D. times a day Carbidopa-Levodop 02/24 Active Tablets ER 25-100mg 90tab 1 by G2 Monica a s mouth at [facility], bed M.D. time.. Amantadine HCL 10/07 Active Tablets 100mg 180ta take 1 bs tablet by Cowdery, mouth in M.D. the morning and afternoon Oxycodone HCL 06/21 Active Capsules 5mg 60cap 1 tab M54.31 s every 6 Cotton, hour as M.D. needed pain Lantus Solostar Active Solution 100Unit/M 15ml inject 32 E11.42 Pen-Inject L units Cotton, under the M.D. skin every morning Simvastatin Active Tablets 40mg 90tab 1 by E78.5 s mouth Cotton, every M.D. night at bedtime Aspirin Active Tablets 81mg 1 by Unknown mouth every day Carbidopa-Levodop Active Tablets 25-100mg 630ta 2 by Monica bs mouth at [facility], 6:30 in M.D. the morning, 2 at 2 PM, and 2 at 6:30 PM Alprazolam Active Tablets 0.25mg 90tab one by Geri /0000 s mouth up Cotton, to three M.D. times daily as needed for anxiety Selegiline HCL Active Tablets 5mg 90tab take 1 Monica s tablet by Cowdery, mouth M.D. every morning Metoprolol Active Tablets 50mg 1 by I10 Unknown Tartrate mouth twice a day Tylenol Active Capsules 325mg 2 tablets every 4 hours as needed for pain Magnesium Oxide Active Capsules 400mg 1 by Unknown -MG Supplement / mouth every day Nifedipine ER Active Tablets ER 30mg 90tab 1 by Geri /0000 24HR s mouth Cotton, every day M.D. Pantoprazole Active Solution 40mg 1 by Unknown Sodium Rec mouth every day Docusate Sodium Active Capsules 100mg 1 tab Unknown /0000 every 12 hours as needed for constipat ion Melatonin Active Capsules 3mg take 1 by Unknown /0000 mouth at 10 pm Lisinopril 09/12 Hx Tablets 10mg 30tab 1 by s mouth Cotton, - every day M.D. 10/20 in the evening Lisinopril-Hydroc 08/28 Hx Tablets 20-12.5mg 90tab 1 by [facility] hlorothiazide s mouth Cotton, - every day M.D. 10/19 Keflex 08/24 Hx Capsules 250mg Geri Cotton, - M.D. 08/24 Bactrim DS 08/24 [...] 07/12 Hx Tablets 20mg 1 by F43.20 mouth Sergey, - every PARKING ANALYST 08/28 other for 1 week, then 1 tab 2x /week then discontin ue Cipro 06/12 Hx Tablets 250mg 10tab 1 tab by s mouth Sergey, - twice PARKING ANALYST 06/18 daily 5 days. Glimepiride 04/07 Hx Tablets 4mg 90tab Take 1 E11.42 s Tablet By Sergey, - Mouth PARKING ANALYST 08/18 Daily Cipro 03/26 Hx Tablets 250mg 10tab 1 tab by s mouth Sergey, - twice PARKING ANALYST 04/01 daily for 5 days. Omeprazole 03/[address] 20mg 90cap Take 1 K21.9 s Capsule Sergey, - By Mouth PARKING ANALYST 08/18 Every Day Fluticasone 01/13 Hx Suspension 50mcg/Act 16gm 1 act Zsofia Propionate each Sergey, - nostril PARKING ANALYST 05/11 twice daily Glimepiride 01/04 Hx Tablets 4mg 1 tab po E11.42 Zsofi q day. Sergey, - PARKING ANALYST 04/07 Januvia 01/04 Hx Tablets 100mg 90tab Take 1 E11.42 Zsofi s Tablet By Sergey, - Mouth PARKING ANALYST 08/28 Every Januvia 09/28 Hx Tablets 50mg 30tab take 1 E11.42 Zsofi s tab by Sergey, - mouth PARKING ANALYST 01/04 everyday Bupropion HCL ER 09/28 Hx Tablets ER 150mg 30tab take 1 F43.20 Zsofia (SR) 12HR s tab po Sergey, - daily PARKING ANALYST 01/04 Bupropion HCL 09/07 Hx Tablets 75mg 30tab 1 by F43.20 Zsofia s mouth Sergey, - every day PARKING ANALYST 09/28 Vitamin B12 03/12 Hx Tablets 1 po daily Kayla, - M.D. 10/24 Valium 03/12 Hx Tablets 2mg 2tabs 1 by R29.6 Monica mouth 1h Cowyan, - prior to M.D. 05/14 mri, june repeat dose at time of mri if still anxious and not sedated. no driving. no mix w/alprazo man Amoxicillin 08/08 Hx Tablets 500mg 8tabs 4 tab by Eduardo mouth 1 Rivera, - hour M.D. 03/27 prior dental procedure ? Clindamycin HCL 06/20 Hx Capsules 300mg 30cap tab by Eduardo s mouth Rivera, - every 6 M.D. 06/20 hours Clindamycin HCL 06/20 Hx Capsules 300mg 2caps 2 tab by Eduardo mouth 1 Rivera, - hour M.D. 08/23 prior dental procedure Meloxicam 03/03 Hx Tablets 7.5mg 60tab 1 tab by Eduardo s mouth Rivera, - every day M.D. 02/13 Bactrim 02/08 Hx Tablets 400-80mg Rivera, - M.D. 02/08 Bactrim 02/08 Hx Young, - M.D. 02/08 Bactrim DS 02/08 Hx Tablets 800-160mg 14tab 1 po bid s for 7 Rivera, - days M.D. 11/06 Percocet 09/01 Hx Tablets 5-325mg 90tab 1-2 tabs s po q4-6 Rivera, - prn pain M.D. 03/13 Flexeril 09/01 [...] /0000 bs mouth Sergey, - twice a PARKING ANALYST Metoprolol Hx Tablets 25mg 180ta 1 by I10 Geri Tartrate /0000 bs mouth Cotton, - twice a M.D. Omeprazole Hx Capsules DR 20mg 1 by Unknown /0000 mouth - every day 09/07 Amantadine HCL Hx Capsules 100mg 180ca 1 by Monica /0000 ps mouth Cowdery, - morning M.D. 10/07 afternoon Paroxetine HCL Hx Tablets 20mg 1 by F43.20 Zsofia /0000 mouth Sergey, - every PARKING ANALYST 09/28 for 1 week, then 1 tab 2x /week then discontin ue Oxycodone-Acetami Hx Tablets 5-325mg Unknown nophen /0000 - 02/13 Advil Hx Capsules 200mg 2 caps po Unknown /0000 as needed - 04/24 Ciprofloxacin HCL 00/00 Hx Tablets 250mg Unknown /0000 - 08/18 Clindamycin HCL 00/00 Hx Capsules 150mg 1 cap Unknown /0000 every 6 - hours 08/18 Ibu Hx Tablets 600mg 90tab 1 tab by Zsofia /0000 s mouth Sergey, - every 6 PARKING ANALYST 10/19 hours needed. Lisinopril 00/00 Hx Tablets 20mg 1 by Unknown /0000 mouth - every day 08/28 Lisinopril 00/00 Hx Tablets 20mg 1 by Unknown /0000 mouth - every day 08/24 Lisinopril 0000 Hx Tablets 20mg 1 by Unknown /0000 mouth - every day 10/26 Hydrochlorothiazi 00 Hx Tablets 12.5mg 1 by Unknown de /0000 mouth - every day 11/03 Plavix 00 Hx Tablets 75mg 1 by Unknown /0000 mouth - every day 10/26 Lidocaine /00 Hx Patches 5% place on Unknown /0000 sick as - needed 10/26 for back /2018 and neck pain (take off after 12 hours) Immunizations CPT Code Status Date Vaccine Lot # [id number] Given 11/06/2017 Influenza Virus Vaccine, Quadrivalent, Split, [id number] Preservative Free 18495 Given 01/04/2017 Influenza Virus Vaccine, Quadrivalent, Split, [id number] Preservative Free Vital Signs Date Vital Result Comment 11/06/2017 Height 62 inches 5'2" Weight 214.00 lb Heart Rate 65 /min BP Systolic Sitting 118 mmHg BP Diastolic Sitting 66 mmHg O2 % BldC Oximetry 95 % BMI (Body Mass Index) 39.1 kg/m2 10/26/2017 Height 62 inches 5'2" Weight 214.00 lb Heart Rate 86 /min BP Systolic Sitting 126 mmHg BP Diastolic Sitting 76 mmHg O2 % BldC Oximetry 94 % BMI (Body Mass Index) 39.1 kg/m2 10/20/2017 Height 62 inches 5'2" Weight 214.00 lb Heart Rate 80 /min BP Systolic Sitting 128 mmHg BP Diastolic Sitting 78 mmHg Respiratory Rate 18 /min BMI (Body Mass Index) 39.1 kg/m2 08/28/2017 Heart Rate 68 /min BP Systolic [...] Result H/L Range Note Urine Culture And 09/18/2017 Urine Culture SEE RESULT BELOW 1 Sensitivities Urinalysis Profile 09/18/2017 Urine Color Yellow Urine Appearance Clear Urine Specific Garibaldi 1.020 1.010-1.030 Urine pH 5.0 5-9 Urine Urobilinogen Negative Negative Urine Ketones Trace Negative Urine Protein 3+(>=500 mg/dL) Negative Urine Leukocytes Negative Negative Urine Blood Negative Negative Urine Nitrite Negative Negative Urine Bilirubin Negative Negative Urine Glucose 3+(>=500 mg/dL) Negative Urine White Blood Cell Trace(0-5/hpf) Absent Urine Red Blood Cell 1+(3-5/hpf) Absent Urine Bacteria Absent Absent Urine Squamous Epithelial Cell Present Absent Inr/Protime 09/18/2017 Inr 0.94 0.77-1.02 Laboratory test finding 09/18/2017 Partial Thrombo Time 25.4 seconds Low 26.0-36.3 PTT Type & Screen 09/18/2017 Patient Blood Type O Positive Antibody Screen NEGATIVE CBC Auto Diff 09/18/2017 White Blood Count 8.9 10^3/uL 3.5-10.8 Red Blood Count 4.35 10^6/uL 4.00-5.40 Hemoglobin 13.5 g/dL 12.0-16.0 Hematocrit 39 % 35-47 Mean Corpuscular Volume 90 fL 80-97 Mean Corpuscular Hemoglobin 31 pg 27-31 Mean Corpuscular HGB Conc 35 g/dL 31-36 Red Cell Distribution Width 15 % 10.5-15 Platelet Count 214 10^3/uL 150-450 Mean Platelet Volume 7.2 um3 Low 7.4-10.4 Abs Neutrophils 6.7 10^3/uL 1.5-7.7 Abs Lymphocytes 1.6 10^3/uL 1.0-4.8 Abs Monocytes 0.4 10^3/uL 0-0.8 Abs Eosinophils 0.1 10^3/uL 0-0.6 Abs Basophils 0.1 10^3/uL 0-0.2 Abs Nucleated RBC 0 10^3/uL Granulocyte % 75.4 % 38-83 Lymphocyte % 17.7 % Low 25-47 Monocyte % 4.8 % 0-7 Eosinophil % 1.5 % 0-6 Basophil % 0.6 % 0-2 Nucleated Red Blood Cells % 0 Laboratory test finding 09/18/2017 Troponin-I (TnI) 0.00 ng/mL <0.04 Laboratory test finding 09/18/2017 Lactic Acid 1.5 mmol/L 0.5-2.0 2 Lipid Profile (Trig/Chol/HDL) 09/18/2017 Triglycerides 211 mg/dL 3 Cholesterol 162 mg/dL 4 HDL Cholesterol 41.2 mg/dL 5 LDL Cholesterol 79 mg/dL 6 Comp Metabolic Panel 09/18/2017 Sodium 136 mmol/L 135-145 Potassium 4.5 mmol/L 3.5-5.0 Chloride 101 mmol/L 101-111 Co2 Carbon Dioxide 26 mmol/L 22-32 Anion Gap 9 mmol/L 2-11 Glucose 271 mg/dL High 70-100 Blood Urea Nitrogen 30 mg/dL High 6-24 Creatinine 0.96 mg/dL High 0.51-0.95 BUN/Creatinine Ratio 31.3 High 8-20 Calcium 8.9 mg/dL 8.6-10.3 Total Protein 6.6 g/dL 6.4-8.9 Albumin 3.6 g/dL 3.2-5.2 Globulin 3.0 g/dL 2-4 Albumin/Globulin Ratio 1.2 1-3 Total Bilirubin 0.40 mg/dL 0.2-1.0 Alkaline Phosphatase 71 U/L 34-104 Alt 8 U/L 7-52 Ast 13 U/L 13-39 Egfr Non- 56.5 >60 Egfr 68.4 >60 7 Urinalysis Profile 09/13/2017 Urine Color Yellow Urine Appearance Cloudy Urine Specific Garibaldi 1.020 1.010-1.030 Urine pH 5.0 5-9 Urine Urobilinogen Negative Negative Urine Ketones Trace Negative Urine Protein 2+(100 mg/dL) Negative Urine Leukocytes Negative Negative Urine Blood Negative Negative Urine Nitrite Negative Negative Urine Bilirubin Negative Negative Urine Glucose 3+(>=500 mg/dL) Negative Urine White Blood Cell Trace(0-5/hpf) Absent Urine Red Blood Cell Trace(0-2/hpf) Absent Urine Bacteria 1+ Absent Urine Squamous Epithelial Cell Present Absent Urine Culture And 09/13/2017 Urine Culture SEE RESULT BELOW 8 Sensitivities Urine Culture And 08/25/2017 Urine Culture SEE RESULT BELOW 9 Sensitivities Comp Metabolic Panel 08/25/2017 Sodium 137 mmol/L [...] Egfr Non- 62.5 >60 Egfr 75.6 >60 10 CBC Auto Diff 08/25/2017 White Blood Count [...] 0-2 Nucleated Red Blood Cells % 0 Urinalysis Profile 08/25/2017 Urine Color Yellow Urine Appearance Clear Urine Specific Garibaldi 1.026 1.010-1.030 Urine pH 5.0 5-9 Urine [...] Present Absent Urine Hyaline Casts Present Absent Urine Culture And Sensitivities 08/21/2017 Urine Culture SEE RESULT BELOW 11 Urinalysis Profile 08/21/2017 Urine Color Yellow Urine Appearance Cloudy Urine Specific Garibaldi 1.010 1.010-1.030 Urine pH 5.0 5-9 Urine [...] Epithelial Cell Present Absent Laboratory test finding 07/17/2017 Partial Thrombo Time 26.7 seconds 26.0 -36.3 PTT CBC Auto Diff 07/17/2017 White Blood [...] finding 07/17/2017 Lactic Acid 1.5 mmol/L 0.5-2.0 12 B-Type Natriuretic Peptide BNP 56 pg/mL 13 Alcohol < 10 mg/dL <10 Urinalysis Profile 07/17/2017 Urine Color Yellow Urine Appearance Cloudy Urine Specific Garibaldi 1.015 1.010-1.030 Urine pH 5.0 5-9 Urine [...] SCR 07/17/2017 Amphetamine Ur Screen Presumptive Posi None Detect 14 [facility] <SEE NOTE> Barbiturates Urine Screen None Detected None Detect Benzodiazepine Urine Screen None Detected None Detect Urine Cannabinoids Screen None Detected None Detect Urine Cocaine Screen None Detected None Detect Urine Opiates Screen None Detected None Detect Urine Phencyclidine Screen None Detected None Detect 15 Laboratory test 07/17/2017 TSH (Thyroid Stim 2.12 mcIU/mL 0.34-5.60 finding Horm) Urine Culture And 07/17/2017 Urine Culture SEE RESULT 16 Sensitivities BELOW Lipid Profile 07/14/2017 Triglycerides 147 mg/dL 17, 18 (Trig/Chol/HDL) Cholesterol 172 mg/dL 17, 19 HDL Cholesterol 42.0 mg/dL 17, 20 LDL Cholesterol 101 mg/dL 17, 21 Laboratory test 07/14/2017 TSH (Thyroid Stim 3.19 mcIU/mL 0.34-5.60 17, 22 finding Horm) Comp Metabolic Panel 07/14/2017 Sodium 141 mmol/L 139-145 17 Potassium 4.4 mmol/L 3.5-5.0 17 Chloride 105 mmol/L 101-111 17 Co2 Carbon Dioxide 30 mmol/L 22-32 17 Anion Gap 6 mmol/L 2-11 17 Glucose 141 mg/dL High 70-100 17 Blood Urea Nitrogen 29 mg/dL High 6-24 17 Creatinine 0.99 mg/dL High 0.51-0.95 17 BUN/Creatinine Ratio 29.3 High 8-20 17 Calcium 9.4 mg/dL 8.6-10.3 17 Total Protein 6.1 g/dL Low 6.4-8.9 17 Albumin 3.7 g/dL 3.2-5.2 17 Globulin 2.4 g/dL 2-4 17 Albumin/Globulin Ratio 1.5 1-3 17 Total Bilirubin 0.40 mg/dL 0.2-1.0 17 Alkaline Phosphatase 59 U/L 34-104 17 Alt 4 U/L Low 7-52 17 Ast 9 U/L Low 13-39 17 Egfr Non- 54.7 >60 17 Egfr 70.3 >60 17, 23 Laboratory test finding 07/14/2017 Hemoglobin A1c (Glyco 6.9 % High 4.0- 5.6 17, 24 HGB) Urinalysis Profile 06/13/2017 Urine Color Yellow Urine Appearance Cloudy Urine Specific Garibaldi 1.024 1.010-1.030 Urine pH 5.0 5-9 Urine [...] And 06/13/2017 Urine Culture SEE RESULT BELOW 25 Sensitivities Laboratory test finding 04/07/2017 Hemoglobin A1c 9.4 High 5-7 Urine Culture And 03/23/2017 Urine Culture SEE RESULT BELOW 26 Sensitivities Laboratory test finding 01/04/2017 Hemoglobin A1c 7.7 High 5-7 Urine Microalbumin Random 01/04/2017 Urine Creatinine 102.09 mg/dL Ur Microalbumin (mg/L) 775.5 mg/L Urine Microalbumin/Creatinine 759.6 ug/mg High <31 Ua Routine 01/04/2017 Ua Specific Garibaldi 1.020 Ua PH 5 Ua Color dark yellow Ua Appera clear Ua WBC trace Ua Protein +++ Ua Glucose normal Ua Ketones neg Ua Bilirubin neg Ua Urobilinogen normal Ua Nitrite neg Ua Occult Blood trace Lipid Profile (Trig/Chol/HDL) 09/19/2016 Triglycerides 134 mg/dL 27 Cholesterol 137 mg/dL 28 HDL Cholesterol 38.3 mg/dL 29 LDL Cholesterol 72 mg/dL 30 CBC Auto Diff 09/19/2016 White Blood Count [...] Egfr Non- 61.8 >60 Egfr 79.5 >60 31 Laboratory test finding 09/07/2016 Hemoglobin A1c 9.2 High 5-7 1 SEE RESULT BELOW Name: KIMBERLYSHIRA Michael : [address]: Juli Weller DO Acct: [id number] Unit: [id number] AGE: 77 Location: [place] [address] Re09/18/17 SEX: F Status: ADM IN SPEC: [id number] DAQUAN: 09/18/17-[address] [facility] [address]: Arnaldo Mayers MD REQ: [id number] RECD: 09/18/17150 STATUS: DANIS AUGUSTIN DR: Geri Cardona MD _ SOURCE: URINE SPDESC: ORDERED: Urine Culture Procedure Result Reported Site Urine Culture Final 09/19/17- 1714 ML No growth of clinically significant organisms * ML - Main Lab . END OF REPORT DEPARTMENT OF PATHOLOGY, [address] [place] [address] Marvin Stinson M.D. Director [facility] # [id number] 2 [facility] Severe Sepsis and Septic Shock Management Bundle Measure requires all lactic acids initially measuring >2.0 mmol/L be repeated. 3 Desirable: <150 Borderline High: 150-199 High: 200-499 Very High: >500 4 Desirable: <200 Borderline High: 200-239 High: >239 5 Low: <40 Desirable: 40-60 High: >60 6 Desirable: <100 Near Optimal: 100-129 Borderline High: 130-159 High: 160-189 Very High: >189 7 Because ethnic data is not always readily [...] 15-29 5 Kidney failure <15 (or dialysis) 8 SEE RESULT BELOW Name: SHIRA DELEON I : [address]: Geri Cardona MD Acct: [id number] Unit: [id number] AGE: 77 Location: [facility] Re09/13/17 SEX: F Status: REG REF SPEC: [id number] DAQUAN: 09/13/17-[address] [facility] [address]: Geri Cardona MD REQ: [id number] RECD: 09/13/17 STATUS: COMP _ SOURCE: URINE SPDESC: ORDERED: Urine Culture Urine Source: Random Procedure Result Reported Site Urine Culture Final 09/14/17- 5694 ML No growth of clinically significant organisms * ML - Main Lab . END OF REPORT DEPARTMENT OF PATHOLOGY, [address] [place] [address] Marvin Stinson M.D. Director [facility] # [id number] 9 SEE RESULT BELOW Name: SHIRA DELEON I : [address]: Morris Goddard MD Acct: [id number] Unit: [id number] AGE: 77 Location: ED Re08/25/17 SEX: F Status: DEP ER SPEC: [id number] DAQUAN: 08/25/[address]: Morris Goddard MD REQ: [id number] RECD: 08/25/17 STATUS: DANIS AUGUSTIN DR: Geri Cardona MD _ SOURCE: URINE SPDESC: ORDERED: Urine Culture Procedure Result Reported Site Urine Culture Final 08/26/17- 1241 ML No growth of clinically significant organisms * - [facility] . END OF REPORT DEPARTMENT OF PATHOLOGY, [address] [place] [address] Marvin Stinson M.D. Director [facility] # [id number] 10 Because ethnic data is not always readily [...] 15-29 5 Kidney failure <15 (or dialysis) 11 SEE RESULT BELOW Name: SHIRA DELEON I : [address]: Geri Cardona MD Acct: [id number] Unit: [id number] AGE: 77 Location: [facility] Re08/21/17 SEX: F Status: REG REF SPEC: [id number] DAQUAN: 08/21/[address]: Geri Cardona MD REQ: [id number] RECD: 08/21/17 STATUS: COMP _ SOURCE: URINE SPDESC: ORDERED: Urine Culture QUERIES: Urine Source: Random Procedure Result Reported Site Urine Culture Final 08/23/17- 0756 ML Organism 1 KLEBSIELLA PNEUMONIAE [place] Count >100,000 (Many) CFU/ML 1. KLEBSIELLA PNEUMONIAE [...] . END OF REPORT DEPARTMENT OF PATHOLOGY, [address] [place] [address] Marvin Stinson M.D. Director [facility] # [id number] 12 [facility] Severe Sepsis and Septic Shock Management Bundle Measure requires all lactic acids initially measuring >2.0 mmol/L be repeated. 13 >100 to <200 pg/mL: likely compensated congestive heart failure (CHF) 200 to 400 pg/mL: likely moderate CHF >400 pg/mL: likely moderate to severe CHF 14 Presumptive Positive Presumptive positive results are unconfirmed. 15 The urine specimen was tested at the listed cutoffs: Drug class test level (ng/mL) Amphetamines 500 Barbiturates 200 Benzodiazepine metabolites 200 Cocaine metabolites 150 Cannabinoids 50 Opiates 300 Pcp 25 Specimen was received without chain of custody. Results should be used for medical purposes only. 16 SEE RESULT BELOW Name: SHIRA DELEON I : [address]: Fidencio Vincent MD Acct: [id number] Unit: [id number] AGE: 77 Location: [place] [address]- Re07/17/17 SEX: F Status: ADM IN SPEC: [id number] DAQUAN: 07/17/[address]: Brennan Bryan MD REQ: [id number] RECD: 07/17/17 STATUS: DANIS AUGUSTIN DR: Valentina Rincon CIRCULATION ASSISTANT _ SOURCE: URINE SPDESC: ORDERED: Urine Culture Procedure Result Reported Site Urine Culture Final 07/19/17- 0835 ML No growth of clinically significant organisms * ML - Main Lab . END OF REPORT DEPARTMENT OF PATHOLOGY, [address] [place] [address] Marvin Stinson M.D. Director [facility] # [id number] Desirable: <150 Borderline High: 150-199 High: 200-499 Very High: >500 19 Desirable: <200 Borderline High: 200-239 High: >239 20 Low: <40 Desirable: 40-60 High: >60 21 Desirable: <100 Near Optimal: 100-129 Borderline High: 130-159 High: 160-189 Very High: >189 22 FASTING 23 Because ethnic data is not always [...] 15-29 5 Kidney failure <15 (or dialysis) 24 Therapeutic target for the treatment of diabetes mellitus patients is <7% HBA1C, and in selective patients <6.0%. Please refer to [place] [employer] diabetic care guidelines for further information. 25 SEE RESULT BELOW Name: SHIRA DELEON I : [address]: Valentina Rincon NP Acct: [id number] Unit: [id number] AGE: 76 Location: [facility] Re06/13/17 SEX: F Status: REG REF SPEC: [id number] DAQUAN: 06/13/17-[address]: Valentina Rincon NP REQ: [id number] RECD: 06/13/17 STATUS: COMP _ SOURCE: URINE SPDESC: ORDERED: Urine Culture Procedure Result Reported Site Urine Culture Final 06/15/17- 1234 ML Organism 1 AEROCOCCUS URINAE [place] Count 50-75,000 (Many) CFU/ML Aerococcus isolates are too fastidious for routine susceptibility studies. Aerococcus are usually susceptible to penicillin, amoxicillin, piperacillin, cefipime, rifampin and vancomycin. Moderate to good activity occurs with the quinolones, tetracyclines and erythromycin. (Lanre's Color [place] and Textbook of Diagnostic Microbiology 6th Ed. 2006, p. 705-6.) * ML - Main Lab . END OF REPORT DEPARTMENT OF PATHOLOGY, [address] [place] [address] Marvin Stinson M.D. Director [facility] # [id number] 26 SEE RESULT BELOW Name: SHIRA DELEON Michael : [address]: Valentina Rincon NP Acct: [id number] Unit: [id number] AGE: 76 Location: [facility] Re03/23/17 SEX: F Status: REG REF SPEC: [id number] DAQUAN: 03/23/17-[address] [facility] [address]: Valentina Rincon NP REQ: [id number] RECD: 03/23/17 STATUS: COMP _ SOURCE: URINE SPDESC: ORDERED: Urine Culture Urine Source: Random Procedure Result Reported Site Urine Culture Final 03/25/17- 0854 ML Organism 1 ESCHERICHIA COLI [place] Count >100,000 (Many) CFU/ML 1. ESCHERICHIA COLI [...] antibiotic reporting. * ML - MAIN LAB ([facility]) . END OF REPORT * ML=Testing performed at Main Lab DEPARTMENT OF PATHOLOGY, [address] [place] [address] Marvin Stinson M.D. Director [facility] # [id number] 27 Desirable <150 Borderline high 150-199 High 200-499 Very High >500 28 Desirable <200 Borderline high 200-239 High >239 29 Low <40 Desirable: 40-60 High: >60 30 Desirable: <100 mg/dL Near Optimal: 100-129 mg/dL Borderline High: 130-159 mg/dL High: 160-189 mg/dL Very High: >189 mg/dL 31 Because ethnic data is not always readily [...] dialysis) Procedures Date CPT Code Description Status 09/20/2017 94707 EEG Recording Awake & Drowsy Completed 09/20/2017 32806 Echocardiogram, Limited Study Completed 09/18/2017 30734 ECHO Transthorasic Realtime 2D W Doppler & Color Flow Completed Hosp 01/07/2015 06588 ECHO Transthorasic Realtime 2D W Doppler & Color Flow Completed Hosp 01/07/2015 86761 EKG, Interpretation Only Completed 11/07/2013 20102 Rad Exam; Humerus Completed 03/13/2012 84402 Rad Exam; Humerus Completed 01/23/2012 38314 Closed trtmt prox humeral fx Completed 01/23/2012 94435 Rad Shoulder Comp, Min. 2 Views Completed 01/23/2012 93360 Rad Shoulder Comp, Min. 2 Views Completed 12/06/2011 48661 Short Arm Splint Application Completed 11/15/2011 10479 Long Arm Cast Application Completed 11/11/2011 68009 Rad Exam; Wrist Limited, 2 Views Completed 11/10/2011 87928 Transplant Tendon Forearm/Wrist Completed 11/10/2011 17873 Transplant Tendon Forearm/Wrist Completed 05/05/2011 83617 Rad Exam; Humerus Completed 02/23/2011 75446 Rad Shoulder Comp, Min. 2 Views Completed 02/10/2011 80927 Removal, Non-Biodegradable Drug Delivery Implant Completed 02/10/2011 39770 Removal, Non-Biodegradable Drug Delivery Implant Completed 02/10/2011 59014 Arthroplasty,Total Shoulder Replacement (TSR) Completed 02/10/2011 31831 Arthroplasty,Total Shoulder Replacement (TSR) Completed 09/10/2010 11329 Insertion, Non-Biodegradable Drug Delivery Implant Completed 09/10/2010 29518 Debridement Tissue/Muscle/Bone Completed 09/10/2010 71795 Debridement Tissue/Muscle/Bone Completed 09/06/2010 20627 Remove Foreign Body Shoulder Deep Completed 09/06/2010 07625 Arthrotomy Glenohumeral JT Explore/Drain/Remove FB Completed 09/06/2010 76800 Arthrotomy Glenohumeral JT Explore/Drain/Remove FB Completed 09/05/2010 50762 Inject/Drain Joint/Bursa Major W/O US Completed 09/01/2010 43304 Rad Shoulder Comp, Min. 2 Views Completed 08/17/2010 53531 Rad Exam; Humerus Completed 08/03/2010 04120 Rad Exam; Humerus Completed 07/20/2010 82894 Rad Exam; Humerus Completed 07/14/2010 26457 Rad Exam; Humerus Completed 07/14/2010 39351 Long Arm Splint Application Completed 07/05/2010 85935 Rad Exam; Humerus Completed 07/05/2010 46141 Long Arm Splint Application Completed 06/21/2010 58001 Closed trtmt humeral shaft fx Completed Encounters Type Date Location Provider CPT E/M Dx Office Visit 10/26/2017 [facility] Geri Cardona 52389 G45.9 2:40p Joselyn Santiago M.D. F41.9 E83.42 E11.9 Office Visit 10/20/2017 1:30p [facility] Monica Garza M.D. 51892 G20 Services [facility] I10 Z79.02 Office Visit 09/25/2017 10:37a [facility] Amparo Vogt, 75993 G45.9 Assoc,pc CIRCULATION ASSISTANT Hospitalists I16.0 I47.2 E83.42 Office Visit 09/24/2017 10:37a [facility]oc,SANAZ Quinonez 72182 G45.9 Hospitalists I47.2 E83.42 M54.30 Office Visit 09/23/2017 10:36a [facility],SANAZ Quinonez 17001 G45.9 Hospitalists E83.42 M54.30 I10 Office Visit 09/22/2017 10:36a [facility],SANAZ Quinonez 99570 G45.9 Hospitalists I10 G20 E11.9 Office Visit 09/21/2017 10:36a [facility], SANAZ Cowart 63827 G45.9 Hospitalists I10 E83.42 E78.5 Office Visit 09/20/2017 7:00a [facility] [address] R47.81 I10 M54.81 G20 Office Visit 09/20/2017 10:35a [facility], SANAZ Cowart 04389 G45.9 Hospitalists I10 E11.9 G20 Office Visit 09/19/2017 7:00a [facility] [address] R47.81 I10 M54.81 G20 Office Visit 09/19/2017 10:35a [facility] [place], [address] R47.81 Assoc, Hospitaljessica M.Waqar Office Visit 09/19/2017 10:35a [place] [address] R47.81 Office Visit 09/18/2017 10:34a [place] [address] R47.81 R53.1 I16.0 Office Visit 09/18/2017 7:00a [facility] [address] R47.01 I16.1 G20 Office Visit 08/28/2017 2:00p [facility] Geri Cardona M.D. 72793 I10 - Jack M25.531 M79.641 M79.642 M79.645 M79.621 Office Visit 08/18/2017 5:00p [facility] Geri Cardona 50198 E11.9 - Jack Finch G20 N39.0 M54.31 Office Visit 08/01/2017 8:30a [facility] Eliecer Montero, 34686 S42.201P [facility] SHEILA Valentine M.D. S42.401P Office Visit 07/21/2017 10:07a [facility] ,[place] [address] R53.1 Hospitalists M54.30 E83.42 G20 E11.9 Office Visit [facility]/20[facility]2017 [facility] [address] R53.1 Hospitalists M54.30 E83.42 G20 E11.9 Office Visit 07/19/2017 10:06a [facility], [place] [address] R53.1 Hospitalists M54.30 E83.42 G20 E11.9 Office Visit 07/18/2017 10:05a [facility], [place] [address] M54.30 Hospitalists E83.42 N39.0 E11.9 G20 Office Visit 07/17/2017 10:05a [facility], Matt Mcclure, 26626 R53.1 Hospitalists N.P. B96.20 N39.0 G20 E11.8 Office Visit 07/12/2017 11:20a [facility] Valentina Rincon, PARKING ANALYST [address] M79.[address] - [address] E11.42 F43.20 G20 E78.5 I10 S60.221A Office Visit 05/12/2017 3:15p [facility] Monica Garza M.D. 18804 G20 Services [facility] M54.31 Office Visit 04/07/2017 2:00p [facility] Valentina Rincon PARKING ANALYST 22165 E11.42 - [place] I10 F43.20 E78.5 K21.9 M54.31 G20 Office Visit 01/04/2017 1:00p [facility] JONATHAN Beard 39039 E11.42 - [address] F43.20 I10 E78.5 R30.0 Z23 Office Visit 12/21/2016 3:00p [facility] Monica Garza M.D. 59868 G20 Services [facility] R29.6 I67.82 Office Visit 09/28/2016 1:40p [facility] JONATHAN Beard 20994 E11.42 - [address] I10 E78.5 F43.20 Z79.4 Office Visit 09/07/2016 11:00a [facility] Valentina Rincon PARKING ANALYST 96139 E11.42 - [address] G20 I10 E78.5 K21.9 F43.20 Office Visit 08/24/2016 3:30p [facility] Monica Garza M.D. 22167 G20 Services Of [employer] I67.82 R29.6 Office Visit 05/25/2016 2:30p [facility] Monica Garza M.D. 91568 G20 Services Of [employer] I67.82 Office Visit 02/25/2016 3:00p [facility] Monica Garza M.D. 28359 G20 Services Of [employer] I67.82 Office Visit 10/02/2015 3:15p [facility] Monica Garza M.D. 51228 G20 Services Of [employer] I67.82 M54.16 E11.42 R29.6 Office Visit 06/03/2015 9:30a [facility] Monica Garza M.D. 80539 G20 I67.82 Office Visit 03/12/2015 9:00a [facility] Monica Garza M.D. 57064 G20 M54.16 R29.810 E11.42 R29.6 M54.2 R15.9 N39.498 R29.2 Office Visit 01/07/2015 4:11p [facility], Padmini Sotelo.Amanda 38893 R55 Hospitalists E11.9 R41.3 Office Visit 01/06/2015 4:10p [facility], [place] [address] R55 Hospitalists E11.9 R41.3 Office Visit 07/30/2014 10:30a [facility] Una Walls, 03572 812.00 Of Lul Finch V54.89 729.5 Office Visit 11/07/2013 1:45p [facility] Eduardo Stafford M.D. 41215 812.00 Of C.M.ADavid Office Visit 01/31/2012 10:00a [facility] Eduardo Stafford M.D. 62822 812.00 Of C.M.ADavid Office Visit 01/23/2012 9:00a [facility] Jovanny Lacey 82552 812.00 Of C.M.Carmela Zhang R.P.A.-C 812.40 905.2 812.00 Office Visit 06/21/2011 11:45a [facility] Una MadrigalTina, 66525 354.3 Of Lul Finch Office Visit 06/21/2011 11:30a [facility] Eduardo Stafford M.D. 77246 812.40 Of CArlin V54.89 Office Visit 05/05/2011 11:00a [facility] Of Gifty Huber, 01198 812.40 CArlin RPA-C V54.89 Office Visit 12/15/2010 2:00p [facility] Of Eduardo Stafford M.D. 67142 996.66 C.Alejo 354.3 Office Visit 09/01/2010 1:30p [facility] Of Eduardo Stafford M.D. 28397 719.41 C.MEnriqueta Plan of Care Future Appointment(s):03/09/2018 1:00 pm - Geri Cardona M.D. at [facility]03/09/2018 2:30 pm - Monica Garza M.D. at [facility]11/06/2017 - Geri Cardona M.D.I10 Essential (primary) hypertensionComments:Stop the nifedipineContinue other medicationsCheck BP Monl me with numbers in 2 pyloaO03.6 Repeated fallsComments:USE YOUR WALKER!!!
[2017-11-27] MEDS ORDERED: Morphine INJ* 4 MG/ML 1 ML SYRINGE (NEW SYRINGE VERSION) ONE (22:19)
[2017-11-27] MEDS ORDERED: Morphine INJ* 4 MG/ML 1 ML SYRINGE (NEW SYRINGE VERSION) IV PRN (22:25)
[2017-11-27] MEDS ORDERED: Polyethylene Glycol 3350* 17 GM PACKET PO PRN (22:29)
[2017-11-27] MEDS ORDERED: Artificial Tears* 15 ML BTL BOTH EYES PRN (22:31)
[2017-11-27] MEDS ORDERED: Gabapentin CAP(*) 100 MG PO ONE (22:35)
[2017-11-27] MEDS ORDERED: Dextrose 50% Syringe 50 ML* 25 GM/50 ML SYRINGE IV PUSH PRN (22:36)
[2017-11-27] MEDS ORDERED: Melatonin 3 MG TAB PO PRN (22:37)
[2017-11-27] MEDS ORDERED: Polyethyl Glycol/Propylene Gly OPHTH.SOLN BOTH EYES PRN (22:38)
[2017-11-27] MEDS: Senna TAB PO SCH (22:55)
[2017-11-27] MEDS: Docusate CAP* 100 MG PO SCH (22:56)
[2017-11-27] MEDS: Amantadine CAP* 100 MG PO SCH (22:56)
[2017-11-27] MEDS: CARBIDOPA PO SCH (22:56)
[2017-11-27] MEDS: LEVODOPA PO SCH (22:56)
[2017-11-27] MEDS: Gabapentin CAP(*) 100 MG PO SCH (22:56)
[2017-11-27] MEDS: Metoprolol Tartrate TAB* 50 mg PO SCH (22:57)
[2017-11-27 22:58] LABS: ABS Basophils 0.1 10^3/ul (0-0.2); ABS Eosinophils 0 10^3/ul (0-0.6); ABS Lymphocytes 1.6 10^3/ul (1.0-4.8); ABS Monocytes 0.9 10^3/ul (0-0.8); ABS Neutrophils 10.2 10^3/ul (1.5-7.7); ABS Nucleated RBC 0 10^3/ul; Eosinophil % 0.3 % (0-6); Hematocrit 30 % (35-47); Lymphocyte % 12.4 % (25-47); Mean Corpuscular HGB Conc 34 g/dl (31-36); Mean Corpuscular Hemoglobin 29 pg (27-31); Mean Corpuscular Volume 88 fL (80-97); Mean Platelet Volume 7.1 um3 (7.4-10.4); Nucleated Red Blood Cells % 0; Platelet Count 402 10^3/ul (150-450); Red Blood Count 3.39 10^6/ul (4.00-5.40); Red Cell Distribution Width 14 % (10.5-15); White Blood Count 12.8 10^3/ul (3.5-10.8)
[2017-11-27] MEDS ORDERED: Carbidopa/Levodop 25/100 MG TAB(*) PO SCH (23:00)
[2017-11-27 23:15] LABS: EGFR Non-African American 57.2 (>60); INR 1.13 (0.77-1.02)
[2017-11-28] MEDS: NS 0.9% 1000 ML* 1,000 ML IV SCH (00:15)
[2017-11-28] MEDS ORDERED: Magnesium Sulfate 2 GM IV* 2 GM/50 ML BAG IVPB ONE (00:45)
[2017-11-28] MEDS: Morphine INJ* 4 MG/ML 1 ML SYRINGE (NEW SYRINGE VERSION) IV PRN ×3 (03:21→06:48)
[2017-11-28] MEDS: Heparin VIAL(*) 5000 UNITS/ML VIAL (FIVE THOUSAND) SUBCUT SCH ×3 (04:56→14:10)
[2017-11-28] MEDS: Omeprazole CAP* 20 MG PO SCH (05:21)
[2017-11-28] MEDS ORDERED: Morphine INJ* 4 MG/ML 1 ML SYRINGE (NEW SYRINGE VERSION) IV PRN (06:36)
--- NOTE | 2017-11-28 07:24 | HP ---
CC: Geri Cardona MD; Physician at [facility]; Elisha Fry MD * HISTORY AND PHYSICAL: DATE OF ADMISSION: 11/27/17 TIME OF EVALUATION: 2200. PRIMARY CARE PHYSICIAN: Geri Cardona MD ORTHOPEDIC SURGEON: Elisha Fry MD CHIEF COMPLAINT: Hip fracture. HISTORY OF PRESENT ILLNESS: This is a 77-year-old female with a past medical history of Parkinson's, diabetes, hypertension, who was initially at assisted living when she fell on 11/11/17. The patient said she lost her balance at that time. She went to [facility] where she had a left femoral neck fracture. She had a left hemiarthroplasty done on 11/13/[address] Villareal. She was discharged to acute rehab at [facility] on 11/17/17. She had been doing relatively well on Monday evening, at that point, she was pivoting and transferring. On 11/25/17, it was unclear what happened but she developed significant pain at that time of the left hip. She had an x-ray done on 11/24/17 that was unremarkable and then repeat hip x-ray done today on 11/27/17 that showed a periprosthetic fracture involving the lesser trochanter. The family is from [place] and they requested Dr. Fry for surgical intervention. Dr. Fry was contacted and Dr. Weller accepted the patient as direct admission. The patient just arrived. The patient denies any chest pain. No shortness of breath. No nausea, vomiting, diarrhea. No urinary symptoms. She has not had a bowel movement since 11/21/17. She is having significant amount of pain since being transferred here. The patient did tolerate her hemiarthroplasty well with no complications. Prior to her surgery, she was at assisted living, ambulating with the walker. There were a few stairs that she was able to take without any difficulty but she was dependent on her ADLs. She has no significant cardiac or respiratory history. Otherwise, review of systems is negative. PAST MEDICAL HISTORY: 1. Parkinson's disease. 2. Hypertension. 3. Hyperlipidemia. 4. Diabetes. 5. History of TIA. 6. Hypomagnesemia. 7. History of occipital neuralgia. 8. Chronic back pain with sciatica. 9. Constipation. 10. Depression. 11. GERD. 12. Arthritis. 13. 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 14. History of subarachnoid hemorrhage. 15. History of left shoulder septic joint. PAST SURGICAL HISTORY: 1. She has had multiple surgeries to left shoulder. 2. Hysterectomy. 3. Eye surgery. 4. Left femoral neck hemiarthroplasty on 11/13/17. MEDICATIONS: 1. Xanax 0.25 mg 1 p.o. q.8 hours as needed for anxiety. 2. Lovenox 40 mg subcu daily. 3. Paroxetine 20 mg daily. 4. Tylenol 650 mg every 6 hours as needed. 5. Amantadine 100 mg p.o. b.i.d. 6. Artificial tears 1 drop both eyes every 2 hours as needed. 7. Aspirin 81 mg daily. 8. Carbidopa-levodopa 25/100 one tab daily at bedtime. 10. Colace 100 mg 2 capsules p.o. b.i.d. p.r.n. 11. Cyanocobalamin 1000 mcg daily. 12. Gabapentin 100 mg p.o. b.i.d. 13. Gabapentin 200 mg p.o. at bedtime. 14. Guaifenesin as needed. 15. Lantus 32 units in the morning. 16. Lisinopril/hydrochlorothiazide 20/12.5 one p.o. daily. 17. Magnesium oxide 400 mg p.o. b.i.d. 18. Melatonin 3 mg at bedtime p.r.n. 19. Metformin 500 mg p.o. b.i.d. 20. Metoprolol tartrate 50 mg p.o. b.i.d. 21. MiraLAX 17 g every 24 hours as needed. 22. Omeprazole 20 mg daily. 23. Oxycodone 5 to 10 mg every 4 hours as needed for pain. 24. Simvastatin 40 mg p.o. daily. 25. Selegiline 5 mg p.o. daily. 26. Risamine ointment apply to buttocks topically 1 time a day. ALLERGIES: PENICILLIN. FAMILY HISTORY: Reviewed and noncontributory. SOCIAL HISTORY: As mentioned, the patient was in assisted living, now in acute rehab. She was dependent of her ADLs, ambulating with the walker. Healthcare proxy is her daughter, Santi Yuen, who is at the bedside. No history of smoking, alcohol, or illicit drug use. She is ambulating with the walker. MOLST form confirmed, remains a DNR/DNI. REVIEW OF SYSTEMS: A 14-point review of systems as mentioned in the HPI, otherwise negative. PHYSICAL EXAMINATION GENERAL: No acute distress. Moderate discomfort in her hip. Daughter at the bedside. VITAL SIGNS: Temp 98.2, pulse rate 63, respiratory rate 16, oxygen saturation 98 % on room air, blood pressure 126/64. HEENT: Head normocephalic. Pupils equal and reactive. Oropharynx: Mucous membranes are dry. NECK: Supple. No lymphadenopathy. RESPIRATORY: Diminished breath sounds without wheeze, rhonchi, or rales. CARDIAC: Regular rate and rhythm. Soft systolic murmur heard throughout. ABDOMEN: Soft, nontender, nondistended. EXTREMITIES: The patient is with her left lower extremity shortened with internal rotation. Distant pulses palpable. Brisk cap refill bilaterally. Warm extremities. NEUROLOGIC: Alert and oriented x3. No gross focal or neurologic deficits. She has some subtle weakness in her right upper extremity. Limited mobility of her lower extremities due to her hip fracture. DIAGNOSTIC STUDIES/LAB DATA: No laboratory data or radiographic data at this time. ASSESSMENT AND PLAN: This is a 77-year-old female with past medical history of diabetes, hypertension, Parkinson's, who presents as a direct admission from [facility] with a left periprosthetic fracture. Left periprosthetic hip fracture. Assessment: The patient just had a left femoral neck hemiarthroplasty on . The concern is that this fracture occurred with repositioning or transferring. Dr. Fry has been contacted regarding surgical repair. There are no contraindications with proceeding with surgery. Her RCRI is 1. She is unable to get an accurate METs score as the patient does not ambulate on the stairs and she is limited in her mobility due to Parkinson's, but she does not have a significant cardiac or respiratory history. Plan: We will keep her n.p.o. after midnight. Continue gentle IV fluids at midnight, pain and bowel regimen and follow up with Ortho in the morning. We will get a baseline labs, EKG, and chest x-ray, and hold her aspirin for now. We will also hold her lisinopril and hydrochlorothiazide for her upcoming surgery and continue her metoprolol tartrate. CHRONIC MEDICAL PROBLEMS: As mentioned above, we will continue her remaining medications. We will continue her bowel regimen as scheduled as she has not had a bowel movement since 11/21/17. Diabetes. Continue on her Lantus with the lispro sliding scale. Hold the metformin. FEN: Diabetic diet. N.p.o. after midnight with gentle IV fluids. DVT prophylaxis: The patient scores high risk. We will place her on heparin subcu t.i.d. Code status: The patient is a DNR/DNI, which will be rescinded during her procedure. TIME SPENT: Greater than 30 minutes was spent doing the history and physical, more than half the time was spent in direct patient contact. [id number]/[facility] #: [id number] CARLEE
--- NOTE | 2017-11-28 07:53 | RAD ---
INDICATION: Preoperative chest x-ray after an acute hip fracture COMPARISON: Chest x-ray dated September 19, 2017 TECHNIQUE: Single AP portable view of the chest was obtained. FINDINGS: Image quality is compromised due to the relative inferiority of a portable chest x-ray. The heart and mediastinum exhibit normal size and contour. The lungs are grossly clear. There is no evidence of a large pleural effusion. Visualized bones are normal for the patient's age. IMPRESSION: No radiographic evidence for acute cardiopulmonary abnormality on this portable chest x-ray. R1
[2017-11-28] MEDS: Insulin LISPRO* 1 UNITS UNIT SUBCUT SCH ×3 (08:27→18:32)
--- NOTE | 2017-11-28 08:35 | RAD ---
HISTORY: preop COMPARISONS: None VIEWS: 8 , Frontal view of the pelvis with frontal and frog-leg views frontal and lateral views of the left femur FINDINGS: BONE DENSITY: Normal. BONES: The patient is status post left hip arthroplasty. There is a periprosthetic fracture through the lesser trochanter with minimal displacement. JOINTS: The patient is status post left hip arthroplasty. There is mild osteoarthritis of the right hip. ALIGNMENT: There is no dislocation. SOFT TISSUES: There is peripheral arterial calcification. OTHER FINDINGS: None. IMPRESSION: STATUS POST LEFT HIP ARTHROPLASTY WITH PERIPROSTHETIC FRACTURE OF THE PROXIMAL LEFT FEMUR.
[2017-11-28] MEDS ORDERED: Insulin GLARGINE(*) 1 UNITS UNIT SUBCUT SCH (09:00)
[2017-11-28] MEDS ORDERED: Magnesium Oxide TAB* 400 MG PO SCH (09:00)
[2017-11-28] MEDS: Magnesium Oxide TAB* 400 MG PO SCH (10:02)
[2017-11-28] MEDS: Amantadine CAP* 100 MG PO SCH (10:02)
[2017-11-28] MEDS: Cyanocobalamin TAB* 500 MCG PO SCH (10:02)
[2017-11-28] MEDS: PARoxetine HCL TAB* 20 MG PO SCH (10:02)
[2017-11-28] MEDS: Metoprolol Tartrate TAB* 50 mg PO SCH (10:03)
[2017-11-28] MEDS: Senna TAB PO SCH (10:03)
[2017-11-28] MEDS: Gabapentin CAP(*) 100 MG PO SCH (10:03)
[2017-11-28] MEDS: Docusate CAP* 100 MG PO SCH (10:03)
[2017-11-28] MEDS: SELEGILINE 5 MG PO SCH (10:04)
[2017-11-28] MEDS: oxyCODONE/Acetamin 5/325 MG* TAB PO PRN ×2 (10:04→23:48)
[2017-11-28] MEDS: LEVODOP PO SCH ×2 (10:05→14:08)
[2017-11-28] MEDS: CARBIDOPA PO SCH ×2 (10:05→14:08)
[2017-11-28 10:33] LABS: Hematocrit 30 % (35-47); Hemoglobin 10.4 g/dl (12.0-16.0); Mean Corpuscular HGB Conc 35 g/dl (31-36); Mean Corpuscular Hemoglobin 31 pg (27-31); Mean Corpuscular Volume 89 fL (80-97); Mean Platelet Volume 7.2 um3 (7.4-10.4); Platelet Count 382 10^3/ul (150-450); Red Blood Count 3.39 10^6/ul (4.00-5.40); Red Cell Distribution Width 14 % (10.5-15); White Blood Count 9.7 10^3/ul (3.5-10.8)
[2017-11-28] MEDS ORDERED: Insulin GLARGINE(*) 1 UNITS UNIT SUBCUT ONE (11:00)
--- NOTE | 2017-11-28 11:45 | RAD ---
Indication: Preop planning. CT of the pelvis was performed in the axial plane. Sagittal and coronal reconstructed images were obtained. There is left hip replacement. Periprosthetic fracture is noted along the proximal femur especially along the lesser trochanter. There may be some lucency at the proximal end of the femur. The distal femoral component appears to be intact. Acetabular cup in place. IMPRESSION: Periprosthetic fracture along the lesser trochanter of the femoral component of the left hip.
[2017-11-28] MEDS: Ondansetron INJ* 2 MG/ML VIAL IV PRN (12:47)
--- NOTE | 2017-11-28 13:17 | CONS ---
ORTHOPEDIC CONSULTATION NOTE: DATE OF CONSULT: 11/28/17 CHIEF COMPLAINT: Left hip pain. HISTORY OF PRESENT ILLNESS: Ms. Deleon is a 77-year-old female, resident of [facility] who had a fall on 11/12/17. She was brought to [facility] where she was found to have a femoral neck fracture. She underwent a left hip hemiarthroplasty on 11/13/[address] Villareal. She did well and was discharged back to rehab. The patient's family reports that she felt a pop while she was in bed and x-rays were taken. There is no report of a fall. She had 8/10 pain in the left hip. X-rays showed periprosthetic femur fracture with displacement. They contacted her prior surgeon who recommended surgical treatment. The patient's family requested transfer to [facility] and my care. I did accept the transfer. Hospitalist group is good enough to admit the patient for me due to her significant past medical history. PAST MEDICAL HISTORY: Parkinson disease, hypertension, hyperlipidemia, diabetes. PAST SURGICAL HISTORY: Recent left hip hemiarthroplasty. MEDICATIONS: Please see full medication list includin. Carbidopa/levodopa. 2. Amantadine. 3. Aspirin. 4. Colace. 5. Gabapentin. 6. Lantus. 7. Lisinopril. 8. Metformin. 9. Metoprolol. 10. Omeprazole. 11. Paroxetine. 12. Selegiline. 13. Vitamin B12. 14. Melatonin. 15. Simvastatin. 16. Alprazolam. 17. Oxycodone. ALLERGIES: PENICILLIN. FAMILY HISTORY: Negative. SOCIAL HISTORY: The patient is a resident of [facility]. She reports that she normally walked independently before the first fall. No tobacco, alcohol, or recreational drugs. REVIEW OF SYSTEMS: Fourteen systems reviewed with the patient today. Positive for the left hip pain, recent falls. Positive for imbalance, dizziness. She denies fevers, chills, chest pain, shortness of breath. Otherwise, review of systems is negative or not relevant according to the patient. PHYSICAL EXAM: Vitals: Temperature is 98.4, pulse is 73, blood pressure 139/ 63. General: The patient is a well-nourished female, in no apparent distress. Alert and oriented x3. Pleasant mood and appropriate affect. She is lying in bed. HEENT: The patient has an ecchymosis along the left periorbital region. Pupils are equal and reactive to light. Neck: Trachea midline. Supple. No palpable lymph nodes. Chest: Unlabored breathing. Abdomen: Soft, nontender, and nondistended in the 4 quadrants. Heart: S1 and S2. Bilateral upper extremities: The patient's skin is intact. She forward flexed at the shoulders to 90 degrees without pain. 4+/5 military lawyer strength. 2+ palpable radial pulses. Right lower extremity: Skin is intact. She can flex at the hip and knee without pain. Distally neurovascularly intact. Left lower extremity: Incision is healing, slight erythema. The patient's leg is externally rotated and shortened. Tenderness along the thigh. Thigh is soft and compressible. Skin is intact. She demonstrates EHL and FHL. 2+ palpable DP pulse. She reports full sensation to light touch in all nerve distributions. RADIOGRAPHS: I have no radiographs other than the one which was texted to me through the surgeon from [place] showing a proximal femur periprosthetic fracture with displacement of at least the lesser trochanter bone and proximal femur, this is a hemiarthroplasty. LABORATORY DATA: On 11/27/17, white blood cell 12.8, hematocrit 30, platelets 402,000. INR 1.13. Sodium 130, potassium 4.3, chloride 93, BUN and creatinine 28 and 0.95, glucose 194, calcium 9.4, magnesium 1.7. ASSESSMENT AND PLAN: Ms. Deleon is a 77-year-old female now with another fall and a periprosthetic left hip hemiarthroplasty fracture. There is a comminuted fracture around the proximal femoral stem and I believe a significant amount of subsidence of the stem. The patient, her daughter and I discussed operative and nonoperative treatment options. She understands the risks and benefits. She would like to proceed with revision left hip hemiarthroplasty and open reduction and internal fixation of the periprosthetic fracture. She will be n.p.o. for now. She has been medically optimized by the hospitalist team and I have discussed this case with Dr. Cannon. I will order stat x-rays and I would also need a CT scan of this left femur this morning. We will attempt to have the operative note faxed from [facility]. Plan will be for a long uncemented femoral stem with cables and possibly a trochanteric military lawyer plate proximally. Thank you for this orthopedic consultation. [id number]/[facility] #: [id number] CARLEE
--- NOTE | 2017-11-28 13:53 | PN ---
Subjective Date of Service: 11/28/17 Interval History: Pt is feeling ok. She just had pain medication within the last 30min. She denies any pain at this time. She is waiting to go back for surgery this afternoon. Objective Active Medications: Acetaminophen (Tylenol Tab*) 650 mg PO Q4H PRN PRN Reason: FEVER/PAIN Alprazolam (Xanax Tab*) 0.25 mg PO Q8H PRN PRN Reason: ANXIETY Amantadine HCl (Symmetrel Cap*) 100 mg PO BID [facility] Last Admin: 11/28/17 10:02 Dose: 100 mg Carbidopa/Levodopa (Sinemet 25/100 Tab(*)) 2 tab PO TID [facility] Last Admin: 11/28/17 10:05 Dose: 2 tab Carbidopa/Levodopa (Carbidopa-Levo Er 25-100 Tab) 1 tab PO BEDTIME [facility] Last Admin: 11/27/17 22:56 Dose: 1 tab Cyanocobalamin (Vitamin B12 Tab*) 1,000 mcg PO DAILY [facility] Last Admin: 11/28/17 10:02 Dose: 1,000 mcg Dextrose (D50w Syringe 50 Ml*) 12.5 gm IV PUSH .FOR FS < 60 - SS PRN PRN Reason: FS < 60 Docusate Sodium (Colace Cap*) 100 mg PO BID [facility] Last Admin: 11/28/17 10:03 Dose: 100 mg Gabapentin (Neurontin Cap(*)) 100 mg PO BID [facility] Last Admin: 11/28/17 10:03 Dose: 100 mg Heparin Sodium (Porcine) (Heparin Vial(*)) 5,000 units SUBCUT Q8HR [facility] Last Admin: 11/28/17 06:45 Dose: 5,000 units Sodium Chloride (Ns 0.9% 1000 Ml*) 1,000 mls @ 75 mls/hr IV PER RATE [facility] Last Admin: 11/28/17 00:15 Dose: 75 mls/hr Insulin Glargine (Lantus(*)) 32 units SUBCUT 0900 [facility] Insulin Human Lispro (Humalog*) 0 units SUBCUT AC [facility]; Protocol Last Admin: 11/28/17 11:49 Dose: Not Given Magnesium Oxide (Magox 400 Tab*) 400 mg PO BID [facility] Last Admin: 11/28/17 10:02 Dose: 400 mg Melatonin (Melatonin) 1 mg PO BEDTIME PRN PRN Reason: SLEEP Metoprolol Tartrate (Lopressor Tab*) 50 mg PO Q12HR [facility] Last Admin: 11/28/17 10:03 Dose: 50 mg Morphine Sulfate (Morphine Inj (Syringe)*) 4 mg IV Q2H PRN PRN Reason: PAIN - MILD Last Admin: 11/28/17 12:49 Dose: 4 mg Omeprazole (Prilosec Cap*) 20 mg PO 0600 [facility] Last Admin: 11/28/17 05:21 Dose: Not Given Ondansetron HCl (Zofran Inj*) 4 mg IV Q4H PRN PRN Reason: NAUSEA/VOMITING Last Admin: 11/28/17 12:47 Dose: 4 mg Oxycodone/Acetaminophen (Percocet 5/325 Tab*) 1 tab PO Q4H PRN PRN Reason: Pain Last Admin: 11/28/17 10:04 Dose: 1 tab Paroxetine HCl (Paxil Tab*) 20 mg PO DAILY [facility] Last Admin: 11/28/17 10:02 Dose: 20 mg Polyethyl Glycol/Propylene Glycol (Lubricant Eye Drops) 1 drop BOTH EYES Q2H PRN PRN Reason: DRY EYE Polyethylene Glycol/Electrolytes (Miralax*) 17 gm PO DAILY PRN PRN Reason: CONSTIPATION Selegiline HCl (Eldepryl Tab*) 5 mg PO DAILY [facility] Last Admin: 11/28/17 10:04 Dose: 5 mg Senna (Senokot Tab*) 1 tab PO BID [facility] Last Admin: 11/28/17 10:03 Dose: 1 tab Vital Signs - 8 hr 11/28/17 11/28/17 11/28/17 05:57 05:58 06:48 Temperature Pulse Rate Respiratory 18 16 20 Rate Blood Pressure (mmHg) O2 Sat by Pulse Oximetry 11/28/17 11/28/17 11/28/17 07:34 07:48 09:00 Temperature 98.4 F Pulse Rate 73 Respiratory 16 14 16 Rate Blood Pressure 139/63 (mmHg) O2 Sat by Pulse 94 Oximetry 11/28/17 11/28/17 11/28/17 10:03 10:04 11:25 Temperature 97.1 F Pulse Rate 69 Respiratory 16 16 16 Rate Blood Pressure 160/76 (mmHg) O2 Sat by Pulse 93 Oximetry 11/28/17 11/28/17 12:02 12:49 Temperature Pulse Rate Respiratory 16 16 Rate Blood Pressure (mmHg) O2 Sat by Pulse Oximetry Oxygen Devices in Use Now: None Appearance: Elderly female lying flat in bed, NAD Eyes: No Scleral Icterus Ears/Nose/Mouth/Throat: Mucous Membranes Moist Respiratory: Symmetrical Chest Expansion and Respiratory Effort, Clear to Auscultation Cardiovascular: NL Sounds; No Murmurs; No JVD, RRR, No Edema Abdominal: NL Sounds; No Tenderness; No Distention Extremities: No Clubbing, Cyanosis Skin: No Nodules or Sclerosis Neurological: - - flat affect, slurred speech (slightly worse than baseline per daughter) Result Diagrams: 11/28/17 10:25 11/28/17 10:25 Microbiology and Other Data: Microbiology 11/27/17 22:33 Nasal Screen MRSA (PCR) - Final Nasal Mrsa Not Detected Assess/Plan/Problems-Billing Ms Deleon is a 77 yo F who has a h/o parkinson's, diabetes, HTN and HLD who is a resident of [facility] who unfortunately fell and sustained a L hip fracture which was repaired with a L hip hemiarthroplasty on 11/13 and has subsequently developed a periprosthetic hip fracture. - Patient Problems (1) Periprosthetic fracture around internal prosthetic left hip joint, initial encounter Current Visit: Yes Status: Acute Code(s): M97.02XA - PERIPROSTH FRACTURE AROUND INTERNAL PROSTH L HIP JT, INIT SNOMED Code(s): 661475372 Comment: Pt to be taken to OR by Dr. Fry this afternoon. (2) Hypertension Current Visit: Yes Status: Chronic Code(s): I10 - ESSENTIAL (PRIMARY) HYPERTENSION SNOMED Code(s): 72767028 Comment: BP is moderately elevated currently despite having home dose of metoprolol this AM. Will add prn hydralazine IV for now and monitor the BP. If pressures remain elevated will need to add additional BP med tomorrow. (3) Type 2 diabetes mellitus Current Visit: Yes Status: Chronic Comment: FSBG are moderately elevated. HbA1c in 07/2017 was 6.9%. She only received half of her usual lantus dose at 1100 this AM. Will continue sliding scale and post-op aggressively manage her DM. Recheck A1c. (4) Parkinson disease Current Visit: Yes Status: Chronic Code(s): G20 - PARKINSON'S DISEASE SNOMED Code(s): 52132495 Comment: Continue selegiline, amantadine and sinemet. (5) DVT prophylaxis Current Visit: Yes Status: Acute Code(s): ZMY8194 - SNOMED Code(s): 432301234 Comment: Post op per Dr. Fry, pre-op pt received SQ heparin (6) DNR (do not resuscitate) Current Visit: Yes Status: Acute
[2017-11-28] MEDS ORDERED: hydrALAZINE IV* 20 MG/ML VIAL IV SLOW PU PRN (14:09)
[2017-11-28] MEDS ORDERED: HYDROmorphone INJ* 0.5 MG/0.5 ML SYRINGE ONE (14:28)
[2017-11-28] MEDS ORDERED: Morphine VIAL* 10 MG/ML 1 ML VIAL ONE (14:28)
[2017-11-28] MEDS ORDERED: HYDROmorphone INJ1* 1 MG/ML SYRINGE IV SLOW PU ONE (14:30)
[2017-11-28] MEDS ORDERED: Clindamycin 900 MG/D5W BAG(*) 900 MG/50 ML BAG IVPB ONE (15:11)
[2017-11-28] MEDS ORDERED: Rocuronium* 10 MG/ML VIAL ONE (16:31)
[2017-11-28] MEDS ORDERED: fentaNYL* 50 MCG/ML 2 ML VIAL (100 MCG VIAL) ONE ×2 (16:31→22:42)
[2017-11-28] MEDS ORDERED: KETAMINE HCL* 50 MG/ML 10 ML VIAL ONE (16:36)
[2017-11-28] MEDS ORDERED: Lidocaine 2% PF * 5 ML VIAL ONE (16:41)
[2017-11-28] MEDS ORDERED: Propofol* 10 MG/ML 20 ML BTL IV PUSH ONE (16:41)
[2017-11-28] MEDS ORDERED: HYDROmorphone INJ1* 1 MG/ML SYRINGE ONE ×2 (17:42→21:56)
[2017-11-28] MEDS ORDERED: Albumin Human 5%* 12.5 GM/250 ML BTL IV ONE ×2 (18:37→18:38)
[2017-11-28] MEDS ORDERED: Atracurium* 10 MG/ML 10 ML VIAL ONE (19:09)
[2017-11-28] MEDS ORDERED: Neostigmine Methylsulfate* 1 MG/ML 10 ML VIAL (1 mg/ml) ONE (20:28)
[2017-11-28] MEDS ORDERED: Glycopyrrolate IV* 0.2 MG/ML 1 ML VIAL ONE (20:28)
[2017-11-28] MEDS ORDERED: Ondansetron INJ* 2 MG/ML VIAL ONE (20:29)
[2017-11-28] MEDS ORDERED: Acetaminophen IV 1GM/100ML * 100 ML ONE (21:29)
[2017-11-28] MEDS ORDERED: Acetaminophen IV 1GM/100ML * 1,000 MG/100 ML VIAL IVPB ONE (21:33)
[2017-11-28] MEDS ORDERED: Naloxone* 0.4 MG/ML 1 ML VIAL IV PRN (21:34)
[2017-11-28] MEDS ORDERED: HYDROcodone/ACETAMIN 5-325 MG* 1 TAB PO PRN (21:34)
[2017-11-28] MEDS ORDERED: DiMENhydriNATE IV* 50 MG/ML VIAL IV PUSH PRN (21:34)
[2017-11-28 21:47] LABS: Hematocrit 26 % (35-47); Hemoglobin 8.4 g/dl (12.0-16.0)
[2017-11-28] MEDS: HYDROmorphone INJ1* 1 MG/ML SYRINGE IV PRN ×2 (21:59→22:12)
[2017-11-28] MEDS: fentaNYL* 50 MCG/ML 2 ML VIAL (100 MCG VIAL) IV PRN ×2 (22:45→22:53)
[2017-11-28] MEDS ORDERED: Morphine VIAL* 4 MG/ML VIAL (1 ml vial) IV ONE (23:33)
[2017-11-29] MEDS: Gabapentin CAP(*) 100 MG PO SCH ×3 (00:14→20:34)
[2017-11-29] MEDS: CARBIDOPA PO SCH ×6 (00:15→20:48)
[2017-11-29] MEDS: LEVODOP PO SCH ×4 (00:15→20:42)
[2017-11-29] MEDS: ALPRAZolam TAB* 0.25 MG PO PRN ×2 (00:15→15:16)
[2017-11-29] MEDS ORDERED: fentaNYL* 50 MCG/ML 2 ML VIAL (100 MCG VIAL) IV SLOW PU ONE (00:37)
[2017-11-29] MEDS ORDERED: Morphine VIAL* 4 MG/ML VIAL (1 ml vial) IV ONE (02:20)
[2017-11-29] MEDS: Amantadine CAP* 100 MG PO SCH ×3 (02:31→20:48)
[2017-11-29] MEDS: LEVODOPA PO SCH ×2 (02:33→20:48)
[2017-11-29] MEDS: Metoprolol Tartrate TAB* 50 mg PO SCH ×3 (02:33→20:34)
[2017-11-29] MEDS: Docusate CAP* 100 MG PO SCH ×3 (02:33→20:41)
[2017-11-29] MEDS: Magnesium Oxide TAB* 400 MG PO SCH ×3 (02:33→20:35)
[2017-11-29] MEDS: Heparin VIAL(*) 5000 UNITS/ML VIAL (FIVE THOUSAND) SUBCUT SCH ×2 (02:34→08:58)
[2017-11-29] MEDS: Senna TAB PO SCH ×3 (02:34→20:45)
[2017-11-29] MEDS: NS 0.9% 1000 ML* 1,000 ML IV SCH ×2 (02:50→16:52)
[2017-11-29] MEDS ORDERED: fentaNYL* 50 MCG/ML 2 ML VIAL (100 MCG VIAL) IV SLOW PU PRN (03:01)
[2017-11-29 04:47] LABS: Hematocrit 22 % (35-47); Hemoglobin 7.3 g/dl (12.0-16.0); Mean Corpuscular HGB Conc 34 g/dl (31-36); Mean Corpuscular Hemoglobin 30 pg (27-31); Mean Corpuscular Volume 89 fL (80-97); Mean Platelet Volume 7.1 um3 (7.4-10.4); Platelet Count 360 10^3/ul (150-450); Red Blood Count 2.41 10^6/ul (4.00-5.40); Red Cell Distribution Width 14 % (10.5-15); White Blood Count 11.2 10^3/ul (3.5-10.8)
[2017-11-29] MEDS: HYDROmorphone INJ1* 1 MG/ML SYRINGE IV SLOW PU PRN ×4 (04:51→18:45)
[2017-11-29 05:09] LABS: EGFR Non-African American 46.3 (>60)
--- NOTE | 2017-11-29 07:15 | PN ---
Progress Note - Progress Note Date of Service: 11/29/17 SOAP: Subjective: Pt. is resting comfortably. Objective: Vital Signs: Temp Pulse Resp BP Pulse Ox 99.1 F 96 20 140/61 92 11/29/17 03:33 11/29/17 05:00 11/29/17 06:00 11/29/17 05:00 11/29/17 05:00 Laboratory Results - last 24 hr 11/27/17 11/28/17 11/28/17 22:52 10:25 10:25 WBC 9.7 RBC 3.39 L Hgb 10.4 L Hct 30 L MCV 89 MCH 31 MCHC 35 RDW 14 Plt Count 382 MPV 7.2 L Sodium 130 L Potassium 4.3 Chloride 95 L Carbon Dioxide 29 Anion Gap 6 BUN 27 H Creatinine 0.85 Est GFR ( Amer) 78.7 Est GFR (Non-Af Amer) 65.0 BUN/Creatinine Ratio 31.8 H Glucose 207 H POC Glucose (mg/dL) Calcium 9.2 Blood Type O Positive Antibody Screen Negative 11/28/17 11/28/17 11/28/17 14:22 21:11 21:20 WBC RBC Hgb 8.4 L Hct 26 L MCV MCH MCHC RDW Plt Count MPV Sodium Potassium Chloride Carbon Dioxide Anion Gap BUN Creatinine Est GFR ( Amer) Est GFR (Non-Af Amer) BUN/Creatinine Ratio Glucose POC Glucose (mg/dL) 180 H 176 H Calcium Blood Type Antibody Screen 11/29/17 11/29/17 04:39 04:39 WBC 11.2 H RBC 2.41 L Hgb 7.3 L Hct 22 L MCV 89 MCH 30 MCHC 34 RDW 14 Plt Count 360 MPV 7.1 L Sodium 131 L Potassium 4.8 Chloride 100 L Carbon Dioxide 24 Anion Gap 7 BUN 31 H Creatinine 1.14 H Est GFR ( Amer) 56.1 Est GFR (Non-Af Amer) 46.3 BUN/Creatinine Ratio 27.2 H Glucose 192 H POC Glucose (mg/dL) Calcium 8.2 L Blood Type Antibody Screen LLE - dressing c/d/i. thigh soft, distally nvi. 2 + dp pulse. Assessment: 77 yo F pod 1 s/p revision L hip abril revision and orif periprosthetic fracture Plan: 2 units prbc for acute blood loss anemia - hct 22 and anticipate further bleeding nwb lle pt/ot lovenox today for dvt prophylaxis
--- NOTE | 2017-11-29 07:51 | RAD ---
INDICATION: Left hip ORIF, revision, periprosthetic fracture COMPARISONS: November 28, 2017 TECHNIQUE: Fluoroscopy was provided for a surgical procedure. Total fluoroscopy time is: 14.6 seconds FINDINGS: Spot images demonstrate internal fixation of the proximal left femur and a left hip arthroplasty. IMPRESSION: FLUOROSCOPY WAS PROVIDED FOR A SURGICAL PROCEDURE CPT II Codes: G9500
--- NOTE | 2017-11-29 07:59 | RAD ---
HISTORY: post op revision of left hip COMPARISONS: November 28, 2017 at 7:40 AM VIEWS: 4 , frontal and crosstable lateral views of the left hip FINDINGS: BONE DENSITY: Normal. BONES: The patient is status post left hip arthroplasty with internal fixation of the proximal left femur JOINTS: As noted above, the patient is status post left hip arthroplasty. ALIGNMENT: There is no dislocation. SOFT TISSUES: Unremarkable. OTHER FINDINGS: None. IMPRESSION: STATUS POST REVISION OF LEFT HIP ARTHROPLASTY R1
[2017-11-29] MEDS ORDERED: Bisacodyl SUPP* 10 MG SUPP PR ONE (08:07)
[2017-11-29] MEDS: Ondansetron INJ* 2 MG/ML VIAL IV PRN ×2 (08:53→16:38)
[2017-11-29] MEDS: Omeprazole CAP* 20 MG PO SCH (08:58)
[2017-11-29] MEDS: SELEGILINE 5 MG PO SCH (09:01)
[2017-11-29] MEDS: Cyanocobalamin TAB* 500 MCG PO SCH (09:02)
--- NOTE | 2017-11-29 09:48 | PN ---
Subjective Date of Service: 11/29/17 Interval History: Pt endorses surgical pain that improves with medication but is still severe. Does endorse some shortness of breath on 2L. Denies chest pain, headache, dizziness, abdominal pain, N/V, numbness or tingling. Per family and nursing gets very groggy with pain medications. Objective Active Medications: Acetaminophen (Tylenol Tab*) 650 mg PO Q4H PRN PRN Reason: FEVER/PAIN Alprazolam (Xanax Tab*) 0.25 mg PO Q8H PRN PRN Reason: ANXIETY Last Admin: 11/29/17 00:15 Dose: 0.25 mg Amantadine HCl (Symmetrel Cap*) 100 mg PO BID [facility] Last Admin: 11/29/17 08:59 Dose: 100 mg Carbidopa/Levodopa (Sinemet 25/100 Tab(*)) 2 tab PO TID [facility] Last Admin: 11/29/17 08:59 Dose: 2 tab Carbidopa/Levodopa (Carbidopa-Levo Er 25-100 Tab) 1 tab PO BEDTIME [facility] Last Admin: 11/29/17 02:33 Dose: Not Given Cyanocobalamin (Vitamin B12 Tab*) 1,000 mcg PO DAILY [facility] Last Admin: 11/29/17 09:02 Dose: 1,000 mcg Dextrose (D50w Syringe 50 Ml*) 12.5 gm IV PUSH .FOR FS < 60 - SS PRN PRN Reason: FS < 60 Docusate Sodium (Colace Cap*) 100 mg PO BID [facility] Last Admin: 11/29/17 09:02 Dose: 100 mg Gabapentin (Neurontin Cap(*)) 100 mg PO BID [facility] Last Admin: 11/29/17 09:02 Dose: 100 mg Heparin Sodium (Porcine) (Heparin Vial(*)) 5,000 units SUBCUT Q8HR [facility] Last Admin: 11/29/17 08:58 Dose: Not Given Hydralazine HCl (Apresoline Iv*) 5 mg IV SLOW PU Q6H PRN PRN Reason: SBP>170 Hydromorphone HCl (Dilaudid Inj1s*) 1 mg IV SLOW PU Q4H PRN PRN Reason: PAIN Last Admin: 11/29/17 08:53 Dose: 1 mg Sodium Chloride (Ns 0.9% 1000 Ml*) 1,000 mls @ 75 mls/hr IV PER RATE [facility] Last Admin: 11/29/17 02:50 Dose: 75 mls/hr Insulin Glargine (Lantus(*)) 32 units SUBCUT 0900 [facility] Insulin Human Lispro (Humalog*) 0 units SUBCUT AC [facility]; Protocol Last Admin: 11/28/17 18:32 Dose: Not Given Magnesium Oxide (Magox 400 Tab*) 400 mg PO BID [facility] Last Admin: 11/29/17 09:03 Dose: 400 mg Melatonin (Melatonin) 1 mg PO BEDTIME PRN PRN Reason: SLEEP Metoprolol Tartrate (Lopressor Tab*) 50 mg PO Q12HR [facility] Last Admin: 11/29/17 09:02 Dose: 50 mg Omeprazole (Prilosec Cap*) 20 mg PO 0600 [facility] Last Admin: 11/29/17 08:58 Dose: Not Given Ondansetron HCl (Zofran Inj*) 4 mg IV Q4H PRN PRN Reason: NAUSEA/VOMITING Last Admin: 11/29/17 08:53 Dose: 4 mg Oxycodone/Acetaminophen (Percocet 5/325 Tab*) 1 tab PO Q4H PRN PRN Reason: Pain Last Admin: 11/28/17 23:48 Dose: 1 tab Paroxetine HCl (Paxil Tab*) 20 mg PO DAILY [facility] Last Admin: 11/28/17 10:02 Dose: 20 mg Polyethyl Glycol/Propylene Glycol (Lubricant Eye Drops) 1 drop BOTH EYES Q2H PRN PRN Reason: DRY EYE Polyethylene Glycol/Electrolytes (Miralax*) 17 gm PO DAILY PRN PRN Reason: CONSTIPATION Selegiline HCl (Eldepryl Tab*) 5 mg PO DAILY [facility] Last Admin: 11/29/17 09:01 Dose: 5 mg Senna (Senokot Tab*) 1 tab PO BID [facility] Last Admin: 11/29/17 09:03 Dose: 1 tab Vital Signs - 8 hr 11/29/17 11/29/17 11/29/17 02:00 02:01 02:24 Temperature Pulse Rate 88 86 Respiratory 20 23 20 Rate Blood Pressure 137/67 (mmHg) O2 Sat by Pulse 98 100 Oximetry 11/29/17 11/29/17 11/29/17 03:00 03:01 03:05 Temperature Pulse Rate 92 95 Respiratory 28 23 22 Rate Blood Pressure 135/80 (mmHg) O2 Sat by Pulse 92 93 Oximetry 11/29/17 11/29/17 11/29/17 03:33 04:00 04:51 Temperature 99.1 F Pulse Rate 91 Respiratory 24 22 Rate Blood Pressure 132/62 (mmHg) O2 Sat by Pulse 96 Oximetry 11/29/17 11/29/17 11/29/17 05:00 06:00 08:00 Temperature 98.8 F Pulse Rate 96 Respiratory 22 20 Rate Blood Pressure 140/61 (mmHg) O2 Sat by Pulse 92 Oximetry 11/29/17 08:53 Temperature Pulse Rate Respiratory 24 Rate Blood Pressure (mmHg) O2 Sat by Pulse Oximetry Oxygen Devices in Use Now: Simple Face Mask Eyes: No Scleral Icterus, PERRLA Neck: NL Appearance and Movements; NL JVP Respiratory: Clear to Auscultation - Increased work of breathing Cardiovascular: NL Sounds; No Murmurs; No JVD, RRR, No Edema Abdominal: NL Sounds; No Tenderness; No Distention Extremities: No Edema, No Clubbing, Cyanosis - Pt is moving left side less than R, however able to lift L arm off of bed and squeeze my hand with 5/5 strength bilaterally. Able to dorsiflex and plantar flex. Sensation intact to bilateral lower extremeties. 2+ DP pulses. Neurological: - - Moving left side less than right, however able to lift L arm off of bed and squeeze hand with 5/5 strength bilaterally. Sensation intact to bilateral lower extremeties. Able to dorsiflex and plantar flex, however weaked in LLE. 2+ DP pulses bilaterally. Lines/Tubes/Other Access: Clean, Dry and Intact Peripheral IV Result Diagrams: 11/29/17 04:39 11/29/17 04:39 Microbiology and Other Data: Microbiology 11/27/17 22:33 Nasal Screen MRSA (PCR) - Final Nasal Mrsa Not Detected Assess/Plan/Problems-Billing Ms Deleon is a 77 yo F who has a h/o parkinson's, diabetes, HTN and HLD who is a resident of [facility] who unfortunately fell and sustained a L hip fracture which was repaired with a L hip hemiarthroplasty on 11/13 and has subsequently developed a periprosthetic hip fracture. - Patient Problems (1) Periprosthetic fracture around internal prosthetic left hip joint, initial encounter Current Visit: Yes Status: Acute Code(s): M97.02XA - PERIPROSTH FRACTURE AROUND INTERNAL PROSTH L HIP JT, INIT SNOMED Code(s): 150216316 Comment: - s/p revision L hip arthroplasty and ORIF yesterday with Dr. Fry - Pain controlled with IV Dilaudid Q4H PRN and percocet - Anticoagulation with lovenox - non-weightbearing LLE - PT/OT (2) Blood loss anemia Current Visit: Yes Status: Acute Code(s): D50.0 - IRON DEFICIENCY ANEMIA SECONDARY TO BLOOD LOSS (CHRONIC) SNOMED Code(s): 329402780 Comment: - Received 2 units yesterday in OR. H/H 7.05/04 this morning, so an additional 2 units were ordered by Dr. Fry. Repeat H/H 16:00. - No evidence of overt bleeding. (3) Hypertension Current Visit: Yes Status: Chronic Code(s): I10 - ESSENTIAL (PRIMARY) HYPERTENSION SNOMED Code(s): 89395979 Comment: - Continue home metoprolol. Jomaros has PRN hydralazine ordered. Can consider restarting home lisinopril or HCTZ if hypertensive. SBP 130s-140s this AM, though did have one SBP reading of 88 overnight. (4) Parkinson disease Current Visit: Yes Status: Chronic Code(s): G20 - PARKINSON'S DISEASE SNOMED Code(s): 59179335 Comment: Continue selegiline, amantadine and sinemet. (5) Type 2 diabetes mellitus Current Visit: Yes Status: Chronic Comment: - FSBG are moderately elevated , [phone]. She only received half of her usual lantus dose at 1100 yesterday , but now scheduled to continue home dose. - HgA1c pending. HbA1c in 07/2017 was 6.9%. (6) Hyperlipidemia Current Visit: No Status: Acute Code(s): E78.5 - HYPERLIPIDEMIA, UNSPECIFIED SNOMED Code(s): 94284149 Comment: - Continue atorvastatin (7) DVT prophylaxis Current Visit: Yes Status: Acute Code(s): LKC3692 - SNOMED Code(s): 089475633 Comment: - Will receive lovenox per Dr. Fry (8) DNR (do not resuscitate) Current Visit: Yes Status: Acute Status and Disposition: Inpatient. Attending: Juli Weller
[2017-11-29] MEDS: PARoxetine HCL TAB* 20 MG PO SCH (10:15)
[2017-11-29] MEDS: Insulin LISPRO* 1 UNITS UNIT SUBCUT SCH ×3 (10:15→18:35)
[2017-11-29] MEDS: Insulin GLARGINE(*) 1 UNITS UNIT SUBCUT SCH (10:54)
[2017-11-29] MEDS ORDERED: Enoxaparin(*) 30 MG/0.3 ML SYR SUBCUT SCH (12:00)
[2017-11-29] MEDS: oxyCODONE/Acetamin 5/325 MG* TAB PO PRN ×2 (12:09→16:37)
[2017-11-29] MEDS: Acetaminophen TAB* 325 MG PO PRN ×3 (12:09→20:35)
--- NOTE | 2017-11-29 16:04 | OP ---
DATE OF OPERATION: 11/28/17 - ROOM #336 DATE OF : 42 SURGEON: Elisha Fry MD. INTERNATIONAL FLIGHT ATTENDANT: SANAZ Mcqueen. Ms. Drew did help throughout the procedure with preparation of the leg, wound retraction, manipulation of the hip, and wound closure. ANESTHESIOLOGIST: Dr. Solomon. ANESTHESIA: General. 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 OPERATIVE PROCEDURE: Revision right hip hemiarthroplasty, revision of the femoral stem, open reduction internal fixation of the periprosthetic femur fracture with a trochanteric real estate services administrator plate with multiple cables. ESTIMATED BLOOD LOSS: 600 cc. COMPLICATIONS: None. SPECIMEN: The prior femoral stem and head were sent to Pathology. HARDWARE USED: This is Alex trochanteric real estate services administrator plate and [place] uncemented uatsdin femoral stem. For the trochanteric real estate services administrator plate, this is Dall-Onehub trochanteric real estate services administrator plate medium length 200 mm, fixed Dall-Onehub beaded cables and sleeves were used 2.0. For the femoral stem, a uatsdin modular hip system was used. This was a uatsdin distal diameter stem 14 x 155 mm. For the body, a 19 +0 body. For the head, a 28 -4 LFIT V40 femoral head and for the bipolar component, a 47/28 bipolar component. BRIEF HISTORY/INDICATIONS: Ms. Deleon is a 77-year-old female who had a fall at [facility] and sustained a left femoral neck fracture. She was taken to [facility] and Dr. Villareal performed a hip hemiarthroplasty. The fall was on 11/12/17 and the surgery for the initial hip hemiarthroplasty was . Almost 2 weeks later, the patient felt a pop while in bed. She does not recall a fall. Radiographs were taken and showed a periprosthetic fracture of the left hemiarthroplasty and femoral stem with subsidence of the stem. The patient's daughter requested transfer to [facility] and I did accept the patient. The patient, her daughter, and I discussed her multiple medical comorbidities and the risks of surgery. They understood the risk of surgery included but were not limited to bleeding, infection, damage to nearby structures, continued pain, need for further surgery, intraoperative fracture, nerve palsy, hardware failure or loosening, failure of bone to heal, dislocation, leg length discrepancy, stroke, heart attack, blood clot, and . She wished to proceed. INTRAOPERATIVE FINDINGS: Intraoperatively, the patient's stem was grossly loose and subsided. The patient had significant amount of comminution of the proximal femur. Lesser trochanter was a separate piece, greater trochanter was a separate piece, and there were multiple small pieces of comminuted bone around the femoral neck region. Calcar was comminuted. The abductor tendons were completely incompetent and had been either torn or surgically elevated off the greater trochanter. DESCRIPTION OF PROCEDURE: Ms. Deleon was identified in the preanesthesia unit. Her left lower extremity was marked as the correct operative side. Informed consent was signed by her daughter, her healthcare proxy and placed in the chart. The patient was taken to the operating room, placed under general anesthesia. A Lima catheter was placed. The patient was placed in the right lateral decubitus position on the pegboard. All bony prominences were well padded. Left lower extremity was prepped and draped in the usual sterile fashion. Preop time-out was made to correctly identify the patient's side and site. Appropriate perioperative antibiotics were given within one hour of incision. The patient's prior incision was used and extended distally about 5 cm. Careful dissection was made down to the lateral fascial layer. There was a large serosanguineous seroma. This was washed out. Next, a 10-blade was used to make lateral fascia incision. Immediately, the entire greater trochanter was visible. The abductors were elevated off of this and incompetent. I did repair a longitudinal split in the abductors and a Charnley retractor was placed. Piriformis and conjoint tendons were identified and elevated off the posterolateral femur. These were tagged with #5 Ethibond. Next, postero- lateral capsular flap was made with electrocautery and tagged with #5 Ethibond. The hardware was visible. The hip periprosthetic femur fracture was visible. The hip was carefully dislocated. The stem was grossly loose and was easily removed. Proximal femur was noted to have significant comminution in multiple pieces. The lesser trochanter was a separate piece, the greater trochanter was a separate piece, calcar and femoral neck were comminuted bony fragments. Attention was turned to irrigating the fracture site. Using reduction forceps and traction on the leg, the large fragments of the proximal femur were pieced together and held in place by single 2-0 [place] cable. Multiple radiographic views showed that the proximal femur reduction was satisfactory. At this point, a trochanteric real estate services administrator plate size medium 200 mm length was chosen. This was hooked on to the greater trochanter fracture piece proximally and two cables were placed distally to hold it in place. Once again radiographic views showed that there was satisfactory reduction of the fracture. Four additional cables were placed through the trochanteric real estate services administrator plate. A stable construct was established with the trochanteric real estate services administrator plate. Attention was next turned to placing the uncemented uatsdin stem. The canal was sequentially broached by hand up a size 14. This broach was left in place and C-arm views were taken off the distal femoral canal. The 14 stem had good fit. The distal stem was chosen as a 155 length with 14 diameter. This was carefully impacted into the femoral canal. The distal stem was stable. Next, the reamer was placed over the guide up to a size 19. The uatsdin 19 body with +0 height was chosen. This final implant was carefully locked into position on the distal stem. Appropriate amount of the anteversion was chosen. The torque was used to fully tighten the modular proximal body. Next, the 28 -4 femoral head trial with a 47 bipolar trial was placed. The tip was reduced and taken through range of motion. The hip was stable in all positions despite the abductor incompetence. The fracture reduction remained in place. The hip was carefully dislocated. The wound was copiously irrigated with sterile saline. Final implant chosen was an LFIT V40 femoral head, 28 -4 and a 47/28 bipolar component. These were locked into position on the femoral neck. Hip was reduced and taken through range of motion. The hip was stable in all positions. The hip was once again copiously irrigated with sterile saline. Previously tagged capsule and tendons were repaired to the posterior greater trochanter. Any repairable abductor tendon was carefully pulled down to the greater trochanter. Lateral fascial layer was closed using interrupted #1 Vicryls and # 5 Ethibond. The rest of the incision was closed in a layered fashion using 0 and 2-0 Vicryls. Skin was closed using andrea. Sterile Xeroform, 4x4s, and Webril were used to cover the incision. The patient's anesthesia was reversed without difficulty. She was taken to the PACU in stable condition. Intended weightbearing will be nonweightbearing left lower extremity with no active abduction. She will have strict posterior hip precautions. Intended DVT prophylaxis will be Lovenox. [id number]/[facility] #: [id number] [id number]
[2017-11-29 17:51] LABS: Hematocrit 26 % (35-47); Hemoglobin 9.1 g/dl (12.0-16.0)
[2017-11-29] MEDS: oxyCODONE TAB* 5 MG TAB PO PRN (20:44)
[2017-11-30] MEDS: oxyCODONE TAB* 5 MG TAB PO PRN ×3 (01:42→14:24)
[2017-11-30] MEDS: Acetaminophen TAB* 325 MG PO PRN (01:42)
[2017-11-30] MEDS: ALPRAZolam TAB* 0.25 MG PO PRN ×2 (05:37→13:15)
[2017-11-30] MEDS: Omeprazole CAP* 20 MG PO SCH (05:40)
[2017-11-30 07:23] LABS: EGFR Non-African American 69.7 (>60)
[2017-11-30 07:26] LABS: ABS Basophils 0 10^3/ul (0-0.2); ABS Eosinophils 0 10^3/ul (0-0.6); ABS Lymphocytes 0.6 10^3/ul (1.0-4.8); ABS Monocytes 0.6 10^3/ul (0-0.8); ABS Neutrophils 7.6 10^3/ul (1.5-7.7); ABS Nucleated RBC 0 10^3/ul; Eosinophil % 0.4 % (0-6); Hematocrit 36 % (35-47); Hemoglobin 11.7 g/dl (12.0-16.0); Lymphocyte % 6.4 % (25-47); Mean Corpuscular HGB Conc 33 g/dl (31-36); Mean Corpuscular Hemoglobin 30 pg (27-31); Mean Corpuscular Volume 91 fL (80-97); Mean Platelet Volume 7.3 um3 (7.4-10.4); Nucleated Red Blood Cells % 0.2; Platelet Count 225 10^3/ul (150-450); Red Blood Count 3.92 10^6/ul (4.00-5.40); Red Cell Distribution Width 15 % (10.5-15); White Blood Count 8.8 10^3/ul (3.5-10.8)
[2017-11-30] MEDS: LEVODOP PO SCH ×3 (08:20→20:05)
[2017-11-30] MEDS: CARBIDOPA PO SCH ×4 (08:20→20:05)
[2017-11-30] MEDS: Amantadine CAP* 100 MG PO SCH ×2 (08:20→20:04)
[2017-11-30] MEDS: Magnesium Oxide TAB* 400 MG PO SCH ×2 (08:20→20:05)
[2017-11-30] MEDS: SELEGILINE 5 MG PO SCH (08:21)
[2017-11-30] MEDS: PARoxetine HCL TAB* 20 MG PO SCH (08:21)
[2017-11-30] MEDS: Metoprolol Tartrate TAB* 50 mg PO SCH ×2 (08:21→20:06)
[2017-11-30] MEDS: Senna TAB PO SCH (08:21)
[2017-11-30] MEDS: Gabapentin CAP(*) 100 MG PO SCH ×3 (08:21→20:10)
[2017-11-30] MEDS: Cyanocobalamin TAB* 500 MCG PO SCH (08:21)
[2017-11-30] MEDS: Docusate CAP* 100 MG PO SCH ×2 (08:21→20:05)
[2017-11-30] MEDS: Ondansetron INJ* 2 MG/ML VIAL IV PRN (08:29)
[2017-11-30] MEDS: NS 0.9% 1000 ML* 1,000 ML IV SCH ×2 (09:18→22:46)
[2017-11-30] MEDS: Insulin LISPRO* 1 UNITS UNIT SUBCUT SCH ×3 (09:28→18:00)
[2017-11-30] MEDS: Insulin GLARGINE(*) 1 UNITS UNIT SUBCUT SCH (09:30)
[2017-11-30] MEDS ORDERED: Senna TAB PO PRN (11:32)
[2017-11-30] MEDS: HYDROmorphone INJ1* 1 MG/ML SYRINGE IV SLOW PU PRN ×2 (11:37→17:53)
--- NOTE | 2017-11-30 11:50 | PN ---
Subjective Date of Service: 11/30/17 Interval History: Pt still with severe hip pain. Have added oxycontin to help transition off of IV pain medication and reduce breakthrough pain. Pt is more alert today than yesterday, but is still confused. She is oriented to self and daughter, but not location or situation. Pt is also less anxious and agitated than yesterday. Denies chest pain, palpitations, shortness of breath, N/D/V, abdominal pain. Last BM [employer], but pt's daughter says this is not uncommon for her. She is on a bowel regimen. Denies headache or dizziness. Lima draining urine, 250 mL. Objective Active Medications: Acetaminophen (Tylenol Tab*) 650 mg PO Q4H PRN PRN Reason: FEVER/PAIN Last Admin: 11/30/17 01:42 Dose: 650 mg Alprazolam (Xanax Tab*) 0.25 mg PO Q8H PRN PRN Reason: ANXIETY Last Admin: 11/30/17 05:37 Dose: 0.25 mg Amantadine HCl (Symmetrel Cap*) 100 mg PO BID [facility] Last Admin: 11/30/17 08:20 Dose: 100 mg Carbidopa/Levodopa (Sinemet 25/100 Tab(*)) 2 tab PO TID [facility] Last Admin: 11/30/17 08:20 Dose: 2 tab Carbidopa/Levodopa (Carbidopa-Levo Er 25-100 Tab) 1 tab PO BEDTIME [facility] Last Admin: 11/29/17 20:48 Dose: 1 tab Cyanocobalamin (Vitamin B12 Tab*) 1,000 mcg PO DAILY [facility] Last Admin: 11/30/17 08:21 Dose: 1,000 mcg Cyclobenzaprine HCl (Flexeril Tab*) 10 mg PO Q8H PRN PRN Reason: SPASMS Dextrose (D50w Syringe 50 Ml*) 12.5 gm IV PUSH .FOR FS < 60 - SS PRN PRN Reason: FS < 60 Docusate Sodium (Colace Cap*) 100 mg PO BID [facility] Last Admin: 11/30/17 08:21 Dose: 100 mg Enoxaparin Sodium (Lovenox(*)) 30 mg SUBCUT Q24H [facility] Last Admin: 11/29/17 12:09 Dose: 30 mg Fentanyl (Duragesic Patch 12 Mcg/Hr *) 12 mcg TRANSDERM Q72H [facility] Gabapentin (Neurontin Cap(*)) 100 mg PO BID [facility] Last Admin: 11/30/17 08:21 Dose: 100 mg Gabapentin (Neurontin Cap(*)) 200 mg PO BEDTIME [facility] Lisinopril/HCTZ (Zestoretic 01/02.5(Nf)) 1 tab PO DAILY [facility] Hydralazine HCl (Apresoline Iv*) 5 mg IV SLOW PU Q6H PRN PRN Reason: SBP>170 Last Admin: 11/29/17 11:32 Dose: 5 mg Hydromorphone HCl (Dilaudid Inj1s*) 1 mg IV SLOW PU Q3H PRN PRN Reason: PAIN Last Admin: 11/30/17 11:37 Dose: 1 mg Sodium Chloride (Ns 0.9% 1000 Ml*) 1,000 mls @ 75 mls/hr IV PER RATE [facility] Last Admin: 11/30/17 09:18 Dose: 75 mls/hr Insulin Glargine (Lantus(*)) 32 units SUBCUT 0900 [facility] Last Admin: 11/30/17 09:30 Dose: 32 units Insulin Human Lispro (Humalog*) 0 units SUBCUT AC [facility]; Protocol Last Admin: 11/30/17 09:28 Dose: Not Given Magnesium Oxide (Magox 400 Tab*) 400 mg PO BID [facility] Last Admin: 11/30/17 08:20 Dose: 400 mg Melatonin (Melatonin) 1 mg PO BEDTIME PRN PRN Reason: SLEEP Metoprolol Tartrate (Lopressor Tab*) 50 mg PO Q12HR [facility] Last Admin: 11/30/17 08:21 Dose: 50 mg Omeprazole (Prilosec Cap*) 20 mg PO 0600 [facility] Last Admin: 11/30/17 05:40 Dose: 20 mg Ondansetron HCl (Zofran Inj*) 4 mg IV Q4H PRN PRN Reason: NAUSEA/VOMITING Last Admin: 11/30/17 08:29 Dose: 4 mg Oxycodone HCl (Roxycodone Tab*) 10 mg PO Q4H PRN PRN Reason: PAIN Last Admin: 11/30/17 08:29 Dose: 10 mg Paroxetine HCl (Paxil Tab*) 20 mg PO DAILY [facility] Last Admin: 11/30/17 08:21 Dose: 20 mg Pharmacy Profile Note (Fentanyl Patch Check Q Shift) 1 note N/A 0700,1900 [facility] Polyethyl Glycol/Propylene Glycol (Lubricant Eye Drops) 1 drop BOTH EYES Q2H PRN PRN Reason: DRY EYE Polyethylene Glycol/Electrolytes (Miralax*) 17 gm PO DAILY PRN PRN Reason: CONSTIPATION Last Admin: 11/29/17 16:37 Dose: 17 gm Selegiline HCl (Eldepryl Tab*) 5 mg PO DAILY [facility] Last Admin: 11/30/17 08:21 Dose: 5 mg Senna (Senokot Tab*) 1 tab PO BID PRN PRN Reason: CONSTIPATION Simvastatin (Zocor (Nf)) 40 mg PO DAILY [facility] Vital Signs - 8 hr 11/30/17 11/30/17 11/30/17 04:39 05:04 05:37 Temperature 97.4 F Pulse Rate 68 Respiratory 20 16 16 Rate Blood Pressure 113/49 (mmHg) O2 Sat by Pulse 100 Oximetry 11/30/17 11/30/17 11/30/17 07:43 08:00 08:21 Temperature 97.5 F Pulse Rate 72 Respiratory 16 18 18 Rate Blood Pressure 143/59 (mmHg) O2 Sat by Pulse 100 100 Oximetry 11/30/17 11/30/17 11/30/17 08:29 09:17 10:00 Temperature Pulse Rate Respiratory 18 18 16 Rate Blood Pressure (mmHg) O2 Sat by Pulse Oximetry 11/30/17 11:37 Temperature Pulse Rate Respiratory 16 Rate Blood Pressure (mmHg) O2 Sat by Pulse Oximetry Oxygen Devices in Use Now: None Eyes: No Scleral Icterus, PERRLA Ears/Nose/Mouth/Throat: NL Teeth, Lips, Gums, Mucous Membranes Moist Neck: NL Appearance and Movements; NL JVP, Trachea Midline Respiratory: Symmetrical Chest Expansion and Respiratory Effort, Clear to Auscultation Cardiovascular: NL Sounds; No Murmurs; No JVD, RRR, No Edema Abdominal: NL Sounds; No Tenderness; No Distention Extremities: No Edema, No Clubbing, Cyanosis Skin: No Rash or Ulcers Neurological: NL Muscle Strength and Tone, - - Oriented to self. Calm and cooperative with exam. 2+ DP and PT pulses bilaterally. Warm and well perfused. Lines/Tubes/Other Access: Clean, Dry and Intact Lima - Draining urine, 250mL, Clean, Dry and Intact Peripheral IV Nutrition: Taking PO's Result Diagrams: 10/18/18 07:01 11/30/17 07:01 Microbiology and Other Data: Microbiology 11/27/17 22:33 Nasal Screen MRSA (PCR) - Final Nasal Mrsa Not Detected Assess/Plan/Problems-Billing Ms Deleon is a 77 yo F who has a h/o parkinson's, diabetes, HTN and HLD who is a resident of [facility] who unfortunately fell and sustained a L hip fracture which was repaired with a L hip hemiarthroplasty on 11/13 and has subsequently developed a periprosthetic hip fracture, now s/p revision of left hip arthroplasty and ORIF. POD 2. Hospital course complicated by blood loss anemia. Received bloon intra-op as well as 2 units PRBC yesterday. - Patient Problems (1) Periprosthetic fracture around internal prosthetic left hip joint, initial encounter Current Visit: Yes Status: Acute Code(s): M97.02XA - PERIPROSTH FRACTURE AROUND INTERNAL PROSTH L HIP JT, INIT SNOMED Code(s): 813679991 Comment: - s/p revision L hip arthroplasty and ORIF with Dr. Fry. POD 2 - Pt still experiencing breakthrough pain. Goal is to transition off of IV medications and stabilize her for discharge. Added 10mg oxycontin BID for long acting coverage. Will attempt to prioritize PO medications for breakthrough pain : tylenol, roxycodone 10mg Q4H PRN, but also continue dilaudid 1mg Q3H PRN. - Anticoagulation with lovenox, 40mg daily for DVT ppx - Non-weightbearing LLE - PT/OT (2) Blood loss anemia Current Visit: Yes Status: Acute Code(s): D50.0 - IRON DEFICIENCY ANEMIA SECONDARY TO BLOOD LOSS (CHRONIC) SNOMED Code(s): 822446673 Comment: - Received 2 units yesterday. H/H 7.3/22-->11.7/36 this morning - No evidence of overt bleeding. BP stable and satting 100% on room air. Will continue to [facility]. (3) Hypertension Current Visit: Yes Status: Chronic Code(s): I10 - ESSENTIAL (PRIMARY) HYPERTENSION SNOMED Code(s): 96756135 Comment: - Continue home metoprolol and restarted lisinopril/hctz today. - SBP 110-140s today (4) Parkinson disease Current Visit: Yes Status: Chronic Code(s): G20 - PARKINSON'S DISEASE SNOMED Code(s): 62360280 Comment: Continue selegiline, amantadine and sinemet. (5) Type 2 diabetes mellitus Current Visit: Yes Status: Chronic Comment: - FSBG <180 today. Continue home lantus, 32 units, and lispro sliding scale - HgA1c pending. HbA1c in 07/2017 was 6.9%. (6) Hyperlipidemia Current Visit: No Status: Acute Code(s): E78.5 - HYPERLIPIDEMIA, UNSPECIFIED SNOMED Code(s): 23929810 Comment: - Statin restarted as pt now eating (7) DVT prophylaxis Current Visit: Yes Status: Acute Code(s): ARP7899 - SNOMED Code(s): 593243393 Comment: - Will receive lovenox per Dr. Fry (8) DNR (do not resuscitate) Current Visit: Yes Status: Acute Status and Disposition: Inpatient. Attending: Juli Weller
[2017-11-30] MEDS ORDERED: fentaNYL PATCH 12 MCG/HR TRANSDERM SCH (12:00)
[2017-11-30] MEDS: Enoxaparin(*) 40 MG/0.4 ML SYR SUBCUT SCH (12:56)
[2017-11-30] MEDS: oxyCODONE SR TAB(*) 10 MG TAB.SR PO SCH ×2 (12:58→20:06)
--- NOTE | 2017-11-30 13:36 | PN ---
Progress Note - Progress Note Date of Service: 11/30/17 SOAP: Subjective: [] Patient seen and examined at bedside. She has improved ability to participate in the exam today. Denies CP, SOB, dizziness, nausea. Objective: []General: Well appearing, NAD LLE - dressing cdi. thigh soft, DF/PF intact, 2 + dp pulse, sensation intact distally Calves supple and nontender without erythema, edema or palpable cords Assessment: 77 yo F pod 2 s/p revision L hip abril revision and orif periprosthetic fracture Plan: anemia improved nwb lle, may get oob to chair with joaquin pt/ot lovenox for dvt prophylaxis Vital Signs Temp 97.5 F 11/30/17 07:43 Pulse 72 11/30/17 07:43 Resp 20 11/30/17 13:15 BP 143/59 11/30/17 07:43 Pulse Ox 100 11/30/17 08:00 Intake & Output 11/29/17 11/30/17 11/30/17 18:59 06:59 18:59 Intake Total 2066 500 100 Output Total 350 200 Balance 1716 300 100 Weight 210 lb 3.2 oz Intake: IV Fluids 1530 NS (0.9%) 1530 Oral 0 500 100 Packed Cells 536 Output: Lima 350 200 Other: Estimated Void Medium Medium Laboratory Last Values WBC 8.8 10^3/ul (3.5-10.8) 11/30/17 07:01 RBC 3.92 10^6/ul (4.00-5.40) L 11/30/17 07:01 Hgb 11.7 g/dl (12.0-16.0) L 11/30/17 07:01 Hct 36 % (35-47) 11/30/17 07:01 MCV 91 fL (80-97) 11/30/17 07:01 MCH 30 pg (27-31) 11/30/17 07:01 MCHC 33 g/dl (31-36) 11/30/17 07:01 RDW 15 % (10.5-15) 11/30/17 07:01 Plt Count 225 10^3/ul (150-450) 11/30/17 07:01 MPV 7.3 um3 (7.4-10.4) L 11/30/17 07:01 Neut % (Auto) 85.8 % (38-83) H 11/30/17 07:01 Lymph % (Auto) 6.4 % (25-47) L 11/30/17 07:01 [place] % (Auto) 7.2 % (0-7) H 11/30/17 07:01 Eos % (Auto) 0.4 % (0-6) 11/30/17 07:01 Baso % (Auto) 0.2 % (0-2) 11/30/17 07:01 Absolute Neuts (auto) 7.6 10^3/ul (1.5-7.7) 11/30/17 07:01 Absolute Lymphs (auto) 0.6 10^3/ul (1.0-4.8) L 11/30/17 07:01 Absolute Monos (auto) 0.6 10^3/ul (0-0.8) 11/30/17 07:01 Absolute Eos (auto) 0 10^3/ul (0-0.6) 11/30/17 07:01 Absolute Basos (auto) 0 10^3/ul (0-0.2) 11/30/17 07:01 Absolute Nucleated RBC 0 10^3/ul 11/30/17 07:01 Nucleated RBC % 0.2 11/30/17 07:01 INR (Anticoag Therapy) 1.13 (0.77-1.02) H 11/27/17 22:52 APTT 23.7 seconds (26.0-36.3) L 11/27/17 22:52 Sodium 130 mmol/L (135-145) L 11/30/17 07:01 Potassium 4.7 mmol/L (3.5-5.0) 11/30/17 07:01 Chloride 102 mmol/L (101-111) 11/30/17 07:01 Carbon Dioxide 24 mmol/L (22-32) 11/30/17 07:01 Anion Gap 4 mmol/L (2-11) 11/30/17 07:01 BUN 29 mg/dL (6-24) H 11/30/17 07:01 Creatinine 0.80 mg/dL (0.51-0.95) 11/30/17 07:01 Est GFR ( Amer) 84.4 (>60) 11/30/17 07:01 Est GFR (Non-Af Amer) 69.7 (>60) 11/30/17 07:01 BUN/Creatinine Ratio 36.3 (8-20) H 11/30/17 07:01 Glucose 160 mg/dL (70-100) H 11/30/17 07:01 POC Glucose (mg/dL) 185 mg/dL (70-100) H 11/30/17 11:49 Hemoglobin A1c 7.5 % (4.0-5.6) H 11/29/17 04:39 Calcium 8.5 mg/dL (8.6-10.3) L 11/30/17 07:01 Magnesium 1.7 mg/dL (1.9-2.7) L 11/29/17 17:35 Total Bilirubin 1.10 mg/dL (0.2-1.0) H 11/29/17 17:35 AST 21 U/L (13-39) 11/29/17 17:35 ALT < 3 U/L (7-52) L 11/29/17 17:35 Alkaline Phosphatase 71 U/L (34-104) 11/29/17 17:35 Total Protein 5.5 g/dL (6.4-8.9) L 11/29/17 17:35 Albumin 2.7 g/dL (3.2-5.2) L 11/29/17 17:35 Globulin 2.8 g/dL (2-4) 11/29/17 17:35 Albumin/Globulin Ratio 1.0 (1-3) 11/29/17 17:35 Hepatitis C Antibody Nonreactive (Nonreactive) 11/29/17 20:07 HIV 1&2 Antibody Rapid Nonreactive (Nonreactive) 11/29/17 20:07 Blood Type O Positive 11/27/17 22:52 Antibody Screen Negative 11/27/17 22:52 Crossmatch See Detail 11/27/17 22:52
[2017-11-30] MEDS ORDERED: fentaNYL Patch Check Q Shift 1 NOTE SCH (19:00)
[2017-11-30] MEDS: LEVODOPA PO SCH (20:04)
[2017-12-01] MEDS: ALPRAZolam TAB* 0.25 MG PO PRN (03:29)
[2017-12-01] MEDS: HYDROmorphone INJ1* 1 MG/ML SYRINGE IV SLOW PU PRN ×2 (03:39→20:08)
[2017-12-01 05:39] LABS: ABS Basophils 0 10^3/ul (0-0.2); ABS Eosinophils 0.1 10^3/ul (0-0.6); ABS Lymphocytes 0.9 10^3/ul (1.0-4.8); ABS Monocytes 0.7 10^3/ul (0-0.8); ABS Neutrophils 7.8 10^3/ul (1.5-7.7); ABS Nucleated RBC 0 10^3/ul; Eosinophil % 0.6 % (0-6); Hematocrit 25 % (35-47); Hemoglobin 8.6 g/dl (12.0-16.0); Lymphocyte % 9.6 % (25-47); Mean Corpuscular HGB Conc 35 g/dl (31-36); Mean Corpuscular Hemoglobin 31 pg (27-31); Mean Corpuscular Volume 89 fL (80-97); Mean Platelet Volume 7.4 um3 (7.4-10.4); Nucleated Red Blood Cells % 0; Platelet Count 310 10^3/ul (150-450); Red Blood Count 2.81 10^6/ul (4.00-5.40); Red Cell Distribution Width 15 % (10.5-15); White Blood Count 9.5 10^3/ul (3.5-10.8)
[2017-12-01 05:56] LABS: EGFR Non-African American 69.7 (>60)
[2017-12-01] MEDS: Omeprazole CAP* 20 MG PO SCH (06:26)
[2017-12-01] MEDS: oxyCODONE TAB* 5 MG TAB PO PRN ×3 (07:02→18:16)
--- NOTE | 2017-12-01 07:16 | OP ---
OPERATIVE REPORT: ADDENDUM: OPERATIVE PROCEDURE: Revision left hip hemiarthroplasty. [id number]/[facility] #: [id number] MTDD
[2017-12-01] MEDS: Insulin LISPRO* 1 UNITS UNIT SUBCUT SCH ×3 (07:44→17:07)
[2017-12-01 08:39] LABS: INR 1.33 (0.77-1.02)
[2017-12-01] MEDS ORDERED: Bisacodyl SUPP* 10 MG SUPP PR ONE (08:55)
[2017-12-01] MEDS ORDERED: Lisinopril/HCTZ 20/12.5(NF) TAB PO SCH (09:00)
[2017-12-01] MEDS: oxyCODONE SR TAB(*) 10 MG TAB.SR PO SCH ×2 (09:16→22:20)
[2017-12-01] MEDS: Amantadine CAP* 100 MG PO SCH ×2 (09:17→22:20)
[2017-12-01] MEDS: Lisinopril TAB* 10 MG PO SCH (09:17)
[2017-12-01] MEDS: Docusate CAP* 100 MG PO SCH ×2 (09:17→22:20)
[2017-12-01] MEDS: Atorvastatin* 20 MG TAB PO SCH (09:17)
[2017-12-01] MEDS: Hydrochlorothiazide TAB* 25 MG PO SCH (09:17)
[2017-12-01] MEDS: CARBIDOPA PO SCH ×4 (09:17→22:23)
[2017-12-01] MEDS: LEVODOP PO SCH ×3 (09:17→22:20)
[2017-12-01] MEDS: Cyanocobalamin TAB* 500 MCG PO SCH (09:18)
[2017-12-01] MEDS: Metoprolol Tartrate TAB* 50 mg PO SCH ×2 (09:18→22:21)
[2017-12-01] MEDS: Magnesium Oxide TAB* 400 MG PO SCH ×2 (09:18→22:20)
[2017-12-01] MEDS: Gabapentin CAP(*) 100 MG PO SCH ×3 (09:18→22:20)
[2017-12-01] MEDS: PARoxetine HCL TAB* 20 MG PO SCH (09:18)
[2017-12-01] MEDS: SELEGILINE 5 MG PO SCH (09:19)
[2017-12-01] MEDS: Insulin GLARGINE(*) 1 UNITS UNIT SUBCUT SCH (09:26)
--- NOTE | 2017-12-01 10:16 | PN ---
Progress Note - Progress Note Date of Service: 12/01/17 SOAP: Subjective: []Patient seen at bedside, friend of family present. Patient answering questions more appropriately today. Complains of pain left hip but tolerable. Constipated, dulcolax given this am. Objective: []Left hip dressing is C/D/I, changed yesterday afternoon by Dr. Fry +DF/PF left ankle calf Nt and soft 2+ DP pulse left foot Assessment: []s/p Revision hemiarthroplasty, ORIF periprosthetic left hip fracture POD #3 Plan: []NWB LLE, Lucho lift Bed to chair Lovenox for DT prophylaxis SNF rehab when medically stable Vital Signs Temp 97.7 F 12/01/17 07:23 Pulse 80 12/01/17 07:23 Resp 18 12/01/17 09:18 BP 156/64 12/01/17 07:23 Pulse Ox 95 12/01/17 07:23 Intake & Output 11/30/17 12/01/17 12/01/17 18:59 06:59 18:59 Intake Total 250 1140 Output Total 900 550 Balance -650 590 Intake: IV Fluids 990 NS (0.9%) 990 Oral 250 150 Output: Lima 200 550 Estimated Blood Loss 700 Other: Estimated Void Medium Laboratory Results - last 24 hr 11/29/17 11/30/17 11/30/17 20:07 11:49 17:14 WBC RBC Hgb Hct MCV MCH MCHC RDW Plt Count MPV Neut % (Auto) Lymph % (Auto) [place] % (Auto) Eos % (Auto) Baso % (Auto) Absolute Neuts (auto) Absolute Lymphs (auto) Absolute Monos (auto) Absolute Eos (auto) Absolute Basos (auto) Absolute Nucleated RBC Nucleated RBC % INR (Anticoag Therapy) APTT Sodium Potassium Chloride Carbon Dioxide Anion Gap BUN Creatinine Est GFR ( Amer) Est GFR (Non-Af Amer) BUN/Creatinine Ratio Glucose POC Glucose (mg/dL) 185 H 160 H Calcium Hepatitis C Antibody Nonreactive 11/30/17 12/01/17 12/01/17 21:58 05:02 05:02 WBC 9.5 RBC 2.81 L Hgb 8.6 L Hct 25 L MCV 89 MCH 31 MCHC 35 RDW 15 Plt Count 310 MPV 7.4 Neut % (Auto) 82.1 Lymph % (Auto) 9.6 L [place] % (Auto) 7.3 H Eos % (Auto) 0.6 Baso % (Auto) 0.4 Absolute Neuts (auto) 7.8 H Absolute Lymphs (auto) 0.9 L Absolute Monos (auto) 0.7 Absolute Eos (auto) 0.1 Absolute Basos (auto) 0 Absolute Nucleated RBC 0 Nucleated RBC % 0 INR (Anticoag Therapy) APTT Sodium 128 L Potassium 4.6 Chloride 100 L Carbon Dioxide 24 Anion Gap 4 BUN 26 H Creatinine 0.80 Est GFR ( Amer) 84.4 Est GFR (Non-Af Amer) 69.7 BUN/Creatinine Ratio 32.5 H Glucose 103 H POC Glucose (mg/dL) 170 H Calcium 8.3 L Hepatitis C Antibody 12/01/17 08:14 WBC RBC Hgb Hct MCV MCH MCHC RDW Plt Count MPV Neut % (Auto) Lymph % (Auto) [place] % (Auto) Eos % (Auto) Baso % (Auto) Absolute Neuts (auto) Absolute Lymphs (auto) Absolute Monos (auto) Absolute Eos (auto) Absolute Basos (auto) Absolute Nucleated RBC Nucleated RBC % INR (Anticoag Therapy) 1.33 H APTT 27.8 Sodium Potassium Chloride Carbon Dioxide Anion Gap BUN Creatinine Est GFR ( Amer) Est GFR (Non-Af Amer) BUN/Creatinine Ratio Glucose POC Glucose (mg/dL) Calcium Hepatitis C Antibody
[2017-12-01] MEDS: Enoxaparin(*) 40 MG/0.4 ML SYR SUBCUT SCH (13:01)
--- NOTE | 2017-12-01 13:56 | PN ---
Subjective Date of Service: 12/01/17 Interval History: Pt reports pain better controlled on current regimen. Pt less agitated that previous days. Denies chest pain, shortness of breath, N/V, numbness or tingling. Still has not had BM since admission. Biscodyl suppository ordered. Objective Active Medications: Acetaminophen (Tylenol Tab*) 650 mg PO Q4H PRN PRN Reason: FEVER/PAIN Last Admin: 11/30/17 01:42 Dose: 650 mg Alprazolam (Xanax Tab*) 0.25 mg PO Q8H PRN PRN Reason: ANXIETY Last Admin: 12/01/17 03:29 Dose: 0.25 mg Amantadine HCl (Symmetrel Cap*) 100 mg PO BID [facility] Last Admin: 12/01/17 09:17 Dose: 100 mg Atorvastatin Calcium (Lipitor*) 20 mg PO DAILY [facility] Last Admin: 12/01/17 09:17 Dose: 20 mg Carbidopa/Levodopa (Sinemet 25/100 Tab(*)) 2 tab PO TID [facility] Last Admin: 12/01/17 13:47 Dose: 2 tab Carbidopa/Levodopa (Carbidopa-Levo Er 25-100 Tab) 1 tab PO BEDTIME [facility] Last Admin: 11/30/17 20:04 Dose: 1 tab Cyanocobalamin (Vitamin B12 Tab*) 1,000 mcg PO DAILY [facility] Last Admin: 12/01/17 09:18 Dose: 1,000 mcg Cyclobenzaprine HCl (Flexeril Tab*) 10 mg PO Q8H PRN PRN Reason: SPASMS Dextrose (D50w Syringe 50 Ml*) 12.5 gm IV PUSH .FOR FS < 60 - SS PRN PRN Reason: FS < 60 Docusate Sodium (Colace Cap*) 100 mg PO BID [facility] Last Admin: 12/01/17 09:17 Dose: 100 mg Enoxaparin Sodium (Lovenox(*)) 40 mg SUBCUT Q24H [facility] Last Admin: 12/01/17 13:01 Dose: 40 mg Gabapentin (Neurontin Cap(*)) 100 mg PO BID [facility] Last Admin: 12/01/17 09:18 Dose: 100 mg Gabapentin (Neurontin Cap(*)) 200 mg PO BEDTIME [facility] Last Admin: 11/30/17 20:06 Dose: 200 mg Hydralazine HCl (Apresoline Iv*) 5 mg IV SLOW PU Q6H PRN PRN Reason: SBP>170 Last Admin: 11/29/17 11:32 Dose: 5 mg Hydrochlorothiazide (Hydrodiuril Tab*) 12.5 mg PO DAILY [facility] Last Admin: 12/01/17 09:17 Dose: 12.5 mg Hydromorphone HCl (Dilaudid Inj1s*) 1 mg IV SLOW PU Q3H PRN PRN Reason: PAIN Last Admin: 12/01/17 03:39 Dose: 1 mg Insulin Glargine (Lantus(*)) 32 units SUBCUT 0900 [facility] Last Admin: 12/01/17 09:26 Dose: 32 units Insulin Human Lispro (Humalog*) 0 units SUBCUT AC [facility]; Protocol Last Admin: 12/01/17 12:00 Dose: Not Given Lisinopril (Prinivil Tab*) 20 mg PO DAILY [facility] Last Admin: 12/01/17 09:17 Dose: 20 mg Magnesium Oxide (Magox 400 Tab*) 400 mg PO BID [facility] Last Admin: 12/01/17 09:18 Dose: 400 mg Melatonin (Melatonin) 1 mg PO BEDTIME PRN PRN Reason: SLEEP Metoprolol Tartrate (Lopressor Tab*) 50 mg PO Q12HR [facility] Last Admin: 12/01/17 09:18 Dose: 50 mg Omeprazole (Prilosec Cap*) 20 mg PO 0600 [facility] Last Admin: 12/01/17 06:26 Dose: 20 mg Ondansetron HCl (Zofran Inj*) 4 mg IV Q4H PRN PRN Reason: NAUSEA/VOMITING Last Admin: 11/30/17 08:29 Dose: 4 mg Oxycodone HCl (Roxycodone Tab*) 10 mg PO Q4H PRN PRN Reason: PAIN Last Admin: 12/01/17 13:47 Dose: 10 mg Oxycodone HCl (Oxycontin(*)) 10 mg PO BID [facility] Last Admin: 12/01/17 09:16 Dose: 10 mg Paroxetine HCl (Paxil Tab*) 20 mg PO DAILY [facility] Last Admin: 12/01/17 09:18 Dose: 20 mg Polyethyl Glycol/Propylene Glycol (Lubricant Eye Drops) 1 drop BOTH EYES Q2H PRN PRN Reason: DRY EYE Polyethylene Glycol/Electrolytes (Miralax*) 17 gm PO DAILY PRN PRN Reason: CONSTIPATION Last Admin: 11/29/17 16:37 Dose: 17 gm Selegiline HCl (Eldepryl Tab*) 5 mg PO DAILY [facility] Last Admin: 12/01/17 09:19 Dose: 5 mg Vital Signs - 8 hr 12/01/17 12/01/17 12/01/17 07:02 07:23 08:00 Temperature 97.7 F Pulse Rate 80 Respiratory 18 16 20 Rate Blood Pressure 156/64 (mmHg) O2 Sat by Pulse 95 Oximetry 12/01/17 12/01/17 12/01/17 09:16 09:18 11:32 Temperature 97.7 F Pulse Rate 89 Respiratory 18 18 16 Rate Blood Pressure 144/67 (mmHg) O2 Sat by Pulse 93 Oximetry 12/01/17 12/01/17 12/01/17 11:59 12:00 13:47 Temperature Pulse Rate Respiratory 18 18 18 Rate Blood Pressure (mmHg) O2 Sat by Pulse Oximetry Oxygen Devices in Use Now: None Eyes: No Scleral Icterus, PERRLA Ears/Nose/Mouth/Throat: NL Teeth, Lips, Gums, Mucous Membranes Moist Neck: NL Appearance and Movements; NL JVP, Trachea Midline Respiratory: Symmetrical Chest Expansion and Respiratory Effort Cardiovascular: NL Sounds; No Murmurs; No JVD, RRR, - - Trace peripheral edema Abdominal: NL Sounds; No Tenderness; No Distention Extremities: No Edema, No Clubbing, Cyanosis Skin: No Rash or Ulcers Neurological: - - Oriented to self. Able to dorsiflex and plantar flex. 2+ DP pulses. 5/5 strenth in upper extremities. 3/5 in lower extremities Nutrition: Taking PO's Result Diagrams: 12/01/17 05:02 12/01/17 05:02 Microbiology and Other Data: Microbiology 11/27/17 22:33 Nasal Screen MRSA (PCR) - Final Nasal Mrsa Not Detected Assess/Plan/Problems-Billing Ms Deleon is a 77 yo F who has a h/o parkinson's, diabetes, HTN and HLD who is a [facility] who unfortunately fell and sustained a L hip fracture which was repaired with a L hip hemiarthroplasty on 11/13 and has subsequently developed a periprosthetic hip fracture, now s/p revision of left hip arthroplasty and ORIF. POD 2. Hospital course complicated by blood loss anemia. Received bloon intra-op as well as 2 units PRBC post-op. - Patient Problems (1) Periprosthetic fracture around internal prosthetic left hip joint, initial encounter Current Visit: Yes Status: Acute Code(s): M97.02XA - PERIPROSTH FRACTURE AROUND INTERNAL PROSTH L HIP JT, INIT SNOMED Code(s): 794118794 Comment: - s/p revision L hip arthroplasty and ORIF with Dr. Fry - Pain is better controlled since adding 10mg oxycontin. Has not required IV medications today. Continue to prioritize PO medications for breakthrough pain: tylenol, roxycodone 10mg Q4H PRN, but also continue dilaudid 1mg Q3H PRN. - Anticoagulation with lovenox, 40mg daily for DVT ppx - Non-weightbearing LLE per ortho - PT/OT (2) Blood loss anemia Current Visit: Yes Status: Acute Code(s): D50.0 - IRON DEFICIENCY ANEMIA SECONDARY TO BLOOD LOSS (CHRONIC) SNOMED Code(s): 156277681 Comment: - Received 2 units on 11/29, resulting in H/H 7.3/22-->11.7/36. This morning H/ H 8.6/25. Consulted Dr. Fry about sizeable drop, however she believes that yesterday's result was abnormally elevated since physiologically pt's hematocrit would not increase 14 points from just [address] Fry changed the dressing yesterday and observed the wound and was not concerned for increased bleeding. Will continue to trend H/H. - No evidence of overt bleeding on exam. Dressing CDI. BP stable and satting 93- 95% on room air. (3) Hypertension Current Visit: Yes Status: Chronic Code(s): I10 - ESSENTIAL (PRIMARY) HYPERTENSION SNOMED Code(s): 37029444 Comment: - Continue home metoprolol and restarted lisinopril/hctz today. - SBP 110-140s today (4) Chronic diastolic heart failure Current Visit: Yes Status: Acute Code(s): I50.32 - CHRONIC DIASTOLIC ( CONGESTIVE) HEART FAILURE SNOMED Code(s): 772633176 Comment: - Per echo 09/2017. Moderate LVH. Abnormal diastolic function. Ef 55-60% - Trace peripheral edema, but no shortness of breath. Have discontinued IVF as patient is now able to take PO. (5) Parkinson disease Current Visit: Yes Status: Chronic Code(s): G20 - PARKINSON'S DISEASE SNOMED Code(s): 25902828 Comment: Continue selegiline, amantadine and sinemet. (6) Type 2 diabetes mellitus Current Visit: Yes Status: Chronic Comment: - BG <180 today. Continue home lantus, 32 units, and lispro sliding scale - HgA1c 7.5% (7) Hyperlipidemia Current Visit: No Status: Acute Code(s): E78.5 - HYPERLIPIDEMIA, UNSPECIFIED SNOMED Code(s): 19571510 Comment: - Statin restarted as pt now eating (8) Constipation Current Visit: Yes Status: Acute Code(s): K59.00 - CONSTIPATION, UNSPECIFIED SNOMED Code(s): 83203036 Comment: - Last BM CHARGE AIDE. Already on colace, miralax, mag-ox. Added dulcolax suppository today. (9) Hyponatremia Current Visit: Yes Status: Acute Code(s): E87.1 - HYPO-OSMOLALITY AND HYPONATREMIA SNOMED Code(s): 27343884 Comment: - 128 today from 130. Likely dilutional as pt has been receiving IVF and has hx chronic diastolic HF. Have discontinued and will continue to monitor. (10) DVT prophylaxis Current Visit: Yes Status: Acute Code(s): YCO6806 - SNOMED Code(s): 577365287 Comment: - Will receive lovenox per Dr. Fry (11) DNR (do not resuscitate) Current Visit: Yes Status: Acute Status and Disposition: Inpatient.
[2017-12-01] MEDS: LEVODOPA PO SCH (22:23)
[2017-12-02] MEDS: Omeprazole CAP* 20 MG PO SCH (06:13)
--- NOTE | 2017-12-02 06:49 | PN ---
Progress Note - Progress Note Date of Service: 12/02/17 SOAP: Subjective: Pt. is sleeping comfortably. She awakens to voice. Objective: LLE - dressing changed, inc c/d/i. distally nvi. thigh soft and compressible. Vital Signs: Temp Pulse Resp BP Pulse Ox 97.7 F 70 20 124/54 100 12/02/17 03:15 12/02/17 03:15 12/02/17 04:28 12/02/17 03:15 12/02/17 03:15 Laboratory Results - last 24 hr 11/29/17 11/30/17 12/01/17 20:07 21:58 08:14 INR (Anticoag Therapy) 1.33 H APTT 27.8 POC Glucose (mg/dL) 170 H Hepatitis Be Antibody Negative Hepatitis Be Antigen Negative 12/01/17 12/01/17 12/01/17 11:31 16:32 22:12 INR (Anticoag Therapy) APTT POC Glucose (mg/dL) 114 H 111 H 102 H Hepatitis Be Antibody Hepatitis Be Antigen Assessment: 77 yo F pod 4 s/p revision L hip abril and orif periprosthetic femur fx Plan: pt/ot nwb lle oobtc lovenox recheck hct this am.
[2017-12-02 06:58] LABS: EGFR Non-African American 81.4 (>60)
[2017-12-02] MEDS: Insulin LISPRO* 1 UNITS UNIT SUBCUT SCH ×3 (07:13→17:16)
[2017-12-02 07:20] LABS: Hematocrit 27 % (35-47); Hemoglobin 8.9 g/dl (12.0-16.0); Mean Corpuscular HGB Conc 33 g/dl (31-36); Mean Corpuscular Hemoglobin 31 pg (27-31); Mean Corpuscular Volume 92 fL (80-97); Mean Platelet Volume 7.3 um3 (7.4-10.4); Platelet Count 273 10^3/ul (150-450); Red Blood Count 2.91 10^6/ul (4.00-5.40); Red Cell Distribution Width 15 % (10.5-15); White Blood Count 8.6 10^3/ul (3.5-10.8)
[2017-12-02 07:21] LABS: ABS Basophils 0 10^3/ul (0-0.2); ABS Eosinophils 0.1 10^3/ul (0-0.6); ABS Lymphocytes 1.1 10^3/ul (1.0-4.8); ABS Monocytes 0.8 10^3/ul (0-0.8); ABS Neutrophils 6.5 10^3/ul (1.5-7.7); ABS Nucleated RBC 0 10^3/ul; Eosinophil % 1.1 % (0-6); Lymphocyte % 12.7 % (25-47); Nucleated Red Blood Cells % 0.1
[2017-12-02] MEDS: Hydrochlorothiazide TAB* 25 MG PO SCH (09:32)
[2017-12-02] MEDS: oxyCODONE SR TAB(*) 10 MG TAB.SR PO SCH ×2 (09:32→20:10)
[2017-12-02] MEDS: Docusate CAP* 100 MG PO SCH ×2 (09:33→20:11)
[2017-12-02] MEDS: Cyanocobalamin TAB* 500 MCG PO SCH (09:33)
[2017-12-02] MEDS: Lisinopril TAB* 10 MG PO SCH (09:33)
[2017-12-02] MEDS: Atorvastatin* 20 MG TAB PO SCH (09:33)
[2017-12-02] MEDS: CARBIDOPA PO SCH ×4 (09:33→20:12)
[2017-12-02] MEDS: Magnesium Oxide TAB* 400 MG PO SCH ×2 (09:33→20:12)
[2017-12-02] MEDS: PARoxetine HCL TAB* 20 MG PO SCH (09:33)
[2017-12-02] MEDS: LEVODOP PO SCH ×3 (09:33→20:12)
[2017-12-02] MEDS: Metoprolol Tartrate TAB* 50 mg PO SCH ×2 (09:34→20:11)
[2017-12-02] MEDS: Amantadine CAP* 100 MG PO SCH ×2 (09:34→20:11)
[2017-12-02] MEDS: Gabapentin CAP(*) 100 MG PO SCH ×3 (09:42→20:11)
[2017-12-02] MEDS: Insulin GLARGINE(*) 1 UNITS UNIT SUBCUT SCH (09:42)
[2017-12-02] MEDS: SELEGILINE 5 MG PO SCH (09:42)
[2017-12-02] MEDS ORDERED: Saline NASAL SPRAY 0.65%* BTL BOTH NARES PRN (10:07)
[2017-12-02] MEDS ORDERED: Senna TAB PO PRN (10:47)
--- NOTE | 2017-12-02 11:11 | PN ---
Subjective Date of Service: 12/02/17 Interval History: Patient is in persistent 11/22 pain in her back and leg per report but is sleeping upon arrival into the room. Patient is feeling somewhat constipated. Patient denies numbness/tingling in feet/hands, CP, SOB, Palpitations, dizziness , N/V, abdominal pain, F/C, or other pain. Patient is lethargic but A/Ox3. Family History: Unchanged from Admission Social History: Unchanged from Admission Past Medical History: Unchanged from Admission Objective Active Medications: Acetaminophen (Tylenol Tab*) 650 mg PO Q4H PRN PRN Reason: FEVER/PAIN Last Admin: 11/30/17 01:42 Dose: 650 mg Alprazolam (Xanax Tab*) 0.25 mg PO Q8H PRN PRN Reason: ANXIETY Last Admin: 12/01/17 03:29 Dose: 0.25 mg Amantadine HCl (Symmetrel Cap*) 100 mg PO BID [facility] Last Admin: 12/02/17 09:34 Dose: 100 mg Atorvastatin Calcium (Lipitor*) 20 mg PO DAILY [facility] Last Admin: 12/02/17 09:33 Dose: 20 mg Carbidopa/Levodopa (Sinemet 25/100 Tab(*)) 2 tab PO TID [facility] Last Admin: 12/02/17 09:33 Dose: 2 tab Carbidopa/Levodopa (Carbidopa-Levo Er 25-100 Tab) 1 tab PO BEDTIME [facility] Last Admin: 12/01/17 22:23 Dose: 1 tab Cyanocobalamin (Vitamin B12 Tab*) 1,000 mcg PO DAILY [facility] Last Admin: 12/02/17 09:33 Dose: 1,000 mcg Cyclobenzaprine HCl (Flexeril Tab*) 10 mg PO Q8H PRN PRN Reason: SPASMS Dextrose (D50w Syringe 50 Ml*) 12.5 gm IV PUSH .FOR FS < 60 - SS PRN PRN Reason: FS < 60 Docusate Sodium (Colace Cap*) 100 mg PO BID [facility] Last Admin: 12/02/17 09:33 Dose: 100 mg Enoxaparin Sodium (Lovenox(*)) 40 mg SUBCUT Q24H [facility] Last Admin: 12/01/17 13:01 Dose: 40 mg Gabapentin (Neurontin Cap(*)) 200 mg PO BEDTIME [facility] Last Admin: 12/01/17 22:20 Dose: 200 mg Gabapentin (Neurontin Cap(*)) 100 mg PO 0900,1500 [facility] Last Admin: 12/02/17 09:42 Dose: 100 mg Hydralazine HCl (Apresoline Iv*) 5 mg IV SLOW PU Q6H PRN PRN Reason: SBP>170 Last Admin: 11/29/17 11:32 Dose: 5 mg Hydrochlorothiazide (Hydrodiuril Tab*) 12.5 mg PO DAILY [facility] Last Admin: 12/02/17 09:32 Dose: 12.5 mg Hydromorphone HCl (Dilaudid Inj1s*) 1 mg IV SLOW PU Q3H PRN PRN Reason: PAIN Last Admin: 12/01/17 20:08 Dose: 1 mg Insulin Glargine (Lantus(*)) 25 units SUBCUT 0900 [facility] Insulin Human Lispro (Humalog*) 0 units SUBCUT AC [facility]; Protocol Last Admin: 12/02/17 07:13 Dose: Not Given Lisinopril (Prinivil Tab*) 20 mg PO DAILY [facility] Last Admin: 12/02/17 09:33 Dose: 20 mg Magnesium Oxide (Magox 400 Tab*) 400 mg PO BID [facility] Last Admin: 12/02/17 09:33 Dose: 400 mg Melatonin (Melatonin) 1 mg PO BEDTIME PRN PRN Reason: SLEEP Metoprolol Tartrate (Lopressor Tab*) 50 mg PO Q12HR [facility] Last Admin: 12/02/17 09:34 Dose: 50 mg Omeprazole (Prilosec Cap*) 20 mg PO 0600 [facility] Last Admin: 12/02/17 06:13 Dose: 20 mg Ondansetron HCl (Zofran Inj*) 4 mg IV Q4H PRN PRN Reason: NAUSEA/VOMITING Last Admin: 11/30/17 08:29 Dose: 4 mg Oxycodone HCl (Roxycodone Tab*) 10 mg PO Q4H PRN PRN Reason: PAIN Last Admin: 12/01/17 18:16 Dose: 10 mg Oxycodone HCl (Oxycontin(*)) 10 mg PO BID [facility] Last Admin: 12/02/17 09:32 Dose: 10 mg Paroxetine HCl (Paxil Tab*) 20 mg PO DAILY [facility] Last Admin: 12/02/17 09:33 Dose: 20 mg Polyethyl Glycol/Propylene Glycol (Lubricant Eye Drops) 1 drop BOTH EYES Q2H PRN PRN Reason: DRY EYE Last Admin: 12/01/17 13:49 Dose: 1 drop Polyethylene Glycol/Electrolytes (Miralax*) 17 gm PO DAILY PRN PRN Reason: CONSTIPATION Last Admin: 11/29/17 16:37 Dose: 17 gm Selegiline HCl (Eldepryl Tab*) 5 mg PO DAILY [facility] Last Admin: 12/02/17 09:42 Dose: 5 mg Senna (Senokot Tab*) 1 tab PO BEDTIME PRN PRN Reason: CONSTIPATION Sodium Chloride (Sodium Chloride 0.65% Nasal [place]*) 1 spray BOTH NARES Q4H PRN PRN Reason: CONGESTION Vital Signs - 8 hr 12/02/17 12/02/17 12/02/17 03:13 03:15 04:28 Temperature 97.7 F Pulse Rate 70 Respiratory 18 20 Rate Blood Pressure 124/54 (mmHg) O2 Sat by Pulse 96 100 Oximetry 12/02/17 12/02/17 12/02/17 07:26 09:32 09:42 Temperature 97.7 F Pulse Rate 70 Respiratory 20 18 22 Rate Blood Pressure 134/58 (mmHg) O2 Sat by Pulse 97 Oximetry Oxygen Devices in Use Now: None Appearance: Patient is a 77yo female who appears stated age, has mask-like facies and is sitting in the bed in NAD. Eyes: No Scleral Icterus, PERRLA Ears/Nose/Mouth/Throat: NL Teeth, Lips, Gums, Clear Oropharnyx, Mucous Membranes Moist Neck: NL Appearance and Movements; NL JVP, Trachea Midline Respiratory: Symmetrical Chest Expansion and Respiratory Effort, Clear to Auscultation Cardiovascular: NL Sounds; No Murmurs; No JVD, RRR, - - Trace edema. Abdominal: NL Sounds; No Tenderness; No Distention, No Hepatosplenomegaly Lymphatic: No Cervical Adenopathy Extremities: No Clubbing, Cyanosis Skin: No Nodules or Sclerosis, - - Hip incision covered in CDI dressing. Neurological: Alert and Oriented x 3, - - Cogwheeling, Mask-like facies, no other focal deficits. Result Diagrams: 12/02/17 06:29 12/02/17 06:29 Microbiology and Other Data: Microbiology 11/27/17 22:33 Nasal Screen MRSA (PCR) - Final Nasal Mrsa Not Detected Assess/Plan/Problems-Billing Ms Deleon is a 77 yo F who has a h/o parkinson's, diabetes, HTN and HLD who is a resident of [facility] at [facility] who unfortunately fell and sustained a L hip fracture which was repaired with a L hip hemiarthroplasty on 11/13 and has subsequently developed a periprosthetic hip fracture, now s/p revision of left hip arthroplasty and ORIF. POD 3. Hospital course complicated by blood loss anemia. Received blood intra-op as well as 2 units PRBC post-op. - Patient Problems (1) Periprosthetic fracture around internal prosthetic left hip joint, initial encounter Current Visit: Yes Status: Acute Code(s): M97.02XA - PERIPROSTH FRACTURE AROUND INTERNAL PROSTH L HIP JT, INIT SNOMED Code(s): 764551679 Comment: - Status Post revision L hip arthroplasty and ORIF with Dr. Fry - Pain is better controlled since adding 10mg oxycontin. Has not required IV medications today. Continue to prioritize PO medications for breakthrough pain: tylenol, roxycodone 10mg Q4H PRN, but also continue dilaudid 1mg Q3H PRN. - Anticoagulation with lovenox, 40mg daily for DVT ppx - Non-weightbearing LLE per ortho - PT/OT - Will likely need rehab. Slow progress post-op (2) Blood loss anemia Current Visit: Yes Status: Acute Code(s): D50.0 - IRON DEFICIENCY ANEMIA SECONDARY TO BLOOD LOSS (CHRONIC) SNOMED Code(s): 337953422 Comment: - Received 2 units on 11/29, Hemoglobin now stable at around 9. Will continue to trend H/H. - No evidence of overt bleeding on exam. Dressing CDI. BP stable and satting 93- 95% on room air. (3) Chronic diastolic heart failure Current Visit: Yes Status: Acute Code(s): I50.32 - CHRONIC DIASTOLIC ( CONGESTIVE) HEART FAILURE SNOMED Code(s): 604991307 Comment: - Per echo 09/2017. Moderate LVH. Abnormal diastolic function. Ef 55-60% - Trace peripheral edema, but no shortness of breath. Have discontinued IVF as patient is now able to take PO. (4) Constipation Current Visit: Yes Status: Acute Code(s): K59.00 - CONSTIPATION, UNSPECIFIED SNOMED Code(s): 25065220 Comment: - Continue colace, miralax, mag-ox and senna. - Small BM but persistent feeling of constipation today. (5) Hypertension Current Visit: Yes Status: Chronic Code(s): I10 - ESSENTIAL (PRIMARY) HYPERTENSION SNOMED Code(s): 59014861 Comment: - Continue home metoprolol, and lisinopril/hctz - SBP 110-140s today - History of TIA from hypertensive urgency. (6) Parkinson disease Current Visit: Yes Status: Chronic Code(s): G20 - PARKINSON'S DISEASE SNOMED Code(s): 03220678 Comment: Continue selegiline, amantadine and sinemet. (7) Type 2 diabetes mellitus Current Visit: Yes Status: Chronic Comment: - Good control, decrease lantus due to morning hypoglycemia. - Continue SSI. (8) DNR (do not resuscitate) Current Visit: Yes Status: Acute (9) DVT prophylaxis Current Visit: Yes Status: Acute Code(s): DKI7667 - SNOMED Code(s): 376470060 Comment: - Will receive lovenox per Dr. Fry Status and Disposition: Inpatient.
[2017-12-02] MEDS: oxyCODONE TAB* 5 MG TAB PO PRN (12:01)
[2017-12-02] MEDS: Cyclobenzaprine TAB* 10 MG PO PRN (12:02)
[2017-12-02] MEDS: Enoxaparin(*) 40 MG/0.4 ML SYR SUBCUT SCH (12:05)
[2017-12-02] MEDS: HYDROmorphone INJ1* 1 MG/ML SYRINGE IV SLOW PU PRN ×2 (12:58→21:25)
[2017-12-02] MEDS: ALPRAZolam TAB* 0.25 MG PO PRN (15:50)
[2017-12-02] MEDS: LEVODOPA PO SCH (20:12)
[2017-12-03] MEDS: oxyCODONE TAB* 5 MG TAB PO PRN ×3 (04:45→20:43)
[2017-12-03] MEDS: Omeprazole CAP* 20 MG PO SCH (06:14)
[2017-12-03 06:16] LABS: Hematocrit 24 % (35-47); Hemoglobin 8.4 g/dl (12.0-16.0); Mean Corpuscular HGB Conc 35 g/dl (31-36); Mean Corpuscular Hemoglobin 31 pg (27-31); Mean Corpuscular Volume 88 fL (80-97); Mean Platelet Volume 6.7 um3 (7.4-10.4); Platelet Count 326 10^3/ul (150-450); Red Blood Count 2.76 10^6/ul (4.00-5.40); Red Cell Distribution Width 15 % (10.5-15); White Blood Count 9.8 10^3/ul (3.5-10.8)
[2017-12-03 06:33] LABS: EGFR Non-African American 72.9 (>60)
[2017-12-03 06:41] LABS: ABS Basophils 0.1 10^3/ul (0-0.2); ABS Eosinophils 0.1 10^3/ul (0-0.6); ABS Lymphocytes 0.8 10^3/ul (1.0-4.8); ABS Monocytes 0.8 10^3/ul (0-0.8); ABS Nucleated RBC 0 10^3/ul; Lymphocyte % 8.3 % (25-47); Nucleated Red Blood Cells % 0.1
--- NOTE | 2017-12-03 06:47 | PN ---
Progress Note - Progress Note Date of Service: 12/03/17 SOAP: Subjective: resting comfortably with no complaints Objective: Vital Signs Temp Pulse Resp BP Pulse Ox 98.0 F 76 22 117/45 94 12/03/17 03:58 12/03/17 03:58 12/03/17 04:45 12/03/17 03:58 12/03/17 03:58 Laboratory Last Values WBC 9.8 10^3/ul (3.5-10.8) 12/03/17 06:08 RBC 2.76 10^6/ul (4.00-5.40) L 12/03/17 06:08 Hgb 8.4 g/dl (12.0-16.0) L 12/03/17 06:08 Hct 24 % (35-47) L 12/03/17 06:08 MCV 88 fL (80-97) 12/03/17 06:08 MCH 31 pg (27-31) 12/03/17 06:08 MCHC 35 g/dl (31-36) 12/03/17 06:08 RDW 15 % (10.5-15) 12/03/17 06:08 Plt Count 326 10^3/ul (150-450) 12/03/17 06:08 MPV 6.7 um3 (7.4-10.4) L 12/03/17 06:08 Neut % (Auto) 81.8 % (38-83) 12/03/17 06:08 Lymph % (Auto) 8.3 % (25-47) L 12/03/17 06:08 [place] % (Auto) 8.4 % (0-7) H 12/03/17 06:08 Eos % (Auto) 1.0 % (0-6) 12/03/17 06:08 Baso % (Auto) 0.5 % (0-2) 12/03/17 06:08 Absolute Neuts (auto) 8.0 10^3/ul (1.5-7.7) H 12/03/17 06:08 Absolute Lymphs (auto) 0.8 10^3/ul (1.0-4.8) L 12/03/17 06:08 Absolute Monos (auto) 0.8 10^3/ul (0-0.8) 12/03/17 06:08 Absolute Eos (auto) 0.1 10^3/ul (0-0.6) 12/03/17 06:08 Absolute Basos (auto) 0.1 10^3/ul (0-0.2) 12/03/17 06:08 Absolute Nucleated RBC 0 10^3/ul 12/03/17 06:08 Nucleated RBC % 0.1 12/03/17 06:08 INR (Anticoag Therapy) 1.33 (0.77-1.02) H 12/01/17 08:14 APTT 27.8 seconds (26.0-36.3) 12/01/17 08:14 Sodium 128 mmol/L (135-145) L 12/03/17 06:08 Potassium 4.2 mmol/L (3.5-5.0) 12/03/17 06:08 Chloride 96 mmol/L (101-111) L 12/03/17 06:08 Carbon Dioxide 26 mmol/L (22-32) 12/03/17 06:08 Anion Gap 6 mmol/L (2-11) 12/03/17 06:08 BUN 19 mg/dL (6-24) 12/03/17 06:08 Creatinine 0.77 mg/dL (0.51-0.95) 12/03/17 06:08 Est GFR ( Amer) 88.2 (>60) 12/03/17 06:08 Est GFR (Non-Af Amer) 72.9 (>60) 12/03/17 06:08 BUN/Creatinine Ratio 24.7 (8-20) H 12/03/17 06:08 Glucose 100 mg/dL (70-100) 12/03/17 06:08 POC Glucose (mg/dL) 157 mg/dL (70-100) H 12/02/17 22:55 Hemoglobin A1c 7.5 % (4.0-5.6) H 11/29/17 04:39 Calcium 8.3 mg/dL (8.6-10.3) L 12/03/17 06:08 Magnesium 1.6 mg/dL (1.9-2.7) L 12/03/17 06:08 Total Bilirubin 1.10 mg/dL (0.2-1.0) H 11/29/17 17:35 AST 21 U/L (13-39) 11/29/17 17:35 ALT < 3 U/L (7-52) L 11/29/17 17:35 Alkaline Phosphatase 71 U/L (34-104) 11/29/17 17:35 Total Protein 5.5 g/dL (6.4-8.9) L 11/29/17 17:35 Albumin 2.7 g/dL (3.2-5.2) L 11/29/17 17:35 Globulin 2.8 g/dL (2-4) 11/29/17 17:35 Albumin/Globulin Ratio 1.0 (1-3) 11/29/17 17:35 Hepatitis Be Antibody Negative (Negative) 11/29/17 20:07 Hepatitis Be Antigen Negative (Negative) 11/29/17 20:07 Hepatitis C Antibody Nonreactive (Nonreactive) 11/29/17 20:07 HIV 1&2 Antibody Rapid Nonreactive (Nonreactive) 11/29/17 20:07 Blood Type O Positive 11/27/17 22:52 Antibody Screen Negative 11/27/17 22:52 Crossmatch See Detail 11/27/17 22:52 incision: c/d PE: NVI Assessment: S/P ORIF left hip Plan: 1) hospitalist co-managing 2) PT/OT- NWB LLE 3) Lovenox for DVT prophylaxis 4) SNF when stable
[2017-12-03] MEDS: Insulin LISPRO* 1 UNITS UNIT SUBCUT SCH ×4 (07:33→18:48)
[2017-12-03] MEDS: LEVODOP PO SCH ×3 (09:07→20:45)
[2017-12-03] MEDS: Atorvastatin* 20 MG TAB PO SCH (09:07)
[2017-12-03] MEDS: CARBIDOPA PO SCH ×4 (09:07→20:45)
[2017-12-03] MEDS: Lisinopril TAB* 10 MG PO SCH (09:07)
[2017-12-03] MEDS: Cyanocobalamin TAB* 500 MCG PO SCH (09:07)
[2017-12-03] MEDS: oxyCODONE SR TAB(*) 10 MG TAB.SR PO SCH ×2 (09:07→20:43)
[2017-12-03] MEDS: PARoxetine HCL TAB* 20 MG PO SCH (09:08)
[2017-12-03] MEDS: Metoprolol Tartrate TAB* 50 mg PO SCH ×2 (09:08→20:41)
[2017-12-03] MEDS: Magnesium Oxide TAB* 400 MG PO SCH ×2 (09:08→20:44)
[2017-12-03] MEDS: Docusate CAP* 100 MG PO SCH ×2 (09:08→20:41)
[2017-12-03] MEDS: SELEGILINE 5 MG PO SCH (09:09)
[2017-12-03] MEDS: Insulin GLARGINE(*) 1 UNITS UNIT SUBCUT SCH (09:09)
[2017-12-03] MEDS: Amantadine CAP* 100 MG PO SCH ×2 (09:10→20:45)
[2017-12-03] MEDS: Gabapentin CAP(*) 100 MG PO SCH ×4 (09:12→20:41)
--- NOTE | 2017-12-03 09:49 | PN ---
Subjective Date of Service: 12/03/17 Interval History: Patient in better spirits today. More alert with decreased pain rated at 6/10 in her back and hip. Patient denies dizziness, CP, SOB, N/V, abdominal pain, constipation, palpitations, or other pain. Family History: Unchanged from Admission Social History: Unchanged from Admission Past Medical History: Unchanged from Admission Objective Active Medications: Acetaminophen (Tylenol Tab*) 650 mg PO Q4H PRN PRN Reason: FEVER/PAIN Last Admin: 11/30/17 01:42 Dose: 650 mg Alprazolam (Xanax Tab*) 0.25 mg PO Q8H PRN PRN Reason: ANXIETY Last Admin: 12/02/17 15:50 Dose: 0.25 mg Amantadine HCl (Symmetrel Cap*) 100 mg PO BID [facility] Last Admin: 12/03/17 09:10 Dose: 100 mg Atorvastatin Calcium (Lipitor*) 20 mg PO DAILY [facility] Last Admin: 12/03/17 09:07 Dose: 20 mg Carbidopa/Levodopa (Sinemet 25/100 Tab(*)) 2 tab PO TID [facility] Last Admin: 12/03/17 09:07 Dose: 2 tab Carbidopa/Levodopa (Carbidopa-Levo Er 25-100 Tab) 1 tab PO BEDTIME [facility] Last Admin: 12/02/17 20:12 Dose: 1 tab Cyanocobalamin (Vitamin B12 Tab*) 1,000 mcg PO DAILY [facility] Last Admin: 12/03/17 09:07 Dose: 1,000 mcg Cyclobenzaprine HCl (Flexeril Tab*) 10 mg PO Q8H PRN PRN Reason: SPASMS Last Admin: 12/02/17 12:02 Dose: 10 mg Dextrose (D50w Syringe 50 Ml*) 12.5 gm IV PUSH .FOR FS < 60 - SS PRN PRN Reason: FS < 60 Docusate Sodium (Colace Cap*) 100 mg PO BID [facility] Last Admin: 12/03/17 09:08 Dose: 100 mg Enoxaparin Sodium (Lovenox(*)) 40 mg SUBCUT Q24H [facility] Last Admin: 12/02/17 12:05 Dose: 40 mg Gabapentin (Neurontin Cap(*)) 200 mg PO BEDTIME [facility] Last Admin: 12/02/17 20:11 Dose: 200 mg Gabapentin (Neurontin Cap(*)) 100 mg PO 0900,1500 [facility] Last Admin: 12/03/17 09:12 Dose: 100 mg Hydralazine HCl (Apresoline Iv*) 5 mg IV SLOW PU Q6H PRN PRN Reason: SBP>170 Last Admin: 11/29/17 11:32 Dose: 5 mg Hydromorphone HCl (Dilaudid Inj1s*) 0.5 mg IV SLOW PU Q3H PRN PRN Reason: PAIN Last Admin: 12/02/17 21:25 Dose: 0.5 mg Magnesium Sulfate 3 gm/ Sodium (Chloride) 106 mls @ 53 mls/hr IVPB ONCE ONE Stop: 12/03/17 11:36 Insulin Glargine (Lantus(*)) 25 units SUBCUT 0900 [facility] Last Admin: 12/03/17 09:09 Dose: 25 units Insulin Human Lispro (Humalog*) 0 units SUBCUT AC [facility]; Protocol Last Admin: 12/03/17 07:33 Dose: Not Given Lisinopril (Prinivil Tab*) 30 mg PO DAILY [facility] Last Admin: 12/03/17 09:07 Dose: 30 mg Magnesium Oxide (Magox 400 Tab*) 400 mg PO BID [facility] Last Admin: 12/03/17 09:08 Dose: 400 mg Melatonin (Melatonin) 1 mg PO BEDTIME PRN PRN Reason: SLEEP Metoprolol Tartrate (Lopressor Tab*) 50 mg PO Q12HR [facility] Last Admin: 12/03/17 09:08 Dose: 50 mg Omeprazole (Prilosec Cap*) 20 mg PO 0600 [facility] Last Admin: 12/03/17 06:14 Dose: 20 mg Ondansetron HCl (Zofran Inj*) 4 mg IV Q4H PRN PRN Reason: NAUSEA/VOMITING Last Admin: 11/30/17 08:29 Dose: 4 mg Oxycodone HCl (Roxycodone Tab*) 10 mg PO Q4H PRN PRN Reason: PAIN Last Admin: 12/03/17 04:45 Dose: 10 mg Oxycodone HCl (Oxycontin(*)) 10 mg PO BID [facility] Last Admin: 12/03/17 09:07 Dose: 10 mg Paroxetine HCl (Paxil Tab*) 20 mg PO DAILY [facility] Last Admin: 12/03/17 09:08 Dose: 20 mg Polyethyl Glycol/Propylene Glycol (Lubricant Eye Drops) 1 drop BOTH EYES Q2H PRN PRN Reason: DRY EYE Last Admin: 12/01/17 13:49 Dose: 1 drop Polyethylene Glycol/Electrolytes (Miralax*) 17 gm PO DAILY PRN PRN Reason: CONSTIPATION Last Admin: 11/29/17 16:37 Dose: 17 gm Selegiline HCl (Eldepryl Tab*) 5 mg PO DAILY [facility] Last Admin: 12/03/17 09:09 Dose: 5 mg Senna (Senokot Tab*) 1 tab PO BEDTIME PRN PRN Reason: CONSTIPATION Sodium Chloride (Sodium Chloride 0.65% Nasal [place]*) 1 spray BOTH NARES Q4H PRN PRN Reason: CONGESTION Vital Signs - 8 hr 12/03/17 12/03/17 12/03/17 03:58 04:45 07:13 Temperature 98.0 F 98.9 F Pulse Rate 76 78 Respiratory 16 22 16 Rate Blood Pressure 117/45 147/62 (mmHg) O2 Sat by Pulse 94 95 Oximetry 12/03/17 12/03/17 12/03/17 07:34 07:35 09:07 Temperature Pulse Rate Respiratory 18 18 18 Rate Blood Pressure (mmHg) O2 Sat by Pulse 95 Oximetry 12/03/17 09:12 Temperature Pulse Rate Respiratory 18 Rate Blood Pressure (mmHg) O2 Sat by Pulse Oximetry Oxygen Devices in Use Now: None Appearance: Patient is a 77yo female who appears stated age with mask-like facies. Eyes: No Scleral Icterus, PERRLA Ears/Nose/Mouth/Throat: NL Teeth, Lips, Gums, Clear Oropharnyx, Mucous Membranes Moist Neck: NL Appearance and Movements; NL JVP, Trachea Midline Respiratory: Symmetrical Chest Expansion and Respiratory Effort, Clear to Auscultation Cardiovascular: NL Sounds; No Murmurs; No JVD, RRR, - - 1+ LLE edema. Abdominal: NL Sounds; No Tenderness; No Distention, No Hepatosplenomegaly Lymphatic: No Cervical Adenopathy Extremities: No Clubbing, Cyanosis Skin: No Nodules or Sclerosis, - - Left hip incision covered with bulky dressing. Neurological: Alert and Oriented x 3, - - Cogwheeling, CN II-XII intact. Result Diagrams: 12/03/17 06:08 12/03/17 06:08 Microbiology and Other Data: Microbiology 11/27/17 22:33 Nasal Screen MRSA (PCR) - Final Nasal Mrsa Not Detected Assess/Plan/Problems-Billing Ms Deleon is a 77 yo F who has a h/o parkinson's, diabetes, HTN and HLD who is a resident of [facility] who unfortunately fell and sustained a L hip fracture which was repaired with a L hip hemiarthroplasty on 11/13 and has subsequently developed a periprosthetic hip fracture, now s/p revision of left hip arthroplasty and ORIF. POD 3. Hospital course complicated by blood loss anemia. Received blood intra-op as well as 2 units PRBC post-op. - Patient Problems (1) Periprosthetic fracture around internal prosthetic left hip joint, initial encounter Current Visit: Yes Status: Acute Code(s): M97.02XA - PERIPROSTH FRACTURE AROUND INTERNAL PROSTH L HIP JT, INIT SNOMED Code(s): 914769412 Comment: - Status Post revision L hip arthroplasty and ORIF with Dr. Fry - Pain is better controlled since adding 10mg oxycontin. Has not required IV medications today. Continue to prioritize PO medications for breakthrough pain: tylenol, roxycodone 10mg Q4H PRN, but also continue dilaudid .5mg Q3H PRN. Will decrease IV medications as pain improves and use adjunctive Xanax as that appeared to be effective. - Anticoagulation with lovenox, 40mg daily for DVT ppx - Non-weightbearing LLE per ortho - PT/OT - Will likely need rehab. Slow progress post-op (2) Blood loss anemia Current Visit: Yes Status: Acute Code(s): D50.0 - IRON DEFICIENCY ANEMIA SECONDARY TO BLOOD LOSS (CHRONIC) SNOMED Code(s): 747679456 Comment: - Received 2 units on 11/29, Hemoglobin now stable at around 9. Will continue to trend H/H. - No evidence of overt bleeding on exam. Dressing CDI. BP stable and satting 93- 95% on room air. (3) Chronic diastolic heart failure Current Visit: Yes Status: Acute Code(s): I50.32 - CHRONIC DIASTOLIC ( CONGESTIVE) HEART FAILURE SNOMED Code(s): 253969101 Comment: - Per echo 09/2017. Moderate LVH. Abnormal diastolic function. Ef 55-60% - Trace peripheral edema, but no shortness of breath. Have discontinued IVF as patient is now able to take PO. (4) Constipation Current Visit: Yes Status: Acute Code(s): K59.00 - CONSTIPATION, UNSPECIFIED SNOMED Code(s): 66426227 Comment: - Continue colace, miralax, mag-ox and senna. -Large BM yesterday. (5) Hypertension Current Visit: Yes Status: Chronic Code(s): I10 - ESSENTIAL (PRIMARY) HYPERTENSION SNOMED Code(s): 92803058 Comment: - Continue home metoprolol, and lisinopril - SBP 110-140s today - History of TIA from hypertensive urgency. - Stop HCTZ due to Hyponatremia. (6) Parkinson disease Current Visit: Yes Status: Chronic Code(s): G20 - PARKINSON'S DISEASE SNOMED Code(s): 25685132 Comment: - Continue selegiline, amantadine and sinemet. - Advanced disease with mild dementia but mentation not at baseline likely due to post-operative delirium. (7) Type 2 diabetes mellitus Current Visit: Yes Status: Chronic Comment: - Good control, decrease lantus due to morning hypoglycemia. - Continue SSI. (8) DNR (do not resuscitate) Current Visit: Yes Status: Acute (9) DVT prophylaxis Current Visit: Yes Status: Acute Code(s): FUE6017 - SNOMED Code(s): 515732494 Comment: - Will receive lovenox per Dr. Fry Status and Disposition: Inpatient.
[2017-12-03] MEDS ORDERED: Magnesium Sulfate IV* 3 GM in NS 0.9% 100 ML* 100 ML IVPB ONE (10:00)
[2017-12-03] MEDS: Enoxaparin(*) 40 MG/0.4 ML SYR SUBCUT SCH (12:40)
[2017-12-03] MEDS: ALPRAZolam TAB* 0.25 MG PO PRN (18:45)
[2017-12-03] MEDS: Cyclobenzaprine TAB* 10 MG PO PRN (18:45)
[2017-12-03] MEDS: Acetaminophen TAB* 325 MG PO PRN (19:25)
[2017-12-03] MEDS: LEVODOPA PO SCH (20:39)
[2017-12-04] MEDS: Omeprazole CAP* 20 MG PO SCH (05:26)
[2017-12-04] MEDS: Acetaminophen TAB* 325 MG PO PRN ×3 (05:40→17:54)
[2017-12-04] MEDS: oxyCODONE TAB* 5 MG TAB PO PRN ×3 (05:41→17:55)
[2017-12-04 06:50] LABS: Hematocrit 24 % (35-47); Hemoglobin 8.1 g/dl (12.0-16.0)
[2017-12-04 07:05] LABS: EGFR Non-African American 69.7 (>60)
[2017-12-04] MEDS: Insulin LISPRO* 1 UNITS UNIT SUBCUT SCH ×3 (11:12→18:39)
[2017-12-04] MEDS: LEVODOP PO SCH ×3 (11:15→22:15)
[2017-12-04] MEDS: Cyanocobalamin TAB* 500 MCG PO SCH (11:15)
[2017-12-04] MEDS: CARBIDOPA PO SCH ×4 (11:15→22:16)
[2017-12-04] MEDS: Lisinopril TAB* 10 MG PO SCH (11:15)
[2017-12-04] MEDS: PARoxetine HCL TAB* 20 MG PO SCH (11:15)
[2017-12-04] MEDS: Atorvastatin* 20 MG TAB PO SCH (11:15)
[2017-12-04] MEDS: Amantadine CAP* 100 MG PO SCH ×2 (11:15→22:15)
[2017-12-04] MEDS: Magnesium Oxide TAB* 400 MG PO SCH ×2 (11:15→22:16)
[2017-12-04] MEDS: oxyCODONE SR TAB(*) 10 MG TAB.SR PO SCH ×2 (11:16→22:16)
[2017-12-04] MEDS: Docusate CAP* 100 MG PO SCH ×2 (11:16→22:16)
[2017-12-04] MEDS: Metoprolol Tartrate TAB* 50 mg PO SCH ×2 (11:16→22:15)
[2017-12-04] MEDS: SELEGILINE 5 MG PO SCH (11:17)
[2017-12-04] MEDS: Gabapentin CAP(*) 100 MG PO SCH ×3 (11:19→22:14)
[2017-12-04] MEDS: Insulin GLARGINE(*) 1 UNITS UNIT SUBCUT SCH (11:40)
[2017-12-04] MEDS: Enoxaparin(*) 40 MG/0.4 ML SYR SUBCUT SCH (12:46)
--- NOTE | 2017-12-04 13:57 | PN ---
Subjective Date of Service: 12/04/17 Interval History: Ms. Deleon is drowsy upon exam and not able to provide much subjective data. She denies pain. She verbalizes no complaints. Denies CP, SOB, N/V/D, dizziness. Spoke with caregiver at bedside who feels as though her pain has significantly improved in the last few days. Caregiver and daughter are aware that she will need AV and potentially SNF placement at d/c. Family History: Unchanged from Admission Social History: Unchanged from Admission Past Medical History: Unchanged from Admission Objective Active Medications: Acetaminophen (Tylenol Tab*) 650 mg PO Q4H PRN Alprazolam (Xanax Tab*) 0.25 mg PO Q8H PRN Amantadine HCl (Symmetrel Cap*) 100 mg PO BID JEF Atorvastatin Calcium (Lipitor*) 20 mg PO DAILY JEF Carbidopa/Levodopa (Sinemet 25/100 Tab(*)) 2 tab PO TID JEF Carbidopa/Levodopa (Carbidopa-Levo Er 25-100 Tab) 1 tab PO BEDTIME JEF Cyanocobalamin (Vitamin B12 Tab*) 1,000 mcg PO DAILY JEF Cyclobenzaprine HCl (Flexeril Tab*) 10 mg PO Q8H PRN Dextrose (D50w Syringe 50 Ml*) 12.5 gm IV PUSH .FOR FS < 60 - SS PRN Docusate Sodium (Colace Cap*) 100 mg PO BID JEF Enoxaparin Sodium (Lovenox(*)) 40 mg SUBCUT Q24H JEF Gabapentin (Neurontin Cap(*)) 200 mg PO BEDTIME JEF Gabapentin (Neurontin Cap(*)) 100 mg PO 0900,1500 JEF Hydralazine HCl (Apresoline Iv*) 5 mg IV SLOW PU Q6H PRN Hydromorphone HCl (Dilaudid Inj1s*) 0.5 mg IV SLOW PU Q3H PRN Insulin Glargine (Lantus(*)) 25 units SUBCUT 0900 JEF Insulin Human Lispro (Humalog*) 0 units SUBCUT AC JEF; Protocol Lisinopril (Prinivil Tab*) 30 mg PO DAILY JEF Magnesium Oxide (Magox 400 Tab*) 400 mg PO BID JEF Melatonin (Melatonin) 1 mg PO BEDTIME PRN Metoprolol Tartrate (Lopressor Tab*) 50 mg PO Q12HR JEF Omeprazole (Prilosec Cap*) 20 mg PO 0600 JEF Ondansetron HCl (Zofran Inj*) 4 mg IV Q4H PRN Oxycodone HCl (Roxycodone Tab*) 10 mg PO Q4H PRN Oxycodone HCl (Oxycontin(*)) 10 mg PO BID JEF Paroxetine HCl (Paxil Tab*) 20 mg PO DAILY JEF Polyethyl Glycol/Propylene Glycol (Lubricant Eye Drops) 1 drop BOTH EYES Q2H PRN Polyethylene Glycol/Electrolytes (Miralax*) 17 gm PO DAILY PRN Selegiline HCl (Eldepryl Tab*) 5 mg PO DAILY JEF Senna (Senokot Tab*) 1 tab PO BEDTIME PRN Sodium Chloride (Sodium Chloride 0.65% Nasal [place]*) 1 spray BOTH NARES Q4H PRN Vital Signs - 8 hr 12/04/17 12/04/17 12/04/17 07:40 07:43 07:58 Temperature 99.3 F Pulse Rate 64 Respiratory 18 16 Rate Blood Pressure 111/51 (mmHg) O2 Sat by Pulse 95 95 Oximetry 12/04/17 12/04/17 12:00 12:46 Temperature 96.7 F Pulse Rate 70 Respiratory 16 16 Rate Blood Pressure 139/53 (mmHg) O2 Sat by Pulse 100 Oximetry Oxygen Devices in Use Now: None Appearance: Elderly female sittng in chair in NAD Eyes: No Scleral Icterus Ears/Nose/Mouth/Throat: Mucous Membranes Moist Neck: NL Appearance and Movements; NL JVP Respiratory: Symmetrical Chest Expansion and Respiratory Effort, Clear to Auscultation Cardiovascular: NL Sounds; No Murmurs; No JVD, RRR Abdominal: NL Sounds; No Tenderness; No Distention, No Hepatosplenomegaly Extremities: No Edema, No Clubbing, Cyanosis Skin: - - L hip surgical dressing Neurological: NL Sensation, - - Oriented to self Lines/Tubes/Other Access: Clean, Dry and Intact Peripheral IV Nutrition: Taking PO's Result Diagrams: 12/04/17 06:12 12/04/17 06:12 Assess/Plan/Problems-Billing Ms Deleon is a 77 yo F who has a h/o parkinson's, diabetes, HTN and HLD who is a resident of [facility] who unfortunately fell and sustained a L hip fracture which was repaired with a L hip hemiarthroplasty on 11/13 and has subsequently developed a periprosthetic hip fracture, now s/p revision of left hip arthroplasty and ORIF. Hospital course complicated by blood loss anemia. Received blood intra-op as well as 2 units PRBC post-op. - Patient Problems (1) Periprosthetic fracture around internal prosthetic left hip joint, initial encounter Current Visit: Yes Status: Acute Priority: High Code(s): M97.02XA - PERIPROSTH FRACTURE AROUND INTERNAL PROSTH L HIP JT, INIT SNOMED Code(s): 608288924 Comment: - POD 6 left hip arthroplasty and ORIF with Dr. Fry - Pain well controlled - Non-weightbearing LLE per ortho - PT/OT - Will likely need rehab; slow progress post-op (2) Acute blood loss anemia Current Visit: Yes Status: Acute Priority: High Code(s): D62 - ACUTE POSTHEMORRHAGIC ANEMIA SNOMED Code(s): 158560724 Comment: - Received 2 units on 11/29; will continue to trend H/H - No evidence of overt bleeding on exam. Dressing CDI - BP stable and satting 95-100% on room air (3) Type 2 diabetes mellitus Current Visit: Yes Status: Chronic Comment: - Increase glargine d/t hyperglycemia - Continue lispro SS (4) Hypertension Current Visit: Yes Status: Chronic Priority: Medium Code(s): I10 - ESSENTIAL (PRIMARY) HYPERTENSION SNOMED Code(s): 66951036 Comment: - Normotensive - History of TIA from hypertensive urgency - Hold HCTZ due to Hyponatremia - Continue home metoprolol, and lisinopril (5) Parkinson disease Current Visit: Yes Status: Chronic Priority: Medium Code(s): G20 - PARKINSON'S DISEASE SNOMED Code(s): 02374931 Comment: - Continue selegiline, amantadine and sinemet - Advanced disease with mild dementia but mentation not at baseline likely due to post-operative delirium (6) DNR (do not resuscitate) Current Visit: Yes Status: Acute Priority: High (7) DVT prophylaxis Current Visit: Yes Status: Acute Priority: High Code(s): DUK3791 - SNOMED Code(s): 392134486 Comment: - Lovenox per Dr. Fry Status and Disposition: Inpatient. Needs AV.
[2017-12-04] MEDS: ALPRAZolam TAB* 0.25 MG PO PRN (15:26)
--- NOTE | 2017-12-04 16:11 | PN ---
Progress Note - Progress Note Date of Service: 12/04/17 SOAP: Subjective: [Pt was seen this am sitting in chair. She states she is feeling a little groggy and is having moderate pain. Denies any chest pain, SOB.] Objective: General: Pt is groggy and slow to respond but oriented. MSK, LLE: Dressing is c/d/i. +df/pf. 2+ DP pulse. Vital Signs Temp 97.4 F 12/04/17 15:28 Pulse 69 12/04/17 15:28 Resp 16 12/04/17 15:31 BP 131/52 12/04/17 15:28 Pulse Ox 95 12/04/17 15:28 Intake & Output 12/03/17 12/04/17 12/04/17 18:59 06:59 18:59 Intake Total 780 680 200 Output Total 575 300 300 Balance 205 380 -100 Intake: Oral 780 680 200 Output: Urine 300 300 [place] 575 Other: # Bowel Movements 0 Assessment: S/P ORIF left hip Plan: 1. hospitalist co-managing 2. PT/OT 3. NWB LLE 4. Continue with current pain medication, taper down as possible 5. Lovenox for DVT prophylaxis 6. SNF when stable and appropriate.
[2017-12-04] MEDS ORDERED: Lidocaine PATCH 5%* 1 PATCH TRANSDERM SCH (16:30)
[2017-12-04] MEDS: LEVODOPA PO SCH (22:16)
[2017-12-05] MEDS: ALPRAZolam TAB* 0.25 MG PO PRN (03:48)
[2017-12-05 05:28] LABS: Hematocrit 23 % (35-47); Hemoglobin 7.6 g/dl (12.0-16.0)
[2017-12-05] MEDS: Lidocaine Patch REMOVE* 1 NOTE MISC PATCH OFF SCH (05:36)
[2017-12-05] MEDS: Omeprazole CAP* 20 MG PO SCH (05:37)
[2017-12-05 05:59] LABS: EGFR Non-African American 84.1 (>60)
[2017-12-05] MEDS: oxyCODONE TAB* 5 MG TAB PO PRN ×4 (06:05→20:49)
--- NOTE | 2017-12-05 08:01 | PN ---
Progress Note - Progress Note Date of Service: 12/05/17 SOAP: Subjective: Pt. is awake. nad. Objective: LLE - inc c/d/i. distally nvi. thigh soft. Vital Signs: Temp Pulse Resp BP Pulse Ox 98.1 F 67 18 121/46 94 12/05/17 03:15 12/05/17 03:15 12/05/17 07:39 12/05/17 03:15 12/05/17 03:15 Laboratory Results - last 24 hr 12/04/17 12/04/17 12/04/17 11:49 17:45 22:05 Hgb Hct Sodium Potassium Chloride Carbon Dioxide Anion Gap BUN Creatinine Est GFR ( Amer) Est GFR (Non-Af Amer) BUN/Creatinine Ratio Glucose POC Glucose (mg/dL) 178 H 214 H 231 H Calcium 12/05/17 12/05/17 05:00 05:00 Hgb 7.6 L Hct 23 L Sodium 128 L Potassium 4.2 Chloride 98 L Carbon Dioxide 22 Anion Gap 8 BUN 19 Creatinine 0.68 Est GFR ( Amer) 101.8 Est GFR (Non-Af Amer) 84.1 BUN/Creatinine Ratio 27.9 H Glucose 192 H POC Glucose (mg/dL) Calcium 7.9 L Assessment: 77 yo F s/p orif L periprosthetic femur fx, revision l femoral stem/hip abril. Plan: ashutosh thomas plan d/c to snf when medically stable.
[2017-12-05] MEDS: Amantadine CAP* 100 MG PO SCH ×2 (08:14→20:33)
[2017-12-05] MEDS: SELEGILINE 5 MG PO SCH (08:14)
[2017-12-05] MEDS: CARBIDOPA PO SCH ×4 (08:17→20:40)
[2017-12-05] MEDS: LEVODOP PO SCH ×3 (08:17→20:37)
[2017-12-05] MEDS: Lisinopril TAB* 10 MG PO SCH (08:17)
[2017-12-05] MEDS: Metoprolol Tartrate TAB* 50 mg PO SCH ×2 (08:18→20:58)
[2017-12-05] MEDS: oxyCODONE SR TAB(*) 10 MG TAB.SR PO SCH ×2 (08:18→20:39)
[2017-12-05] MEDS: Magnesium Oxide TAB* 400 MG PO SCH ×2 (08:19→20:40)
[2017-12-05] MEDS: Gabapentin CAP(*) 100 MG PO SCH ×3 (08:19→20:35)
[2017-12-05] MEDS: PARoxetine HCL TAB* 20 MG PO SCH (08:20)
[2017-12-05] MEDS: Atorvastatin* 20 MG TAB PO SCH (08:20)
[2017-12-05] MEDS: Cyanocobalamin TAB* 500 MCG PO SCH (08:21)
[2017-12-05] MEDS: Docusate CAP* 100 MG PO SCH ×2 (08:22→20:33)
[2017-12-05] MEDS ORDERED: Insulin GLARGINE(*) 1 UNITS UNIT SUBCUT SCH (09:00)
[2017-12-05] MEDS: Insulin LISPRO* 1 UNITS UNIT SUBCUT SCH ×3 (10:25→18:51)
[2017-12-05] MEDS: Enoxaparin(*) 40 MG/0.4 ML SYR SUBCUT SCH (11:29)
[2017-12-05] MEDS: Acetaminophen TAB* 325 MG PO PRN ×3 (11:29→20:47)
--- NOTE | 2017-12-05 14:00 | PN ---
Subjective Date of Service: 12/05/17 Interval History: Ms. Deleon reports 5/10 hip pain today. She offers no other complaints. Denies CP , SOB, N/V/D, dizziness. Daughter at bedside. She is concerned about increased confusion and multiple other issues including BP management. She is accepting of AV for her mother, though is fearful that the patient will sustain another fracture because of previous experiences. She has been working with case management to find an acceptable facility as she would also like a facility experienced in care of patients with Parkinsons. Daughter reports that there is a small area of breakdown on the patient's buttocks. Family History: Unchanged from Admission Social History: Unchanged from Admission Past Medical History: Unchanged from Admission Objective Active Medications: Acetaminophen (Tylenol Tab*) 650 mg PO Q4H PRN Alprazolam (Xanax Tab*) 0.25 mg PO Q8H PRN Amantadine HCl (Symmetrel Cap*) 100 mg PO BID JEF Atorvastatin Calcium (Lipitor*) 20 mg PO DAILY JEF Carbidopa/Levodopa (Sinemet 25/100 Tab(*)) 2 tab PO TID JEF Carbidopa/Levodopa (Carbidopa-Levo Er 25-100 Tab) 1 tab PO BEDTIME JEF Cyanocobalamin (Vitamin B12 Tab*) 1,000 mcg PO DAILY JEF Cyclobenzaprine HCl (Flexeril Tab*) 10 mg PO Q8H PRN Dextrose (D50w Syringe 50 Ml*) 12.5 gm IV PUSH .FOR FS < 60 - SS PRN Docusate Sodium (Colace Cap*) 100 mg PO BID JEF Enoxaparin Sodium (Lovenox(*)) 40 mg SUBCUT Q24H JEF Gabapentin (Neurontin Cap(*)) 200 mg PO BEDTIME JEF Gabapentin (Neurontin Cap(*)) 100 mg PO 0900,1500 JEF Hydralazine HCl (Apresoline Iv*) 5 mg IV SLOW PU Q6H PRN Hydromorphone HCl (Dilaudid Inj1s*) 0.5 mg IV SLOW PU Q3H PRN Insulin Glargine (Lantus(*)) 28 units SUBCUT 0900 JEF Insulin Human Lispro (Humalog*) 0 units SUBCUT AC JEF; Protocol Lidocaine (Lidoderm 5% Patch*) 1 patch TRANSDERM DAILY@1800 JEF Lisinopril (Prinivil Tab*) 30 mg PO DAILY PENDING SALE TO [facility] Magnesium Oxide (Magox 400 Tab*) 400 mg PO BID PENDING SALE TO [facility] Melatonin (Melatonin) 1 mg PO BEDTIME PRN Metoprolol Tartrate (Lopressor Tab*) 50 mg PO Q12HR PENDING SALE TO [facility] Omeprazole (Prilosec Cap*) 20 mg PO 0600 PENDING SALE TO [facility] Ondansetron HCl (Zofran Inj*) 4 mg IV Q4H PRN Oxycodone HCl (Roxycodone Tab*) 10 mg PO Q4H PRN Oxycodone HCl (Oxycontin(*)) 10 mg PO BID PENDING SALE TO [facility] Paroxetine HCl (Paxil Tab*) 20 mg PO DAILY PENDING SALE TO [facility] Pharmacy Profile Note (Lidocaine Patch Remove*) 1 note PATCH OFF DAILY@0600 PENDING SALE TO [facility] Polyethyl Glycol/Propylene Glycol (Lubricant Eye Drops) 1 drop BOTH EYES Q2H PRN Polyethylene Glycol/Electrolytes (Miralax*) 17 gm PO DAILY PRN Selegiline HCl (Eldepryl Tab*) 5 mg PO DAILY PENDING SALE TO [facility] Senna (Senokot Tab*) 1 tab PO BEDTIME PRN Sodium Chloride (Sodium Chloride 0.65% Nasal [place]*) 1 spray BOTH NARES Q4H PRN Vital Signs - 8 hr 12/05/17 12/05/17 12/05/17 06:05 07:38 07:39 Temperature Pulse Rate 76 Respiratory 18 18 16 Rate Blood Pressure 175/64 (mmHg) O2 Sat by Pulse 99 Oximetry 12/05/17 11:45 Temperature 98.1 F Pulse Rate 70 Respiratory 16 Rate Blood Pressure 138/54 (mmHg) O2 Sat by Pulse 97 Oximetry Oxygen Devices in Use Now: None Appearance: Elderly female laying in bed in NAD Eyes: No Scleral Icterus Ears/Nose/Mouth/Throat: Mucous Membranes Moist Neck: NL Appearance and Movements; NL JVP Respiratory: Symmetrical Chest Expansion and Respiratory Effort, Clear to Auscultation Cardiovascular: NL Sounds; No Murmurs; No JVD, RRR Abdominal: NL Sounds; No Tenderness; No Distention Extremities: No Clubbing, Cyanosis Skin: - - Surgical dressing in place Neurological: NL Sensation, - - Oriented to self Lines/Tubes/Other Access: Clean, Dry and Intact Peripheral IV Nutrition: Taking PO's Result Diagrams: 12/05/17 05:00 12/05/17 05:00 Assess/Plan/Problems-Billing Ms Deleon is a 77 yo F who has a h/o parkinson's, diabetes, HTN and HLD who is a resident of [facility] at [facility] who unfortunately fell and sustained a L hip fracture which was repaired with a L hip hemiarthroplasty on 11/13 and has subsequently developed a periprosthetic hip fracture, now s/p revision of left hip arthroplasty and ORIF. Hospital course complicated by blood loss anemia. Received blood intra-op as well as 2 units PRBC post-op. - Patient Problems (1) Periprosthetic fracture around internal prosthetic left hip joint, initial encounter Current Visit: Yes Status: Acute Priority: High Code(s): M97.02XA - PERIPROSTH FRACTURE AROUND INTERNAL PROSTH L HIP JT, INIT SNOMED Code(s): 640163671 Comment: - POD 7 left hip arthroplasty and ORIF with Dr. Fry - Pain well controlled - Non-weightbearing LLE per ortho - PT/OT - Needs AV (2) Acute blood loss anemia Current Visit: Yes Status: Acute Priority: High Code(s): D62 - ACUTE POSTHEMORRHAGIC ANEMIA SNOMED Code(s): 280917998 Comment: - Received 2 units on 11/29; will continue to trend H/H - No evidence of overt bleeding on exam - BP stable and oxygen saturation stable (3) Type 2 diabetes mellitus Current Visit: Yes Status: Chronic Comment: - Increase glargine to 30 units d/t continued hyperglycemia - Continue lispro SS (4) Hypertension Current Visit: Yes Status: Chronic Priority: Medium Code(s): I10 - ESSENTIAL (PRIMARY) HYPERTENSION SNOMED Code(s): 80527363 Comment: - Normotensive - History of TIA from hypertensive urgency - Hold HCTZ due to Hyponatremia - Continue home metoprolol, and lisinopril (5) Parkinson disease Current Visit: Yes Status: Chronic Priority: Medium Code(s): G20 - PARKINSON'S DISEASE SNOMED Code(s): 82167341 Comment: - Continue selegiline, amantadine and sinemet - Advanced disease with mild dementia but mentation not at baseline likely due to post-operative delirium (6) DNR (do not resuscitate) Current Visit: Yes Status: Acute Priority: High (7) DVT prophylaxis Current Visit: Yes Status: Acute Priority: High Code(s): IEP7733 - SNOMED Code(s): 894237651 Comment: - Cecy per Dr. Fry Status and Disposition: Inpatient. Needs AV.
[2017-12-05] MEDS: Lidocaine PATCH 5%* 1 PATCH TRANSDERM SCH (18:58)
[2017-12-05] MEDS: LEVODOPA PO SCH (20:40)
[2017-12-06] MEDS: Acetaminophen TAB* 325 MG PO PRN (00:56)
[2017-12-06] MEDS: oxyCODONE TAB* 5 MG TAB PO PRN ×2 (00:57→15:54)
[2017-12-06] MEDS: Omeprazole CAP* 20 MG PO SCH (05:43)
[2017-12-06 05:50] LABS: ABS Basophils 0.1 10^3/ul (0-0.2); ABS Eosinophils 0.2 10^3/ul (0-0.6); ABS Lymphocytes 0.9 10^3/ul (1.0-4.8); ABS Monocytes 0.8 10^3/ul (0-0.8); ABS Neutrophils 10.3 10^3/ul (1.5-7.7); ABS Nucleated RBC 0 10^3/ul; Eosinophil % 1.3 % (0-6); Hematocrit 23 % (35-47); Hemoglobin 7.5 g/dl (12.0-16.0); Lymphocyte % 7.5 % (25-47); Mean Corpuscular HGB Conc 33 g/dl (31-36); Mean Corpuscular Hemoglobin 29 pg (27-31); Mean Corpuscular Volume 89 fL (80-97); Mean Platelet Volume 7.3 um3 (7.4-10.4); Nucleated Red Blood Cells % 0; Platelet Count 301 10^3/ul (150-450); Red Blood Count 2.57 10^6/ul (4.00-5.40); Red Cell Distribution Width 15 % (10.5-15); White Blood Count 12.3 10^3/ul (3.5-10.8)
[2017-12-06] MEDS: Lidocaine Patch REMOVE* 1 NOTE MISC PATCH OFF SCH ×2 (06:03→06:11)
[2017-12-06 06:19] LABS: EGFR Non-African American 63.3 (>60)
--- NOTE | 2017-12-06 07:40 | PN ---
Progress Note - Progress Note Date of Service: 12/06/17 SOAP: Subjective: Pt. is alert, denies pain. Objective: LLE - dressing c/d/i. distally nvi. thigh soft. Vital Signs: Temp Pulse Resp BP Pulse Ox 98.0 F 66 16 118/50 95 12/06/17 03:33 12/06/17 03:33 12/06/17 03:33 12/06/17 03:33 12/06/17 03:33 Laboratory Results - last 24 hr 12/05/17 12/05/17 12/05/17 11:40 16:59 21:18 WBC RBC Hgb Hct MCV MCH MCHC RDW Plt Count MPV Neut % (Auto) Lymph % (Auto) [place] % (Auto) Eos % (Auto) Baso % (Auto) Absolute Neuts (auto) Absolute Lymphs (auto) Absolute Monos (auto) Absolute Eos (auto) Absolute Basos (auto) Absolute Nucleated RBC Nucleated RBC % Sodium Potassium Chloride Carbon Dioxide Anion Gap BUN Creatinine Est GFR ( Amer) Est GFR (Non-Af Amer) BUN/Creatinine Ratio Glucose POC Glucose (mg/dL) 220 H 176 H 113 H Calcium 12/06/17 12/06/17 05:12 05:12 WBC 12.3 H RBC 2.57 L Hgb 7.5 L Hct 23 L MCV 89 MCH 29 MCHC 33 RDW 15 Plt Count 301 MPV 7.3 L Neut % (Auto) 84.3 H Lymph % (Auto) 7.5 L [place] % (Auto) 6.2 Eos % (Auto) 1.3 Baso % (Auto) 0.7 Absolute Neuts (auto) 10.3 H Absolute Lymphs (auto) 0.9 L Absolute Monos (auto) 0.8 Absolute Eos (auto) 0.2 Absolute Basos (auto) 0.1 Absolute Nucleated RBC 0 Nucleated RBC % 0 Sodium 129 L Potassium 4.2 Chloride 97 L Carbon Dioxide 26 Anion Gap 6 BUN 21 Creatinine 0.87 Est GFR ( Amer) 76.6 Est GFR (Non-Af Amer) 63.3 BUN/Creatinine Ratio 24.1 H Glucose 113 H POC Glucose (mg/dL) Calcium 8.1 L Assessment: 77 yo F pod 8 s/p revision left hip abril and orif periprosthetic fx Plan: sacral decub - wound consult leukocytosis today oobtc nwb lle needs snf placement
[2017-12-06] MEDS: Magnesium Oxide TAB* 400 MG PO SCH ×2 (08:40→21:09)
[2017-12-06] MEDS: Cyanocobalamin TAB* 500 MCG PO SCH (08:40)
[2017-12-06] MEDS: Metoprolol Tartrate TAB* 50 mg PO SCH ×2 (08:40→21:04)
[2017-12-06] MEDS: PARoxetine HCL TAB* 20 MG PO SCH (08:40)
[2017-12-06] MEDS: Docusate CAP* 100 MG PO SCH ×2 (08:40→21:08)
[2017-12-06] MEDS: Lisinopril TAB* 10 MG PO SCH (08:40)
[2017-12-06] MEDS: oxyCODONE SR TAB(*) 10 MG TAB.SR PO SCH ×2 (08:40→21:04)
[2017-12-06] MEDS: Atorvastatin* 20 MG TAB PO SCH (08:40)
[2017-12-06] MEDS: Amantadine CAP* 100 MG PO SCH ×2 (08:41→21:10)
[2017-12-06] MEDS: LEVODOP PO SCH ×3 (08:41→21:01)
[2017-12-06] MEDS: CARBIDOPA PO SCH ×4 (08:41→21:07)
[2017-12-06] MEDS: SELEGILINE 5 MG PO SCH (08:41)
[2017-12-06] MEDS: Gabapentin CAP(*) 100 MG PO SCH ×3 (09:34→21:06)
[2017-12-06] MEDS: Insulin GLARGINE(*) 1 UNITS UNIT SUBCUT SCH (09:34)
[2017-12-06] MEDS: Insulin LISPRO* 1 UNITS UNIT SUBCUT SCH ×3 (09:34→18:14)
--- NOTE | 2017-12-06 11:25 | PN ---
Subjective Date of Service: 12/06/17 Interval History: Ms. Deleon reports feeling well this morning and offers no complaints. Denies pain. Denies CP, SOB, N/V/D, cough, dysuria. Caregiver is at bedside and feels as though the patient is recovering well. She has no concerns at this point except for the plan for weight bearing status for which she was referred to ortho. Family History: Unchanged from Admission Social History: Unchanged from Admission Past Medical History: Unchanged from Admission Objective Active Medications: Acetaminophen (Tylenol Tab*) 650 mg PO Q4H PRN Alprazolam (Xanax Tab*) 0.25 mg PO Q8H PRN Amantadine HCl (Symmetrel Cap*) 100 mg PO BID JEF Atorvastatin Calcium (Lipitor*) 20 mg PO DAILY JEF Carbidopa/Levodopa (Sinemet 25/100 Tab(*)) 2 tab PO TID JEF Carbidopa/Levodopa (Carbidopa-Levo Er 25-100 Tab) 1 tab PO BEDTIME JEF Cyanocobalamin (Vitamin B12 Tab*) 1,000 mcg PO DAILY JEF Cyclobenzaprine HCl (Flexeril Tab*) 10 mg PO Q8H PRN Dextrose (D50w Syringe 50 Ml*) 12.5 gm IV PUSH .FOR FS < 60 - SS PRN Docusate Sodium (Colace Cap*) 100 mg PO BID JEF Enoxaparin Sodium (Lovenox(*)) 40 mg SUBCUT Q24H JEF Gabapentin (Neurontin Cap(*)) 200 mg PO BEDTIME JEF Gabapentin (Neurontin Cap(*)) 100 mg PO 0900,1500 JEF Hydralazine HCl (Apresoline Iv*) 5 mg IV SLOW PU Q6H PRN Hydromorphone HCl (Dilaudid Inj1s*) 0.5 mg IV SLOW PU Q3H PRN Insulin Glargine (Lantus(*)) 30 units SUBCUT 0900 JEF Insulin Human Lispro (Humalog*) 0 units SUBCUT AC JEF; Protocol Lidocaine (Lidoderm 5% Patch*) 1 patch TRANSDERM DAILY@1800 JEF Lisinopril (Prinivil Tab*) 30 mg PO DAILY JEF Magnesium Oxide (Magox 400 Tab*) 400 mg PO BID JEF Melatonin (Melatonin) 1 mg PO BEDTIME PRN Metoprolol Tartrate (Lopressor Tab*) 50 mg PO Q12HR JEF Omeprazole (Prilosec Cap*) 20 mg PO 0600 [facility] Ondansetron HCl (Zofran Inj*) 4 mg IV Q4H PRN Oxycodone HCl (Roxycodone Tab*) 10 mg PO Q4H PRN Oxycodone HCl (Oxycontin(*)) 10 mg PO BID [facility] Paroxetine HCl (Paxil Tab*) 20 mg PO DAILY [facility] Pharmacy Profile Note (Lidocaine Patch Remove*) 1 note PATCH OFF DAILY@0600 [facility] Polyethyl Glycol/Propylene Glycol (Lubricant Eye Drops) 1 drop BOTH EYES Q2H PRN Polyethylene Glycol/Electrolytes (Miralax*) 17 gm PO DAILY PRN Selegiline HCl (Eldepryl Tab*) 5 mg PO DAILY [facility] Senna (Senokot Tab*) 1 tab PO BEDTIME PRN Sodium Chloride (Sodium Chloride 0.65% Nasal [place]*) 1 spray BOTH NARES Q4H PRN Vital Signs - 8 hr 12/06/17 12/06/17 12/06/17 03:33 07:45 07:57 Temperature 98.0 F 98.9 F Pulse Rate 66 73 Respiratory 16 20 16 Rate Blood Pressure 118/50 132/58 (mmHg) O2 Sat by Pulse 95 98 Oximetry Oxygen Devices in Use Now: None Appearance: Elderly female laying in bed in NAD Eyes: No Scleral Icterus Ears/Nose/Mouth/Throat: Mucous Membranes Moist Neck: NL Appearance and Movements; NL JVP Respiratory: Symmetrical Chest Expansion and Respiratory Effort, Clear to Auscultation Cardiovascular: NL Sounds; No Murmurs; No JVD, RRR Abdominal: NL Sounds; No Tenderness; No Distention Extremities: No Clubbing, Cyanosis Skin: No Rash or Ulcers Neurological: - - Oriented to self Lines/Tubes/Other Access: Clean, Dry and Intact Peripheral IV Nutrition: Taking PO's Result Diagrams: 12/06/17 05:12 12/06/17 05:12 Assess/Plan/Problems-Billing Ms Deleon is a 77 yo F who has a h/o parkinson's, diabetes, HTN and HLD who is a resident of [facility] who unfortunately fell and sustained a L hip fracture which was repaired with a L hip hemiarthroplasty on 11/13 and has subsequently developed a periprosthetic hip fracture, now s/p revision of left hip arthroplasty and ORIF. Hospital course complicated by blood loss anemia. Received blood intra-op as well as 2 units PRBC post-op. - Patient Problems (1) Periprosthetic fracture around internal prosthetic left hip joint, initial encounter Current Visit: Yes Status: Acute Priority: High Code(s): M97.02XA - PERIPROSTH FRACTURE AROUND INTERNAL PROSTH L HIP JT, INIT SNOMED Code(s): 373920855 Comment: - POD 8 left hip arthroplasty and ORIF with Dr. Fry - Pain well controlled - Non-weightbearing LLE per ortho - PT/OT - Needs AV; family working with case management (2) Acute blood loss anemia Current Visit: Yes Status: Acute Priority: High Code(s): D62 - ACUTE POSTHEMORRHAGIC ANEMIA SNOMED Code(s): 162879012 Comment: - Received 2 units on 11/29; will continue to trend H/H - No evidence of overt bleeding on exam - BP stable and oxygen saturation stable (3) Leukocytosis Current Visit: Yes Status: Acute Priority: High Code(s): D72.829 - ELEVATED WHITE BLOOD CELL COUNT, UNSPECIFIED SNOMED Code(s): 828340894 Comment: - Mildly elevated at 12.3 today - No other symptoms indicative of infection so this can likely be attributed to atelectatsis - Will continue to trend (4) Hyponatremia Current Visit: Yes Status: Acute Priority: High Code(s): E87.1 - HYPO- OSMOLALITY AND HYPONATREMIA SNOMED Code(s): 98288276 Comment: - Stable; 128-130 - Check urine Na and osmolality (5) Type 2 diabetes mellitus Current Visit: Yes Status: Chronic Comment: - Better glycemic control - Continue glargine 30 units and lispro SS (6) Hypertension Current Visit: Yes Status: Chronic Priority: Medium Code(s): I10 - ESSENTIAL (PRIMARY) HYPERTENSION SNOMED Code(s): 42387787 Comment: - Normotensive - History of TIA from hypertensive urgency - Hold HCTZ due to Hyponatremia - Continue home metoprolol, and lisinopril (7) Parkinson disease Current Visit: Yes Status: Chronic Priority: Medium Code(s): G20 - PARKINSON'S DISEASE SNOMED Code(s): 73126817 Comment: - Continue selegiline, amantadine and sinemet - Advanced disease with mild dementia but mentation not at baseline likely due to post-operative delirium (8) DNR (do not resuscitate) Current Visit: Yes Status: Acute Priority: High (9) DVT prophylaxis Current Visit: Yes Status: Acute Priority: High Code(s): QQC9729 - SNOMED Code(s): 897587718 Comment: - Cecy Fry Status and Disposition: Inpatient. Working to find [facility] bed.
[2017-12-06] MEDS: Enoxaparin(*) 40 MG/0.4 ML SYR SUBCUT SCH (11:55)
[2017-12-06] MEDS: Lidocaine PATCH 5%* 1 PATCH TRANSDERM SCH (18:09)
[2017-12-06] MEDS: ALPRAZolam TAB* 0.25 MG PO PRN (19:41)
[2017-12-06] MEDS: LEVODOPA PO SCH (21:07)
[2017-12-06] MEDS: HYDROmorphone INJ1* 1 MG/ML SYRINGE IV SLOW PU PRN (22:03)
[2017-12-07] MEDS: oxyCODONE TAB* 5 MG TAB PO PRN ×4 (02:58→21:25)
[2017-12-07 04:05] LABS: Urine Appearance Turbid; Urine Blood 1+ (Negative); Urine Color Yellow; Urine Ketones Negative (Negative); Urine Protein 2+(100 mg/dL) (Negative); Urine Red Blood Cell 3+(>10/hpf) (Absent); Urine Specific Gravity 1.008 (1.010-1.030); Urine Urobilinogen Negative (Negative); Urine White Blood Cell 3+(>20/hpf) (Absent)
[2017-12-07 04:10] LABS: Hematocrit 23 % (35-47); Hemoglobin 8.1 g/dl (12.0-16.0); Mean Corpuscular HGB Conc 35 g/dl (31-36); Mean Corpuscular Hemoglobin 31 pg (27-31); Mean Corpuscular Volume 89 fL (80-97); Mean Platelet Volume 6.8 um3 (7.4-10.4); Platelet Count 339 10^3/ul (150-450); Red Blood Count 2.64 10^6/ul (4.00-5.40); Red Cell Distribution Width 15 % (10.5-15); White Blood Count 13.7 10^3/ul (3.5-10.8)
[2017-12-07 04:31] LABS: ABS Basophils 0.1 10^3/ul (0-0.2); ABS Eosinophils 0.1 10^3/ul (0-0.6); ABS Lymphocytes 0.9 10^3/ul (1.0-4.8); ABS Monocytes 0.8 10^3/ul (0-0.8); ABS Neutrophils 11.9 10^3/ul (1.5-7.7); ABS Nucleated RBC 0 10^3/ul
[2017-12-07 04:34] LABS: ABS Basophils 0 10^3/ul (0-0.2); ABS Neutrophils 10.3 10^3/ul (1.5-7.7); Monocytes % 4 % (0-7)
[2017-12-07] MEDS ORDERED: cefTRIAXone VIAL(*) 1,000 MG in NS 0.9% 50 ML* 50 ML IVPB SCH (05:00)
[2017-12-07] MEDS: Ciprofloxacin 400MG IVPREMIX(* 400 MG/200 ML BAG IVPB SCH ×2 (06:00→17:59)
[2017-12-07] MEDS: NS 0.9% 1000 ML* 1,000 ML IV SCH ×2 (06:00→21:21)
[2017-12-07] MEDS: Omeprazole CAP* 20 MG PO SCH (06:12)
[2017-12-07] MEDS: Lidocaine Patch REMOVE* 1 NOTE MISC PATCH OFF SCH (06:17)
[2017-12-07] MEDS: CARBIDOPA PO SCH ×4 (09:38→21:23)
[2017-12-07] MEDS: LEVODOP PO SCH ×3 (09:38→21:23)
[2017-12-07] MEDS: Cyanocobalamin TAB* 500 MCG PO SCH (09:38)
[2017-12-07] MEDS: Atorvastatin* 20 MG TAB PO SCH (09:38)
[2017-12-07] MEDS: Lisinopril TAB* 10 MG PO SCH (09:38)
[2017-12-07] MEDS: Acetaminophen TAB* 325 MG PO PRN ×3 (09:38→21:24)
[2017-12-07] MEDS: Metoprolol Tartrate TAB* 50 mg PO SCH ×2 (09:39→21:23)
[2017-12-07] MEDS: Docusate CAP* 100 MG PO SCH ×2 (09:39→21:23)
[2017-12-07] MEDS: PARoxetine HCL TAB* 20 MG PO SCH (09:39)
[2017-12-07] MEDS: Magnesium Oxide TAB* 400 MG PO SCH ×2 (09:39→21:23)
[2017-12-07] MEDS: oxyCODONE SR TAB(*) 10 MG TAB.SR PO SCH ×2 (09:39→21:25)
[2017-12-07] MEDS: SELEGILINE 5 MG PO SCH (09:56)
[2017-12-07] MEDS: Gabapentin CAP(*) 100 MG PO SCH ×3 (09:56→21:24)
[2017-12-07] MEDS: Amantadine CAP* 100 MG PO SCH ×2 (09:56→21:23)
[2017-12-07] MEDS: Insulin GLARGINE(*) 1 UNITS UNIT SUBCUT SCH (09:57)
[2017-12-07] MEDS: Insulin LISPRO* 1 UNITS UNIT SUBCUT SCH ×3 (09:59→18:56)
[2017-12-07 12:32] LABS: EGFR Non-African American 76.3 (>60)
--- NOTE | 2017-12-07 12:54 | PN ---
Progress Note - Progress Note Date of Service: 12/07/17 SOAP: Subjective: []Patient seen and examined at bedside. She is feeling sore. Denies CP, SOB, dizziness, nausea. Objective: []General: Laying comfortably in bed. NAD LLE: left hip dressing changed. Incision is dry and intact though proximally there is brown/yellow discharge on the dressing and able to express a small amount of brownish yellow discharge. No surrounding erythema or warmth, no fluctuance. Calves supple and nontender without erythema, edema or palpable cords Assessment: [] 77 yo F pod 9 s/p revision left hip abril and orif periprosthetic fx Plan: leukocytosis. on cipro for UTI. Watch incision/ discharge closely, Dr Fry made aware. No keflex due to hx anaphylaxis with penicillin. Will start on clindamycin and monitor oobtc nwb lle needs snf placement Vital Signs Temp 99.7 F 12/07/17 07:26 Pulse 70 12/07/17 07:26 Resp 18 12/07/17 09:56 BP 138/57 12/07/17 07:26 Pulse Ox 94 12/07/17 08:00 Intake & Output 12/06/17 12/07/17 12/07/17 18:59 06:59 18:59 Intake Total 480 720 120 Output Total 350 160 Balance 130 560 120 Intake: Oral 480 720 120 Output: Urine 350 0 Straight Cath 160 Other: Estimated Void Medium # Bowel Movements 0 # Voids 1 Laboratory Last Values WBC 13.7 10^3/ul (3.5-10.8) H 12/07/17 04:04 RBC 2.64 10^6/ul (4.00-5.40) L 12/07/17 04:04 Hgb 8.1 g/dl (12.0-16.0) L 12/07/17 04:04 Hct 23 % (35-47) L 12/07/17 04:04 MCV 89 fL (80-97) 12/07/17 04:04 MCH 31 pg (27-31) 12/07/17 04:04 MCHC 35 g/dl (31-36) 12/07/17 04:04 RDW 15 % (10.5-15) 12/07/17 04:04 Plt Count 339 10^3/ul (150-450) 12/07/17 04:04 MPV 6.8 um3 (7.4-10.4) L 12/07/17 04:04 Neut % (Auto) Not Reportable 12/07/17 04:04 Lymph % (Auto) Not Reportable 12/07/17 04:04 [place] % (Auto) Not Reportable 12/07/17 04:04 Eos % (Auto) Not Reportable 12/07/17 04:04 Baso % (Auto) Not Reportable 12/07/17 04:04 Absolute Neuts (auto) 11.9 10^3/ul (1.5-7.7) H 12/07/17 04:04 Absolute Lymphs (auto) 0.9 10^3/ul (1.0-4.8) L 12/07/17 04:04 Absolute Monos (auto) 0.8 10^3/ul (0-0.8) 12/07/17 04:04 Absolute Eos (auto) 0.1 10^3/ul (0-0.6) 12/07/17 04:04 Absolute Basos (auto) 0.1 10^3/ul (0-0.2) 12/07/17 04:04 Absolute Nucleated RBC 0 10^3/ul 12/07/17 04:04 Immature Gran % 7 % (0-9) 12/07/17 04:04 Neutrophils % 75 % (38-83) 12/07/17 04:04 Band Neutrophils % 5 % (0-8) 12/07/17 04:04 Lymphocytes % 14 % (25-47) L 12/07/17 04:04 Monocytes % 4 % (0-7) 12/07/17 04:04 Eosinophils % 0 % (0-6) 12/07/17 04:04 Basophils % 0 % (0-2) 12/07/17 04:04 Myelocytes % 2 % (0-1) H 12/07/17 04:04 Nucleated RBC % Not Reportable 12/07/17 04:04 Abs Neuts (Manual) 10.3 10^3/ul (1.5-7.7) H 12/07/17 04:04 Abs Lymphs (Manual) 1.9 10^3/ul (1.0-4.8) 12/07/17 04:04 Abs Monocytes (Manual) 0.5 10^3/ul (0-0.8) 12/07/17 04:04 Absolute Eos (Manual) 0 10^3/ul (0-0.6) 12/07/17 04:04 Abs Basophils (Manual) 0 10^3/ul (0-0.2) 12/07/17 04:04 Toxic Granulation 1+ 12/07/17 04:04 Normal RBC Morphology Not Reportable 12/07/17 04:04 Polychromasia 1+ 12/07/17 04:04 Hypochromasia 1+ 12/07/17 04:04 INR (Anticoag Therapy) 1.33 (0.77-1.02) H 12/01/17 08:14 APTT 27.8 seconds (26.0-36.3) 12/01/17 08:14 Sodium 127 mmol/L (135-145) L 12/07/17 11:58 Potassium 4.5 mmol/L (3.5-5.0) 12/07/17 11:58 Chloride 95 mmol/L (101-111) L 12/07/17 11:58 Carbon Dioxide 26 mmol/L (22-32) 12/07/17 11:58 Anion Gap 6 mmol/L (2-11) 12/07/17 11:58 BUN 17 mg/dL (6-24) 12/07/17 11:58 Creatinine 0.74 mg/dL (0.51-0.95) 12/07/17 11:58 Est GFR ( Amer) 92.3 (>60) 12/07/17 11:58 Est GFR (Non-Af Amer) 76.3 (>60) 12/07/17 11:58 BUN/Creatinine Ratio 23.0 (8-20) H 12/07/17 11:58 Glucose 244 mg/dL (70-100) H 12/07/17 11:58 POC Glucose (mg/dL) 229 mg/dL (70-100) H 12/06/17 20:57 Hemoglobin A1c 7.5 % (4.0-5.6) H 11/29/17 04:39 Calcium 8.0 mg/dL (8.6-10.3) L 12/07/17 11:58 Magnesium 1.9 mg/dL (1.9-2.7) 12/04/17 06:12 Total Bilirubin 1.10 mg/dL (0.2-1.0) H 11/29/17 17:35 AST 21 U/L (13-39) 11/29/17 17:35 ALT < 3 U/L (7-52) L 11/29/17 17:35 Alkaline Phosphatase 71 U/L (34-104) 11/29/17 17:35 Total Protein 5.5 g/dL (6.4-8.9) L 11/29/17 17:35 Albumin 2.7 g/dL (3.2-5.2) L 11/29/17 17:35 Globulin 2.8 g/dL (2-4) 11/29/17 17:35 Albumin/Globulin Ratio 1.0 (1-3) 11/29/17 17:35 Urine Color Yellow 12/07/17 03:47 Urine Appearance Turbid 12/07/17 03:47 Urine pH 5.0 (5-9) 12/07/17 03:47 Ur Specific [place] 1.008 (1.010-1.030) L 12/07/17 03:47 Urine Protein 2+(100 mg/dl) (Negative) A 12/07/17 03:47 Urine Ketones Negative (Negative) 12/07/17 03:47 Urine Blood 1+ (Negative) A 12/07/17 03:47 Urine Nitrate Positive (Negative) A 12/07/17 03:47 Urine Bilirubin Negative (Negative) 12/07/17 03:47 Urine Urobilinogen Negative (Negative) 12/07/17 03:47 Ur Leukocyte Esterase 3+ (Negative) A 12/07/17 03:47 Urine WBC (Auto) 3+(>20/hpf) (Absent) A 12/07/17 03:47 Urine RBC (Auto) 3+(>10/hpf) (Absent) A 12/07/17 03:47 Ur Squamous Epith Cells Present (Absent) A 12/07/17 03:47 Ur Transition Epith Cell Present (Absent) A 12/07/17 03:47 Urine Bacteria 3+ (Absent) A 12/07/17 03:47 Urine Osmolality 245 mOsm/kg (150-1150) 12/07/17 03:47 Ur Random Sodium < 18 mmol/L 12/07/17 03:47 Urine Glucose Negative (Negative) 12/07/17 03:47 Hepatitis Be Antibody Negative (Negative) 11/29/17 20:07 Hepatitis Be Antigen Negative (Negative) 11/29/17 20:07 Hepatitis C Antibody Nonreactive (Nonreactive) 11/29/17 20:07 HIV 1&2 Antibody Rapid Nonreactive (Nonreactive) 11/29/17 20:07 Blood Type O Positive 11/27/17 22:52 Antibody Screen Negative 11/27/17 22:52 Crossmatch See Detail 11/27/17 22:52
[2017-12-07] MEDS: Enoxaparin(*) 40 MG/0.4 ML SYR SUBCUT SCH (14:21)
--- NOTE | 2017-12-07 15:27 | PN ---
Subjective Date of Service: 12/07/17 Interval History: Ms. Deleon reports feeling well this morning. She denies pain. Offers no complaints. Her family is at bedside and they report that she has been needed to be repositioned frequently as she is often uncomfortable while laying in bed. She denies and CP, SOB, N/V/D, dizziness, dysuria. Family History: Unchanged from Admission Social History: Unchanged from Admission Past Medical History: Unchanged from Admission Objective Active Medications: Acetaminophen (Tylenol Tab*) 650 mg PO Q4H PRN Alprazolam (Xanax Tab*) 0.25 mg PO Q8H PRN Amantadine HCl (Symmetrel Cap*) 100 mg PO BID JEF Atorvastatin Calcium (Lipitor*) 20 mg PO DAILY JEF Carbidopa/Levodopa (Sinemet 25/100 Tab(*)) 2 tab PO TID JEF Carbidopa/Levodopa (Carbidopa-Levo Er 25-100 Tab) 1 tab PO BEDTIME JEF Clindamycin HCl (Cleocin Cap*) 300 mg PO Q6HR JEF Cyanocobalamin (Vitamin B12 Tab*) 1,000 mcg PO DAILY JEF Cyclobenzaprine HCl (Flexeril Tab*) 10 mg PO Q8H PRN Dextrose (D50w Syringe 50 Ml*) 12.5 gm IV PUSH .FOR FS < 60 - SS PRN Docusate Sodium (Colace Cap*) 100 mg PO BID JEF Enoxaparin Sodium (Lovenox(*)) 40 mg SUBCUT Q24H JEF Gabapentin (Neurontin Cap(*)) 200 mg PO BEDTIME JEF Gabapentin (Neurontin Cap(*)) 100 mg PO 0900,1500 JEF Hydralazine HCl (Apresoline Iv*) 5 mg IV SLOW PU Q6H PRN Hydromorphone HCl (Dilaudid Inj1s*) 0.5 mg IV SLOW PU Q3H PRN Sodium Chloride (Ns 0.9% 1000 Ml*) 1,000 mls @ 75 mls/hr IV PER RATE JEF Ciprofloxacin/Dextrose (Cipro 400 Mg Ivpremix(*)) 400 mg in 200 mls @ 200 mls/ hr IVPB Q12H JEF Insulin Glargine (Lantus(*)) 30 units SUBCUT 0900 JEF Insulin Human Lispro (Humalog*) 0 units SUBCUT AC JEF; Protocol Lidocaine (Lidoderm 5% Patch*) 1 patch TRANSDERM DAILY@1800 [facility] Lisinopril (Prinivil Tab*) 30 mg PO DAILY JEF Magnesium Oxide (Magox 400 Tab*) 400 mg PO BID [facility] Melatonin (Melatonin) 1 mg PO BEDTIME PRN Metoprolol Tartrate (Lopressor Tab*) 50 mg PO Q12HR JEF Omeprazole (Prilosec Cap*) 20 mg PO 0600 [facility] Oxycodone HCl (Oxycontin(*)) 10 mg PO BID JEF Oxycodone HCl (Roxycodone Tab*) 10 mg PO Q4H PRN Paroxetine HCl (Paxil Tab*) 20 mg PO DAILY [facility] Pharmacy Profile Note (Lidocaine Patch Remove*) 1 note PATCH OFF DAILY@0600 [facility] Polyethyl Glycol/Propylene Glycol (Lubricant Eye Drops) 1 drop BOTH EYES Q2H PRN Polyethylene Glycol/Electrolytes (Miralax*) 17 gm PO DAILY PRN Selegiline HCl (Eldepryl Tab*) 5 mg PO DAILY JEF Senna (Senokot Tab*) 1 tab PO BEDTIME PRN Sodium Chloride (Sodium Chloride 0.65% Nasal [place]*) 1 spray BOTH NARES Q4H PRN Vital Signs - 8 hr 12/07/17 12/07/17 12/07/17 07:26 08:00 09:39 Temperature 99.7 F Pulse Rate 70 Respiratory 22 22 16 Rate Blood Pressure 138/57 (mmHg) O2 Sat by Pulse 94 94 Oximetry Oxygen Devices in Use Now: None Appearance: Elderly female laying in bed in NAD Eyes: No Scleral Icterus Ears/Nose/Mouth/Throat: Mucous Membranes Moist Neck: NL Appearance and Movements; NL JVP Respiratory: Symmetrical Chest Expansion and Respiratory Effort, Clear to Auscultation Cardiovascular: NL Sounds; No Murmurs; No JVD, RRR Abdominal: NL Sounds; No Tenderness; No Distention Extremities: No Clubbing, Cyanosis Skin: - - Surgical dressing to left hip Neurological: - - Oriented to self and place Lines/Tubes/Other Access: Clean, Dry and Intact Peripheral IV Nutrition: Taking PO's Result Diagrams: 12/07/17 04:04 12/07/17 11:58 Assess/Plan/Problems-Billing Ms Deleon is a 77 yo F who has a h/o parkinson's, diabetes, HTN and HLD who is a resident of [facility] who unfortunately fell and sustained a L hip fracture which was repaired with a L hip hemiarthroplasty on 11/13 and has subsequently developed a periprosthetic hip fracture, now s/p revision of left hip arthroplasty and ORIF. Hospital course complicated by blood loss anemia. Received blood intra-op as well as 2 units PRBC post-op. - Patient Problems (1) Periprosthetic fracture around internal prosthetic left hip joint, initial encounter Current Visit: Yes Status: Acute Priority: High Code(s): M97.02XA - PERIPROSTH FRACTURE AROUND INTERNAL PROSTH L HIP JT, INIT SNOMED Code(s): 107986991 Comment: - POD 9 left hip arthroplasty and ORIF with Dr. Fry - Pain well controlled - Non-weightbearing LLE per ortho - PT/OT - Needs AV; family working with case management (2) UTI (urinary tract infection) Current Visit: No Status: Acute Comment: - On UA 12/06 - Continue cipro; will change to PO at d/c (3) Acute blood loss anemia Current Visit: Yes Status: Acute Priority: High Code(s): D62 - ACUTE POSTHEMORRHAGIC ANEMIA SNOMED Code(s): 837500506 Comment: - Received 2 units on 11/29; will continue to trend H/H - No evidence of overt bleeding on exam - BP stable and oxygen saturation stable (4) Hyponatremia Current Visit: Yes Status: Acute Priority: High Code(s): E87.1 - HYPO- OSMOLALITY AND HYPONATREMIA SNOMED Code(s): 26469002 Comment: - Stable; 128-130 - Likely hypovolemic; continue NS (5) Type 2 diabetes mellitus Current Visit: Yes Status: Chronic Comment: - Better glycemic control - Continue lispro SS - Increase lantus to 35 units (6) Hypertension Current Visit: Yes Status: Chronic Priority: Medium Code(s): I10 - ESSENTIAL (PRIMARY) HYPERTENSION SNOMED Code(s): 37793999 Comment: - Normotensive - History of TIA from hypertensive urgency - Hold HCTZ due to Hyponatremia - Continue home metoprolol, and lisinopril (7) Parkinson disease Current Visit: Yes Status: Chronic Priority: Medium Code(s): G20 - PARKINSON'S DISEASE SNOMED Code(s): 81480479 Comment: - Continue selegiline, amantadine and sinemet - Advanced disease with mild dementia but mentation not at baseline likely due to post-operative delirium (8) DNR (do not resuscitate) Current Visit: Yes Status: Acute Priority: High (9) DVT prophylaxis Current Visit: Yes Status: Acute Priority: High Code(s): BLZ4422 - SNOMED Code(s): 711697519 Comment: - Lovenox per Dr. Fry Status and Disposition: Inpatient. Plan to d/c to rehab on Monday as the facility is not able to take her until then.
[2017-12-07 16:32] LABS: EGFR Non-African American 84.1 (>60)
[2017-12-07] MEDS: Clindamycin CAP* 150 MG PO SCH (17:59)
[2017-12-07] MEDS: Lidocaine PATCH 5%* 1 PATCH TRANSDERM SCH (18:07)
[2017-12-07] MEDS: LEVODOPA PO SCH (21:22)
[2017-12-08] MEDS: Clindamycin CAP* 150 MG PO SCH ×5 (00:56→23:55)
[2017-12-08] MEDS: Acetaminophen TAB* 325 MG PO PRN ×2 (03:11→19:46)
[2017-12-08] MEDS: oxyCODONE TAB* 5 MG TAB PO PRN ×3 (03:11→19:46)
[2017-12-08 05:25] LABS: ABS Basophils 0 10^3/ul (0-0.2); ABS Eosinophils 0.1 10^3/ul (0-0.6); ABS Lymphocytes 0.8 10^3/ul (1.0-4.8); ABS Monocytes 0.6 10^3/ul (0-0.8); ABS Nucleated RBC 0 10^3/ul; Eosinophil % 1.4 % (0-6); Hematocrit 20 % (35-47); Hemoglobin 6.7 g/dl (12.0-16.0); Lymphocyte % 8.9 % (25-47); Mean Corpuscular HGB Conc 34 g/dl (31-36); Mean Corpuscular Hemoglobin 30 pg (27-31); Mean Corpuscular Volume 88 fL (80-97); Nucleated Red Blood Cells % 0; Platelet Count 266 10^3/ul (150-450); Red Blood Count 2.25 10^6/ul (4.00-5.40); Red Cell Distribution Width 15 % (10.5-15); White Blood Count 8.5 10^3/ul (3.5-10.8)
[2017-12-08] MEDS: Lidocaine Patch REMOVE* 1 NOTE MISC PATCH OFF SCH (05:40)
[2017-12-08 05:41] LABS: EGFR Non-African American 135.5 (>60)
[2017-12-08] MEDS: Omeprazole CAP* 20 MG PO SCH (05:41)
[2017-12-08] MEDS: Ciprofloxacin 400MG IVPREMIX(* 400 MG/200 ML BAG IVPB SCH ×2 (05:42→22:55)
[2017-12-08] MEDS: HYDROmorphone INJ1* 1 MG/ML SYRINGE IV SLOW PU PRN ×2 (05:51→14:38)
[2017-12-08] MEDS ORDERED: Insulin GLARGINE(*) 1 UNITS UNIT SUBCUT SCH (09:00)
[2017-12-08] MEDS ORDERED: Magnesium Sulf 4 GM/100 ML IV* 4,000 MG/100 ML BAG IVPB ONE (10:02)
[2017-12-08] MEDS: Insulin LISPRO* 1 UNITS UNIT SUBCUT SCH ×3 (10:08→21:30)
[2017-12-08] MEDS: oxyCODONE SR TAB(*) 10 MG TAB.SR PO SCH ×2 (10:10→21:33)
[2017-12-08] MEDS: ALPRAZolam TAB* 0.25 MG PO PRN (10:10)
[2017-12-08] MEDS: Atorvastatin* 20 MG TAB PO SCH (10:30)
[2017-12-08] MEDS: Amantadine CAP* 100 MG PO SCH ×2 (10:30→21:33)
[2017-12-08] MEDS: Cyanocobalamin TAB* 500 MCG PO SCH (10:32)
[2017-12-08] MEDS: CARBIDOPA PO SCH ×4 (10:32→21:34)
[2017-12-08] MEDS: Docusate CAP* 100 MG PO SCH ×2 (10:32→21:34)
[2017-12-08] MEDS: LEVODOP PO SCH ×3 (10:32→21:32)
[2017-12-08] MEDS: PARoxetine HCL TAB* 20 MG PO SCH (10:33)
[2017-12-08] MEDS: Magnesium Oxide TAB* 400 MG PO SCH ×2 (10:33→21:34)
[2017-12-08] MEDS: Lisinopril TAB* 10 MG PO SCH (10:33)
[2017-12-08] MEDS: Metoprolol Tartrate TAB* 50 mg PO SCH ×2 (10:33→21:33)
[2017-12-08] MEDS: SELEGILINE 5 MG PO SCH (10:34)
[2017-12-08] MEDS ORDERED: Calcium Carbonate CHEW TAB* 500 MG (TUMS) PO SCH (11:00)
[2017-12-08] MEDS: Gabapentin CAP(*) 100 MG PO SCH ×3 (11:14→21:32)
[2017-12-08] MEDS: NS 0.9% 1000 ML* 1,000 ML IV SCH ×2 (11:23→21:19)
--- NOTE | 2017-12-08 13:06 | PN ---
Progress Note - Progress Note Date of Service: 12/08/17 SOAP: Subjective: []Patient seen OOB in chair, complains of left hip pain when asked. Feels weak and dizzy when asked. Will be receiving 2 Units PRBC today, ordered by medicine. Objective: [] Vital Signs Temp 98.1 F 12/08/17 07:32 Pulse 65 12/08/17 07:32 Resp 18 12/08/17 11:14 BP 132/62 12/08/17 07:32 Pulse Ox 97 12/08/17 07:32 Intake & Output 12/07/17 12/08/17 12/08/17 18:59 06:59 18:59 Intake Total 713 582 1119 Output Total 0 250 Balance 670 350 909 Intake: IV Fluids 891 NS (0.9%) 891 IVPB 218 ABX - CIPROFLOXACIN 218 Oral 670 350 50 Output: Urine 0 250 Other: Estimated Void Medium Large # Bowel Movements 1 Estimated Stool Amount Large Medium # Voids 1 Laboratory Results - last 24 hr 12/07/17 12/07/17 12/07/17 12:53 15:52 17:55 WBC RBC Hgb Hct MCV MCH MCHC RDW Plt Count MPV Neut % (Auto) Lymph % (Auto) [place] % (Auto) Eos % (Auto) Baso % (Auto) Absolute Neuts (auto) Absolute Lymphs (auto) Absolute Monos (auto) Absolute Eos (auto) Absolute Basos (auto) Absolute Nucleated RBC Nucleated RBC % Sodium 127 L Potassium 4.4 Chloride 96 L Carbon Dioxide 25 Anion Gap 6 BUN 16 Creatinine 0.68 Est GFR ( Amer) 101.8 Est GFR (Non-Af Amer) 84.1 BUN/Creatinine Ratio 23.5 H Glucose 271 H POC Glucose (mg/dL) 284 H 289 H Calcium 7.9 L Ionized Calcium Magnesium Albumin Blood Type Antibody Screen Crossmatch 12/07/17 12/08/17 12/08/17 22:59 04:33 04:33 WBC 8.5 RBC 2.25 L Hgb 6.7 L Hct 20 L MCV 88 MCH 30 MCHC 34 RDW 15 Plt Count 266 MPV 7.0 L Neut % (Auto) 82.7 Lymph % (Auto) 8.9 L [place] % (Auto) 6.7 Eos % (Auto) 1.4 Baso % (Auto) 0.3 Absolute Neuts (auto) 7.0 Absolute Lymphs (auto) 0.8 L Absolute Monos (auto) 0.6 Absolute Eos (auto) 0.1 Absolute Basos (auto) 0 Absolute Nucleated RBC 0 Nucleated RBC % 0 Sodium 134 L Potassium 3.5 Chloride 109 Carbon Dioxide 21 L Anion Gap 4 BUN 13 Creatinine 0.45 L Est GFR ( Amer) 163.9 Est GFR (Non-Af Amer) 135.5 BUN/Creatinine Ratio 28.9 H Glucose 129 H POC Glucose (mg/dL) 242 H Calcium 5.9 L* Ionized Calcium Magnesium 1.3 L Albumin 1.6 L Blood Type Antibody Screen Crossmatch 12/08/17 12/08/17 12/08/17 04:33 07:03 07:27 WBC RBC Hgb Hct MCV MCH MCHC RDW Plt Count MPV Neut % (Auto) Lymph % (Auto) [place] % (Auto) Eos % (Auto) Baso % (Auto) Absolute Neuts (auto) Absolute Lymphs (auto) Absolute Monos (auto) Absolute Eos (auto) Absolute Basos (auto) Absolute Nucleated RBC Nucleated RBC % Sodium Potassium Chloride Carbon Dioxide Anion Gap BUN Creatinine Est GFR ( Amer) Est GFR (Non-Af Amer) BUN/Creatinine Ratio Glucose POC Glucose (mg/dL) 199 H Calcium Ionized Calcium 4.49 L Magnesium Albumin Blood Type O Positive Antibody Screen Negative Crossmatch See Detail 12/08/17 12:14 WBC RBC Hgb Hct MCV MCH MCHC RDW Plt Count MPV Neut % (Auto) Lymph % (Auto) [place] % (Auto) Eos % (Auto) Baso % (Auto) Absolute Neuts (auto) Absolute Lymphs (auto) Absolute Monos (auto) Absolute Eos (auto) Absolute Basos (auto) Absolute Nucleated RBC Nucleated RBC % Sodium Potassium Chloride Carbon Dioxide Anion Gap BUN Creatinine Est GFR ( Amer) Est GFR (Non-Af Amer) BUN/Creatinine Ratio Glucose POC Glucose (mg/dL) 229 H Calcium Ionized Calcium Magnesium Albumin Blood Type Antibody Screen Crossmatch Left hip incision without redness or noted drainage on dressings +DF/PF left ankle calf NT and soft Assessment: []s/p revision left hip hemiarthroplasty, ORIF periprosthetic femur fracture POD #10 UTI Acute post operative anemia secondary to blood loss Plan: []2 Units PRBC per medicine order Clinda/Cipro abx RAEB MARE- Lucho lift Dressing change when back in bed today Await SNF bed availability
[2017-12-08] MEDS: Enoxaparin(*) 40 MG/0.4 ML SYR SUBCUT SCH (14:36)
[2017-12-08] MEDS ORDERED: Calcium Gluconate INJ* 1 GM in NS 0.9% 50 ML* 50 ML IVPB ONE (16:00)
--- NOTE | 2017-12-08 16:02 | PN ---
Subjective Date of Service: 12/08/17 Interval History: Ms. Deleon reports feeling well this morning. She denies pain and offers no complaints. Appetite is good. Has been up to the chair by joaquin. She denies CP, SOB, N/V/D, urinary symptoms. Family History: Unchanged from Admission Social History: Unchanged from Admission Past Medical History: Unchanged from Admission Objective Active Medications: Acetaminophen (Tylenol Tab*) 650 mg PO Q4H PRN Alprazolam (Xanax Tab*) 0.25 mg PO Q8H PRN Amantadine HCl (Symmetrel Cap*) 100 mg PO BID JEF Atorvastatin Calcium (Lipitor*) 20 mg PO DAILY JEF Carbidopa/Levodopa (Sinemet 25/100 Tab(*)) 2 tab PO TID JEF Carbidopa/Levodopa (Carbidopa-Levo Er 25-100 Tab) 1 tab PO BEDTIME JEF Clindamycin HCl (Cleocin Cap*) 300 mg PO Q6HR JEF Cyanocobalamin (Vitamin B12 Tab*) 1,000 mcg PO DAILY JEF Cyclobenzaprine HCl (Flexeril Tab*) 10 mg PO Q8H PRN Dextrose (D50w Syringe 50 Ml*) 12.5 gm IV PUSH .FOR FS < 60 - SS PRN Docusate Sodium (Colace Cap*) 100 mg PO BID JEF Enoxaparin Sodium (Lovenox(*)) 40 mg SUBCUT Q24H JEF Gabapentin (Neurontin Cap(*)) 200 mg PO BEDTIME JEF Gabapentin (Neurontin Cap(*)) 100 mg PO 0900,1500 JEF Hydralazine HCl (Apresoline Iv*) 5 mg IV SLOW PU Q6H PRN Hydromorphone HCl (Dilaudid Inj1s*) 0.5 mg IV SLOW PU Q3H PRN Ciprofloxacin/Dextrose (Cipro 400 Mg Ivpremix(*)) 400 mg in 200 mls @ 200 mls/ hr IVPB Q12H JEF Sodium Chloride (Ns 0.9% 1000 Ml*) 1,000 mls @ 50 mls/hr IV PER RATE JEF Calcium Gluconate 1 gm/ Sodium (Chloride) 60 mls @ 60 mls/hr IVPB ONCE ONE Insulin Glargine (Lantus(*)) 35 units SUBCUT 0900 JEF Insulin Human Lispro (Humalog*) 0 units SUBCUT AC JEF; Protocol Lidocaine (Lidoderm 5% Patch*) 1 patch TRANSDERM DAILY@1800 [facility] Lisinopril (Prinivil Tab*) 30 mg PO DAILY JEF Magnesium Oxide (Magox 400 Tab*) 400 mg PO BID [facility] Melatonin (Melatonin) 1 mg PO BEDTIME PRN Metoprolol Tartrate (Lopressor Tab*) 50 mg PO Q12HR [facility] Omeprazole (Prilosec Cap*) 20 mg PO 0600 [facility] Oxycodone HCl (Oxycontin(*)) 10 mg PO BID [facility] Oxycodone HCl (Roxycodone Tab*) 10 mg PO Q4H PRN Paroxetine HCl (Paxil Tab*) 20 mg PO DAILY [facility] Pharmacy Profile Note (Lidocaine Patch Remove*) 1 note PATCH OFF DAILY@0600 [facility] Polyethyl Glycol/Propylene Glycol (Lubricant Eye Drops) 1 drop BOTH EYES Q2H PRN Polyethylene Glycol/Electrolytes (Miralax*) 17 gm PO DAILY PRN Selegiline HCl (Eldepryl Tab*) 5 mg PO DAILY [facility] Senna (Senokot Tab*) 1 tab PO BEDTIME PRN Sodium Chloride (Sodium Chloride 0.65% Nasal [place]*) 1 spray BOTH NARES Q4H PRN Vital Signs - 8 hr 12/08/17 12/08/17 12/08/17 10:10 11:14 14:38 Respiratory 18 18 18 Rate 12/08/17 14:50 Respiratory 18 Rate Oxygen Devices in Use Now: None Appearance: Elderly female laying in bed in NAD Eyes: No Scleral Icterus Ears/Nose/Mouth/Throat: Mucous Membranes Moist Neck: NL Appearance and Movements; NL JVP Respiratory: Symmetrical Chest Expansion and Respiratory Effort, Clear to Auscultation Cardiovascular: NL Sounds; No Murmurs; No JVD, RRR Abdominal: NL Sounds; No Tenderness; No Distention Extremities: No Clubbing, Cyanosis Skin: - - Surgical dressing to left hip Neurological: NL Sensation, - - Oriented to self Lines/Tubes/Other Access: Clean, Dry and Intact Peripheral IV Nutrition: Taking PO's Result Diagrams: 12/08/17 04:33 12/08/17 04:33 Assess/Plan/Problems-Billing Ms Deleon is a 77 yo F who has a h/o parkinson's, diabetes, HTN and HLD who is a resident of [facility] who unfortunately fell and sustained a L hip fracture which was repaired with a L hip hemiarthroplasty on 11/13 and has subsequently developed a periprosthetic hip fracture, now s/p revision of left hip arthroplasty and ORIF. Hospital course complicated by blood loss anemia. Received blood intra-op as well as 2 units PRBC post-op. - Patient Problems (1) Periprosthetic fracture around internal prosthetic left hip joint, initial encounter Current Visit: Yes Status: Acute Priority: High Code(s): M97.02XA - PERIPROSTH FRACTURE AROUND INTERNAL PROSTH L HIP JT, INIT SNOMED Code(s): 155488533 Comment: - POD 10 left hip arthroplasty and ORIF with Dr. Fry - Pain well controlled - Non-weightbearing LLE per ortho - PT/OT - Needs AV; family working with case management (2) UTI (urinary tract infection) Current Visit: No Status: Acute Comment: - On UA 12/06 - Continue cipro; will change to PO at d/c (3) Acute blood loss anemia Current Visit: Yes Status: Acute Priority: High Code(s): D62 - ACUTE POSTHEMORRHAGIC ANEMIA SNOMED Code(s): 286553316 Comment: - Received 2 units on 11/29; will continue to trend H/H - No evidence of overt bleeding on exam - One unit PRBC today for Hgb 6.7; likely somewhat diluational (4) Hypocalcemia Current Visit: Yes Status: Acute Priority: High Code(s): E83.51 - HYPOCALCEMIA SNOMED Code(s): 0466714 Comment: - Likely due in part to dilution - Ca corrected for albumin is 7.8mg/dL - Start calcium carbonate (5) Hyponatremia Current Visit: Yes Status: Acute Priority: High Code(s): E87.1 - HYPO- OSMOLALITY AND HYPONATREMIA SNOMED Code(s): 61667758 Comment: - Improving; likely hypovolemic (6) Type 2 diabetes mellitus Current Visit: Yes Status: Chronic Comment: - Better glycemic control - Continue lispro SS - Increase lantus to 40 units (7) Hypertension Current Visit: Yes Status: Chronic Priority: Medium Code(s): I10 - ESSENTIAL (PRIMARY) HYPERTENSION SNOMED Code(s): 50120085 Comment: - Normotensive - History of TIA from hypertensive urgency - Hold HCTZ due to Hyponatremia - Continue home metoprolol, and lisinopril (8) Parkinson disease Current Visit: Yes Status: Chronic Priority: Medium Code(s): G20 - PARKINSON'S DISEASE SNOMED Code(s): 32458098 Comment: - Continue selegiline, amantadine and sinemet - Advanced disease with mild dementia but mentation not at baseline likely due to post-operative delirium (9) DNR (do not resuscitate) Current Visit: Yes Status: Acute Priority: High (10) DVT prophylaxis Current Visit: Yes Status: Acute Priority: High Code(s): KYB5183 - SNOMED Code(s): 027846266 Comment: - Lovemarinax per Dr. Fry Status and Disposition: Inpatient. Plan to d/c to rehab on Monday as the facility is not able to take her until then.
[2017-12-08] MEDS: LEVODOPA PO SCH (21:34)
[2017-12-08] MEDS: Lidocaine PATCH 5%* 1 PATCH TRANSDERM SCH (21:52)
[2017-12-09] MEDS: Acetaminophen TAB* 325 MG PO PRN ×2 (00:07→06:12)
[2017-12-09] MEDS: oxyCODONE TAB* 5 MG TAB PO PRN ×4 (00:08→16:27)
[2017-12-09] MEDS: HYDROmorphone INJ1* 1 MG/ML SYRINGE IV SLOW PU PRN ×2 (00:39→07:31)
[2017-12-09] MEDS: ALPRAZolam TAB* 0.25 MG PO PRN (01:47)
[2017-12-09] MEDS: Clindamycin CAP* 150 MG PO SCH ×3 (05:54→18:41)
[2017-12-09] MEDS: Omeprazole CAP* 20 MG PO SCH (05:54)
[2017-12-09] MEDS: Ciprofloxacin 400MG IVPREMIX(* 400 MG/200 ML BAG IVPB SCH ×2 (05:57→18:41)
[2017-12-09] MEDS: Lidocaine Patch REMOVE* 1 NOTE MISC PATCH OFF SCH (06:09)
[2017-12-09 06:31] LABS: ABS Basophils 0.1 10^3/ul (0-0.2); ABS Eosinophils 0.1 10^3/ul (0-0.6); ABS Lymphocytes 0.7 10^3/ul (1.0-4.8); ABS Monocytes 0.7 10^3/ul (0-0.8); ABS Neutrophils 9.4 10^3/ul (1.5-7.7); ABS Nucleated RBC 0 10^3/ul; Eosinophil % 0.9 % (0-6); Hematocrit 23 % (35-47); Hemoglobin 7.9 g/dl (12.0-16.0); Lymphocyte % 6.5 % (25-47); Mean Corpuscular HGB Conc 34 g/dl (31-36); Mean Corpuscular Hemoglobin 30 pg (27-31); Mean Corpuscular Volume 89 fL (80-97); Mean Platelet Volume 7.2 um3 (7.4-10.4); Nucleated Red Blood Cells % 0; Platelet Count 265 10^3/ul (150-450); Red Cell Distribution Width 15 % (10.5-15)
[2017-12-09 06:49] LABS: EGFR Non-African American 78.8 (>60)
--- NOTE | 2017-12-09 10:36 | PN ---
Subjective Date of Service: 12/09/17 Interval History: Ms. Deleon is drowsy this morning and not able to provide much subjective information. She reports feeling well and denies pain. She denies CP, SOB, N/V/D , dysuria. Family not at bedside at time of exam. No complaints or issues from nursing. Family History: Unchanged from Admission Social History: Unchanged from Admission Past Medical History: Unchanged from Admission Objective Active Medications: Acetaminophen (Tylenol Tab*) 650 mg PO Q4H PRN Alprazolam (Xanax Tab*) 0.25 mg PO Q8H PRN Amantadine HCl (Symmetrel Cap*) 100 mg PO BID JEF Atorvastatin Calcium (Lipitor*) 20 mg PO DAILY JEF Carbidopa/Levodopa (Sinemet 25/100 Tab(*)) 2 tab PO TID JEF Carbidopa/Levodopa (Carbidopa-Levo Er 25-100 Tab) 1 tab PO BEDTIME JEF Clindamycin HCl (Cleocin Cap*) 300 mg PO Q6HR JEF Cyanocobalamin (Vitamin B12 Tab*) 1,000 mcg PO DAILY JEF Cyclobenzaprine HCl (Flexeril Tab*) 10 mg PO Q8H PRN Dextrose (D50w Syringe 50 Ml*) 12.5 gm IV PUSH .FOR FS < 60 - SS PRN Docusate Sodium (Colace Cap*) 100 mg PO BID JEF Enoxaparin Sodium (Lovenox(*)) 40 mg SUBCUT Q24H JEF Gabapentin (Neurontin Cap(*)) 200 mg PO BEDTIME JEF Gabapentin (Neurontin Cap(*)) 100 mg PO 0900,1500 JEF Hydralazine HCl (Apresoline Iv*) 5 mg IV SLOW PU Q6H PRN Hydromorphone HCl (Dilaudid Inj1s*) 0.5 mg IV SLOW PU Q3H PRN Ciprofloxacin/Dextrose (Cipro 400 Mg Ivpremix(*)) 400 mg in 200 mls @ 200 mls/ hr IVPB Q12H JEF Sodium Chloride (Ns 0.9% 1000 Ml*) 1,000 mls @ 50 mls/hr IV PER RATE JEF Insulin Glargine (Lantus(*)) 40 units SUBCUT 0900 JEF Insulin Human Lispro (Humalog*) 0 units SUBCUT AC JEF; Protocol Lidocaine (Lidoderm 5% Patch*) 1 patch TRANSDERM DAILY@1800 [facility] Lisinopril (Prinivil Tab*) 30 mg PO DAILY [facility] Magnesium Oxide (Magox 400 Tab*) 400 mg PO BID [facility] Melatonin (Melatonin) 1 mg PO BEDTIME PRN Metoprolol Tartrate (Lopressor Tab*) 50 mg PO Q12HR [facility] Omeprazole (Prilosec Cap*) 20 mg PO 0600 [facility] Oxycodone HCl (Oxycontin(*)) 10 mg PO BID [facility] Oxycodone HCl (Roxycodone Tab*) 10 mg PO Q4H PRN Paroxetine HCl (Paxil Tab*) 20 mg PO DAILY [facility] Pharmacy Profile Note (Lidocaine Patch Remove*) 1 note PATCH OFF DAILY@0600 [facility] Polyethyl Glycol/Propylene Glycol (Lubricant Eye Drops) 1 drop BOTH EYES Q2H PRN Polyethylene Glycol/Electrolytes (Miralax*) 17 gm PO DAILY PRN Selegiline HCl (Eldepryl Tab*) 5 mg PO DAILY [facility] Senna (Senokot Tab*) 1 tab PO BEDTIME PRN Sodium Chloride (Sodium Chloride 0.65% Nasal [place]*) 1 spray BOTH NARES Q4H PRN Vital Signs - 8 hr 12/09/17 12/09/17 12/09/17 03:32 03:50 06:12 Temperature 98.3 F Pulse Rate 68 Respiratory 16 16 16 Rate Blood Pressure 115/45 (mmHg) O2 Sat by Pulse 95 Oximetry 12/09/17 12/09/17 12/09/17 07:20 07:31 07:49 Temperature 98.6 F Pulse Rate 70 Respiratory 16 18 18 Rate Blood Pressure 138/57 (mmHg) O2 Sat by Pulse 96 96 Oximetry Oxygen Devices in Use Now: None Appearance: Elderly female laying in bed in NAD Eyes: No Scleral Icterus Ears/Nose/Mouth/Throat: Mucous Membranes Moist Neck: NL Appearance and Movements; NL JVP Respiratory: Symmetrical Chest Expansion and Respiratory Effort, Clear to Auscultation Cardiovascular: NL Sounds; No Murmurs; No JVD, RRR Abdominal: NL Sounds; No Tenderness; No Distention Extremities: No Clubbing, Cyanosis Skin: - - Surgical dressing to left hip Neurological: - - Oriented to self Lines/Tubes/Other Access: Clean, Dry and Intact Peripheral IV Nutrition: Taking PO's Result Diagrams: 12/09/17 05:50 12/09/17 05:50 Assess/Plan/Problems-Billing Ms Deleon is a 77 yo F who has a h/o parkinson's, diabetes, HTN and HLD who is a resident of [facility] assisted living at [facility] who unfortunately fell and sustained a L hip fracture which was repaired with a L hip hemiarthroplasty on 11/13 and has subsequently developed a periprosthetic hip fracture, now s/p revision of left hip arthroplasty and ORIF. Hospital course complicated by blood loss anemia, UTI, and electrolyte abnormalities. Received blood intra-op as well as 2 units PRBC post-op. - Patient Problems (1) Periprosthetic fracture around internal prosthetic left hip joint, initial encounter Current Visit: Yes Status: Acute Priority: High Code(s): M97.02XA - PERIPROSTH FRACTURE AROUND INTERNAL PROSTH L HIP JT, INIT SNOMED Code(s): 827711649 Comment: - POD 11 left hip arthroplasty and ORIF with Dr. Fry - Pain well controlled - Non-weightbearing LLE per ortho - PT/OT - Needs AV; family working with case management (2) UTI (urinary tract infection) Current Visit: Yes Status: Acute Priority: High Comment: - On UA 12/06; culture grew klebsiella - Continue cipro; will change to PO at d/c (3) Acute blood loss anemia Current Visit: Yes Status: Acute Priority: High Code(s): D62 - ACUTE POSTHEMORRHAGIC ANEMIA SNOMED Code(s): 692350826 Comment: - Received 2 units on 11/29, 1 unit 12/08; will continue to trend H/H - No evidence of overt bleeding on exam - Likely also iron deficiency; will check iron studies in the AM and start ferrous sulfate if necessary (4) Hypocalcemia Current Visit: Yes Status: Acute Priority: High Code(s): E83.51 - HYPOCALCEMIA SNOMED Code(s): 0634577 Comment: - Likely due in part to dilution - Improved after 1gm calcium gluconate - Ca corrected for albumin is 9.6 (5) Hyponatremia Current Visit: Yes Status: Acute Priority: High Code(s): E87.1 - HYPO- OSMOLALITY AND HYPONATREMIA SNOMED Code(s): 29605381 Comment: - Stable high 120s - Improved somewhat with NS; likely hypovolemic (6) Type 2 diabetes mellitus Current Visit: Yes Status: Chronic Comment: - Better glycemic control - Continue lispro SS - Continue lantus 40 units (7) Hypertension Current Visit: Yes Status: Chronic Priority: Medium Code(s): I10 - ESSENTIAL (PRIMARY) HYPERTENSION SNOMED Code(s): 56873349 Comment: - Normotensive - History of TIA from hypertensive urgency - Hold HCTZ due to Hyponatremia - Continue home metoprolol, and lisinopril (8) Parkinson disease Current Visit: Yes Status: Chronic Priority: Medium Code(s): G20 - PARKINSON'S DISEASE SNOMED Code(s): 32071282 Comment: - Continue selegiline, amantadine and sinemet - Advanced disease with mild dementia but mentation not at baseline likely due to post-operative delirium (9) DNR (do not resuscitate) Current Visit: Yes Status: Acute Priority: High (10) DVT prophylaxis Current Visit: Yes Status: Acute Priority: High Code(s): CLC6007 - SNOMED Code(s): 894139882 Comment: - Cecy per Dr. Fry Status and Disposition: Inpatient. Plan to d/c to rehab on Monday as the facility is not able to take her until then.
[2017-12-09] MEDS: Enoxaparin(*) 40 MG/0.4 ML SYR SUBCUT SCH (11:16)
[2017-12-09] MEDS: Insulin GLARGINE(*) 1 UNITS UNIT SUBCUT SCH (11:19)
[2017-12-09] MEDS: oxyCODONE SR TAB(*) 10 MG TAB.SR PO SCH ×2 (11:20→22:48)
[2017-12-09] MEDS: Magnesium Oxide TAB* 400 MG PO SCH ×2 (11:21→22:46)
[2017-12-09] MEDS: Lisinopril TAB* 10 MG PO SCH (11:21)
[2017-12-09] MEDS: Atorvastatin* 20 MG TAB PO SCH (11:21)
[2017-12-09] MEDS: Metoprolol Tartrate TAB* 50 mg PO SCH ×2 (11:21→22:46)
[2017-12-09] MEDS: Docusate CAP* 100 MG PO SCH ×2 (11:22→22:44)
[2017-12-09] MEDS: PARoxetine HCL TAB* 20 MG PO SCH (11:22)
[2017-12-09] MEDS: Cyanocobalamin TAB* 500 MCG PO SCH (11:22)
[2017-12-09] MEDS: Gabapentin CAP(*) 100 MG PO SCH ×3 (11:29→22:47)
[2017-12-09] MEDS: Amantadine CAP* 100 MG PO SCH ×2 (11:29→22:44)
[2017-12-09] MEDS: SELEGILINE 5 MG PO SCH (11:30)
[2017-12-09] MEDS: CARBIDOPA PO SCH ×4 (11:30→22:55)
[2017-12-09] MEDS: LEVODOP PO SCH ×3 (11:30→22:54)
[2017-12-09] MEDS: Insulin LISPRO* 1 UNITS UNIT SUBCUT SCH ×3 (11:32→18:35)
--- NOTE | 2017-12-09 15:20 | PN ---
Progress Note - Progress Note Date of Service: 12/09/17 SOAP: Subjective: Pt seen at bedside while lying in bed. Complains of left hip pain. Per nursing, drainage from wound. Wound cultures done. Has remained afebrile. Vital Signs: Temp Pulse Resp BP Pulse Ox 97.0 F 71 22 118/48 97 12/09/17 11:23 12/09/17 11:23 12/09/17 14:09 12/09/17 11:23 12/09/17 11:23 Laboratory Last Values WBC 11.0 10^3/ul (3.5-10.8) H 12/09/17 05:50 RBC 2.60 10^6/ul (4.00-5.40) L 12/09/17 05:50 Hgb 7.9 g/dl (12.0-16.0) L 12/09/17 05:50 Hct 23 % (35-47) L 12/09/17 05:50 MCV 89 fL (80-97) 12/09/17 05:50 MCH 30 pg (27-31) 12/09/17 05:50 MCHC 34 g/dl (31-36) 12/09/17 05:50 RDW 15 % (10.5-15) 12/09/17 05:50 Plt Count 265 10^3/ul (150-450) 12/09/17 05:50 MPV 7.2 um3 (7.4-10.4) L 12/09/17 05:50 Neut % (Auto) 86.0 % (38-83) H 12/09/17 05:50 Lymph % (Auto) 6.5 % (25-47) L 12/09/17 05:50 Bay % (Auto) 6.1 % (0-7) 12/09/17 05:50 Eos % (Auto) 0.9 % (0-6) 12/09/17 05:50 Baso % (Auto) 0.5 % (0-2) 12/09/17 05:50 Absolute Neuts (auto) 9.4 10^3/ul (1.5-7.7) H 12/09/17 05:50 Absolute Lymphs (auto) 0.7 10^3/ul (1.0-4.8) L 12/09/17 05:50 Absolute Monos (auto) 0.7 10^3/ul (0-0.8) 12/09/17 05:50 Absolute Eos (auto) 0.1 10^3/ul (0-0.6) 12/09/17 05:50 Absolute Basos (auto) 0.1 10^3/ul (0-0.2) 12/09/17 05:50 Absolute Nucleated RBC 0 10^3/ul 12/09/17 05:50 Immature Gran % 7 % (0-9) 12/07/17 04:04 Neutrophils % 75 % (38-83) 12/07/17 04:04 Band Neutrophils % 5 % (0-8) 12/07/17 04:04 Lymphocytes % 14 % (25-47) L 12/07/17 04:04 Monocytes % 4 % (0-7) 12/07/17 04:04 Eosinophils % 0 % (0-6) 12/07/17 04:04 Basophils % 0 % (0-2) 12/07/17 04:04 Myelocytes % 2 % (0-1) H 12/07/17 04:04 Nucleated RBC % 0 12/09/17 05:50 Abs Neuts (Manual) 10.3 10^3/ul (1.5-7.7) H 12/07/17 04:04 Abs Lymphs (Manual) 1.9 10^3/ul (1.0-4.8) 12/07/17 04:04 Abs Monocytes (Manual) 0.5 10^3/ul (0-0.8) 12/07/17 04:04 Absolute Eos (Manual) 0 10^3/ul (0-0.6) 12/07/17 04:04 Abs Basophils (Manual) 0 10^3/ul (0-0.2) 12/07/17 04:04 Toxic Granulation 1+ 12/07/17 04:04 Normal RBC Morphology Not Reportable 12/07/17 04:04 Polychromasia 1+ 12/07/17 04:04 Hypochromasia 1+ 12/07/17 04:04 INR (Anticoag Therapy) 1.33 (0.77-1.02) H 12/01/17 08:14 APTT 27.8 seconds (26.0-36.3) 12/01/17 08:14 Sodium 128 mmol/L (135-145) L 12/09/17 05:50 Potassium 4.4 mmol/L (3.5-5.0) 12/09/17 05:50 Chloride 98 mmol/L (101-111) L 12/09/17 05:50 Carbon Dioxide 25 mmol/L (22-32) 12/09/17 05:50 Anion Gap 5 mmol/L (2-11) 12/09/17 05:50 BUN 16 mg/dL (6-24) 12/09/17 05:50 Creatinine 0.72 mg/dL (0.51-0.95) 12/09/17 05:50 Est GFR ( Amer) 95.3 (>60) 12/09/17 05:50 Est GFR (Non-Af Amer) 78.8 (>60) 12/09/17 05:50 BUN/Creatinine Ratio 22.2 (8-20) H 12/09/17 05:50 Glucose 108 mg/dL (70-100) H 12/09/17 05:50 POC Glucose (mg/dL) 167 mg/dL (70-100) H 12/09/17 11:36 Hemoglobin A1c 7.5 % (4.0-5.6) H 11/29/17 04:39 Calcium 8.1 mg/dL (8.6-10.3) L 12/09/17 05:50 Ionized Calcium 4.49 mg/dL (4.65-5.28) L 12/08/17 07:03 Magnesium 1.3 mg/dL (1.9-2.7) L 12/08/17 04:33 Total Bilirubin 1.10 mg/dL (0.2-1.0) H 11/29/17 17:35 AST 21 U/L (13-39) 11/29/17 17:35 ALT < 3 U/L (7-52) L 11/29/17 17:35 Alkaline Phosphatase 71 U/L (34-104) 11/29/17 17:35 Total Protein 5.5 g/dL (6.4-8.9) L 11/29/17 17:35 Albumin 2.1 g/dL (3.2-5.2) L 12/09/17 05:50 Globulin 2.8 g/dL (2-4) 11/29/17 17:35 Albumin/Globulin Ratio 1.0 (1-3) 11/29/17 17:35 Urine Color Yellow 12/07/17 03:47 Urine Appearance Turbid 12/07/17 03:47 Urine pH 5.0 (5-9) 12/07/17 03:47 Ur Specific [place] 1.008 (1.010-1.030) L 12/07/17 03:47 Urine Protein 2+(100 mg/dl) (Negative) A 12/07/17 03:47 Urine Ketones Negative (Negative) 12/07/17 03:47 Urine Blood 1+ (Negative) A 12/07/17 03:47 Urine Nitrate Positive (Negative) A 12/07/17 03:47 Urine Bilirubin Negative (Negative) 12/07/17 03:47 Urine Urobilinogen Negative (Negative) 12/07/17 03:47 Ur Leukocyte Esterase 3+ (Negative) A 12/07/17 03:47 Urine WBC (Auto) 3+(>20/hpf) (Absent) A 12/07/17 03:47 Urine RBC (Auto) 3+(>10/hpf) (Absent) A 12/07/17 03:47 Ur Squamous Epith Cells Present (Absent) A 12/07/17 03:47 Ur Transition Epith Cell Present (Absent) A 12/07/17 03:47 Urine Bacteria 3+ (Absent) A 12/07/17 03:47 Urine Osmolality 245 mOsm/kg (150-1150) 12/07/17 03:47 Ur Random Sodium < 18 mmol/L 12/07/17 03:47 Urine Glucose Negative (Negative) 12/07/17 03:47 Hepatitis Be Antibody Negative (Negative) 11/29/17 20:07 Hepatitis Be Antigen Negative (Negative) 11/29/17 20:07 Hepatitis C Antibody Nonreactive (Nonreactive) 11/29/17 20:07 HIV 1&2 Antibody Rapid Nonreactive (Nonreactive) 11/29/17 20:07 Blood Type O Positive 12/08/17 04:33 Antibody Screen Negative 12/08/17 04:33 Crossmatch See Detail 12/08/17 04:33 Objective: Incision macerated with purulent drainage noted. No erythema. Calves soft, nontender. NVI Assessment: s/p revision left hip hemiarthroplasty, ORIF left periprosthetic femur fx POD # 11 Plan: Continue Cipro/Clinda Agree with would cultures NWB left LE Awaiting SNF bed availability
[2017-12-09] MEDS: Lidocaine PATCH 5%* 1 PATCH TRANSDERM SCH (18:41)
[2017-12-09] MEDS: LEVODOPA PO SCH (22:55)
[2017-12-09] MEDS: NS 0.9% 1000 ML* 1,000 ML IV SCH (23:00)
[2017-12-10] MEDS: Clindamycin CAP* 150 MG PO SCH ×3 (00:50→10:13)
[2017-12-10] MEDS: Ciprofloxacin 400MG IVPREMIX(* 400 MG/200 ML BAG IVPB SCH ×2 (05:07→17:45)
[2017-12-10] MEDS: Omeprazole CAP* 20 MG PO SCH (05:12)
[2017-12-10] MEDS: Lidocaine Patch REMOVE* 1 NOTE MISC PATCH OFF SCH (05:15)
[2017-12-10 06:37] LABS: ABS Basophils 0 10^3/ul (0-0.2); ABS Eosinophils 0 10^3/ul (0-0.6); ABS Lymphocytes 0.6 10^3/ul (1.0-4.8); ABS Monocytes 0.7 10^3/ul (0-0.8); ABS Neutrophils 7.3 10^3/ul (1.5-7.7); ABS Nucleated RBC 0 10^3/ul; Eosinophil % 0.6 % (0-6); Hematocrit 23 % (35-47); Hemoglobin 7.9 g/dl (12.0-16.0); Lymphocyte % 6.9 % (25-47); Mean Corpuscular HGB Conc 34 g/dl (31-36); Mean Corpuscular Hemoglobin 30 pg (27-31); Mean Corpuscular Volume 88 fL (80-97); Mean Platelet Volume 6.9 um3 (7.4-10.4); Nucleated Red Blood Cells % 0; Platelet Count 295 10^3/ul (150-450); Red Cell Distribution Width 15 % (10.5-15); White Blood Count 8.6 10^3/ul (3.5-10.8)
[2017-12-10] MEDS: Insulin LISPRO* 1 UNITS UNIT SUBCUT SCH ×3 (09:51→18:25)
[2017-12-10] MEDS: SELEGILINE 5 MG PO SCH (10:12)
[2017-12-10] MEDS: Amantadine CAP* 100 MG PO SCH ×2 (10:13→23:17)
[2017-12-10] MEDS: Metoprolol Tartrate TAB* 50 mg PO SCH ×2 (10:13→23:16)
[2017-12-10] MEDS: Magnesium Oxide TAB* 400 MG PO SCH ×2 (10:13→23:20)
[2017-12-10] MEDS: Docusate CAP* 100 MG PO SCH ×2 (10:13→23:20)
[2017-12-10] MEDS: Cyanocobalamin TAB* 500 MCG PO SCH (10:13)
[2017-12-10] MEDS: Lisinopril TAB* 10 MG PO SCH (10:13)
[2017-12-10] MEDS: Insulin GLARGINE(*) 1 UNITS UNIT SUBCUT SCH (10:14)
[2017-12-10] MEDS: PARoxetine HCL TAB* 20 MG PO SCH (10:14)
[2017-12-10] MEDS: Atorvastatin* 20 MG TAB PO SCH (10:14)
[2017-12-10] MEDS: Enoxaparin(*) 40 MG/0.4 ML SYR SUBCUT SCH (10:14)
[2017-12-10] MEDS: LEVODOP PO SCH ×3 (10:14→23:21)
[2017-12-10] MEDS: CARBIDOPA PO SCH ×4 (10:14→23:21)
[2017-12-10] MEDS: oxyCODONE SR TAB(*) 10 MG TAB.SR PO SCH ×2 (10:14→23:19)
[2017-12-10] MEDS ORDERED: Albuterol 2.5 MG/3 ML NEB.SOL* (0.083%) INH PRN (10:28)
[2017-12-10] MEDS: ALPRAZolam TAB* 0.25 MG PO PRN (10:29)
[2017-12-10] MEDS: Gabapentin CAP(*) 100 MG PO SCH ×3 (10:30→23:18)
--- NOTE | 2017-12-10 10:35 | PN ---
Subjective Date of Service: 12/10/17 Interval History: Ms. Deleon reports feeling well today. She offers no complaints. When asked about pain, she reports that her BLE are aching from being in the hip immobilizer. She does have a mild dry cough. Her caregiver feels as though she is slightly wheezy. The patient denies CP, SOB, N/V/D, dizziness. Nursing called late yesterday d/t new purulent drainage from surgical site. She was seen by ortho. Nursing reports that patient is frequently incontinent of large amounts of urine that are saturating her surgical dressing. Family History: Unchanged from Admission Social History: Unchanged from Admission Past Medical History: Unchanged from Admission Objective Active Medications: Acetaminophen (Tylenol Tab*) 650 mg PO Q4H PRN Alprazolam (Xanax Tab*) 0.25 mg PO Q8H PRN Amantadine HCl (Symmetrel Cap*) 100 mg PO BID JEF Atorvastatin Calcium (Lipitor*) 20 mg PO DAILY JEF Carbidopa/Levodopa (Sinemet 25/100 Tab(*)) 2 tab PO TID JEF Carbidopa/Levodopa (Carbidopa-Levo Er 25-100 Tab) 1 tab PO BEDTIME JEF Clindamycin HCl (Cleocin Cap*) 300 mg PO Q6HR JEF Cyanocobalamin (Vitamin B12 Tab*) 1,000 mcg PO DAILY JEF Cyclobenzaprine HCl (Flexeril Tab*) 10 mg PO Q8H PRN Dextrose (D50w Syringe 50 Ml*) 12.5 gm IV PUSH .FOR FS < 60 - SS PRN Docusate Sodium (Colace Cap*) 100 mg PO BID JEF Enoxaparin Sodium (Lovenox(*)) 40 mg SUBCUT Q24H JEF Gabapentin (Neurontin Cap(*)) 200 mg PO BEDTIME JEF Gabapentin (Neurontin Cap(*)) 100 mg PO 0900,1500 JEF Hydralazine HCl (Apresoline Iv*) 5 mg IV SLOW PU Q6H PRN Ciprofloxacin/Dextrose (Cipro 400 Mg Ivpremix(*)) 400 mg in 200 mls @ 200 mls/ hr IVPB Q12H JEF Sodium Chloride (Ns 0.9% 1000 Ml*) 1,000 mls @ 50 mls/hr IV PER RATE JEF Insulin Glargine (Lantus(*)) 40 units SUBCUT 0900 JEF Insulin Human Lispro (Humalog*) 0 units SUBCUT AC JEF; Protocol Lidocaine (Lidoderm 5% Patch*) 1 patch TRANSDERM DAILY@1800 [facility] Lisinopril (Prinivil Tab*) 30 mg PO DAILY JEF Magnesium Oxide (Magox 400 Tab*) 400 mg PO BID [facility] Melatonin (Melatonin) 1 mg PO BEDTIME PRN Metoprolol Tartrate (Lopressor Tab*) 50 mg PO Q12HR [facility] Omeprazole (Prilosec Cap*) 20 mg PO 0600 [facility] Oxycodone HCl (Oxycontin(*)) 10 mg PO BID [facility] Oxycodone HCl (Roxycodone Tab*) 10 mg PO Q4H PRN Paroxetine HCl (Paxil Tab*) 20 mg PO DAILY [facility] Pharmacy Profile Note (Lidocaine Patch Remove*) 1 note PATCH OFF DAILY@0600 [facility] Polyethyl Glycol/Propylene Glycol (Lubricant Eye Drops) 1 drop BOTH EYES Q2H PRN Polyethylene Glycol/Electrolytes (Miralax*) 17 gm PO DAILY PRN Selegiline HCl (Eldepryl Tab*) 5 mg PO DAILY [facility] Senna (Senokot Tab*) 1 tab PO BEDTIME PRN Sodium Chloride (Sodium Chloride 0.65% Nasal [place]*) 1 spray BOTH NARES Q4H PRN Vital Signs - 8 hr 12/10/17 12/10/17 12/10/17 03:43 07:37 07:41 Temperature 98.2 F 97.0 F Pulse Rate 67 64 Respiratory 18 16 18 Rate Blood Pressure 118/53 124/54 (mmHg) O2 Sat by Pulse 95 99 95 Oximetry Oxygen Devices in Use Now: None Appearance: Elderly female laying in bed in NAD Eyes: No Scleral Icterus Ears/Nose/Mouth/Throat: Mucous Membranes Moist Neck: NL Appearance and Movements; NL JVP Respiratory: Symmetrical Chest Expansion and Respiratory Effort, Clear to Auscultation Cardiovascular: NL Sounds; No Murmurs; No JVD, RRR Abdominal: NL Sounds; No Tenderness; No Distention Extremities: No Clubbing, Cyanosis Skin: No Nodules or Sclerosis, - - Surgical dressing to left hip Neurological: NL Sensation, - - Oriented to self Lines/Tubes/Other Access: Clean, Dry and Intact Peripheral IV Nutrition: Taking PO's Result Diagrams: 12/10/17 06:04 12/09/17 05:50 Assess/Plan/Problems-Billing Ms Deleon is a 77 yo F who has a h/o parkinson's, diabetes, HTN and HLD who is a resident of [facility] assisted living at [facility] who unfortunately fell and sustained a L hip fracture which was repaired with a L hip hemiarthroplasty on 11/13 and has subsequently developed a periprosthetic hip fracture, now s/p revision of left hip arthroplasty and ORIF. Hospital course complicated by blood loss anemia, UTI, and electrolyte abnormalities. Received blood intra-op as well as 2 units PRBC post-op. - Patient Problems (1) Periprosthetic fracture around internal prosthetic left hip joint, initial encounter Current Visit: Yes Status: Acute Priority: High Code(s): M97.02XA - PERIPROSTH FRACTURE AROUND INTERNAL PROSTH L HIP JT, INIT SNOMED Code(s): 611058435 Comment: - POD 12 left hip arthroplasty and ORIF with Dr. Fry - Pain well controlled - Non-weightbearing LLE per ortho - PT/OT - Now with new purulent drainage to surgical site; per otho, continue clinda - [place] to aide in wound healing (2) UTI (urinary tract infection) Current Visit: Yes Status: Acute Priority: High Comment: - On UA 12/06; culture grew klebsiella - Continue cipro; will change to PO at d/c (3) Acute blood loss anemia Current Visit: Yes Status: Acute Priority: High Code(s): D62 - ACUTE POSTHEMORRHAGIC ANEMIA SNOMED Code(s): 195922726 Comment: - Received 2 units on 11/29, 1 unit 12/08; will continue to trend H/H - No evidence of overt bleeding on exam - Also with iron deficiency; low iron, TIBC, transferrin - Start ferrous sulfate BID (4) Hypocalcemia Current Visit: Yes Status: Acute Priority: High Code(s): E83.51 - HYPOCALCEMIA SNOMED Code(s): 2959846 Comment: - Likely due in part to dilution - Improved after 1gm calcium gluconate - Ca corrected for albumin is 9.6 (5) Hyponatremia Current Visit: Yes Status: Acute Priority: High Code(s): E87.1 - HYPO- OSMOLALITY AND HYPONATREMIA SNOMED Code(s): 19800797 Comment: - Stable high 120s - Improved somewhat with NS; likely hypovolemic (6) Type 2 diabetes mellitus Current Visit: Yes Status: Chronic Comment: - Better glycemic control - Continue lispro SS, lantus 40 units (7) Hypertension Current Visit: Yes Status: Chronic Priority: Medium Code(s): I10 - ESSENTIAL (PRIMARY) HYPERTENSION SNOMED Code(s): 23445173 Comment: - Normotensive - History of TIA from hypertensive urgency - Hold HCTZ due to Hyponatremia - Continue home metoprolol, and lisinopril (8) Parkinson disease Current Visit: Yes Status: Chronic Priority: Medium Code(s): G20 - PARKINSON'S DISEASE SNOMED Code(s): 02119310 Comment: - Continue selegiline, amantadine and sinemet - Advanced disease with mild dementia but mentation not at baseline likely due to post-operative delirium (9) DNR (do not resuscitate) Current Visit: Yes Status: Acute Priority: High (10) DVT prophylaxis Current Visit: Yes Status: Acute Priority: High Code(s): SLP8294 - SNOMED Code(s): 223156964 Comment: - Cecy per Dr. Fry Status and Disposition: Inpatient. Plan to d/c to rehab on Monday as the facility is not able to take her until then.
--- NOTE | 2017-12-10 17:52 | PN ---
Progress Note - Progress Note Date of Service: 12/10/17 Note: Note is made of polymicrobial wound culture from hip surgical site, now positive for klebsiella which is also in urine. Patient afebrile, no leukocytosis, vitals stable. However CRP 275. Reviewed case with Dr. Presley, Dr. Montero and then with Dr. Fry. Plan for cipro and flagyl for now until cultures are complete. Plan for ID consult. Dr. Fry reports plans for washout on Monday, she will discuss with family. In the meantime, will given one unit of PRBC for Hgb 7.9 to optimize for anticipated surgery. Note is made of Na 128, has been in this range since admission. Will stop IVF and recheck in AM.
[2017-12-10] MEDS: Lidocaine PATCH 5%* 1 PATCH TRANSDERM SCH (18:23)
[2017-12-10] MEDS: metroNIDAZOLE IV 500 MG/100ML* 500 MG/100 ML BAG IVPB SCH (18:51)
[2017-12-10] MEDS: guaiFENesin ER TAB 600 MG PO SCH (23:16)
[2017-12-10] MEDS: LEVODOPA PO SCH (23:16)
[2017-12-10] MEDS: Ferrous Sulfate TAB* 325 MG PO SCH (23:19)
[2017-12-11] MEDS: metroNIDAZOLE IV 500 MG/100ML* 500 MG/100 ML BAG IVPB SCH ×2 (02:29→13:16)
[2017-12-11] MEDS: Ciprofloxacin 400MG IVPREMIX(* 400 MG/200 ML BAG IVPB SCH ×2 (04:10→18:11)
[2017-12-11] MEDS: Omeprazole CAP* 20 MG PO SCH (05:49)
[2017-12-11] MEDS: Lidocaine Patch REMOVE* 1 NOTE MISC PATCH OFF SCH (05:53)
[2017-12-11 05:57] LABS: ABS Basophils 0 10^3/ul (0-0.2); ABS Eosinophils 0 10^3/ul (0-0.6); ABS Lymphocytes 0.6 10^3/ul (1.0-4.8); ABS Monocytes 0.5 10^3/ul (0-0.8); ABS Neutrophils 5.7 10^3/ul (1.5-7.7); ABS Nucleated RBC 0 10^3/ul; Eosinophil % 0.4 % (0-6); Hematocrit 26 % (35-47); Hemoglobin 8.6 g/dl (12.0-16.0); Lymphocyte % 8.4 % (25-47); Mean Corpuscular HGB Conc 33 g/dl (31-36); Mean Corpuscular Hemoglobin 29 pg (27-31); Mean Corpuscular Volume 87 fL (80-97); Mean Platelet Volume 6.7 um3 (7.4-10.4); Nucleated Red Blood Cells % 0; Platelet Count 291 10^3/ul (150-450); Red Blood Count 2.96 10^6/ul (4.00-5.40); Red Cell Distribution Width 16 % (10.5-15); White Blood Count 6.9 10^3/ul (3.5-10.8)
[2017-12-11 06:14] LABS: EGFR Non-African American 84.1 (>60)
[2017-12-11] MEDS: Insulin LISPRO* 1 UNITS UNIT SUBCUT SCH ×3 (10:43→18:43)
[2017-12-11] MEDS: Insulin GLARGINE(*) 1 UNITS UNIT SUBCUT SCH (10:44)
[2017-12-11] MEDS: oxyCODONE SR TAB(*) 10 MG TAB.SR PO SCH ×2 (10:47→20:20)
[2017-12-11] MEDS: CARBIDOPA PO SCH ×4 (10:50→20:22)
[2017-12-11] MEDS: Cyanocobalamin TAB* 500 MCG PO SCH (10:50)
[2017-12-11] MEDS: Amantadine CAP* 100 MG PO SCH ×2 (10:50→20:21)
[2017-12-11] MEDS: Ferrous Sulfate TAB* 325 MG PO SCH ×2 (10:50→20:22)
[2017-12-11] MEDS: Atorvastatin* 20 MG TAB PO SCH (10:50)
[2017-12-11] MEDS: Docusate CAP* 100 MG PO SCH ×2 (10:50→20:22)
[2017-12-11] MEDS: LEVODOP PO SCH ×3 (10:50→20:20)
[2017-12-11] MEDS: PARoxetine HCL TAB* 20 MG PO SCH (10:51)
[2017-12-11] MEDS: Magnesium Oxide TAB* 400 MG PO SCH ×2 (10:51→20:22)
[2017-12-11] MEDS: Lisinopril TAB* 10 MG PO SCH (10:51)
[2017-12-11] MEDS: Gabapentin CAP(*) 100 MG PO SCH ×3 (10:51→20:20)
[2017-12-11] MEDS: SELEGILINE 5 MG PO SCH (10:51)
[2017-12-11] MEDS: Metoprolol Tartrate TAB* 50 mg PO SCH ×2 (10:51→20:22)
[2017-12-11] MEDS: guaiFENesin ER TAB 600 MG PO SCH ×2 (10:51→20:20)
--- NOTE | 2017-12-11 13:09 | PN ---
Progress Note - Progress Note Date of Service: 12/11/17 SOAP: Subjective: []Patient seen and examined at bedside, family present. Patient is not participating in conversation today though she is groaning in pain and alert to my presence. Objective: []General: Appears to be in pain, follows simple instruction but does not participate in conversation. LLE: Dressing was changed, it was soaked through with brown purulent drainage. Incision macerated with large amount of active brown purulent drainage noted from proximal aspect. No erythema surrounding wound, incision is intact. Dp2+, wiggles toes to command. Calves are soft, nontender. Assessment: s/p revision left hip hemiarthroplasty, ORIF left periprosthetic femur fx Plan: Discussed case with Dr Diaz who is away until Monday, appreciate his recommendations. Continue Cipro, stop flagyl. Once sensitivities for wound culture are final may consider ceftriaxone alone as long as sensitive. NWB left [facility] Hospice/ Palliative care consultation today Did speak with daughter who confirms patient does not want any further surgery at this time. Abductor pillow had been soiled, did not have one in place. New pillow obtained and placed, this is to be worn at all times aside from hygiene Please have patient wear depends as she was incontinent of stool while I was in the room. Patient was cleaned and depends put on. Vital Signs Temp 97.6 F 12/11/17 07:22 Pulse 67 12/11/17 07:22 Resp 20 12/11/17 10:47 BP 142/69 12/11/17 07:22 Pulse Ox 96 12/11/17 08:00 Intake & Output 12/10/17 12/11/17 12/11/17 18:59 06:59 18:59 Intake Total 360 260 Output Total 910 2525 1000 Balance -550 -2265 -1000 Intake: IVPB 210 ABX - CIPROFLOXACIN 210 Oral 150 260 Output: Urine 0 Lima 250 2525 1000 Residual 660 Lima 16 Fr 660 Other: Estimated Void Large # Bowel Movements 1 Estimated Stool Amount Medium # Voids 2 Laboratory Last Values WBC 6.9 10^3/ul (3.5-10.8) 12/11/17 05:14 RBC 2.96 10^6/ul (4.00-5.40) L 12/11/17 05:14 Hgb 8.6 g/dl (12.0-16.0) L 12/11/17 05:14 Hct 26 % (35-47) L 12/11/17 05:14 MCV 87 fL (80-97) 12/11/17 05:14 MCH 29 pg (27-31) 12/11/17 05:14 MCHC 33 g/dl (31-36) 12/11/17 05:14 RDW 16 % (10.5-15) H 12/11/17 05:14 Plt Count 291 10^3/ul (150-450) 12/11/17 05:14 MPV 6.7 um3 (7.4-10.4) L 12/11/17 05:14 Neut % (Auto) 83.1 % (38-83) H 12/11/17 05:14 Lymph % (Auto) 8.4 % (25-47) L 12/11/17 05:14 [place] % (Auto) 7.8 % (0-7) H 12/11/17 05:14 Eos % (Auto) 0.4 % (0-6) 12/11/17 05:14 Baso % (Auto) 0.3 % (0-2) 12/11/17 05:14 Absolute Neuts (auto) 5.7 10^3/ul (1.5-7.7) 12/11/17 05:14 Absolute Lymphs (auto) 0.6 10^3/ul (1.0-4.8) L 12/11/17 05:14 Absolute Monos (auto) 0.5 10^3/ul (0-0.8) 12/11/17 05:14 Absolute Eos (auto) 0 10^3/ul (0-0.6) 12/11/17 05:14 Absolute Basos (auto) 0 10^3/ul (0-0.2) 12/11/17 05:14 Absolute Nucleated RBC 0 10^3/ul 12/11/17 05:14 Immature Gran % 7 % (0-9) 12/07/17 04:04 Neutrophils % 75 % (38-83) 12/07/17 04:04 Band Neutrophils % 5 % (0-8) 12/07/17 04:04 Lymphocytes % 14 % (25-47) L 12/07/17 04:04 Monocytes % 4 % (0-7) 12/07/17 04:04 Eosinophils % 0 % (0-6) 12/07/17 04:04 Basophils % 0 % (0-2) 12/07/17 04:04 Myelocytes % 2 % (0-1) H 12/07/17 04:04 Nucleated RBC % 0 12/11/17 05:14 Abs Neuts (Manual) 10.3 10^3/ul (1.5-7.7) H 12/07/17 04:04 Abs Lymphs (Manual) 1.9 10^3/ul (1.0-4.8) 12/07/17 04:04 Abs Monocytes (Manual) 0.5 10^3/ul (0-0.8) 12/07/17 04:04 Absolute Eos (Manual) 0 10^3/ul (0-0.6) 12/07/17 04:04 Abs Basophils (Manual) 0 10^3/ul (0-0.2) 12/07/17 04:04 Toxic Granulation 1+ 12/07/17 04:04 Normal RBC Morphology Not Reportable 12/07/17 04:04 Polychromasia 1+ 12/07/17 04:04 Hypochromasia 1+ 12/07/17 04:04 INR (Anticoag Therapy) 1.33 (0.77-1.02) H 12/01/17 08:14 APTT 27.8 seconds (26.0-36.3) 12/01/17 08:14 Sodium 131 mmol/L (135-145) L 12/11/17 05:13 Potassium 4.2 mmol/L (3.5-5.0) 12/11/17 05:13 Chloride 100 mmol/L (101-111) L 12/11/17 05:13 Carbon Dioxide 24 mmol/L (22-32) 12/11/17 05:13 Anion Gap 7 mmol/L (2-11) 12/11/17 05:13 BUN 14 mg/dL (6-24) 12/11/17 05:13 Creatinine 0.68 mg/dL (0.51-0.95) 12/11/17 05:13 Est GFR ( Amer) 101.8 (>60) 12/11/17 05:13 Est GFR (Non-Af Amer) 84.1 (>60) 12/11/17 05:13 BUN/Creatinine Ratio 20.6 (8-20) H 12/11/17 05:13 Glucose 84 mg/dL (70-100) 12/11/17 05:13 POC Glucose (mg/dL) 90 mg/dL (70-100) 12/11/17 11:56 Hemoglobin A1c 7.5 % (4.0-5.6) H 11/29/17 04:39 Calcium 7.9 mg/dL (8.6-10.3) L 12/11/17 05:13 Ionized Calcium 4.49 mg/dL (4.65-5.28) L 12/08/17 07:03 Magnesium 1.3 mg/dL (1.9-2.7) L 12/08/17 04:33 Iron 15 ug/dL (50-212) L 12/10/17 06:04 TIBC 178 mcg/dL (250-450) L 12/10/17 06:04 % Saturation 8 % (15-55) L 12/10/17 06:04 Unsat Iron Binding 163 ug/dL 12/10/17 06:04 Transferrin 127 mg/dL (203-362) L 12/10/17 06:04 Ferritin 446.3 ng/mL (11-307) H 12/10/17 06:04 Total Bilirubin 1.10 mg/dL (0.2-1.0) H 11/29/17 17:35 AST 21 U/L (13-39) 11/29/17 17:35 ALT < 3 U/L (7-52) L 11/29/17 17:35 Alkaline Phosphatase 71 U/L (34-104) 11/29/17 17:35 C-Reactive Protein 275.23 mg/L (<8.01) H 12/10/17 06:04 Total Protein 5.5 g/dL (6.4-8.9) L 11/29/17 17:35 Albumin 2.1 g/dL (3.2-5.2) L 12/09/17 05:50 Globulin 2.8 g/dL (2-4) 11/29/17 17:35 Albumin/Globulin Ratio 1.0 (1-3) 11/29/17 17:35 Urine Color Yellow 12/07/17 03:47 Urine Appearance Turbid 12/07/17 03:47 Urine pH 5.0 (5-9) 12/07/17 03:47 Ur Specific [place] 1.008 (1.010-1.030) L 12/07/17 03:47 Urine Protein 2+(100 mg/dl) (Negative) A 12/07/17 03:47 Urine Ketones Negative (Negative) 12/07/17 03:47 Urine Blood 1+ (Negative) A 12/07/17 03:47 Urine Nitrate Positive (Negative) A 12/07/17 03:47 Urine Bilirubin Negative (Negative) 12/07/17 03:47 Urine Urobilinogen Negative (Negative) 12/07/17 03:47 Ur Leukocyte Esterase 3+ (Negative) A 12/07/17 03:47 Urine WBC (Auto) 3+(>20/hpf) (Absent) A 12/07/17 03:47 Urine RBC (Auto) 3+(>10/hpf) (Absent) A 12/07/17 03:47 Ur Squamous Epith Cells Present (Absent) A 12/07/17 03:47 Ur Transition Epith Cell Present (Absent) A 12/07/17 03:47 Urine Bacteria 3+ (Absent) A 12/07/17 03:47 Urine Osmolality 245 mOsm/kg (150-1150) 12/07/17 03:47 Ur Random Sodium < 18 mmol/L 12/07/17 03:47 Urine Glucose Negative (Negative) 12/07/17 03:47 Hepatitis Be Antibody Negative (Negative) 11/29/17 20:07 Hepatitis Be Antigen Negative (Negative) 11/29/17 20:07 Hepatitis C Antibody Nonreactive (Nonreactive) 11/29/17 20:07 HIV 1&2 Antibody Rapid Nonreactive (Nonreactive) 11/29/17 20:07 Blood Type O Positive 12/11/17 05:14 Antibody Screen Negative 12/11/17 05:14 Crossmatch See Detail 12/08/17 04:33
--- NOTE | 2017-12-11 13:34 | PN ---
Subjective Date of Service: 12/11/17 Interval History: Patient is resting on bed. Eye are closed, but open to questions and answers questions when prompted. Denies pain. Reports she is comfortable currently. Daughter is at bedside and stating her sister spoke with Dr Fry this morning about surgery. The family and patient do not want to proceed with surgery. Family would like her to be comfortable. Patient agrees with these plans when asked. 12 ROS attempted and all other negative. Family History: Unchanged from Admission Social History: Unchanged from Admission Past Medical History: Unchanged from Admission Objective Active Medications: Acetaminophen (Tylenol Tab*) 650 mg PO Q4H PRN PRN Reason: FEVER/PAIN Last Admin: 12/09/17 06:12 Dose: 650 mg Albuterol (Ventolin 2.5 Mg/3 Ml Neb.Joaquina*) 2.5 mg INH [id number] AWAKE PRN PRN Reason: SOB/WHEEZING Amantadine HCl (Symmetrel Cap*) 100 mg PO BID [facility] Last Admin: 12/11/17 10:50 Dose: Not Given Atorvastatin Calcium (Lipitor*) 20 mg PO DAILY [facility] Last Admin: 12/11/17 10:50 Dose: Not Given Carbidopa/Levodopa (Sinemet 25/100 Tab(*)) 2 tab PO TID [facility] Last Admin: 12/11/17 10:50 Dose: Not Given Carbidopa/Levodopa (Carbidopa-Levo Er 25-100 Tab) 1 tab PO BEDTIME [facility] Last Admin: 12/10/17 23:16 Dose: 1 tab Cyanocobalamin (Vitamin B12 Tab*) 1,000 mcg PO DAILY [facility] Last Admin: 12/11/17 10:50 Dose: Not Given Cyclobenzaprine HCl (Flexeril Tab*) 10 mg PO Q8H PRN PRN Reason: SPASMS Last Admin: 12/03/17 18:45 Dose: 10 mg Dextrose (D50w Syringe 50 Ml*) 12.5 gm IV PUSH .FOR FS < 60 - SS PRN PRN Reason: FS < 60 Docusate Sodium (Colace Cap*) 100 mg PO BID [facility] Last Admin: 12/11/17 10:50 Dose: Not Given Enoxaparin Sodium (Lovenox(*)) 40 mg SUBCUT Q24H [facility] Last Admin: 12/10/17 10:14 Dose: 40 mg Ferrous Sulfate (Ferrous Sulfate Tab*) 325 mg PO BID [facility] Last Admin: 12/11/17 10:50 Dose: Not Given Gabapentin (Neurontin Cap(*)) 200 mg PO BEDTIME [facility] Last Admin: 12/10/17 23:18 Dose: 200 mg Gabapentin (Neurontin Cap(*)) 100 mg PO 0900,1500 [facility] Last Admin: 12/11/17 10:51 Dose: Not Given Guaifenesin (Mucinex*) 600 mg PO BID [facility] Last Admin: 12/11/17 10:51 Dose: Not Given Hydralazine HCl (Apresoline Iv*) 5 mg IV SLOW PU Q6H PRN PRN Reason: SBP>170 Last Admin: 11/29/17 11:32 Dose: 5 mg Ciprofloxacin/Dextrose (Cipro 400 Mg Ivpremix(*)) 400 mg in 200 mls @ 200 mls/ hr IVPB Q12H [facility] Last Admin: 12/11/17 04:10 Dose: 200 mls/hr Insulin Glargine (Lantus(*)) 40 units SUBCUT 0900 [facility] Last Admin: 12/11/17 10:44 Dose: 40 units Insulin Human Lispro (Humalog*) 0 units SUBCUT [facility]; Protocol Last Admin: 12/11/17 10:43 Dose: Not Given Lidocaine (Lidoderm 5% Patch*) 1 patch TRANSDERM DAILY@1800 [facility] Last Admin: 12/10/17 18:23 Dose: 1 patch Lisinopril (Prinivil Tab*) 30 mg PO DAILY [facility] Last Admin: 12/11/17 10:51 Dose: Not Given Magnesium Oxide (Magox 400 Tab*) 400 mg PO BID [facility] Last Admin: 12/11/17 10:51 Dose: Not Given Melatonin (Melatonin) 1 mg PO BEDTIME PRN PRN Reason: SLEEP Metoprolol Tartrate (Lopressor Tab*) 50 mg PO Q12HR [facility] Last Admin: 12/11/17 10:51 Dose: Not Given Omeprazole (Prilosec Cap*) 20 mg PO 0600 [facility] Last Admin: 12/11/17 05:49 Dose: 20 mg Oxycodone HCl (Oxycontin(*)) 10 mg PO BID [facility] Last Admin: 12/11/17 10:47 Dose: 10 mg Oxycodone HCl (Roxycodone Tab*) 10 mg PO Q4H PRN PRN Reason: PAIN Last Admin: 12/09/17 16:27 Dose: 10 mg Paroxetine HCl (Paxil Tab*) 20 mg PO DAILY [facility] Last Admin: 12/11/17 10:51 Dose: Not Given Pharmacy Profile Note (Lidocaine Patch Remove*) 1 note PATCH OFF DAILY@0600 [facility] Last Admin: 12/11/17 05:53 Dose: 1 note Polyethyl Glycol/Propylene Glycol (Lubricant Eye Drops) 1 drop BOTH EYES Q2H PRN PRN Reason: DRY EYE Last Admin: 12/01/17 13:49 Dose: 1 drop Polyethylene Glycol/Electrolytes (Miralax*) 17 gm PO DAILY PRN PRN Reason: CONSTIPATION Last Admin: 11/29/17 16:37 Dose: 17 gm Selegiline HCl (Eldepryl Tab*) 5 mg PO DAILY [facility] Last Admin: 12/11/17 10:51 Dose: Not Given Senna (Senokot Tab*) 1 tab PO BEDTIME PRN PRN Reason: CONSTIPATION Last Admin: 12/06/17 05:43 Dose: 1 tab Sodium Chloride (Sodium Chloride 0.65% Nasal [place]*) 1 spray BOTH NARES Q4H PRN PRN Reason: CONGESTION Vital Signs - 8 hr 12/11/17 12/11/17 12/11/17 07:22 08:00 10:47 Temperature 97.6 F Pulse Rate 67 Respiratory 24 20 20 Rate Blood Pressure 142/69 (mmHg) O2 Sat by Pulse 96 96 Oximetry Oxygen Devices in Use Now: None Appearance: Comfortable, NAD Eyes: No Scleral Icterus Ears/Nose/Mouth/Throat: Clear Oropharnyx, Mucous Membranes Moist Neck: NL Appearance and Movements; NL JVP Respiratory: Symmetrical Chest Expansion and Respiratory Effort, Clear to Auscultation Cardiovascular: NL Sounds; No Murmurs; No JVD, No Edema Abdominal: NL Sounds; No Tenderness; No Distention Extremities: No Clubbing, Cyanosis Neurological: - - Drowsy, but responds to voice. Alert to self. Nutrition: Taking PO's Result Diagrams: 12/11/17 05:14 12/11/17 05:13 Microbiology and Other Data: Microbiology 11/27/17 22:33 Nasal Screen MRSA (PCR) - Final Nasal Mrsa Not Detected Assess/Plan/Problems-Billing Ms Deleon is a 77 yo F who has a h/o parkinson's, diabetes, HTN and HLD who is a resident of enhanced assisted living at [facility] s/p revision of left hip arthroplasty and ORIF on 11/28. Hospital course complicated by blood loss anemia, UTI, electrolyte abnormalities, and surgical site infection - Patient Problems (1) Periprosthetic fracture around internal prosthetic left hip joint, initial encounter Comment: - POD 13 left hip arthroplasty and ORIF - After new purulent drainage noted to surgical site plan was to take patient to OR for wash out tomorrow, but family and patient declined and prefer comfort and less invasive measures - Cont Cipro. D/C Flagyl. Waiting sensitivity results. - Pain controlled - Family would like to defer PT today as patient becomes uncomfortable during PT - Lima to aide in wound healing (2) Acute blood loss anemia Comment: - Hgb noted to be 7.9 last evening therefore one unit PRBC given to optimize for surgery. H/H now 8.6/ - Continue ferrous sulfate as ordered (3) DNR (do not resuscitate) Comment: - MOLST in chart. DNR/DNI (4) Hypocalcemia Comment: - Currently 7.9 which is improved from previously. (5) DVT prophylaxis Comment: - Lovenox per Dr. Fry (6) Hyponatremia Comment: - Improved from 128 to 131 (7) UTI (urinary tract infection) Comment: - On UA 12/06; culture grew klebsiella - Continue cipro (8) Hypertension Comment: - Normotensive - History of TIA from hypertensive urgency - Hold HCTZ due to Hyponatremia - Continue home metoprolol, and lisinopril - Continue prn Hydralazine as needed (9) Parkinson disease Comment: - Continue selegiline, amantadine and sinemet - Advanced disease with mild dementia (10) Type 2 diabetes mellitus Comment: - BGs in 80 to 90s fasting, therefore, lantus reduced from 40 units to 30 units. - Continue lispro SS - Continue to monitor. Status and Disposition: Inpatient. Plan to d/c to hospice tomorrow if medically ready and plan is in place Attending: Howard Wilson
[2017-12-11] MEDS: Enoxaparin(*) 40 MG/0.4 ML SYR SUBCUT SCH (13:44)
[2017-12-11] MEDS: oxyCODONE TAB* 5 MG TAB PO PRN ×2 (14:35→18:10)
[2017-12-11] MEDS: Lidocaine PATCH 5%* 1 PATCH TRANSDERM SCH (18:53)
[2017-12-11] MEDS: LEVODOPA PO SCH (20:22)
[2017-12-12] MEDS: oxyCODONE TAB* 5 MG TAB PO PRN ×2 (01:21→05:35)
[2017-12-12] MEDS: Ciprofloxacin 400MG IVPREMIX(* 400 MG/200 ML BAG IVPB SCH (04:19)
[2017-12-12] MEDS: Omeprazole CAP* 20 MG PO SCH (05:35)
[2017-12-12] MEDS: Lidocaine Patch REMOVE* 1 NOTE MISC PATCH OFF SCH (05:42)
[2017-12-12 07:46] VITALS: BP 167/64
[2017-12-12] MEDS: Cyanocobalamin TAB* 500 MCG PO SCH (08:00)
[2017-12-12] MEDS: Metoprolol Tartrate TAB* 50 mg PO SCH (08:00)
[2017-12-12] MEDS: Lisinopril TAB* 10 MG PO SCH (08:00)
[2017-12-12] MEDS: Atorvastatin* 20 MG TAB PO SCH (08:01)
[2017-12-12] MEDS: Ferrous Sulfate TAB* 325 MG PO SCH (08:01)
[2017-12-12] MEDS: oxyCODONE SR TAB(*) 10 MG TAB.SR PO SCH (08:01)
[2017-12-12] MEDS: Docusate CAP* 100 MG PO SCH (08:01)
[2017-12-12] MEDS: guaiFENesin ER TAB 600 MG PO SCH (08:02)
[2017-12-12] MEDS: LEVODOP PO SCH (08:02)
[2017-12-12] MEDS: CARBIDOPA PO SCH (08:02)
[2017-12-12] MEDS: Magnesium Oxide TAB* 400 MG PO SCH (08:03)
[2017-12-12] MEDS: PARoxetine HCL TAB* 20 MG PO SCH (08:03)
[2017-12-12] MEDS: Amantadine CAP* 100 MG PO SCH (08:04)
[2017-12-12] MEDS: SELEGILINE 5 MG PO SCH (08:04)
[2017-12-12] MEDS ORDERED: Insulin GLARGINE(*) 1 UNITS UNIT SUBCUT SCH (09:00)
--- NOTE | 2017-12-12 09:12 | DCNOTE ---
Subjective Date of Service: 12/12/17 Interval History: Patient resting in bed with hospital aide helping her eat breakfast. Reports pain in left hip is tolerable. Reiterates that she does not want surgery and states understanding of her discharge to the Hospice Residence today. Family History: Unchanged from Admission Social History: Unchanged from Admission Past Medical History: Unchanged from Admission Objective Active Medications: Acetaminophen (Tylenol Tab*) 650 mg PO Q4H PRN PRN Reason: FEVER/PAIN Last Admin: 12/09/17 06:12 Dose: 650 mg Albuterol (Ventolin 2.5 Mg/3 Ml Neb.Joaquina*) 2.5 mg INH [id number] AWAKE PRN PRN Reason: SOB/WHEEZING Amantadine HCl (Symmetrel Cap*) 100 mg PO BID [facility] Last Admin: 12/12/17 08:04 Dose: 100 mg Atorvastatin Calcium (Lipitor*) 20 mg PO DAILY [facility] Last Admin: 12/12/17 08:01 Dose: 20 mg Carbidopa/Levodopa (Sinemet 25/100 Tab(*)) 2 tab PO TID [facility] Last Admin: 12/12/17 08:02 Dose: 2 tab Carbidopa/Levodopa (Carbidopa-Levo Er 25-100 Tab) 1 tab PO BEDTIME [facility] Last Admin: 12/11/17 20:22 Dose: 1 tab Cyanocobalamin (Vitamin B12 Tab*) 1,000 mcg PO DAILY [facility] Last Admin: 12/12/17 08:00 Dose: 1,000 mcg Cyclobenzaprine HCl (Flexeril Tab*) 10 mg PO Q8H PRN PRN Reason: SPASMS Last Admin: 12/03/17 18:45 Dose: 10 mg Dextrose (D50w Syringe 50 Ml*) 12.5 gm IV PUSH .FOR FS < 60 - SS PRN PRN Reason: FS < 60 Docusate Sodium (Colace Cap*) 100 mg PO BID [facility] Last Admin: 12/12/17 08:01 Dose: 100 mg Enoxaparin Sodium (Lovenox(*)) 40 mg SUBCUT Q24H [facility] Last Admin: 12/11/17 13:44 Dose: 40 mg Ferrous Sulfate (Ferrous Sulfate Tab*) 325 mg PO BID [facility] Last Admin: 12/12/17 08:01 Dose: 325 mg Gabapentin (Neurontin Cap(*)) 200 mg PO BEDTIME [facility] Last Admin: 12/11/17 20:20 Dose: 200 mg Gabapentin (Neurontin Cap(*)) 100 mg PO 0900,1500 [facility] Last Admin: 12/11/17 18:42 Dose: Not Given Guaifenesin (Mucinex*) 600 mg PO BID [facility] Last Admin: 12/12/17 08:02 Dose: 600 mg Hydralazine HCl (Apresoline Iv*) 5 mg IV SLOW PU Q6H PRN PRN Reason: SBP>170 Last Admin: 11/29/17 11:32 Dose: 5 mg Ciprofloxacin/Dextrose (Cipro 400 Mg Ivpremix(*)) 400 mg in 200 mls @ 200 mls/ hr IVPB Q12H [facility] Last Admin: 12/12/17 04:19 Dose: 200 mls/hr Insulin Glargine (Lantus(*)) 30 units SUBCUT 0900 [facility] Insulin Human Lispro (Humalog*) 0 units SUBCUT [facility]; Protocol Last Admin: 12/11/17 18:43 Dose: Not Given Lidocaine (Lidoderm 5% Patch*) 1 patch TRANSDERM DAILY@1800 [facility] Last Admin: 12/11/17 18:53 Dose: Not Given Lisinopril (Prinivil Tab*) 30 mg PO DAILY [facility] Last Admin: 12/12/17 08:00 Dose: 30 mg Magnesium Oxide (Magox 400 Tab*) 400 mg PO BID [facility] Last Admin: 12/12/17 08:03 Dose: 400 mg Melatonin (Melatonin) 1 mg PO BEDTIME PRN PRN Reason: SLEEP Metoprolol Tartrate (Lopressor Tab*) 50 mg PO Q12HR [facility] Last Admin: 12/12/17 08:00 Dose: 50 mg Omeprazole (Prilosec Cap*) 20 mg PO 0600 [facility] Last Admin: 12/12/17 05:35 Dose: 20 mg Oxycodone HCl (Oxycontin(*)) 10 mg PO BID [facility] Last Admin: 12/12/17 08:01 Dose: 10 mg Oxycodone HCl (Roxycodone Tab*) 10 mg PO Q4H PRN PRN Reason: PAIN Last Admin: 12/12/17 05:35 Dose: 10 mg Paroxetine HCl (Paxil Tab*) 20 mg PO DAILY [facility] Last Admin: 12/12/17 08:03 Dose: 20 mg Pharmacy Profile Note (Lidocaine Patch Remove*) 1 note PATCH OFF DAILY@0600 [facility] Last Admin: 12/12/17 05:42 Dose: Not Given Polyethyl Glycol/Propylene Glycol (Lubricant Eye Drops) 1 drop BOTH EYES Q2H PRN PRN Reason: DRY EYE Last Admin: 12/01/17 13:49 Dose: 1 drop Polyethylene Glycol/Electrolytes (Miralax*) 17 gm PO DAILY PRN PRN Reason: CONSTIPATION Last Admin: 11/29/17 16:37 Dose: 17 gm Selegiline HCl (Eldepryl Tab*) 5 mg PO DAILY [facility] Last Admin: 12/12/17 08:04 Dose: 5 mg Senna (Senokot Tab*) 1 tab PO BEDTIME PRN PRN Reason: CONSTIPATION Last Admin: 12/06/17 05:43 Dose: 1 tab Sodium Chloride (Sodium Chloride 0.65% Nasal [place]*) 1 spray BOTH NARES Q4H PRN PRN Reason: CONGESTION Vital Signs - 8 hr 12/12/17 12/12/17 12/12/17 01:21 03:19 03:40 Temperature 97.3 F Pulse Rate 57 Respiratory 17 16 16 Rate Blood Pressure 140/43 (mmHg) O2 Sat by Pulse 99 Oximetry 12/12/17 12/12/17 12/12/17 05:35 07:16 08:00 Temperature 97.6 F Pulse Rate 58 Respiratory 18 16 18 Rate Blood Pressure 167/64 (mmHg) O2 Sat by Pulse 98 98 Oximetry 12/12/17 08:01 Temperature Pulse Rate Respiratory 18 Rate Blood Pressure (mmHg) O2 Sat by Pulse Oximetry Oxygen Devices in Use Now: None Appearance: Comfortable, alert, NAD Eyes: No Scleral Icterus Ears/Nose/Mouth/Throat: Mucous Membranes Moist Neck: NL Appearance and Movements; NL JVP Respiratory: Symmetrical Chest Expansion and Respiratory Effort Cardiovascular: NL Sounds; No Murmurs; No JVD - Bilat LE edema with left > right Abdominal: NL Sounds; No Tenderness; No Distention Extremities: No Clubbing, Cyanosis Neurological: NL Sensation Nutrition: Taking PO's Result Diagrams: 12/11/17 05:14 12/11/17 05:13 Microbiology and Other Data: Microbiology 11/27/17 22:33 Nasal Screen MRSA (PCR) - Final Nasal Mrsa Not Detected R ORDERED: MRSA/SA SSTI, Culture & Stain Procedure Result Reported Site MRSA/S. aureus SSTI PCR Final 12/09/17- 1512 ML Organism 1 MRSA NEGATIVE Organism 2 S.AUREUS NEGATIVE Wound/Misc Gram Stain Final 12/09/17- 1404 ML 1+ Epithelial Cells 1+ Neutrophils 2+ Gram Positive Bacilli 2+ Gram Positive Cocci in Chains, resembling Strep 1+ Gram Positive Cocci 2+ Gram Negative Coccobacilli Wound/Misc Culture Final 12/11/17- 1319 ML Organism 1 KLEBSIELLA PNEUMONIAE Quantity 1+ Organism 2 FINEGOLDIA MAGNA Quantity 3+ Organism 3 NORMAL JANIS Quantity 2+ Anaerobic sensitivities are not routinely performed. Positive isolates will be saved for one week. Please call the Microbiology Laboratory if susceptibility testing is needed. Assess/Plan/Problems-Billing Ms Deleon is a 77 yo F who has a h/o parkinson's, diabetes, HTN and HLD who is a resident of [facility] assisted living at [facility] s/p revision of left hip arthroplasty and ORIF on 11/28. Hospital course complicated by blood loss anemia, UTI, electrolyte abnormalities, and surgical site infection - Patient Problems (1) Periprosthetic fracture around internal prosthetic left hip joint, initial encounter Comment: - POD 14 left hip arthroplasty and ORIF - After new purulent drainage noted to surgical site plan was to take patient to OR for wash out , but family declined as they prefer comfort and less invasive measures. - Patient to be discharged to Hospice today. Discussed discharge with ortho PA also and recommendations include continue Lovenox (see below) and change dressing daily or as needed when soiled with gauze and tape - Cont Cipro PO 500 mg PO Q12 hrs for a total of 14 days. Today is day 3 - Awaiting further sensativities for wound culture. - Pain controlled - Lima to aide in wound healing - NWB left LE (2) Acute blood loss anemia Comment: - H/H 8.08/08 - Continue ferrous sulfate as ordered (3) DVT prophylaxis Comment: - Lovenox for total of 30 days post op. Operation on 11/28/17 (4) UTI (urinary tract infection) Comment: - On UA 12/06; culture grew klebsiella - Continue cipro as above (5) Hypertension Comment: - Mildly hypertensive today. Asymptomatic - History of TIA from hypertensive urgency - Continue HCTZ as PCP prescribed as Hyponatremia has resolved - Continue home metoprolol and lisinopril (6) Parkinson disease Comment: - Continue selegiline, amantadine and sinemet - Advanced disease with mild dementia (7) Type 2 diabetes mellitus Comment: - BGs in 85 fasting today, therefore, lantus reduced from 30 units to 25 units for discharge - Resume other DM home medications as previously prescribed. (8) DNR (do not resuscitate) Comment: - MOLST in chart. DNR/DNI Status and Disposition: Inpatient. Plan to d/c to hospice today at 1100 Attending: Fidencio Vincent
--- NOTE | 2017-12-12 10:56 | PN ---
Progress Note - Progress Note Date of Service: 12/12/17 SOAP: Subjective: [] Patient seen and examined at bedside. She is more coherent today. She has left hip pain with any movement. Objective: []General: Appears comfortable. NAD. LLE: Dressing was changed, it was again soaked through with brown purulent drainage. Incision macerated with large amount of active brown purulent drainage noted from proximal aspect. No erythema surrounding wound, incision is intact. Dp2+, wiggles toes to command. Calves are soft, nontender. Assessment: S/P revision left hip hemiarthroplasty, ORIF left periprosthetic femur fx Infection of left hip Plan: NWB left LE Dressing change: Dressing change with gauze, abd's, tape daily and as needed Andrea are in place, despite 14 days post op I do not feel the wound will remain adequately approximated if andrea are removed due to large amount of drainage. Andrea are to be left in place for now. In the future if incision is well healed and nadrea are bothersome to patient we can revisit removing them. Continue lovenox for a total of 30 days post op DC to hospice residence today per medicine, will continue antibiotics Vital Signs Temp 97.6 F 12/12/17 07:16 Pulse 58 12/12/17 07:16 Resp 16 12/12/17 11:05 BP 167/64 12/12/17 07:16 Pulse Ox 98 12/12/17 08:00 Intake & Output 12/11/17 12/12/17 12/12/17 18:59 06:59 18:59 Intake Total 350 1300 240 Output Total 1999 1625 Balance -1650 -325 240 Intake: IV Fluids 40 NS (0.9%) 40 IVPB 210 400 ABX - CIPROFLOXACIN 210 400 Oral 100 900 240 Output: [place] 1999 1625 Other: # Bowel Movements 0 Estimated Stool Amount Large Laboratory Last Values WBC 6.9 10^3/ul (3.5-10.8) 12/11/17 05:14 RBC 2.96 10^6/ul (4.00-5.40) L 12/11/17 05:14 Hgb 8.6 g/dl (12.0-16.0) L 12/11/17 05:14 Hct 26 % (35-47) L 12/11/17 05:14 MCV 87 fL (80-97) 12/11/17 05:14 MCH 29 pg (27-31) 12/11/17 05:14 MCHC 33 g/dl (31-36) 12/11/17 05:14 RDW 16 % (10.5-15) H 12/11/17 05:14 Plt Count 291 10^3/ul (150-450) 12/11/17 05:14 MPV 6.7 um3 (7.4-10.4) L 12/11/17 05:14 Neut % (Auto) 83.1 % (38-83) H 12/11/17 05:14 Lymph % (Auto) 8.4 % (25-47) L 12/11/17 05:14 [place] % (Auto) 7.8 % (0-7) H 12/11/17 05:14 Eos % (Auto) 0.4 % (0-6) 12/11/17 05:14 Baso % (Auto) 0.3 % (0-2) 12/11/17 05:14 Absolute Neuts (auto) 5.7 10^3/ul (1.5-7.7) 12/11/17 05:14 Absolute Lymphs (auto) 0.6 10^3/ul (1.0-4.8) L 12/11/17 05:14 Absolute Monos (auto) 0.5 10^3/ul (0-0.8) 12/11/17 05:14 Absolute Eos (auto) 0 10^3/ul (0-0.6) 12/11/17 05:14 Absolute Basos (auto) 0 10^3/ul (0-0.2) 12/11/17 05:14 Absolute Nucleated RBC 0 10^3/ul 12/11/17 05:14 Immature Gran % 7 % (0-9) 12/07/17 04:04 Neutrophils % 75 % (38-83) 12/07/17 04:04 Band Neutrophils % 5 % (0-8) 12/07/17 04:04 Lymphocytes % 14 % (25-47) L 12/07/17 04:04 Monocytes % 4 % (0-7) 12/07/17 04:04 Eosinophils % 0 % (0-6) 12/07/17 04:04 Basophils % 0 % (0-2) 12/07/17 04:04 Myelocytes % 2 % (0-1) H 12/07/17 04:04 Nucleated RBC % 0 12/11/17 05:14 Abs Neuts (Manual) 10.3 10^3/ul (1.5-7.7) H 12/07/17 04:04 Abs Lymphs (Manual) 1.9 10^3/ul (1.0-4.8) 12/07/17 04:04 Abs Monocytes (Manual) 0.5 10^3/ul (0-0.8) 12/07/17 04:04 Absolute Eos (Manual) 0 10^3/ul (0-0.6) 12/07/17 04:04 Abs Basophils (Manual) 0 10^3/ul (0-0.2) 12/07/17 04:04 Toxic Granulation 1+ 12/07/17 04:04 Normal RBC Morphology Not Reportable 12/07/17 04:04 Polychromasia 1+ 12/07/17 04:04 Hypochromasia 1+ 12/07/17 04:04 INR (Anticoag Therapy) 1.33 (0.77-1.02) H 12/01/17 08:14 APTT 27.8 seconds (26.0-36.3) 12/01/17 08:14 Sodium 131 mmol/L (135-145) L 12/11/17 05:13 Potassium 4.2 mmol/L (3.5-5.0) 12/11/17 05:13 Chloride 100 mmol/L (101-111) L 12/11/17 05:13 Carbon Dioxide 24 mmol/L (22-32) 12/11/17 05:13 Anion Gap 7 mmol/L (2-11) 12/11/17 05:13 BUN 14 mg/dL (6-24) 12/11/17 05:13 Creatinine 0.68 mg/dL (0.51-0.95) 12/11/17 05:13 Est GFR ( Amer) 101.8 (>60) 12/11/17 05:13 Est GFR (Non-Af Amer) 84.1 (>60) 12/11/17 05:13 BUN/Creatinine Ratio 20.6 (8-20) H 12/11/17 05:13 Glucose 84 mg/dL (70-100) 12/11/17 05:13 POC Glucose (mg/dL) 85 mg/dL (70-100) 12/12/17 07:52 Hemoglobin A1c 7.5 % (4.0-5.6) H 11/29/17 04:39 Calcium 7.9 mg/dL (8.6-10.3) L 12/11/17 05:13 Ionized Calcium 4.49 mg/dL (4.65-5.28) L 12/08/17 07:03 Magnesium 1.3 mg/dL (1.9-2.7) L 12/08/17 04:33 Iron 15 ug/dL (50-212) L 12/10/17 06:04 TIBC 178 mcg/dL (250-450) L 12/10/17 06:04 % Saturation 8 % (15-55) L 12/10/17 06:04 Unsat Iron Binding 163 ug/dL 12/10/17 06:04 Transferrin 127 mg/dL (203-362) L 12/10/17 06:04 Ferritin 446.3 ng/mL (11-307) H 12/10/17 06:04 Total Bilirubin 1.10 mg/dL (0.2-1.0) H 11/29/17 17:35 AST 21 U/L (13-39) 11/29/17 17:35 ALT < 3 U/L (7-52) L 11/29/17 17:35 Alkaline Phosphatase 71 U/L (34-104) 11/29/17 17:35 C-Reactive Protein 275.23 mg/L (<8.01) H 12/10/17 06:04 Total Protein 5.5 g/dL (6.4-8.9) L 11/29/17 17:35 Albumin 2.1 g/dL (3.2-5.2) L 12/09/17 05:50 Globulin 2.8 g/dL (2-4) 11/29/17 17:35 Albumin/Globulin Ratio 1.0 (1-3) 11/29/17 17:35 Urine Color Yellow 12/07/17 03:47 Urine Appearance Turbid 12/07/17 03:47 Urine pH 5.0 (5-9) 12/07/17 03:47 Ur Specific [place] 1.008 (1.010-1.030) L 12/07/17 03:47 Urine Protein 2+(100 mg/dl) (Negative) A 12/07/17 03:47 Urine Ketones Negative (Negative) 12/07/17 03:47 Urine Blood 1+ (Negative) A 12/07/17 03:47 Urine Nitrate Positive (Negative) A 12/07/17 03:47 Urine Bilirubin Negative (Negative) 12/07/17 03:47 Urine Urobilinogen Negative (Negative) 12/07/17 03:47 Ur Leukocyte Esterase 3+ (Negative) A 12/07/17 03:47 Urine WBC (Auto) 3+(>20/hpf) (Absent) A 12/07/17 03:47 Urine RBC (Auto) 3+(>10/hpf) (Absent) A 12/07/17 03:47 Ur Squamous Epith Cells Present (Absent) A 12/07/17 03:47 Ur Transition Epith Cell Present (Absent) A 12/07/17 03:47 Urine Bacteria 3+ (Absent) A 12/07/17 03:47 Urine Osmolality 245 mOsm/kg (150-1150) 12/07/17 03:47 Ur Random Sodium < 18 mmol/L 12/07/17 03:47 Urine Glucose Negative (Negative) 12/07/17 03:47 Hepatitis Be Antibody Negative (Negative) 11/29/17 20:07 Hepatitis Be Antigen Negative (Negative) 11/29/17 20:07 Hepatitis C Antibody Nonreactive (Nonreactive) 11/29/17 20:07 HIV 1&2 Antibody Rapid Nonreactive (Nonreactive) 11/29/17 20:07 Blood Type O Positive 12/11/17 05:14 Antibody Screen Negative 12/11/17 05:14 Crossmatch See Detail 12/08/17 04:33
[2017-12-12] MEDS: Insulin LISPRO* 1 UNITS UNIT SUBCUT SCH (11:03)
[2017-12-12] MEDS: Gabapentin CAP(*) 100 MG PO SCH (11:05)
--- NOTE | 2017-12-12 11:11 | DS ---
AMENDED REPORT NOW INCLUDES DESIGNATED COSIGNER CC: Dr. Fry; Loly Cardona MD * DISCHARGE SUMMARY: DATE OF ADMISSION: 11/27/17 DATE OF DISCHARGE: 12/12/17 ATTENDING PHYSICIAN: Dr. Vincent * (dictated by Divya Castro NP). PRIMARY CARE PHYSICIAN: Geri Cardona MD PRIMARY DIAGNOSES: 1. Left periprosthetic hip fracture. 2. Status post revision left hip hemiarthroplasty, revision and open reduction and internal fixation of periprosthetic fracture. 3. Surgical wound infection. CONSULTATIONS WHILE IN THE HOSPITAL: Dr. Fry, Orthopedic. PROCEDURES WHILE IN THE HOSPITAL: Status post revision left hip hemiarthroplasty, ORIF left periprosthetic femur fracture. PERTINENT STUDIES WHILE IN THE HOSPITAL: CT, extremity, lower left, without contrast. Impression: Periprosthetic fracture along the lesser trochanter of the femoral component of the left hip. MEDICATIONS: Discontinued medications: No meds were discontinued. Changed home medications: 1. Lantus 32 units in the morning changed to 25 units in the morning New medications: 1. Lovenox 40 mg subcu q.24 hours for a total of 30 days from postop day, which was 11/28/17. 2. OxyContin 10 mg p.o. b.i.d. 3. Cipro 500 mg PO BID (total of 14 days) Continued home medications: Xanax 0.25 mg 1 p.o. q.8 hours as needed for anxiety. Paroxetine 20 mg daily. Tylenol 650 mg every 6 hours as needed. Amantadine 100 mg p.o. b.i.d. Artificial tears 1 drop both eyes every 2 hours as needed. Aspirin 81 mg daily. Carbidopa-levodopa 25/100 one tab daily at bedtime. Colace 100 mg 2 capsules p.o. b.i.d. p.r.n. Cyanocobalamin 1000 mcg daily. Gabapentin 100 mg p.o. b.i.d. Gabapentin 200 mg p.o. at bedtime. Guaifenesin as needed. Lisinopril/hydrochlorothiazide 20/12.5 one p.o. daily. Magnesium oxide 400 mg p.o. b.i.d. Melatonin 3 mg at bedtime p.r.n. Metformin 500 mg p.o. b.i.d. Metoprolol tartrate 50 mg p.o. b.i.d. MiraLAX 17 g every 24 hours as needed. Omeprazole 20 mg daily. Oxycodone 5 to 10 mg every 4 hours as needed for pain. Simvastatin 40 mg p.o. daily. Selegiline 5 mg p.o. daily. Risamine ointment apply to buttocks topically 1 time a day. ALLERGIES: PENICILLIN. HISTORY OF PRESENT ILLNESS: This is a 77-year-old female with a past medical history of Parkinson's, diabetes, hypertension, who was initially at assisted living when she fell on 11/11/17. She underwent a left hemiarthroplasty on 11/13/17 and was discharged to acute rehab on 11/25/17. It was unclear what happened, but she developed significant pain on the left hip and presented to our emergency room on 11/27/17 and had imaging that showed a periprosthetic fracture involving the lesser trochanter. During the hospital stay, Dr. Fry was consulted and she underwent a revision left hemiarthroplasty and ORIF of the periprosthetic fracture. The patient's hospital stay has been complicated by anemia, UTI, electrolyte abnormalities, and most recently surgical site infection. On 12/10/17, it was noted that the patient had new purulent drainage from the surgical site and nursing reports the patient was frequently incontinent with large amounts of urine, therefore saturating her dressing. Ortho was contacted, who discussed need for surgical washout. Family expressed that the patient does not want any further surgery at this time. The family and patient have decided they would like comfort measures/less invasive measures only. Therefore, patient will be discharged to hospice. In addition, it should be noted that Dr. Kirkland was consulted and the patient has been placed on antibiotic therapy, which includes Cipro. Once sensitivities of wound culture further result, we may consider changing antibiotics if needed. REVIEW OF SYSTEMS: Please see discharge note. PHYSICAL EXAMINATION: Please see discharge note. DISCHARGE PLAN: The patient will be discharged to the hospice residence today. Dressing should be changed daily or as needed when saturated. It should be changed with gauze and tape. Claus will remain intact per ortho for comfort. As mentioned above, the patient should be on Lovenox for a total of 30 days since the postop day. The patient should also continue Cipro as mentioned above. It should be noted that we are awaiting further sensitivity results. This is a summarized report of a complex medical history and hospital stay. For further details, please see the entire medical record. TIME SPENT: For this discharge, 45 minutes, the majority of the time was spent [id number] with the patient discussing discharge plans and instructions. DIVYA CASTRO NP [id number]/CPS #: [id number] CARLEE
--- NOTE | 2017-12-12 13:05 | PN ---
PROGRESS NOTE: DATE OF PROGRESS NOTE: 12/12/17 SUBJECTIVE: The patient is in bed, comfortable. She is alert. Her daughter is at her bedside. OBJECTIVE: Left lower extremity: The patient's thigh is soft. Her incision is intact with andrea. Superior edge has purulent drainage. No significant cellulitis. Distally, she is neurovascularly intact. ASSESSMENT AND PLAN: Ms. Deleon is a 77-year-old female with multiple medical comorbidities who initially had a femoral neck fracture that was fixed with hemiarthroplasty on 11/13/17 at [facility]. She then had an unclear injury with periprosthetic fracture around the left hip hemiarthroplasty on 11/27/17. The patient's family requested her to be transferred to [facility] to my care for her open reduction internal fixation of the left periprosthetic femur fracture. I did accept the patient in transfer and hospitalist group was good enough to admit. The patient's family had full understanding that the morbidity and mortality for surgery was high and wished to proceed. The patient had the open reduction internal fixation of the left periprosthetic femur fracture with revision of the femoral stem on 11/28/17. Postoperatively, she did suffer from anemia. She was very slow to mobilize. She remained delirious. She did develop leukocytosis and was found to have Klebsiella pneumoniae growing in infected urine culture. Approximately 5 days postoperatively, the patient started to have purulent drainage from her hip incision. She was placed on additional antibiotics and we did monitor her. Unfortunately over the last two days, the patient's IV antibiotics have not helped the drainage at her hip. I discussed with the patient's daughter that I feel the hip is infected. Wound cultures did also grow Klebsiella, making the likely source is from her urine infection. The patient's daughters and I all discussed operative and nonoperative treatment options. My best medical recommendation to clear the hip infection was to have an open I and D in the operating room. The patient was alert enough to discuss her options with her daughters and did not wish to proceed with any additional surgery. She wished to be comfort care and placed on hospice. She clearly was competent and alert to say no and decline surgery. Of course, we respect her wishes. I had long conversations with both daughters about the patient's choice and they agreed that they respected their mother's decision as well. The patient will be transferred to [facility] today. I do recommend using the abduction pillow for rolling the patient and for any transfers. Please contact me with any questions. [id number]/CPS #: [id number] CARLEE
== END 2017-12-12 11:20 | disposition hospice, inpatient (51) | DRG 467 ==
LOC: SSU 21:34 → ICU 11-28 23:29 → SSU 11-29 18:12
PROVIDERS: ADMIT Hospitalist; ATTEND Internal Medicine
PROC: 0SWB0JZ Revision of Synthetic Substitute in Left Hip Joint, Open Approach (ICD-10-PCS; 2017-11-28)
PROC: 0QS704Z Reposition Left Upper Femur with Internal Fixation Device, Open Approach (ICD-10-PCS; 2017-11-28)
PROC: 30233N1 Transfusion of Nonautologous Red Blood Cells into Peripheral Vein, Percutaneous Approach (ICD-10-PCS; principal; 2017-11-29)
DX: S72.142A Displaced intertrochanteric fracture of left femur, initial encounter for closed fracture (principal); M97.02XA Periprosthetic fracture around internal prosthetic left hip joint, initial encounter; I50.32 Chronic diastolic (congestive) heart failure; E87.1 Hypo-osmolality and hyponatremia; D62 Acute posthemorrhagic anemia; N39.0 Urinary tract infection, site not specified; T81.41XA Infection following a procedure, superficial incisional surgical site, initial encounter; K59.00 Constipation, unspecified; E11.65 Type 2 diabetes mellitus with hyperglycemia; E11.649 Type 2 diabetes mellitus with hypoglycemia without coma; L89.159 Pressure ulcer of sacral region, unspecified stage; E83.51 Hypocalcemia; B96.1 Klebsiella pneumoniae [K. pneumoniae] as the cause of diseases classified elsewhere; Y79.2 Prosthetic and other implants, materials and accessory orthopedic devices associated with adverse incidents; Y92.239 Unspecified place in hospital as the place of occurrence of the external cause; W19.XXXA Unspecified fall, initial encounter; G20 Parkinson's disease; E78.5 Hyperlipidemia, unspecified; E11.9 Type 2 diabetes mellitus without complications; G89.29 Other chronic pain; M54.30 Sciatica, unspecified side; F32.9 Major depressive disorder, single episode, unspecified; K21.9 Gastro-esophageal reflux disease without esophagitis; M19.90 Unspecified osteoarthritis, unspecified site; G56.31 Lesion of radial nerve, right upper limb; Z66 Do not resuscitate; M54.5 Low back pain; I45.10 Unspecified right bundle-branch block; I35.1 Nonrheumatic aortic (valve) insufficiency; R58 Hemorrhage, not elsewhere classified; S70.02XA Contusion of left hip, initial encounter; I11.0 Hypertensive heart disease with heart failure; Y92.129 Unspecified place in nursing home as the place of occurrence of the external cause; Z90.710 Acquired absence of both cervix and uterus; Z79.4 Long term (current) use of insulin; Z88.0 Allergy status to penicillin; Z86.73 Personal history of transient ischemic attack (TIA), and cerebral infarction without residual deficits; Z79.82 Long term (current) use of aspirin
CPT/HCPCS: 36415; 71045; 76001; 80048; 80053; 81003; 81015; 82040; 82330; 82728; 83036; 83540; 83550; 83735; 83935; 84300; 85014; 85018; 85025; 85027; 85610; 85730; 86140; 86703; 86707; 86803; 86850; 86900; 86901; 86905; 86922; 87070; 87077; 87086; 87186; 87205; 87350; 87640; 87641; 88300; 93005; A9270-GY; C1776; G8978-GP-CM; G8979-GP-CJ; G8987-GO-CM; G8988-GO-CL; J0360; J0610; J0744; J1170; J1644; J1650; J2270; J2405; J2704; J2710; J3010; J3475; J3490; P9016; P9040; P9045